=== PATIENT | male | born 1975 | race Caucasian/White ===

== ENCOUNTER 2017-12-10 19:43 | Emergency (ER) | payer BC, SELFPAY ==
[2017-12-10 20:13] VITALS: BP 123/81; PULSE 88; RESP 20; TEMP 36.9; O2SAT 98; BMI 26.5
[2017-12-10 20:27] LABS: UTC Influenza A Antigen Negative (Negative); UTC Influenza B Antigen Negative (Negative)
--- NOTE | 2017-12-10 20:45 | HMH.EDUTC ---
[facility] [place] Impression: Viral upper respiratory illness GERD (gastroesophageal reflux disease) Qualifiers: Esophagitis presence: without esophagitis Qualified Code(s): K21.9 - Gastro-esophageal reflux disease without esophagitis Disposition: Home, Self-Care Condition on Discharge: Good Instructions: Gastroesophageal Reflux Disease (Alternative Therapy), DI for Gastroesophageal Reflux Disease (GERD), DI for Viral Upper Respiratory Infection -- Adult, GERD Diet Additional Instructions: Follow up with family doctor as advised in [facility] If you began to run fever may want to get retested for flu Do not lay down for 30 minutes after eating Avoid spicy or greasy food Return if needed If you began to have trouble breathing or worsening of symptoms go straight to ER Referrals: Jessie Ferrell PA [Primary Care Provider] - Forms: Work/School Release Time of Disposition: 20:57 Medical Decision Making - Medical Records Medical records reviewed: Yes: I reviewed the patient's medical records. Vital Signs: 12/10/17 20:13 Temperature 98.5 F Temperature Source Temporal Artery Scan Pulse Rate [Right] 88 Respiratory Rate 20 Blood Pressure [Right Arm] 123/81 Blood Pressure Mean [Right Arm] 95 Blood Pressure Source [Right Arm] Automatic Cuff Blood Pressure Position [Right Arm] Sitting 02 Sat by Pulse Oximetry 98 Oxygen Delivery Method Room Air - Lab Data Lab Results 12/10/17 20:16: Influenza Type A Ag Negative, Influenza Type B Ag Negative Orders (Tests/Meds): ED MEDICATIONS Discontinued Medications Generic Name Dose Route Start Last Admin Trade Name Freq PRN Reason Stop Dose Admin Belladonna Alkaloids 60 ml 12/10/17 20:53 12/10/17 21:06 Gi Cocktail 60ml Udc PO 12/10/17 20:54 60 ml ONCE ONE Administration - Wilfred Inquiry Pt receiving controlled substance: No Wilfred was queried for this patient: No - Reevaluation(s) Time: 21:11 (Pateint state that medication helped with GERD symptoms and he feels much better) [facility] [place] - General Stated complaint: Stomache pain, throat, FREEMAN Mode of Arrival: Ambulatory Source of Information: Patient Limitations: No Limitations Description of Symptoms (Recalled from Triage Doc. by RN): HEADACHE, NAUSEA TODAY HEENT Symptoms (Recalled from RN notes): No Resp Symptoms (Recalled from RN notes): No Skin Symptoms (Recalled from RN notes): No MS Symptoms (Recalled from RN notes): No Functional Status (Recalled from RN notes): N - History of Present Illness Provider Complaint: Patient state that he has a history of GERD state that he had an eppisode earlier of a flare up and having the burning feeling in his throat from where he belched up stomach acid States that he is also worried that he may have the flu State that his son had it last week and now he is not feeling well and having body aches wants to get tested to see if he has it - Related Data Home Medications Medication Instructions Recorded Confirmed omeprazole 40 mg capsule,delayed 40 mg PO QDAY 12/08/17 release Allergies Allergy/AdvReac Type Severity Reaction Status Date / Time Iodinated Contrast Media - Allergy Intermediate Verified 12/08/17 16:26 Oral and - Worker's Comp Is this a Worker's Comp case?: No [facility] History I have reviewed the patient's past medical history: Yes Medical History: Reports:: Anxiety, Gastroesophageal Reflux Disease(GERD) Other Medical History: Reports: Other Other Surgeries: Yes: Appendectomy, Other Amputation: No Fractures: No - *Social History Smoking Status: Current every day smoker Tobacco Type: cigarettes Alcohol Intake: never Alcohol Intake Frequency:: holidays/special occasions only Substance Use Type: denies use Occupational Status: employed - Psychiatric History Expresses thoughts of harming self/others: None Suicide Plan Description: No Plan Pschychiatric History:: Reports:: Anxiety *Family Hx:: Heart
--- NOTE | 2017-12-10 20:52 | ED_ITS ---
[facility] [place]ression: Viral upper respiratory illness GERD (gastroesophageal reflux disease) Qualifiers: Esophagitis presence: without esophagitis Qualified Code(s): K21.9 - Gastro- esophageal reflux disease without esophagitis Disposition: Home, Self-Care Condition on Discharge: Good Instructions: Gastroesophageal Reflux Disease (Alternative Therapy), DI for Gastroesophageal Reflux Disease (GERD), DI for Viral Upper Respiratory Infection -- Adult, GERD Diet Additional Instructions: Follow up with family doctor as advised in [facility] If you began to run fever may want to get retested for flu Do not lay down for 30 minutes after eating Avoid spicy or greasy food Return if needed If you began to have trouble breathing or worsening of symptoms go straight to ER Referrals: Jessie Ferrell PA [Primary Care Provider] - Forms: Work/School Release Time of Disposition: 20:57 Medical Decision Making - Medical Records Medical records reviewed: Yes: I reviewed the patient's medical records. Vital Signs: 12/10/17 20:13 Temperature 98.5 F Temperature Source Temporal Artery Scan Pulse Rate [Right] 88 Respiratory Rate 20 Blood Pressure [Right Arm] 123/81 Blood Pressure Mean [Right Arm] 95 Blood Pressure Source [Right Arm] Automatic Cuff Blood Pressure Position [Right Arm] Sitting 02 Sat by Pulse Oximetry 98 Oxygen Delivery Method Room Air - Lab Data Lab Results 12/10/17 20:16: Influenza Type A Ag Negative, Influenza Type B Ag Negative Orders (Tests/Meds): ED MEDICATIONS Discontinued Medications Generic Name Dose Route Start Last Admin Trade Name Freq PRN Reason Stop Dose Admin Belladonna Alkaloids 60 ml 12/10/17 20:53 12/10/17 21:06 Gi Cocktail 60ml Udc PO 12/10/17 20:54 60 ml ONCE ONE Administration - Wilfred Inquiry Pt receiving controlled substance: No Wilfred was queried for this patient: No - Reevaluation(s) Time: 21:11 (Pateint state that medication helped with GERD symptoms and he feels much better) [facility] [place] Stated complaint: Stomache pain, throat, FREEMAN Mode of Arrival: Ambulatory Source of Information: Patient Limitations: No Limitations Description of Symptoms (Recalled from Triage Doc. by RN): HEADACHE, NAUSEA TODAY HEENT Symptoms (Recalled from RN notes): No Resp Symptoms (Recalled from RN notes): No Skin Symptoms (Recalled from RN notes): No MS Symptoms (Recalled from RN notes): No Functional Status (Recalled from RN notes): N - History of Present Illness Provider Complaint: Patient state that he has a history of GERD state that he had an eppisode earlier of a flare up and having the burning feeling in his throat from where he belched up stomach acid States that he is also worried that he may have the flu State that his son had it last week and now he is not feeling well and having body aches wants to get tested to see if he has it - Related Data Home Medications Medication Instructions Recorded Confirmed omeprazole 40 mg capsule,delayed 40 mg PO QDAY 12/08/17 release Allergies Allergy/AdvReac Type Severity Reaction Status Date / Time Iodinated Contrast Media - Allergy Intermediate Verified 12/08/17 16:26 Oral and - Worker's Comp Is this a Worke
== END 2017-12-10 21:18 | disposition home or self-care (01) ==
PROVIDERS: Emergency Provider Nurse Practitioner; Family Provider Physician Assistant; PCP Physician Assistant
DX: J06.9 Acute upper respiratory infection, unspecified (principal); K21.9 Gastro-esophageal reflux disease without esophagitis; F41.9 Anxiety disorder, unspecified; F17.210 Nicotine dependence, cigarettes, uncomplicated
CPT/HCPCS: 87804; 99201

== ENCOUNTER → 2018-03-24 16:28 | Outpatient (CLI) | payer BC, SELFPAY ==
[2018-03-24 16:42] LABS: Basophils # 0.1 K/mm3 (0-0.2); Basophils % 0.8 % (0.1-2.0); Eosinophils # 0.3 K/mm3 (0.0-0.4); Eosinophils % 5.9 % (0.1-12.0); Hemoglobin 15.1 g/dL (14.1-18.0); Lymphocytes # 1.7 K/mm3 (0.7-4.5); Mean Corpuscular Hemoglobin 29.6 pg (27.0-31.2); Mean Corpuscular Volume 84.5 fl (80-94); Mean Platelet Volume 7.4 fl (7.4-10.4); Monocytes # 0.5 K/mm3 (0.1-1.0); Monocytes % 7.8 % (1.7-9.3); Neutrophils # 3.2 K/mm3 (1.8-7.8); Neutrophils % 55.5 % (37.0-80.0); Platelet Count 197 K/mm3 (142-424); Red Blood Count 5.09 M/mm3 (4.60-6.20); Red Cell Distribution Width 12.7 % (11.5-17.5); White Blood Count 5.8 K/mm3 (4.8-10.8)
== END ==
PROVIDERS: Visit Provider Nurse Practitioner
DX: R16.1 Splenomegaly, not elsewhere classified (principal)
CPT/HCPCS: 36415; 85025

== ENCOUNTER → 2018-04-27 12:09 | Outpatient (CLI) | payer BC, SELFPAY ==
--- NOTE | 2018-04-27 12:11 | XR_ITS ---
XR shoulder RT min 2V HISTORY: ITS.REASON: Right shoulder pain ORDERING PHYSICIAN: DEBI Muhammad PATIENT AGE: 42 years Comparison: None FINDINGS: No fracture or dislocation. No lytic or blastic change. There is normal mineralization. The joint spaces are well-preserved. No significant degenerative/arthritic changes. No erosive changes evident. IMPRESSION: Negative, no acute finding
== END ==
PROVIDERS: PCP Physician Assistant; Visit Provider Physician Assistant
DX: M25.511 Pain in right shoulder (principal)
CPT/HCPCS: 73030

== ENCOUNTER → 2018-05-01 10:30 | Outpatient (CLI) | payer BC, SELFPAY ==
[2018-05-01 13:32] LABS: Basophils % 0.5 % (0.1-2.0); Eosinophils % 0.5 % (0.1-12.0); Hematocrit 49.6 % (42.0-52.0); Hemoglobin 16.4 g/dL (14.1-18.0); Lymphocytes # 1.3 K/mm3 (0.7-4.5); Lymphocytes % 17.2 K/mm3 (10-50); Mean Corpuscular HGB Conc 33.2 g/dL (31.8-35.4); Mean Corpuscular Hemoglobin 28.5 pg (27.0-31.2); Mean Corpuscular Volume 85.8 fl (80-94); Mean Platelet Volume 7.8 fl (7.4-10.4); Monocytes # 0.6 K/mm3 (0.1-1.0); Monocytes % 7.3 % (1.7-9.3); Neutrophils # 5.7 K/mm3 (1.8-7.8); Neutrophils % 74.4 % (37.0-80.0); Platelet Count 259 K/mm3 (142-424); Red Blood Count 5.78 M/mm3 (4.60-6.20); Red Cell Distribution Width 12.3 % (11.5-17.5); White Blood Count 7.7 K/mm3 (4.8-10.8)
[2018-05-01 13:50] LABS: Amphetamine/Metha Screen,Urine Negative ng/mL (<1000); Barbiturates Screen,Urine Negative ng/mL (<200); Benzodiazepines Screen,Urine Positive ng/mL (200); Cannabinoid Screen,Urine Negative ng/mL (<50); Cocaine Screen,Urine Negative ng/g (<300); Methadone Screen,Urine Negative ng/mL (<300); Opiate Screen,Urine Negative ng/mL (<300); Phencyclidine Screen,Urine Negative ng/mL (<25)
[2018-05-01 14:15] LABS: Alanine Aminotransferase 19 U/L (12-78); Albumin Level 4.3 gm/dL (3.4-5.0); Albumin/Globulin Ratio 1.3 (1.1-1.8); Alkaline Phosphatase 67 U/L (46-116); Anion Gap 11.9 mEq/L (5-15); Aspartate Amino Transferase 15 U/L (15-37); Bilirubin,Total 1.1 mg/dL (0.2-1.0); Blood Urea Nitrogen 16 mg/dL (7-18); Calcium 8.8 mg/dL (8.5-10.1); Carbon Dioxide 29 mmol/L (21.0-32.0); Chloride 102 mmol/L (98-107); Chol/HDL Ratio 3.3 (1-3.5); Cholesterol 193 mg/dL (140-200); Creatinine,Serum 0.98 mg/dL (0.70-1.30); Estimated Glomerular Filt Rate 84 ml/min (>60); GFR (African American) 102 ML/MIN (>60); Globulin 3.2 gm/dl (1.3-3.2); Glucose 99 mg/dL (74-106); HDL Cholesterol 59 mg/dL (27-67); LDL Cholesterol 111 mg/dL (0-130); Potassium 3.9 mmoL/L (3.5-5.1); Sodium 139 mmol/L (136-145); T4 (Thyroxine) 7.7 ug/dl (4.7-13.3); Total Protein,Serum 7.5 gm/dL (6.4-8.2); Triglycerides 116 mg/dL (30-200); VLDL Cholesterol 23 mg/dL (0-40)
== END ==
PROVIDERS: Visit Provider Nurse Practitioner Family
DX: F41.9 Anxiety disorder, unspecified (principal); R53.83 Other fatigue; Z79.899 Other long term (current) drug therapy
CPT/HCPCS: 80053; 80061; 80305; 84436; 84443; 85025

== ENCOUNTER → 2018-06-18 14:16 | Outpatient (CLI) | payer BC, SELFPAY ==
[2018-06-18 18:39] LABS: Alanine Aminotransferase 19 U/L (12-78); Albumin Level 4.1 gm/dL (3.4-5.0); Albumin/Globulin Ratio 1.3 (1.1-1.8); Alkaline Phosphatase 68 U/L (46-116); Anion Gap 12.9 mEq/L (5-15); Aspartate Amino Transferase 14 U/L (15-37); Bilirubin,Total 0.8 mg/dL (0.2-1.0); Blood Urea Nitrogen 14 mg/dL (7-18); Calcium 8.9 mg/dL (8.5-10.1); Carbon Dioxide 30 mmol/L (21.0-32.0); Chloride 104 mmol/L (98-107); Creatinine,Serum 1.02 mg/dL (0.70-1.30); Estimated Glomerular Filt Rate 80 ml/min (>60); GFR (African American) 97 ML/MIN (>60); Globulin 3.1 gm/dl (1.3-3.2); Glucose 110 mg/dL (74-106); Potassium 3.9 mmoL/L (3.5-5.1); Sodium 143 mmol/L (136-145); Total Protein,Serum 7.2 gm/dL (6.4-8.2)
== END ==
PROVIDERS: Visit Provider Nurse Practitioner Family
DX: F10.10 Alcohol abuse, uncomplicated (principal)
CPT/HCPCS: 80053

== ENCOUNTER → 2018-09-28 20:24 | Outpatient (CLI) | payer BC, SELFPAY ==
[2018-09-28 20:57] LABS: Basophils % 0.7 % (0.1-2.0); Eosinophils # 0.1 K/mm3 (0.0-0.4); Eosinophils % 2.2 % (0.1-12.0); Hematocrit 47.4 % (42.0-52.0); Hemoglobin 15.7 g/dL (14.1-18.0); Lymphocytes # 1.5 K/mm3 (0.7-4.5); Lymphocytes % 27.4 % (10-50); Mean Corpuscular HGB Conc 33.1 g/dL (31.8-35.4); Mean Corpuscular Hemoglobin 28.3 pg (27.0-31.2); Mean Corpuscular Volume 85.5 fl (80-94); Mean Platelet Volume 8.1 fl (7.4-10.4); Monocytes # 0.5 K/mm3 (0.1-1.0); Monocytes % 8.7 % (1.7-9.3); Neutrophils # 3.3 K/mm3 (1.8-7.8); Neutrophils % 61.1 % (37.0-80.0); Platelet Count 256 K/mm3 (142-424); Red Blood Count 5.54 M/mm3 (4.60-6.20); Red Cell Distribution Width 12.8 % (11.5-17.5); White Blood Count 5.3 K/mm3 (4.8-10.8)
[2018-09-28 21:03] LABS: Alanine Aminotransferase 16 U/L (12-78); Albumin Level 4.3 gm/dL (3.4-5.0); Albumin/Globulin Ratio 1.3 (1.1-1.8); Alkaline Phosphatase 65 U/L (46-116); Anion Gap 11.4 mEq/L (5-15); Aspartate Amino Transferase 18 U/L (15-37); Bilirubin,Total 0.9 mg/dL (0.2-1.0); Blood Urea Nitrogen 13 mg/dL (7-18); Calcium 9.3 mg/dL (8.5-10.1); Carbon Dioxide 32 mmol/L (21.0-32.0); Chloride 104 mmol/L (98-107); Chol/HDL Ratio 3.4 (1-3.5); Cholesterol 165 mg/dL (140-200); Creatinine,Serum 1.03 mg/dL (0.70-1.30); Estimated Glomerular Filt Rate 79 ml/min (>60); GFR (African American) 96 ML/MIN (>60); Globulin 3.3 gm/dl (1.3-3.2); Glucose 73 mg/dL (74-106); HDL Cholesterol 49 mg/dL (27-67); LDL Cholesterol 98 mg/dL (0-130); Potassium 4.4 mmoL/L (3.5-5.1); Sodium 143 mmol/L (136-145); T4 (Thyroxine) 8.5 ug/dl (4.7-13.3); Thyroid Stimulating Hormone 0.34 uIU/ml (0.358-3.740); Total Protein,Serum 7.6 gm/dL (6.4-8.2); Triglycerides 91 mg/dL (30-200); VLDL Cholesterol 18 mg/dL (0-40)
[2018-09-30 08:44] LABS: Vitamin D 25 Hydroxy 27.6 ng/mL (30.0-100.0)
[2018-09-30 11:10] LABS: PSA, Free 0.25 ng/mL; Prostate Specific Ag 0.9 ng/mL (0.0-4.0)
[2018-09-30 20:27] LABS: Peripheral Smear Review Scanned Result
== END ==
PROVIDERS: Visit Provider Physician Assistant
DX: R16.1 Splenomegaly, not elsewhere classified (principal); R10.12 Left upper quadrant pain; R53.83 Other fatigue; R06.00 Dyspnea, unspecified
CPT/HCPCS: 80053; 80061; 82652; 84153; 84154; 84436; 84443; 85025

== ENCOUNTER → 2018-10-09 14:14 | Outpatient (CLI) | payer BC, SELFPAY ==
--- NOTE | 2018-10-09 14:30 | CT_ITS ---
CT abdomen pelvis wo con CLINICAL INDICATION: Follow-up splenomegaly ITS.REASON: splenomegaly ORDERING PHYSICIAN: DEBI Muhammad PATIENT AGE: 43 years COMPARISON: 02/25/2017 TECHNIQUE: Axial images obtained with sagittal and coronal reformats. All CT scans at the facility use one or more dose reduction, viz: automated exposure control, ma/kV adjustment per patient size (including targeted exams where dose is matched to indication, i.e. head), or iterative reconstruction technique. PROCEDURE: Oral Contrast: None IV Contrast: None . FINDINGS: No acute finding in the lung bases. There is splenomegaly at 15 cm similar to the previous exam. The liver, gallbladder, pancreas, adrenal glands, and kidneys have an unremarkable unenhanced appearance. Prior appendectomy. No intestinal obstruction or free air. No evidence of diverticulitis. No pelvic mass or abnormal fluid collection or focal inflammatory change. No acute bony anomalies. IMPRESSION: No change mild splenomegaly. No acute finding
== END ==
PROVIDERS: PCP Physician Assistant; Visit Provider Physician Assistant
DX: R16.1 Splenomegaly, not elsewhere classified (principal)
CPT/HCPCS: 74176

== ENCOUNTER → 2018-10-29 15:25 | Outpatient (CLI) | payer BC, SELFPAY ==
[2018-10-29 16:13] LABS: Basophils # 0.1 K/mm3 (0-0.2); Basophils % 0.8 % (0.1-2.0); Eosinophils # 0.2 K/mm3 (0.0-0.4); Eosinophils % 3.3 % (0.1-12.0); Hematocrit 43.6 % (42.0-52.0); Hemoglobin 14.7 g/dL (14.1-18.0); Lymphocytes # 1.5 K/mm3 (0.7-4.5); Lymphocytes % 27.2 % (10-50); Mean Corpuscular HGB Conc 33.7 g/dL (31.8-35.4); Mean Corpuscular Hemoglobin 28.8 pg (27.0-31.2); Mean Corpuscular Volume 85.5 fl (80-94); Mean Platelet Volume 7.3 fl (7.4-10.4); Monocytes # 0.4 K/mm3 (0.1-1.0); Monocytes % 7.7 % (1.7-9.3); Neutrophils # 3.5 K/mm3 (1.8-7.8); Platelet Count 218 K/mm3 (142-424); Red Cell Distribution Width 12.9 % (11.5-17.5); White Blood Count 5.7 K/mm3 (4.8-10.8)
[2018-10-31 15:27] LABS: Peripheral Smear Review Scanned Result
== END ==
PROVIDERS: Visit Provider Internal Medicine Medical Oncology
DX: R16.1 Splenomegaly, not elsewhere classified (principal)
CPT/HCPCS: 36415; 85025

== ENCOUNTER → 2018-12-03 08:54 | Outpatient (CLI) | payer BC, SELFPAY ==
--- NOTE | 2018-12-03 08:55 | US_ITS ---
US gallbladder HISTORY: Pain, nausea, indigestion ITS.REASON: abd pain ORDERING PHYSICIAN: Ashok Adrian PATIENT AGE: 43 years Comparison: None FINDINGS: PANCREAS: Unremarkable. No obvious mass or abnormal fluid collection. No ductal dilatation LIVER: No focal liver lesions demonstrated. Homogeneous echogenicity. No intrahepatic biliary ductal dilatation evident RIGHT KIDNEY: Unremarkable. Normal size and echogenicity. No hydronephrosis GALLBLADDER: No gallstones, gallbladder wall thickening, pericholecystic fluid, or biliary dilatation. Trace amount sludge noted gallbladder IMPRESSION: Trace amount sludge in the gallbladder otherwise negative gallbladder/right upper quadrant ultrasound
== END ==
LOC: RAD 08:54
PROVIDERS: PCP Physician Assistant; Visit Provider Nurse Practitioner Family
DX: R10.9 Unspecified abdominal pain (principal)
CPT/HCPCS: 76705

== ENCOUNTER → 2019-01-05 10:12 | Outpatient (CLI) | payer BC, SELFPAY ==
--- NOTE | 2019-01-05 10:17 | NM_ITS ---
NM hepatobiliary w pharm HISTORY: Right upper quadrant pain ITS.REASON: RUQ pain, gallbladder sludge ORDERING PHYSICIAN: Ashok Adrian PATIENT AGE: 43 years COMPARISON: None DOSE: 7.59 NCI TC Choletec 1.6 MCG CCk inj into RT ant FINDINGS: Homogeneous activity is present within the hepatic parenchyma. Activity is present in the gallbladder by 15 minutes. Activity is present in the small bowel by 10 minutes. The gallbladder ejection fraction is calculated to be 99 % The patient reported mild pain during CCK infusion. IMPRESSION: Unremarkable hepatobiliary scan and gallbladder ejection fraction. No evidence of common or cystic duct obstruction with normal gallbladder ejection fraction
--- NOTE | 2019-01-05 11:20 | HMH.ITSHM ---
Current Home Medications as stated by this patient Juan Burnett or medicare sales representative. []OMEPRAZOLE BUSPIRONE
== END ==
PROVIDERS: PCP Physician Assistant; Visit Provider Nurse Practitioner Family
DX: R10.11 Right upper quadrant pain (principal)
CPT/HCPCS: 78227; A9537; J2805

== ENCOUNTER → 2019-04-08 13:27 | Outpatient (CLI) | payer BC, SELFPAY ==
--- NOTE | 2019-04-08 13:28 | CT_ITS ---
CT chest wo con HISTORY: Shortness of air, mid chest pain, abnormal chest x-ray ITS.REASON: Dyspnea, weight loss, abnl CXR ORDERING PHYSICIAN: DEBI Cardoza PATIENT AGE: 43 years COMPARISON: 01/23/2016 Technique: Axial images obtained. Sagittal, and coronal reformatted images are also generated and reviewed. All CT scans at the facility use one or more dose reduction, viz: automated exposure control, ma/kV adjustment per patient size (including targeted exams where dose is matched to indication, i.e. head), or iterative reconstruction technique. FINDINGS: No mediastinal or hilar mass or adenopathy. No coronary artery calcifications. Normal heart size. Calcified granuloma is present in the right upper lobe laterally. No lobar consolidation or collapse. No suspicious pulmonary nodules. No infiltrates or effusions. No central obstructing lesions. There are few calcified small nodes within the mediastinum. Upper abdominal images are unremarkable. No acute bony anomalies. IMPRESSION: No acute finding. No significant change. Old granulomatous disease
== END ==
LOC: RAD 13:27
PROVIDERS: PCP Physician Assistant; Visit Provider Physician Assistant
DX: R06.00 Dyspnea, unspecified (principal); R63.4 Abnormal weight loss; R93.89 Abnormal findings on diagnostic imaging of other specified body structures; Z87.891 Personal history of nicotine dependence
CPT/HCPCS: 71250; 94060; 94640

== ENCOUNTER → 2019-11-12 10:19 | Outpatient (CLI) | payer BC, SELFPAY ==
[2019-11-12 11:51] LABS: D-Dimer < 100 ng/mL (0-400)
[2019-11-12 12:46] LABS: Free T4 (Free Thyroxine) 1.11 ng/dl (0.76-1.46); Thyroid Stimulating Hormone 0.36 uIU/ml (0.358-3.740)
== END ==
PROVIDERS: Visit Provider Internal Medicine Cardiovascular Disease
DX: R06.02 Shortness of breath (principal); Z00.00 Encounter for general adult medical examination without abnormal findings
CPT/HCPCS: 36415; 83880; 84439; 84443; 85378

== ENCOUNTER → 2019-11-18 17:31 | Outpatient (CLI) | payer BC, SELFPAY ==
[2019-11-18 19:18] LABS: Free T4 (Free Thyroxine) 1.16 ng/dl (0.76-1.46); Thyroid Stimulating Hormone 0.47 uIU/ml (0.358-3.740)
[2019-11-21 17:58] LABS: Thyroid Peroxidase Antibodies 6 IU/mL (0-34); Triiodothyronine (T3) Free 3.7 pg/mL (2.0-4.4)
[2019-11-22 07:08] LABS: Thyroid Stimulating Immunoglob <0.10 IU/L (0.00-0.55)
== END ==
PROVIDERS: Visit Provider Physician Assistant
DX: R00.0 Tachycardia, unspecified (principal)
CPT/HCPCS: 84439; 84443; 84445; 84481; 86376

== ENCOUNTER 2020-03-04 20:09 | Emergency (ER) | payer BC, SELFPAY ==
[2020-03-04 20:19] VITALS: BP 120/102; PULSE 100; RESP 16; TEMP 36.7; O2SAT 99; BMI 22.9
[2020-03-04 20:34] VITALS: BP 120/102; PULSE 100; RESP 16; TEMP 36.7; O2SAT 99; BMI 22.8
--- NOTE | 2020-03-04 20:37 | HMH.EDUTC ---
[facility] [place]: Anxiety Disposition: Home, Self-Care Condition on Discharge: Good Instructions: DI for Anxiety -- Adult, Diazepam Additional Instructions: Follow up with your primary care provider to discuss your medications. Don't drive or operate heavy machinery after taking the diazepam (valium). GO TO THE ER FOR ANY WORSENING SYMPTOMS OR CONCERNS Prescriptions: diazePAM [Valium] 5 mg PO BIDP PRN #10 tab PRN Reason: Anxiety Prescription Printed Referrals: Jessie Ferrell PA [Primary Care Provider] - Time of Disposition: 21:08 Medical Decision Making - Medical Records Medical records reviewed: Yes: I reviewed the patient's medical records. - Wilfred Inquiry Pt receiving controlled substance: No Wilfred was queried for this patient: Yes Reference #:: [id number] Vital Signs: 03/04/20 20:19 03/04/20 20:34 03/04/20 20:50 Temperature 98.0 F 98.0 F Temperature Source Oral Oral Pulse Rate Pulse Rate [Left Brachial] 100 H 100 H Pulse Rate [Orthostatic Lying Right Brachial] 80 Pulse Rate [Orthostatic Sitting Right Brachial] 84 Pulse Rate [Orthostatic Standing Right Brachial] 103 H Respiratory Rate 16 16 Blood Pressure Blood Pressure [Left Arm] 120/102 H 120/102 H Blood Pressure [Orthostatic Lying Right Arm] 120/87 Blood Pressure [Orthostatic Sitting Right Arm] 130/91 H Blood Pressure [Orthostatic Standing Right Arm] 138/96 H Blood Pressure Mean [Left Arm] 108 108 Blood Pressure Source [Left Arm] Automatic Cuff Automatic Cuff Blood Pressure Position [Left Arm] Sitting Sitting 02 Sat by Pulse Oximetry 99 99 Oxygen Delivery Method Room Air Room Air 03/04/20 21:10 Temperature 98.0 F Temperature Source Pulse Rate 80 Pulse Rate [Left Brachial] Pulse Rate [Orthostatic Lying Right Brachial] Pulse Rate [Orthostatic Sitting Right Brachial] Pulse Rate [Orthostatic Standing Right Brachial] Respiratory Rate 16 Blood Pressure 130/91 H Blood Pressure [Left Arm] Blood Pressure [Orthostatic Lying Right Arm] Blood Pressure [Orthostatic Sitting Right Arm] Blood Pressure [Orthostatic Standing Right Arm] Blood Pressure Mean [Left Arm] Blood Pressure Source [Left Arm] Blood Pressure Position [Left Arm] 02 Sat by Pulse Oximetry Oxygen Delivery Method Orders (Tests/Meds): ORDERS Category Date Time Status 12-lead EKG Request [ECG Request by Dr/Nse] Stat Y 03/04/20 21:01 Stop Req [facility] [place] General Stated complaint: pressure in head ear pain dizzyness Time Seen by Provider: 03/04/20 20:37 Mode of Arrival: Ambulatory Limitations: No Limitations Description of Symptoms (Recalled from Triage Doc. by RN): Patient reports left sided ear pain x2 days with some associated dizziness. Patient also reports he has been belching alot lately and the medicine he normally takes for the acid reflux has not been working. - History of Present Illness Provider Complaint: He c/o worsening anxiety. He is being followed by his pcp for this. He started zoloft 3 days ago. He feels like his symptoms are getting worse. He denies any SI or HI. - Related Data Home Medications Medication Instructions Recorded Confirmed pantoprazole 40 mg tablet,delayed PO 11/18/19 02/24/20 release levalbuterol tartrate 45 2 puff INHALATION Q4-6H PRN 02/24/20 02/24/20 mcg/actuation aerosol inhaler montelukast 10 mg tablet 10 mg PO QHS 02/24/20 02/24/20 Previous Rx's Medication Instructions Recorded metoprolol succinate 25 mg 25 mg PO DAILY #30 tab 02/24/20 tablet,extended release 24 hr sertraline 100 mg tablet 100 mg PO DAILY #30 tab 02/24/20 diazePAM [Valium] 5 mg PO BIDP PRN #10 tab 03/04/20 Allergies Allergy/AdvReac Type Severity Reaction Status Date / Time fluticasone Allergy Severe Difficulty Verified 02/24/20 13:20 [From Advair Diskus] Swallowing salmeterol Allergy Severe Difficulty Verified 02/24/20 13:20 [From Advair Diskus] Fredrick
--- NOTE | 2020-03-04 20:48 | ECG_ITS ---
APPROVED REPORT Exam: Resting ECG HR:72 bpm ECG Measurements Heart Rate 72 AXES AZ 152 P 39 QRSd 80 QRS -3 QT 374 T 42 QTc 409 <Conclusion> Normal sinus rhythm Possible Left atrial enlargement Borderline ECG Electronically signed by : Aly Medina, 03/05/2020 17:01:46
[2020-03-04 20:50] VITALS: BP 120/87; BP 130/91; BP 138/96; PULSE 103; PULSE 80; PULSE 84
[2020-03-04 21:10] VITALS: BP 130/91; PULSE 80; RESP 16; TEMP 36.7; O2SAT 99
== END 2020-03-04 21:14 | disposition home or self-care (01) ==
PROVIDERS: Emergency Provider Nurse Practitioner Family; PCP Physician Assistant
DX: F41.9 Anxiety disorder, unspecified (principal); J45.909 Unspecified asthma, uncomplicated; K21.9 Gastro-esophageal reflux disease without esophagitis; Z79.899 Other long term (current) drug therapy
CPT/HCPCS: 93005; 99201

== ENCOUNTER 2020-03-23 15:56 | Emergency (ER) | payer BC, SELFPAY ==
[2020-03-23 16:17] VITALS: BP 123/88; PULSE 100; RESP 16; TEMP 36.9; O2SAT 100; BMI 24.0
--- NOTE | 2020-03-23 16:17 | HMH.EDUTC ---
[facility] [place] Impression: Otitis media Qualifiers: Otitis media type: suppurative Chronicity: acute Laterality: left Recurrence: non-recurrent Spontaneous tympanic membrane rupture: without spontaneous rupture Qualified Code(s): H66.002 - Acute suppurative otitis media without spontaneous rupture of ear drum, left ear Disposition: Home, Self-Care Condition on Discharge: Good Instructions: Middle Ear Infection Additional Instructions: Drink plenty of fluids. Take tylenol or ibuprofen for pain or fever. Take the medications as directed. Follow up with your regular doctor. GO TO THE ER FOR ANY WORSENING SYMPTOMS Prescriptions: Amoxicillin [Amoxicillin 500mg Tab] 500 mg PO TID 10 Days #30 tab Transmission Status: Received by [id number] predniSONE [Deltasone 10mg tablet] 10 mg PO BID 4 Days #8 tab Transmission Status: Received by [id number] Referrals: Jessie Ferrell PA [Primary Care Provider] - Time of Disposition: 16:30 Medical Decision Making - Medical Records Medical records reviewed: No: I reviewed the patient's medical records. - Wilfred Inquiry Pt receiving controlled substance: No Vital Signs: 03/23/20 16:17 03/23/20 16:54 Temperature 98.4 F 98.4 F Temperature Source Oral Oral Pulse Rate 100 H Pulse Rate [Right Radial] 100 H Respiratory Rate 16 16 Blood Pressure 123/88 Blood Pressure [Right Arm] 123/88 Blood Pressure Mean [Right Arm] 99 Blood Pressure Source [Right Arm] Automatic Cuff Blood Pressure Position [Right Arm] Sitting 02 Sat by Pulse Oximetry 100 Oxygen Delivery Method Room Air [facility] [place] - General Stated complaint: ears problems Time Seen by Provider: 03/23/20 16:17 - History of Present Illness Provider Complaint: He c/o left ear pressure and pain and dizziness at times. Bending over and standing back up makes the symptoms worse. - Related Data Home Medications Medication Instructions Recorded Confirmed pantoprazole 40 mg tablet,delayed PO 11/18/19 03/06/20 release levalbuterol tartrate 45 2 puff INHALATION Q4-6H PRN 02/24/20 03/06/20 mcg/actuation aerosol inhaler montelukast 10 mg tablet 10 mg PO QHS 02/24/20 03/06/20 buspirone 5 mg tablet 5 mg PO BID tab 03/06/20 03/06/20 Previous Rx's Medication Instructions Recorded metoprolol succinate 25 mg 25 mg PO DAILY #30 tab 02/24/20 tablet,extended release 24 hr sertraline 100 mg tablet 100 mg PO DAILY #30 tab 02/24/20 diazePAM [Valium] 5 mg PO BIDP PRN #10 tab 03/04/20 meclizine 25 mg tablet 25 mg PO TID PRN #30 tab 03/06/20 Amoxicillin [Amoxicillin 500mg Tab] 500 mg PO TID 10 Days #30 tab 03/23/20 predniSONE [Deltasone 10mg tablet] 10 mg PO BID 4 Days #8 tab 03/23/20 Allergies Allergy/AdvReac Type Severity Reaction Status Date / Time fluticasone Allergy Severe Difficulty Verified 03/06/20 13:47 [From Advair Diskus] Swallowing salmeterol Allergy Severe Difficulty Verified 03/06/20 13:47 [From Advair Diskus] Swallowing [facility] History - Hepatitis A Screen Attestation statement:: This patient has been screened for Hepatitis A risk factors. I have reviewed the patient's past medical history: Yes Medical History: Reports:: Anxiety, Asthma, Cancer, Gastroesophageal Reflux Disease(GERD) Denies:: Diabetes Mellitus Type 1, Diabetes Mellitus Type 2, MRSA Other Medical History: Reports: Other Comment: HYSTOPLASMOSIS Laterality Cases: Left: Arthroscopy Knee Other Surgeries: Yes: Appendectomy, Other Amputation: No Fractures: No Comment: KNEE SURGERY, HAND SURGERY X2 - Social History Smoking Status: Former smoker Tobacco Type: smokeless tobacco # Packs/Day (cigarettes): 0 Alcohol Intake: never Alcohol Intake Frequency:: a few times a week Substance Use Type: denies use Occupational Status: other Housing: house Household Members: spouse - Psychiatric History Pschychiatric History:: Reports:: Anxiety Family Hx:: Heart Attack, Hype
[2020-03-23 16:54] VITALS: BP 123/88; PULSE 100; RESP 16; TEMP 36.9; O2SAT 100
== END 2020-03-23 16:57 | disposition home or self-care (01) ==
PROVIDERS: Emergency Provider Nurse Practitioner Family; PCP Physician Assistant
DX: H66.002 Acute suppurative otitis media without spontaneous rupture of ear drum, left ear (principal); K21.9 Gastro-esophageal reflux disease without esophagitis; F41.9 Anxiety disorder, unspecified; Z87.891 Personal history of nicotine dependence; Z79.899 Other long term (current) drug therapy
CPT/HCPCS: 99201

== ENCOUNTER → 2020-05-17 13:26 | Outpatient (CLI) | payer BC, SELFPAY ==
[2020-05-17 15:05] LABS: Blood Urea Nitrogen 16 mg/dl (9-20); Estimated Glomerular Filt Rate 82 ml/min (>60); GFR (African American) 99 ML/MIN (>60)
== END ==
PROVIDERS: Visit Provider Internal Medicine
DX: Z01.818 Encounter for other preprocedural examination (principal)
CPT/HCPCS: 36415; 82565; 84520

== ENCOUNTER → 2020-05-18 08:17 | Outpatient (CLI) | payer BC, SELFPAY ==
--- NOTE | 2020-05-18 08:25 | CT_ITS ---
PROCEDURE: CT ABDOMEN PELVIS W CON CLINICAL INDICATION: L LOWER QUADRANT ABD PAIN Weight loss, enlarged spleen, abdominal pain COMPARISON: ABDPELWO CT abdomen pelvis wo con from 10/09/2018 TECHNIQUE: IV Contrast: 75ML OPTIRAY 350 Oral Contrast 450ml Redicat Axial images obtained with sagittal and coronal reformats. All CT scans at the facility use one or more dose reduction, viz: automated exposure control, ma/kV adjustment per patient size (including targeted exams where dose is matched to indication, i.e. head), or iterative reconstruction technique. FINDINGS: LOWER THORAX: No acute finding ABDOMEN & PELVIS: The liver, adrenal glands, pancreas, and kidneys have an unremarkable appearance. Unremarkable appearing gallbladder. The spleen is enlarged at 15 cm in maximum AP dimension. This is not significantly changed. No splenic masses are evident. No intestinal obstruction or free air. There has been a prior appendectomy. No pelvic mass or abnormal fluid collection. No evidence of diverticulitis. No acute bony anomaly IMPRESSION: Overall no change with no acute finding. Stable mild splenomegaly Dictated by: Vickey Mora MD 05/19/2020 12:29 Electronically signed by Vickey Mora MD in [place] 05/19/2020 12:29
--- NOTE | 2020-05-18 09:16 | HMH.ITSHM ---
Current Home Medications as stated by this patient Juan Burnett or self pay representative. []BUSPIRONE METOPROLOL OMEPRAZOLE ALLERGY MED
== END ==
LOC: RAD 08:17
PROVIDERS: PCP Physician Assistant; Visit Provider Internal Medicine
DX: R10.32 Left lower quadrant pain (principal)
CPT/HCPCS: 74177; Q9967

== ENCOUNTER 2020-08-01 12:31 | Emergency (ER) | payer BC, SELFPAY ==
[2020-08-01 12:39] VITALS: BP 127/89; PULSE 89; RESP 16; O2SAT 100; BMI 23.6
--- NOTE | 2020-08-01 12:45 | HMH.EDUTC ---
[facility] [place]ression: Otitis media Qualifiers: Otitis media type: unspecified Laterality: left Qualified Code(s): H66.92 - Otitis media, unspecified, left ear Disposition: Home, Self-Care Condition on Discharge: Good Instructions: Middle Ear Infections (Alternative Therapy), Middle Ear Infection, Amoxicillin Additional Instructions: Take medication as prescribed Over the counter Allergy medication may help with allergy symptoms Follow up with Family doctor if no improvement or any worsening of symptoms Return if needed Straight to ER if any life threatening symptoms Prescriptions: Amoxicillin [Amoxicillin 875MG Tab] 875 mg PO Q12H #20 tab Transmission Status: Pending to [id number] Referrals: Jessie Ferrell PA [Primary Care Provider] - As needed Time of Disposition: 12:52 Medical Decision Making - Wilfred Inquiry Pt receiving controlled substance: No Wilfred was queried for this patient: No Vital Signs: 08/01/20 12:39 Pulse Rate [Radial] 89 Respiratory Rate 16 Blood Pressure [Right Arm] 127/89 Blood Pressure Mean [Right Arm] 101 Blood Pressure Source [Right Arm] Automatic Cuff Blood Pressure Position [Right Arm] Sitting 02 Sat by Pulse Oximetry 100 Oxygen Delivery Method Room Air [facility] [place] - General Stated complaint: pain in left ear Time Seen by Provider: 08/01/20 12:45 Mode of Arrival: Ambulatory Source of Information: Patient Limitations: No Limitations Description of Symptoms (Recalled from Triage Doc. by RN): pain and pressure in left ear. HEENT Symptoms (Recalled from RN notes): Yes Resp Symptoms (Recalled from RN notes): No Skin Symptoms (Recalled from RN notes): No MS Symptoms (Recalled from RN notes): No Functional Status (Recalled from RN notes): wnl - History of Present Illness Provider Complaint: Patient states that he has been having pain and pressure in his left ear for several days that has continued to get worse States that he hasnt had a fever that he is aware of States that he use to have ear infections alot as a child States that pain is throbbing like pain and has continued to worsen - Related Data Home Medications Medication Instructions Recorded Confirmed levalbuterol tartrate 45 2 puff INHALATION Q4-6H PRN 02/24/20 07/24/20 mcg/actuation aerosol inhaler dupilumab 300 mg/2 mL subcutaneous 300 mg SQ Q2W 05/19/20 07/24/20 syringe omeprazole 40 mg capsule,delayed 40 mg PO cap 05/19/20 07/24/20 release Previous Rx's Medication Instructions Recorded metoprolol succinate 25 mg 25 mg PO DAILY #30 tab 02/24/20 tablet,extended release 24 hr levalbuterol HCl 0.63 mg/3 mL 0.63 mg INHALATION TID #90 ml 05/19/20 solution for nebulization diazepam 5 mg tablet 5 mg PO BIDP PRN #10 tab 06/23/20 venlafaxine 150 mg 150 mg PO DAILY #30 cap 07/24/20 capsule,extended release 24 hr Amoxicillin [Amoxicillin 875MG 875 mg PO Q12H #20 tab 08/01/20 Tab] Allergies Allergy/AdvReac Type Severity Reaction Status Date / Time fluticasone Allergy Severe Difficulty Verified 07/24/20 16:00 [From Advair Diskus] Swallowing salmeterol Allergy Severe Difficulty Verified 07/24/20 16:00 [From Advair Diskus] Swallowing - Worker's Comp Is this a Worker's Comp case?: No [facility] History - Hepatitis A Screen Drug use history?: No High risk sexual behaviors?: No History of sexually transmitted infection?: No Currently employed?: No Childcare worker?: No Do you have indoor plumbing?: Yes Do you have electricity?: Yes Attestation statement:: This patient has been screened for Hepatitis A risk factors. I have reviewed the patient's past medical history: Yes Medical History: Reports:: Anxiety, Asthma, Cancer, Gastroesophageal Reflux Disease(GERD) Denies:: Diabetes Mellitus Type 1, Diabetes Mellitus Type 2, MRSA Other Medical History: Reports: Other Comment: HYSTOPLASMOSIS--when he was 8 years old. -affected his lungs. -slight sca
[2020-08-01 13:01] VITALS: BP 127/89; PULSE 89; RESP 16; TEMP 36.7; O2SAT 100
== END 2020-08-01 13:02 | disposition home or self-care (01) ==
PROVIDERS: Emergency Provider Nurse Practitioner; PCP Physician Assistant
DX: H66.92 Otitis media, unspecified, left ear (principal); K21.9 Gastro-esophageal reflux disease without esophagitis; J45.909 Unspecified asthma, uncomplicated; F41.9 Anxiety disorder, unspecified; Z87.891 Personal history of nicotine dependence; Z79.899 Other long term (current) drug therapy
CPT/HCPCS: 99201

== ENCOUNTER 2020-09-10 19:42 | Emergency (ER) | payer BC, SELFPAY ==
[2020-09-10 19:57] VITALS: BP 135/96; PULSE 89; RESP 18; TEMP 36.9; O2SAT 100; BMI 23.6
--- NOTE | 2020-09-10 20:08 | HMH.EDUTC ---
[facility] [place]: Medication adverse effect Qualifiers: Encounter type: initial encounter Qualified Code(s): T50.905A - Adverse effect of unspecified drugs, medicaments and biological substances, initial encounter Disposition: Home, Self-Care Condition on Discharge: Good Instructions: Vortioxetine Additional Instructions: Hold Trintellix and follow up with Rachel Mann or with your Family Doctor tomorrow Return if needed Straight to ER if any life threatening symptoms Follow up with Family Doctor for further evaluation tomorrow Referrals: Jessie Ferrell PA [Primary Care Provider] - As needed Rachel Mann APRN [Nurse Practitioner] - As needed (Call tomorrow for appointment) Forms: Work/School Release Time of Disposition: 20:33 Medical Decision Making - Wilfred Inquiry Pt receiving controlled substance: No Wilfred was queried for this patient: No Vital Signs: 09/10/20 19:57 Temperature 98.4 F Temperature Source Oral Pulse Rate [Radial] 89 Respiratory Rate 18 Blood Pressure [Right Arm] 135/96 H Blood Pressure Mean [Right Arm] 109 Blood Pressure Source [Right Arm] Automatic Cuff Blood Pressure Position [Right Arm] Sitting 02 Sat by Pulse Oximetry 100 Oxygen Delivery Method Room Air Medical Decision Narrative: Spoke with Dr Arteaga about patient, informed him patient states that symptoms started in the last 3 days after recently starting new medication Trintellix and that symptoms have been off and on occurred again earlier today States that earlier he felt like his blood pressure was elevated, headache, nauseous and cold sweats, States that now headache is improved Informed him that he was recently started on Trintellix and felt like the medication was causing him to have these symptoms so he called pharmacy and they told him he may be having side effects, Dr Arteaga advised have him hold his Trintellix and follow up in the office in the morning with Jessie. Patient initially stated that Trintellix was prescribed by his PCP however after viewing medication list is was prescribed by Rachel Mann in behavioral health not PCP, patient made aware of who prescribed the medication and recommended follow up with both PCP and Rachel Mann. Patient agreed to hold medication and follow up tomorrow [facility] laughing and talking with staff and agreed to follow up tomorrow in the office for further evaluation and medication changes if needed with both his PCP and Rachel Mann [facility] UTC HPI - General Stated complaint: Blood pressure issues Time Seen by Provider: 09/10/20 20:09 Mode of Arrival: Ambulatory Source of Information: Patient Limitations: No Limitations Description of Symptoms (Recalled from Triage Doc. by RN): increased BP headache, dizziness, cold sweats,nausea since friday HEENT Symptoms (Recalled from RN notes): No Resp Symptoms (Recalled from RN notes): No Skin Symptoms (Recalled from RN notes): No MS Symptoms (Recalled from RN notes): Yes Functional Status (Recalled from RN notes): wnl - History of Present Illness Provider Complaint: Patient states that he is on blood pressure mediaction to help with his blood pressure and it has been good. states that he was recently started on Effexor and was having side effects so his Doctor changed his medication and put him on Trintellix and has been slowly raising his dose States that for the last three days he is not sure if it was anxiety causing his symptoms or if he was having side effects from the medication but has been having blood pressure issues, headache, cold sweats and feeling nauseous. States that earlier today his blood pressure felt like it was up and had a headache and felt nausous States that he called the pharmacist and they told him it could be a reaction to the medication and he may need to come in and get checked. States that he is feeling better now but came on in because he was working and was nervous it was goi
[2020-09-10 20:49] VITALS: BP 135/96; PULSE 89; RESP 18; TEMP 36.9; O2SAT 100
== END 2020-09-10 20:53 | disposition home or self-care (01) ==
PROVIDERS: Emergency Provider Nurse Practitioner; PCP Physician Assistant
DX: R00.0 Tachycardia, unspecified (principal); T43.215A Adverse effect of selective serotonin and norepinephrine reuptake inhibitors, initial encounter; R51.9 Headache, unspecified; F41.9 Anxiety disorder, unspecified; K21.9 Gastro-esophageal reflux disease without esophagitis
CPT/HCPCS: 99201

== ENCOUNTER 2020-10-10 09:54 | Emergency (ER) | payer BC, SELFPAY ==
[2020-10-10 10:05] VITALS: BP 116/89; PULSE 120; RESP 20; TEMP 37.4; O2SAT 99; BMI 23.6
--- NOTE | 2020-10-10 10:19 | HMH.EDUTC ---
[facility] [place] Clinical Impression: URI (upper respiratory infection) Qualifiers: URI type: unspecified URI Qualified Code(s): J06.9 - Acute upper respiratory infection, unspecified Disposition: Home, Self-Care Condition on Discharge: Good Instructions: Sore Throat, DI for Cough -- Adult, Preventing the Spread of Coronavirus Discharge Instructions Additional Instructions: *Monitor Temp, Over the counter Motrin or Tylenol as directed/as needed Tylenol every 4 hours and Motrin every 6 hours (as long as your family doctor has told you that you can take it) for fever or pain. and straight to ER if unable to lower temp less than 101.0 after medication given *Warm salt water gargles may help to soothe the throat *Throat Lozenges *Warm fluids like tea with honey may help to soothe the throat *Sleep elevated *Humidifier/Vaporizer *Flonase 2 sprays in each nostril daily but be aware that it may take 2-3 days before you notice improvement Follow up IMMEDIATELY for new or worsening symptoms or no Noticeable improvement over the next 48-72 hours. 911 for difficulty breathing or swallowing You was tested for today for COVID19 your test result should be back in the next 24-48 hours, you may call to the [facility] later today or tomorrow to see if your test results are back and the result [phone] [facility] hours are 9am-9pm You was given a handout with instructions for Self Quarantine and Self isolation for while you wait on test results and what to do if they are positive If you are positive the Health Dept will be contacting you also Referrals: Jessie Ferrell PA [Primary Care Provider] - As needed Forms: Work/School Release Time of Disposition: 10:29 Medical Decision Making - Wilfred Inquiry Pt receiving controlled substance: No Wilfred was queried for this patient: No Vital Signs: 10/10/20 10:05 Temperature 99.3 F Temperature Source Oral Pulse Rate [Left Brachial] 120 H Respiratory Rate 20 Blood Pressure [Left Arm] 116/89 Blood Pressure Mean [Left Arm] 98 Blood Pressure Source [Left Arm] Automatic Cuff Blood Pressure Position [Left Arm] Sitting 02 Sat by Pulse Oximetry 99 Oxygen Delivery Method Room Air - Lab Data Lab results reviewed: Yes: I reviewed the patient's lab results. [facility] [place] HPI - General Stated complaint: sore throat, headache, fever Time Seen by Provider: 10/10/20 10:19 Mode of Arrival: Ambulatory Source of Information: Patient Limitations: No Limitations Description of Symptoms (Recalled from Triage Doc. by RN): PATIENT C/O FEVER, SORE THROAT, BODY ACHES, AND CHILLS SINCE YESTERDAY HEENT Symptoms (Recalled from RN notes): Yes Resp Symptoms (Recalled from RN notes): No Skin Symptoms (Recalled from RN notes): No MS Symptoms (Recalled from RN notes): Yes Functional Status (Recalled from RN notes): WNL - History of Present Illness Provider Complaint: Patient state that he his daughter has been sick with similar symptoms last couple of days and she was tested yesterday for COVID State that yesterday evening he started feeling bad having sore throat low grade fever and body aches State that he was worried that he may have COVID and wanted to get tested - Related Data Home Medications Medication Instructions Recorded Confirmed levalbuterol tartrate 45 2 puff INHALATION Q4-6H PRN 02/24/20 07/24/20 mcg/actuation aerosol inhaler dupilumab 300 mg/2 mL subcutaneous 300 mg SQ Q2W 05/19/20 07/24/20 syringe omeprazole 40 mg capsule,delayed 40 mg PO cap 05/19/20 07/24/20 release Previous Rx's Medication Instructions Recorded metoprolol succinate 25 mg 25 mg PO DAILY #30 tab 02/24/20 tablet,extended release 24 hr levalbuterol HCl 0.63 mg/3 mL 0.63 mg INHALATION TID #90 ml 05/19/20 solution for nebulization Amoxicillin [Amoxicillin 875MG 875 mg PO Q12H #20 tab 08/01/20 Tab] diazepam 5 mg tablet 5 mg PO BIDP PRN #10 tab 08/28/20 venlafaxine 75 mg capsule,extended 75 mg PO DAILY #30 c
[2020-10-10 10:39] VITALS: BP 116/89; PULSE 120; RESP 20; TEMP 37.4; O2SAT 99
[2020-10-10 10:45] LABS: UTC Strep Screen (Rapid) Negative (Negative)
[2020-10-10 10:46] LABS: UTC Influenza A Antigen Negative (Negative)
[2020-10-10 10:48] LABS: UTC Influenza B Antigen Negative (Negative)
[2020-10-11 15:27] LABS: Covid-19 Nasal PCR Sendout Lex Positive
--- NOTE | 2020-10-11 15:40 | PC.NURSE ---
CALLED PT TO LET THEM KNOW THAT THEY HAD A POSITIVE COVID TEST
== END 2020-10-10 10:49 | disposition home or self-care (01) ==
PROVIDERS: Emergency Provider Nurse Practitioner; PCP Physician Assistant
DX: U07.1 COVID-19 (principal); K21.9 Gastro-esophageal reflux disease without esophagitis; F41.9 Anxiety disorder, unspecified; Z88.8 Allergy status to other drugs, medicaments and biological substances; Z87.891 Personal history of nicotine dependence
CPT/HCPCS: 87804; 87880; 99202; U0004

== ENCOUNTER 2020-12-28 16:02 | Emergency (ER) | payer BC, SELFPAY ==
[2020-12-28 16:09] VITALS: BP 124/100; PULSE 100; RESP 16; TEMP 36.8; O2SAT 98; BMI 24.3
--- NOTE | 2020-12-28 16:16 | HMH.EDUTC ---
[facility] [place]ression: BPPV (benign paroxysmal positional vertigo) Qualifiers: Laterality: bilateral Qualified Code(s): H81.13 - Benign paroxysmal vertigo, bilateral Serous otitis media Qualifiers: Chronicity: acute Laterality: bilateral Recurrence: non-recurrent Qualified Code(s): H65.03 - Acute serous otitis media, bilateral Disposition: Home, Self-Care Condition on Discharge: Good Instructions: Middle Ear Infection, Benign Paroxysmal Positional Vertigo Additional Instructions: Drink plenty of fluids. Take tylenol or ibuprofen for pain or fever. Take the medications as directed. Follow up with your regular doctor. GO TO THE ER FOR ANY WORSENING SYMPTOMS Prescriptions: predniSONE [Prednisone 20mg Tab] 20 mg PO BID 4 Days #8 tab Transmission Status: Received by [id number] Azithromycin [Z-Yang 250mg Tab*] 250 mg PO UD DOSE PK #6 tab Transmission Status: Received by [id number] Referrals: Jessie Ferrell PA [Primary Care Provider] - Forms: Work/School Release Time of Disposition: 16:28 Medical Decision Making - Medical Records Medical records reviewed: No: I reviewed the patient's medical records. - Wilfred Inquiry Pt receiving controlled substance: No Vital Signs: 12/28/20 16:09 12/28/20 16:32 Temperature 98.3 F 98.4 F Temperature Source Oral Oral Pulse Rate 98 H Pulse Rate [Right] 100 H Respiratory Rate 16 16 Blood Pressure 124/98 H Blood Pressure [Right Arm] 124/100 H Blood Pressure Mean [Right Arm] 108 Blood Pressure Source Automatic Cuff Blood Pressure Source [Right Arm] Automatic Cuff Blood Pressure Position Sitting Blood Pressure Position [Right Arm] Sitting 02 Sat by Pulse Oximetry 98 Oxygen Delivery Method Room Air Room Air [facility] [place] - General Stated complaint: FREEMAN,Light Headed Time Seen by Provider: 12/28/20 16:16 Mode of Arrival: Ambulatory Source of Information: Patient Limitations: No Limitations Description of Symptoms (Recalled from Triage Doc. by RN): headache started yesterday, head pressure and just not feeling well HEENT Symptoms (Recalled from RN notes): Yes (head pressure) Resp Symptoms (Recalled from RN notes): No Skin Symptoms (Recalled from RN notes): No MS Symptoms (Recalled from RN notes): No Functional Status (Recalled from RN notes): na - History of Present Illness Provider Complaint: He states that since yesterday he has had dizziness, sinus congestion, and ear pressure and pain. He denies any chest congestion or cough. He denies any fever/chills/body aches. - Related Data Home Medications Medication Instructions Recorded Confirmed omeprazole 40 mg capsule,delayed 40 mg PO cap 05/19/20 10/25/20 release Previous Rx's Medication Instructions Recorded metoprolol succinate 25 mg 25 mg PO DAILY #30 tab 02/24/20 tablet,extended release 24 hr azithromycin 250 mg tablet See Rx Instructions PO .COMPLEX #6 10/25/20 tab prednisone 20 mg tablet 20 mg PO BID #10 tab 10/25/20 diazepam 5 mg tablet 5 mg PO BIDP PRN #10 tab 11/07/20 venlafaxine 75 mg capsule,extended 75 mg PO DAILY #30 cap 11/07/20 release 24 hr Azithromycin [Z-Yang 250mg Tab*] 250 mg PO UD DOSE PK #6 tab 12/28/20 predniSONE [Prednisone 20mg 20 mg PO BID 4 Days #8 tab 12/28/20 Tab] Allergies Allergy/AdvReac Type Severity Reaction Status Date / Time fluticasone Allergy Severe Difficulty Verified 10/25/20 15:48 [From Advair Diskus] Swallowing salmeterol Allergy Severe Difficulty Verified 10/25/20 15:48 [From Advair Diskus] Swallowing - Worker's Comp Is this a Worker's Comp case?: No [facility] History - Hepatitis A Screen Drug use history?: No High risk sexual behaviors?: No History of sexually transmitted infection?: No Currently employed?: No Childcare worker?: No Do you have indoor plumbing?: Yes Do you have electricity?: Yes Attestation statement:: This patient has been screened for
[2020-12-28 16:32] VITALS: BP 124/98; PULSE 98; RESP 16; TEMP 36.9; O2SAT 98
== END 2020-12-28 16:33 | disposition home or self-care (01) ==
PROVIDERS: Emergency Provider Nurse Practitioner Family; PCP Physician Assistant
DX: H81.13 Benign paroxysmal vertigo, bilateral (principal); H65.03 Acute serous otitis media, bilateral; K21.9 Gastro-esophageal reflux disease without esophagitis; F41.9 Anxiety disorder, unspecified; Z79.899 Other long term (current) drug therapy
CPT/HCPCS: 99202; G0463

== ENCOUNTER 2021-01-15 14:05 | Emergency (ER) | payer BC, SELFPAY ==
--- NOTE | 2021-01-15 14:14 | HMH.EDUTC ---
[facility] [place] Clinical Impression: Sinusitis Qualifiers: Sinusitis location: unspecified location Chronicity: acute Recurrence: non-recurrent Qualified Code(s): J01.90 - Acute sinusitis, unspecified Otitis media Qualifiers: Otitis media type: suppurative Chronicity: acute Laterality: right Recurrence: non-recurrent Spontaneous tympanic membrane rupture: without spontaneous rupture Qualified Code(s): H66.001 - Acute suppurative otitis media without spontaneous rupture of ear drum, right ear Disposition: Home, Self-Care Condition on Discharge: Good Additional Instructions: Drink plenty of fluids. Take tylenol or ibuprofen for pain or fever. Take the medications as directed. Since you've not got better, please follow up with your regular doctor for a recheck. GO TO THE ER FOR ANY WORSENING SYMPTOMS Prescriptions: Doxycycline Hyclate [Doxycycline 100mg Capsule] 100 mg PO Q12 10 Days #20 cap Transmission Status: Received by [facility] predniSONE [Prednisone 20mg Tab] 20 mg PO BID 4 Days #8 tab Transmission Status: Received by [facility] Referrals: Jessie Ferrell PA [Primary Care Provider] - Time of Disposition: 14:50 Medical Decision Making - Medical Records Medical records reviewed: No: I reviewed the patient's medical records. - Wilfred Inquiry Pt receiving controlled substance: No Vital Signs: 01/15/21 14:20 01/15/21 14:53 Temperature 98.4 F 98 F Temperature Source Oral Pulse Rate 77 Pulse Rate [Right] 79 Respiratory Rate 16 16 Blood Pressure 120/85 Blood Pressure [Right Arm] 119/88 Blood Pressure Mean [Right Arm] 98 Blood Pressure Source [Right Arm] Automatic Cuff Blood Pressure Position [Right Arm] Sitting 02 Sat by Pulse Oximetry 100 Oxygen Delivery Method Room Air [facility] [place] HPI - General Stated complaint: headache, drainage Time Seen by Provider: 01/15/21 14:14 - History of Present Illness Provider Complaint: He states that she has had right sided sinus pressure and ear pain for the past 2 days. - Related Data Home Medications Medication Instructions Recorded Confirmed omeprazole 40 mg capsule,delayed 40 mg PO cap 05/19/20 10/25/20 release Previous Rx's Medication Instructions Recorded metoprolol succinate 25 mg 25 mg PO DAILY #30 tab 02/24/20 tablet,extended release 24 hr azithromycin 250 mg tablet See Rx Instructions PO .COMPLEX #6 10/25/20 tab prednisone 20 mg tablet 20 mg PO BID #10 tab 10/25/20 venlafaxine 75 mg capsule,extended 75 mg PO DAILY #30 cap 11/07/20 release 24 hr Azithromycin [Z-Yang 250mg Tab*] 250 mg PO UD DOSE PK #6 tab 12/28/20 predniSONE [Prednisone 20mg 20 mg PO BID 4 Days #8 tab 12/28/20 Tab] diazepam 5 mg tablet 5 mg PO BIDP PRN #10 tab 01/02/21 venlafaxine 150 mg 150 mg PO DAILY #30 cap 01/02/21 capsule,extended release 24 hr Doxycycline Hyclate [Doxycycline 100 mg PO Q12 10 Days #20 cap 01/15/21 100mg Capsule] predniSONE [Prednisone 20mg 20 mg PO BID 4 Days #8 tab 01/15/21 Tab] Allergies Allergy/AdvReac Type Severity Reaction Status Date / Time fluticasone Allergy Severe Difficulty Verified 01/15/21 14:19 [From Advair Diskus] Swallowing salmeterol Allergy Severe Difficulty Verified 01/15/21 14:19 [From Advair Diskus] Swallowing [facility] History - Hepatitis A Screen Attestation statement:: This patient has been screened for Hepatitis A risk factors. I have reviewed the patient's past medical history: Yes Medical History: Reports:: Anxiety, Asthma, Cancer, Gastroesophageal Reflux Disease(GERD) Denies:: Diabetes Mellitus Type 1, Diabetes Mellitus Type 2, MRSA Other Medical History: Reports: Other Comment: HYSTOPLASMOSIS--when he was 8 years old. -affected his lungs. -slight scarring from this Laterality Cases: Left: Arthroscopy Knee Other Surgeries: Yes: Appendectomy, Other Amputation: No Fractures: No Comment: KNEE SURGERY, H
[2021-01-15 14:20] VITALS: BP 119/88; PULSE 79; RESP 16; TEMP 36.9; O2SAT 100; BMI 23.6
[2021-01-15 14:53] VITALS: BP 120/85; PULSE 77; RESP 16; TEMP 36.6
== END 2021-01-15 14:54 | disposition home or self-care (01) ==
PROVIDERS: Emergency Provider Nurse Practitioner Family; PCP Physician Assistant
DX: J01.90 Acute sinusitis, unspecified (principal); H66.001 Acute suppurative otitis media without spontaneous rupture of ear drum, right ear; K21.9 Gastro-esophageal reflux disease without esophagitis; F41.9 Anxiety disorder, unspecified; Z87.891 Personal history of nicotine dependence; Z79.899 Other long term (current) drug therapy
CPT/HCPCS: 99202; G0463

== ENCOUNTER 2021-02-09 22:54 | Emergency (ER) | payer BC, SELFPAY ==
--- NOTE | 2021-02-09 22:48 | ECG_ITS ---
APPROVED REPORT Exam: Resting ECG HR:118 bpm ECG Measurements Heart Rate 118 AXES MT 160 P 37 QRSd 80 QRS -28 QT 298 T 60 QTc 417 Conclusion Sinus tachycardia Left atrial enlargement Left ventricular hypertrophy Abnormal ECG Electronically signed by : Felipe Lucas, 02/10/2021 07:35:29
[2021-02-09 22:55] VITALS: BP 137/104; PULSE 124; RESP 18; TEMP 36.9; O2SAT 98; BMI 24.3
--- NOTE | 2021-02-09 23:03 | XR_ITS ---
PROCEDURE: XR CHEST 2V CLINICAL HISTORY: sinus tach COMPARISON: CT CHESTWO CT chest wo con from 04/08/2019 CR XR CHEST 2V from 07/09/2019 CR XR CHEST 2V from 09/10/2019 CR XR CHEST 2V from 11/01/2019 FINDINGS: The cardiomediastinal silhouette and pulmonary vascularity are within normal limits. The lungs are clear without infiltrates, suspicious nodules, or pleural effusions. No acute bony abnormalities. IMPRESSION: No acute findings. Dictated by: Dr. Vincenzo Mcclellan MD 02/10/2021 09:30 Dr. Vincenzo Mcclellan MD in [place] 02/10/2021 09:30
[2021-02-09 23:11] LABS: Basophils # 0.1 K/mm3 (0-0.2); Basophils % 1.1 % (0.1-2.0); Eosinophils # 0.2 K/mm3 (0.0-0.4); Eosinophils % 2.2 % (0.1-12.0); Hematocrit 47.7 % (42.0-52.0); Hemoglobin 16.2 g/dL (14.1-18.0); Lymphocytes # 2.1 K/mm3 (0.7-4.5); Lymphocytes % 27.5 % (10-50); Mean Corpuscular Volume 85.3 fl (80-94); Mean Platelet Volume 7.6 fl (7.4-10.4); Monocytes # 0.6 K/mm3 (0.1-1.0); Monocytes % 7.2 % (1.7-9.3); Neutrophils # 4.8 K/mm3 (1.8-7.8); Neutrophils % 62.1 % (37.0-80.0); Platelet Count 268 K/mm3 (142-424); Red Blood Count 5.59 M/mm3 (4.60-6.20); Red Cell Distribution Width 13.1 % (11.5-17.5); White Blood Count 7.7 K/mm3 (4.8-10.8)
[2021-02-09 23:14] LABS: Chloride 104 mmol/L (98-107)
--- NOTE | 2021-02-09 23:14 | HMH.EDARPALP ---
ED Disposition Clinical Impression: Sinus tachycardia Disposition: Home, Self-Care Condition on Discharge: Good Instructions: DI for Tachycardia Additional Instructions: use meds as needed and call pcp for follow up Referrals: Jessie Ferrell PA [Primary Care Provider] - - Critical Care Critical Care Time: No Attestation: On , the high probability of a clinically significant, sudden or life threatening deterioration of the following system(s) required my full and direct attention, intervention and personal management. The time I documented below is in addition to time spent performing reported procedures but includes the following listed in this critical care notation. Medical Decision Making - Medical Records Medical records reviewed: Yes: I reviewed the patient's medical records. - Wilfred Inquiry Pt receiving controlled substance: No Vital Signs: 02/09/21 22:55 Temperature 98.4 F Temperature Source Oral Pulse Rate [Left Radial] 124 H Respiratory Rate 18 Blood Pressure [Right Arm] 137/104 H Blood Pressure Mean [Right Arm] 115 Blood Pressure Source [Right Arm] Automatic Cuff Blood Pressure Position [Right Arm] Supine 02 Sat by Pulse Oximetry 98 Oxygen Delivery Method Room Air - Lab Data Lab results reviewed: Yes: I reviewed the patient's lab results. Lab Results 02/09/21 23:00: WBC 7.7, RBC 5.59, Hgb 16.2, Hct 47.7, MCV 85.3, MCH 29.0, MCHC 34.0, RDW 13.1, Plt Count 268, MPV 7.6, Neut % (Auto) 62.1, Lymph % (Auto) 27.5, Benzie % (Auto) 7.2, Eos % (Auto) 2.2, Baso % (Auto) 1.1, Neut # (Auto) 4.8, Lymph # (Auto) 2.1, Benzie # (Auto) 0.6, Eos # (Auto) 0.2, Baso # (Auto) 0.1 02/09/21 23:00: Sodium 143, Potassium 3.6, Chloride 104, Carbon Dioxide 30, Anion Gap 12.6, BUN 21 H, Creatinine 1.00, Estimated Creat Clear 103, Estimated GFR 81, Est GFR ( Amer) 98, Glucose 102 H, Calcium 9.6, Troponin I < 0.01, TSH 0.75, Thyroxine (T4) 8.3 Result diagrams: 02/09/21 23:00 02/09/21 23:00 Orders (Tests/Meds): ED MEDICATIONS Generic Name Dose Route Start Last Admin Trade Name Freq PRN Reason Stop Dose Admin Sodium Chloride 1,000 mls @ 999 mls/hr 02/09/21 23:45 02/09/21 23:53 Sod Chlor 0.9% 1000ml Bag IV 02/10/21 00:45 999 mls/hr .Q1H1M UMA Administration Discontinued Medications Generic Name Dose Route Start Last Admin Trade Name Freq PRN Reason Stop Dose Admin Metoprolol Tartrate 2.5 mg 02/10/21 00:38 02/10/21 00:40 Metoprolol Tartrate 5mg/5ml Vial IV 02/10/21 00:39 2.5 mg ONCE ONE Administration ORDERS Category Date Time Status XR chest 2V Stat Exams 02/09/21 23:03 Taken Troponin I Q3H Lab 02/10/21 02:15 Ordered Troponin I Q3H Lab 02/10/21 05:15 Ordered - Radiology Data #1 Image(s): Chest Image Reviewed: Yes I reviewed the patient's radiology image Preliminary Findings: Normal/NAD - ECG Data Tracing #1 Arrhythmias present: sinus tach Ischemic changes: non-specific ST-T wave changes Medical Decision Narrative: doing better after dose of beta marlin and will d/c to call card and f/u with pcp Arrhythmia/Palpitations HPI - General Chief Complaint: Arrhythmia/Palpitations Stated Complaint: High heart rate Time Seen by Provider: 02/09/21 23:00 Mode of Arrival: Ambulatory Source of Information: Patient, Medical Record Limitations: No Limitations - History of Present Illness HPI narrative: hx of nonspecific tachycardia with acute episode susana ARROYO complaint: rapid heart beat Onset (ago): hour(s) Duration: constant Severity: moderate Context: occurred during rest Arrhythmia history: SVT Associated symptoms: denies other symptoms - Related Data Home Medications Medication Instructions Recorded Confirmed omeprazole 40 mg capsule,delayed 40 mg PO DAILY cap 05/19/20 02/10/21 release Metoprolol Succinate [Metoprolol 25 mg PO DAILY 02/10/21 02/10/21 Succinate 25mg Tablet*] Venlafaxine HCl [Effexor XR 150mg
[2021-02-09 23:15] LABS: Potassium 3.6 mmoL/L (3.5-5.1); Sodium 143 mmol/L (136-145)
[2021-02-09 23:18] LABS: Anion Gap 12.6 mEq/L (5-15); Blood Urea Nitrogen 21 mg/dl (9-20); Calcium 9.6 mg/dl (8.4-10.2); Carbon Dioxide 30 mmol/L (22.0-30.0); Creatinine Clearance Estimated 103 mL/min (50-200); Estimated Glomerular Filt Rate 81 ml/min (>60); GFR (African American) 98 ML/MIN (>60); Glucose 102 mg/dl (74-100)
[2021-02-09 23:30] VITALS: BP 132/98; PULSE 101; RESP 16; O2SAT 98
[2021-02-09 23:46] LABS: T4 (Thyroxine) 8.3 ug/dl (5.53-11.0)
[2021-02-10] VITALS: BP 130/97; PULSE 111; RESP 18; O2SAT 99
[2021-02-10] LABS: Thyroid Stimulating Hormone 0.75 uIU/mL (0.465-4.68)
[2021-02-10 00:03] LABS: Troponin I < 0.01 ng/ml (0.00-0.034)
[2021-02-10 00:30] VITALS: BP 137/91; PULSE 106; RESP 18; O2SAT 98
[2021-02-10 01:31] VITALS: BP 119/98; PULSE 98; RESP 18; TEMP 36.9; O2SAT 99
[2021-02-10 01:34] VITALS: BP 135/90; PULSE 93; RESP 16; O2SAT 98
== END 2021-02-10 01:33 | disposition home or self-care (01) ==
PROVIDERS: Emergency Provider Emergency Medicine; PCP Physician Assistant
DX: I47.1 Supraventricular tachycardia (principal); K21.9 Gastro-esophageal reflux disease without esophagitis; J45.909 Unspecified asthma, uncomplicated; Z86.16 Personal history of COVID-19; Z87.891 Personal history of nicotine dependence; Z79.899 Other long term (current) drug therapy
CPT/HCPCS: 71046; 80048; 84436; 84443; 84484; 85025; 93005; 96365; 96375; 99282

== ENCOUNTER → 2021-04-17 11:00 | Outpatient (CLI) | payer BC, SELFPAY | PROVIDERS: PCP Physician Assistant; Visit Provider Physician Assistant | DX: Z20.822 Contact with and (suspected) exposure to COVID-19 (principal) | CPT/HCPCS: U0003 ==

== ENCOUNTER 2021-05-28 14:14 | Emergency (ER) | payer BC, SELFPAY ==
[2021-05-28 14:15] VITALS: BP 144/93; PULSE 92; RESP 21; TEMP 36.8; O2SAT 100; BMI 26.9
--- NOTE | 2021-05-28 14:45 | HMH.EDUTC ---
[facility] Disposition Clinical Impression: Otitis media Qualifiers: Otitis media type: unspecified Laterality: left Qualified Code(s): H66.92 - Otitis media, unspecified, left ear Disposition: Home, Self-Care Condition on Discharge: Good Instructions: Middle Ear Infection, Cefdinir Additional Instructions: Continue to use nasal spray as prescribed Start antibiotics and take as directed Over the counter Allergy medication Follow up with your Family Doctor if no improvement or any worsening of symptoms Return if needed Straight to ER if any life threatening symptoms Prescriptions: Cefdinir [Omnicef 300mg Capsule] 300 mg PO BID #20 cap Transmission Status: Received by [id number] Referrals: Jessie Ferrell PA [Primary Care Provider] - As needed Time of Disposition: 14:54 Medical Decision Making - Wilfred Inquiry Pt receiving controlled substance: No Wilfred was queried for this patient: No Vital Signs: 05/28/21 14:15 05/28/21 15:00 Temperature 98.2 F 98.2 F Temperature Source Oral Pulse Rate 92 H Pulse Rate [Right Brachial] 92 H Respiratory Rate 21 21 Blood Pressure 144/93 H Blood Pressure [Right Arm] 144/93 H Blood Pressure Mean [Right Arm] 110 Blood Pressure Source [Right Arm] Automatic Cuff Blood Pressure Position [Right Arm] Sitting 02 Sat by Pulse Oximetry 100 Oxygen Delivery Method Room Air [facility] HPI - General Stated complaint: headache Time Seen by Provider: 05/28/21 14:45 Mode of Arrival: Ambulatory Source of Information: Patient Limitations: No Limitations Description of Symptoms (Recalled from Triage Doc. by RN): PATIENT C/O HEADACHE AND LIGHTHEADEDNESS SINCE FRIDAY HEENT Symptoms (Recalled from RN notes): Yes Resp Symptoms (Recalled from RN notes): No Skin Symptoms (Recalled from RN notes): No MS Symptoms (Recalled from RN notes): No Functional Status (Recalled from RN notes): WNL - History of Present Illness Provider Complaint: Patient states that he has been having a little headache on and off Pain and pressure in both ears, sinus congestion and feels like it is draining in the back of his throat and moving into his chest area States that when he moves quickly he feels a little off balance at times and feels pressure in his sinuses when he bends over State that it makes him feel light headed - Related Data Home Medications Medication Instructions Recorded Confirmed Pantoprazole Sodium [Protonix 40mg 40 mg PO BID 05/28/21 05/28/21 tablet] Previous Rx's Medication Instructions Recorded venlafaxine 150 mg 150 mg PO DAILY #90 cap 05/03/21 capsule,extended release 24 hr Cefdinir [Omnicef 300mg Capsule] 300 mg PO BID #20 cap 05/28/21 Allergies Allergy/AdvReac Type Severity Reaction Status Date / Time fluticasone Allergy Severe Difficulty Verified 05/09/21 13:40 [From Advair Diskus] Swallowing salmeterol Allergy Severe Difficulty Verified 05/09/21 13:40 [From Advair Diskus] Swallowing - Worker's Comp Is this a Worker's Comp case?: No [facility] History - Hepatitis A Screen Drug use history?: No High risk sexual behaviors?: No History of sexually transmitted infection?: No Currently employed?: No Childcare worker?: No Do you have indoor plumbing?: Yes Do you have electricity?: Yes Attestation statement:: This patient has been screened for Hepatitis A risk factors. 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 -slight scarring from this Laterality Cases: Left: Arthroscopy Knee Other Surgeries: Yes: Appendectomy, Other Amputation: No Fractures: No Comment: wrist- right x2. left knee - Social History Smoking Status: Never
[2021-05-28 15:00] VITALS: BP 144/93; PULSE 92; RESP 21; TEMP 36.8; O2SAT 100
== END 2021-05-28 15:04 | disposition home or self-care (01) ==
PROVIDERS: Emergency Provider Nurse Practitioner; PCP Physician Assistant
DX: H66.92 Otitis media, unspecified, left ear (principal); I10 Essential (primary) hypertension; K21.9 Gastro-esophageal reflux disease without esophagitis; F41.9 Anxiety disorder, unspecified; Z79.899 Other long term (current) drug therapy
CPT/HCPCS: 99202; G0463

== ENCOUNTER 2021-09-12 18:36 | Emergency (ER) | payer BC, SELFPAY ==
[2021-09-12 20:15] VITALS: BP 134/96; PULSE 98; RESP 20; TEMP 36.8; O2SAT 98; BMI 27.7
--- NOTE | 2021-09-12 20:44 | HMH.EDUTC ---
[facility] Disposition Clinical Impression: Encounter for laboratory testing for COVID-19 virus Fatigue Qualifiers: Fatigue type: unspecified Qualified Code(s): R53.83 - Other fatigue Disposition: Home, Self-Care Condition on Discharge: Good Instructions: DI for Fatigue, DI for COVID-19 (Suspected or Confirmed ), Preventing the Spread of Coronavirus Discharge Instructions Additional Instructions: *Monitor Temp, Over the counter Motrin or Tylenol as directed/as needed Tylenol every 4 hours and Motrin every 6 hours (as long as your family doctor has told you that you can take it) for fever or pain. and straight to ER if unable to lower temp less than 101.0 after medication given *Warm salt water gargles may help to soothe the throat *Throat Lozenges *Warm fluids like tea with honey may help to soothe the throat *Sleep elevated *Humidifier/Vaporizer Follow up IMMEDIATELY for new or worsening symptoms or no Noticeable improvement over the next 48-72 hours. 911 for difficulty breathing or swallowing You were tested for today for COVID19 your test result should be back in the next 24-48 hours, you can view your results on the [facility] [employer] portal you will be given hand out on how to log on if you have trouble you may call the [facility] You was given a handout with instructions for Self Quarantine and Self isolation for while you wait on test results and what to do if they are positive If you are positive the Health Dept will be contacting you also Make sure to take your Vitamins Vit. C Vit D and Zinc if you can take them Referrals: Jessie Ferrell PA [Primary Care Provider] - As needed Forms: Work/School Release Time of Disposition: 20:46 Medical Decision Making - Wilfred Inquiry Pt receiving controlled substance: No Wilfred was queried for this patient: No Vital Signs: 09/12/21 20:15 Temperature 98.3 F Temperature Source Oral Pulse Rate [Right Brachial] 98 H Respiratory Rate 20 Blood Pressure [Right Arm] 134/96 H Blood Pressure Mean [Right Arm] 108 Blood Pressure Source [Right Arm] Automatic Cuff Blood Pressure Position [Right Arm] Sitting 02 Sat by Pulse Oximetry 98 Oxygen Delivery Method Room Air Orders (Tests/Meds): ORDERS Category Date Time Status Covid-19 Nasal PCR ([facility]) Routine Lab 09/12/21 20:41 Ordered [facility] HPI - General Stated complaint: weak Time Seen by Provider: 09/12/21 20:44 Mode of Arrival: Ambulatory Source of Information: Patient Limitations: No Limitations Description of Symptoms (Recalled from Triage Doc. by RN): PATIENT C/O WEAKNESS/FEELING TIRED SINCE THIS MORNING HEENT Symptoms (Recalled from RN notes): No Resp Symptoms (Recalled from RN notes): No Skin Symptoms (Recalled from RN notes): No MS Symptoms (Recalled from RN notes): No Functional Status (Recalled from RN notes): WNL - History of Present Illness Provider Complaint: Patient states that he was fine when he laid down last night but then when he woke up he was feeling achy and tired States that he went into work and due to feeling tired and achy they made him come up and get tested for COVID states that he hasnt had any fever or anything but 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 - Related Data Previous Rx's Medication Instructions Recorded venlafaxine 150 mg 150 mg PO DAILY #90 cap 07/26/21 capsule,extended release 24 hr Allergies Allergy/AdvReac Type Severity Reaction Status Date / Time fluticasone Allergy Severe Difficulty Verified 07/26/21 12:59 [From Advair Diskus] Swallowing salmeterol Allergy Severe Difficulty Verified 07/26/21 12:59 [From Advair Diskus] Swallowing - Worker's Comp Is this a Worker's Comp case?: No [facility] History - Hepatitis A Screen Drug use history?: No High risk sexual behaviors?: No History of sexually transmitted infection?: No Currently employed?: No Childcare worker?: No Do you have indoor plumbing?: Yes Do you have electricity?: Ye
[2021-09-12 20:54] VITALS: BP 134/96; PULSE 98; RESP 20; TEMP 36.8; O2SAT 98
== END 2021-09-12 20:57 | disposition home or self-care (01) ==
PROVIDERS: Emergency Provider Nurse Practitioner; PCP Physician Assistant
DX: R53.83 Other fatigue (principal); Z20.822 Contact with and (suspected) exposure to COVID-19; K21.9 Gastro-esophageal reflux disease without esophagitis; I10 Essential (primary) hypertension; F41.9 Anxiety disorder, unspecified; Z79.899 Other long term (current) drug therapy
CPT/HCPCS: 99202; C9803; G0463; U0003; U0005

== ENCOUNTER 2021-11-17 13:24 | Emergency (ER) | payer BC, SELFPAY ==
[2021-11-17 15:30] VITALS: BP 135/106; PULSE 85; RESP 20; TEMP 37.1; O2SAT 100; BMI 27.5
--- NOTE | 2021-11-17 15:51 | HMH.EDUTC ---
[facility] [place] Clinical Impression: Viral upper respiratory illness Disposition: Home, Self-Care Condition on Discharge: Good Instructions: DI for Viral Upper Respiratory Infection -- Adult Additional Instructions: *Monitor Temp, Over the counter Motrin or Tylenol as directed/as needed Tylenol every 4 hours and Motrin every 6 hours (as long as your family doctor has told you that you can take it) for fever or pain. and straight to ER if unable to lower temp less than 101.0 after medication given *Warm salt water gargles may help to soothe the throat *Throat Lozenges *Warm fluids like tea with honey may help to soothe the throat *Sleep elevated *Humidifier/Vaporizer Follow up with Family Doctor if blood pressure continues to stay elevated Your throat swab was sent for culture. Those results are typically sent to your primary care. Be sure to follow up in 2-3 days with your family doctor/primary care physician if no improvement so they can review those result and treat if necessary. If you don?t have a primary care doctor, I recommend you get one but in the mean time, you will have to return to a walk in clinic Follow up IMMEDIATELY for new or worsening symptoms or no Noticeable improvement over the next 48-72 hours. 911 for difficulty breathing or swallowing You were tested for today for COVID19 your test result should be back in the next 24-48 hours, you may check your results on the [facility] My Health Portal if you have trouble logging on you may call You was given a handout with instructions for Self Quarantine and Self isolation for while you wait on test results and what to do if they are positive If you are positive the Health Dept will be contacting you also Make sure to take your Vitamins Vit. C Vit D and Zinc if you can take them Prescriptions: Benzonatate [Benzonatate 100mg cap] 100 mg PO Q8HP PRN #15 cap PRN Reason: Cough Transmission Status: Received by [id number] Referrals: Jessie Ferrell PA [Primary Care Provider] - As needed Forms: Work/School Release Time of Disposition: 15:56 Medical Decision Making - Wilfred Inquiry Pt receiving controlled substance: No Wilfred was queried for this patient: No Vital Signs: 11/17/21 15:30 Temperature 98.7 F Temperature Source Oral Pulse Rate [Right Brachial] 85 Respiratory Rate 20 Blood Pressure [Right Arm] 135/106 H Blood Pressure Mean [Right Arm] 115 Blood Pressure Source [Right Arm] Automatic Cuff Blood Pressure Position [Right Arm] Sitting 02 Sat by Pulse Oximetry 100 Oxygen Delivery Method Room Air - Lab Data Lab results reviewed: Yes: I reviewed the patient's lab results. Lab Results 11/17/21 15:38: Influenza Type A Ag Negative, Influenza Type B Ag Negative 11/17/21 15:38: Strep Scn Rapid Clinic Negative Orders (Tests/Meds): ORDERS Category Date Time Status Strep Screen Confirmation Stat Micro 11/17/21 15:38 Received [facility] [place] - General Stated complaint: sore throat,cough,runny nose,headache Time Seen by Provider: 11/17/21 15:51 Mode of Arrival: Ambulatory Source of Information: Patient Limitations: No Limitations Description of Symptoms (Recalled from Triage Doc. by RN): PATIENT C/O HEADACHE, SORE THROAT, DRAINAGE, COUGH, AND LEFT LUNG PAIN X 2 DAYS. RECENTLY EXPOSED TO COVID HEENT Symptoms (Recalled from RN notes): Yes Resp Symptoms (Recalled from RN notes): Yes Skin Symptoms (Recalled from RN notes): No MS Symptoms (Recalled from RN notes): No Functional Status (Recalled from RN notes): WNL - History of Present Illness Provider Complaint: Patient state that his daughter tested postive for COVID on Friday and he has been having sore throat, fever, body aches, chills, drainage and cough State that he feels like it is trying to move into his lungs States that today he was still feeling bad and came in to get tested for strep flu and COVID - Related Data Home Medications Medication Instructions Recorded
[2021-11-17 15:53] LABS: UTC Influenza A Antigen Negative (Negative); UTC Strep Screen (Rapid) Negative (Negative)
[2021-11-17 15:54] LABS: UTC Influenza B Antigen Negative (Negative)
[2021-11-17 16:02] VITALS: BP 138/99; PULSE 85; RESP 20; TEMP 37.1; O2SAT 100
== END 2021-11-17 16:09 | disposition home or self-care (01) ==
PROVIDERS: Emergency Provider Nurse Practitioner; PCP Physician Assistant
DX: J06.9 Acute upper respiratory infection, unspecified (principal); Z20.822 Contact with and (suspected) exposure to COVID-19; I10 Essential (primary) hypertension; K21.9 Gastro-esophageal reflux disease without esophagitis
CPT/HCPCS: 87804; 87880; 99203; C9803; G0463; U0003; U0005

== ENCOUNTER 2021-11-26 01:25 | Emergency (ER) | payer BC, SELFPAY ==
[2021-11-26 01:27] VITALS: BP 155/107; PULSE 102; RESP 18; TEMP 36.7; O2SAT 100; BMI 27.2
--- NOTE | 2021-11-26 01:50 | HMH.EDGENADL ---
ED Disposition Clinical Impression: Epistaxis Disposition: Home, Self-Care Condition on Discharge: Good Instructions: DI for Nosebleed Additional Instructions: Please return to the ED with any new or worsening symptoms. Apply vaseline to the nose to keep the tissue lubricated, can use nasal clamps for recurrance, followup with PCP Referrals: Jessie Ferrell PA [Primary Care Provider] - - Critical Care Critical Care Time: No Attestation: On , the high probability of a clinically significant, sudden or life threatening deterioration of the following system(s) required my full and direct attention, intervention and personal management. The time I documented below is in addition to time spent performing reported procedures but includes the following listed in this critical care notation. Medical Decision Making - Medical Records Medical records reviewed: Yes: I reviewed the patient's medical records. - Wilfred Inquiry Pt receiving controlled substance: No Vital Signs: 11/26/21 01:27 Temperature 98.0 F Temperature Source Oral Pulse Rate [Right Radial] 102 H Respiratory Rate 18 Blood Pressure [Right Arm] 155/107 H Blood Pressure Mean [Right Arm] 123 Blood Pressure Source [Right Arm] Automatic Cuff 02 Sat by Pulse Oximetry 100 Oxygen Delivery Method Room Air Orders (Tests/Meds): ED MEDICATIONS Discontinued Medications Generic Name Dose Route Start Last Admin Trade Name Freq PRN Reason Stop Dose Admin Oxymetazoline HCl 2 ml 11/26/21 01:42 11/26/21 01:50 Oxymetazoline Nasal Ragley 0.05% 15ml NS 11/26/21 01:43 2 sprays ONCE ONE Administration Medical Decision Narrative: Patient is a 46-year-old male presents ED today for evaluation of right-sided epistaxis. Patient is well-appearing on initial evaluation, seen shortly after arrival, had ice and a nasal clamp placed over the nose, on my inspection patient has a small area with a henatoma on the medial nasal septum on the right side, we have placed Afrin in the nose, and placed nasal clamps back over the nose to hold pressure. No laboratory or imaging work-up. Patient's bleeding has resolved after nasal pressure, given nasal precautions at home, instructed on how to do direct pressure, how to use Afrin, instructed to return to the ED with any new or worsening symptoms, patient is verbalized understanding with this plan. General Adult HPI - General Stated complaint: nose bleed Time Seen by Provider: 11/26/21 01:40 Mode of Arrival: Ambulatory Limitations: No Limitations Description of Symptoms (Recalled from ER Triage Doc. by RN): PT BEGAN HAVING A NOSE BLEED APPRX 0100. PT HAS BEEN HOLDING PRESSURE SINCE THAT TIME AND HAS CONTINUED TO BLEED. NASAL CLAMP PLACED AND ICE PLACED. PT REPORTS NKDA AND ONLY MEDS BEING EFFEXOR AND VIAGRA. PT DENIES USE OF ALL BLOOD THINNERS - History of Present Illness HPI narrative: Patient is a 46-year-old male with history of asthma and sinus tachycardia who presents to the ED today for further evaluation of a right-sided nosebleed. Patient states that his nose began to bleed this afternoon, states that he does not take any blood thinners, states that he held pressure on it for 45 minutes, states that it continued to bleed. Patient states he has not sustained any nasal trauma recently, but states that they have been using the heat in the house more than usual as it has been cold. - Related Data Home Medications Medication Instructions Recorded Confirmed fexofenadine 180 mg tablet 180 mg PO DAILY tab 10/23/21 10/23/21 sildenafil (pulm.hypertension) 20 20 mg PO DAILY tab 10/23/21 10/23/21 mg tablet Previous Rx's Medication Instructions Recorded diazepam 5 mg tablet 5 mg PO BID PRN #30 tab 10/23/21 venlafaxine 150 mg 150 mg PO DAILY #90 cap 10/23/21 capsule,extended release 24 hr Benzonatate [Benzonatate 100mg 100 mg PO Q8HP PRN #15 cap 11/17/21 cap] Allergies Aristides
[2021-11-26 02:27] VITALS: BP 132/84; PULSE 77; RESP 18; TEMP 36.6; O2SAT 97
== END 2021-11-26 02:29 | disposition home or self-care (01) ==
PROVIDERS: Emergency Provider Student in an Organized Health Care Education/Training Program; PCP Physician Assistant
DX: R04.0 Epistaxis (principal); J45.909 Unspecified asthma, uncomplicated; I10 Essential (primary) hypertension; K21.9 Gastro-esophageal reflux disease without esophagitis; F41.9 Anxiety disorder, unspecified
CPT/HCPCS: 99281

== ENCOUNTER → 2022-01-03 16:00 | Outpatient (CLI) | payer BC, SELFPAY | PROVIDERS: Visit Provider Physician Assistant | DX: U07.1 COVID-19 (principal); R52 Pain, unspecified | CPT/HCPCS: C9803; U0003; U0005 ==

== ENCOUNTER 2022-01-13 19:30 | Emergency (ER) | payer BC, SELFPAY ==
[2022-01-13 19:32] VITALS: BP 137/96; PULSE 90; RESP 18; TEMP 36.9; O2SAT 100; BMI 26.5
--- NOTE | 2022-01-13 19:35 | PC.NURSE ---
PT seen by Rona RN in triage room due to no room availability at this time, VSS 125/95, 100 HR, 100 O2 sat. Pt updated about wait for room.
--- NOTE | 2022-01-13 20:42 | XR_ITS ---
PROCEDURE INFORMATION: Exam: XR Chest Exam date and time: 01/13/2022 8:42 PM Age: 46 years old Clinical indication: Shortness of breath; Patient HX: Post covid; Additional info: SOA TECHNIQUE: Imaging protocol: XR of the chest. Views: 2 views. Total images: 2 COMPARISON: CR XR CHEST 2V 02/09/2021 11:19 PM FINDINGS: Lungs: Unremarkable. No consolidation. Benign pulmonary granuloma. Pleural spaces: Unremarkable. No pleural effusion. No pneumothorax. Heart/Mediastinum: Unremarkable. No cardiomegaly. Bones/joints: Unremarkable. IMPRESSION: No acute findings.
--- NOTE | 2022-01-13 20:43 | CT_ITS ---
PROCEDURE INFORMATION: Exam: CTA Chest With Contrast Exam date and time: 01/13/2022 8:43 PM Age: 46 years old Clinical indication: Shortness of breath; Patient HX: Post covid; Additional info: SOA TECHNIQUE: Imaging protocol: Computed tomographic angiography of the chest with contrast. 3D rendering (Not supervised by radiologist): MIP and/or 3D reconstructed images were created by the technologist. Total images: 297 Radiation optimization: All CT scans at this facility use at least one of these dose optimization techniques: automated exposure control; mA and/or kV adjustment per patient size (includes targeted exams where dose is matched to clinical indication); or iterative reconstruction. Contrast material: ISO 370; Contrast volume: 70 ml; Contrast route: INTRAVENOUS (IV); COMPARISON: CHESTWO CT chest wo con 04/08/2019 1:48 PM FINDINGS: Tubes, catheters and devices: Intravenous gas is likely related to peripheral IV catheter placement. Pulmonary arteries: Pulmonary artery evaluation is of excellent technical quality with no pulmonary artery embolism. Aorta: No thoracic aortic aneurysm, dissection or other acute thoracic aortic injury. Other arteries: An accessory left hepatic artery arises from the left gastric artery. Lungs: Benign granulomatous disease of the lung is noted. Mild bibasilar mosaic attenuation of the pulmonary parenchyma, suggesting mild small airway infectious/inflammatory process. Pleural spaces: Unremarkable. No pneumothorax. No pleural effusion. Heart: Unremarkable. No cardiomegaly. No pericardial effusion. Lymph nodes: Unremarkable. No enlarged lymph nodes. Diaphragm: There is nonspecific elevation of the right hemidiaphragm. Spleen: 16 cm splenic long axis indicates splenomegaly. Bones/joints: Unremarkable. No acute fracture. Soft tissues: Unremarkable. IMPRESSION: 1. No pulmonary artery embolism. 2. No thoracic aortic aneurysm, dissection or other acute thoracic aortic injury. 3. Mild bibasilar mosaic attenuation of the pulmonary parenchyma, suggesting mild small airway infectious/inflammatory process. No dominant consolidation. 4. Nonspecific splenomegaly.
--- NOTE | 2022-01-13 20:44 | ECG_ITS ---
APPROVED REPORT Exam: Resting ECG HR:74 bpm ECG Measurements Heart Rate 74 AXES NH 165 P 57 QRSd 92 QRS -12 QT 340 T 62 QTc 368 Conclusion SINUS RHYTHM POSSIBLE LEFT ATRIAL ENLARGEMENT [-0.1mV P-WAVE IN V1/V2] POSSIBLE RIGHT VENTRICULAR CONDUCTION DELAY [RSR (QR) IN V1/V2] BORDERLINE ECG UNCONFIRMED REPORT Electronically signed by : Felipe Lucas MD 01/14/2022 19:50:15
[2022-01-13 20:52] LABS: Basophils # 0.2 K/mm3 (0-0.2); Eosinophils # 0.1 K/mm3 (0.0-0.4); Eosinophils % 0.7 % (0.1-12.0); Hematocrit 46.4 % (42.0-52.0); Hemoglobin 15.4 g/dL (14.1-18.0); Lymphocytes # 1.5 K/mm3 (0.7-4.5); Lymphocytes % 9.8 % (10-50); Mean Corpuscular HGB Conc 33.1 g/dL (31.8-35.4); Mean Corpuscular Hemoglobin 29.1 pg (27.0-31.2); Mean Corpuscular Volume 87.8 fl (80-94); Mean Platelet Volume 7.9 fl (7.4-10.4); Monocytes # 1.2 K/mm3 (0.1-1.0); Monocytes % 7.6 % (1.7-9.3); Neutrophils # 12.7 K/mm3 (1.8-7.8); Platelet Count 280 K/mm3 (142-424); Red Blood Count 5.29 M/mm3 (4.60-6.20); Red Cell Distribution Width 13.5 % (11.5-17.5); White Blood Count 15.7 K/mm3 (4.8-10.8)
[2022-01-13 20:57] LABS: Alanine Aminotransferase 20 U/L (12-78); Albumin Level 3.9 g/dl (3.5-5.0); Albumin/Globulin Ratio 1.6 (1.1-1.8); Alkaline Phosphatase 58 U/L (38-126); Anion Gap 7.2 mEq/L (5-15); Aspartate Amino Transferase 25 U/L (17-59); Bilirubin,Total 1.2 mg/dl (0.2-1.3); Blood Urea Nitrogen 17 mg/dl (9-20); Calcium 8.3 mg/dl (8.4-10.2); Carbon Dioxide 33 mmol/L (22.0-30.0); Chloride 103 mmol/L (98-107); Creatinine Clearance Estimated 111 mL/min (50-200); Estimated Glomerular Filt Rate 81 ml/min (>60); GFR (African American) 98 ML/MIN (>60); Globulin 2.4 g/dL (1.3-3.2); Glucose 96 mg/dl (74-100); MANUAL DIFFERENTIAL MANUAL DIFFERENTIAL (MANUAL DIFF); Magnesium 1.9 mg/dl (1.6-2.3); Potassium 3.2 mmoL/L (3.5-5.1); Sodium 140 mmol/L (136-145); Total Protein,Serum 6.3 g/dl (6.3-8.2)
[2022-01-13 21:00] VITALS: BP 128/88; PULSE 78; O2SAT 99
[2022-01-13 21:02] LABS: C-Reactive Protein 0.7 mg/L (0-4)
[2022-01-13 21:10] LABS: Eosinophils % 2 % (0-3); Lymphocytes % 13 % (10-50); Monocytes % 2 % (2-9); Neutrophils % 77 % (42-76); Platelet Estimate Normal; RBC Morphology Normal; Total Cells Counted 100
[2022-01-13 21:14] LABS: Troponin I < 0.01 ng/ml (0.00-0.034)
[2022-01-13 21:30] VITALS: BP 119/85; PULSE 79; O2SAT 100
[2022-01-13 21:31] LABS: Erythrocyte Sedimentation Rate 6 mm/hr (0-15)
[2022-01-13 22:00] VITALS: BP 121/86; PULSE 79; O2SAT 98
--- NOTE | 2022-01-13 23:03 | HMH.EDCP ---
ED Disposition Clinical Impression: Vasovagal episode Chest pain Qualifiers: Chest pain type: precordial pain Qualified Code(s): R07.2 - Precordial pain Disposition: Home, Self-Care Condition on Discharge: Good Instructions: DI for Shortness of Breath Additional Instructions: fluids and call pcp for follow up Referrals: Jessie Ferrell PA [Primary Care Provider] - - Critical Care Critical Care Time: No Attestation: On 01/13/22, the high probability of a clinically significant, sudden or life threatening deterioration of the following system(s) required my full and direct attention, intervention and personal management. The time I documented below is in addition to time spent performing reported procedures but includes the following listed in this critical care notation. Medical Decision Making - Medical Records Medical records reviewed: Yes: I reviewed the patient's medical records. - Wilfred Inquiry Pt receiving controlled substance: No Vital Signs: 01/13/22 19:32 01/13/22 21:00 01/13/22 21:30 Temperature 98.5 F Temperature Source Oral Pulse Rate 78 79 Pulse Rate [Apical] 90 Respiratory Rate 18 Blood Pressure 128/88 119/85 Blood Pressure [Right Arm] 137/96 H Blood Pressure Mean 99 98 Blood Pressure Mean [Right Arm] 109 Blood Pressure Source [Right Arm] Automatic Cuff Blood Pressure Position [Right Arm] Sitting 02 Sat by Pulse Oximetry 100 99 100 Oxygen Delivery Method Room Air 01/13/22 22:00 Temperature Temperature Source Pulse Rate 79 Pulse Rate [Apical] Respiratory Rate Blood Pressure 121/86 Blood Pressure [Right Arm] Blood Pressure Mean 99 Blood Pressure Mean [Right Arm] Blood Pressure Source [Right Arm] Blood Pressure Position [Right Arm] 02 Sat by Pulse Oximetry 98 Oxygen Delivery Method - Lab Data Lab results reviewed: Yes: I reviewed the patient's lab results. Lab Results 01/13/22 20:15: WBC 15.7 H, RBC 5.29, Hgb 15.4, Hct 46.4, MCV 87.8, MCH 29.1, MCHC 33.1, RDW 13.5, Plt Count 280, MPV 7.9, Neut % (Auto) 81.0 H, Lymph % (Auto) 9.8 L, [place] % (Auto) 7.6, Eos % (Auto) 0.7, Baso % (Auto) 1.0, Neut # (Auto) 12.7 H, Lymph # (Auto) 1.5, [place] # (Auto) 1.2 H, Eos # (Auto) 0.1, Baso # (Auto) 0.2, Total Counted 100, Neutrophils % (Manual) 77 H, Band Neutrophils % 6.0, Lymphocytes % (Manual) 13, Monocytes % (Manual) 2, Eosinophils % (Manual) 2, Platelet Estimate Normal, RBC Morphology Normal, ESR 6 01/13/22 20:15: Sodium 140, Potassium 3.2 L, Chloride 103, Carbon Dioxide 33 H, Anion Gap 7.2, BUN 17, Creatinine 1.00, Estimated Creat Clear 111, Estimated GFR 81, Est GFR ( Amer) 98, Glucose 96, Calcium 8.3 L, Magnesium 1.9, Total Bilirubin 1.2, AST 25, ALT 20, Alkaline Phosphatase 58, Troponin I < 0.01, C-Reactive Protein 0.7, Total Protein 6.3, Albumin 3.9, Globulin 2.4, Albumin/Globulin Ratio 1.6, Procalcitonin 0.060 01/13/22 23:40: Troponin I < 0.01 Result diagrams: 01/13/22 20:15 01/13/22 20:15 Orders (Tests/Meds): ED MEDICATIONS Generic Name Dose Route Start Last Admin Trade Name Freq PRN Reason Stop Dose Admin Sodium Chloride 1,000 mls @ 999 mls/hr 01/13/22 20:45 01/13/22 20:47 Sod Chlor 0.9% 1000ml Bag IV 01/13/22 21:45 999 mls/hr .Q1H1M UMA Administration Sodium Chloride 1,000 mls @ 999 mls/hr 01/13/22 23:15 01/13/22 23:23 Sod Chlor 0.9% 1000ml Bag IV 01/14/22 00:15 999 mls/hr .Q1H1M UMA Administration Sodium Chloride 8 ml 01/14/22 00:51 Sodium Chloride 0.9% 10ml Vial IV 02/13/22 00:50 NEEDED PRN dilute pepcid Discontinued Medications Generic Name Dose Route Start Last Admin Trade Name Freq PRN Reason Stop Dose Admin Dexamethasone Sodium Phosphate 10 mg 01/13/22 20:44 01/13/22 20:48 Dexamethasone 4mg/Ml 5ml Mdv IV 01/13/22 20:45 10 mg ONCE ONE Administration Famotidine 20 mg 01/14/22 00:51 01/13/22 23:30 Famotidine 20mg/2ml Vial IV 01/14/22 00:52 20 mg ONCE O
[2022-01-14 00:24] LABS: Troponin I < 0.01 ng/ml (0.00-0.034)
[2022-01-14 01:00] VITALS: BP 120/74; PULSE 74; RESP 20; TEMP 36.9; O2SAT 98
== END 2022-01-14 01:14 | disposition home or self-care (01) ==
PROVIDERS: Emergency Provider Emergency Medicine; PCP Physician Assistant
DX: R07.2 Precordial pain (principal); R55 Syncope and collapse; R06.02 Shortness of breath; M25.511 Pain in right shoulder; M54.9 Dorsalgia, unspecified; R19.7 Diarrhea, unspecified; Z86.16 Personal history of COVID-19; I10 Essential (primary) hypertension; I49.9 Cardiac arrhythmia, unspecified; K21.9 Gastro-esophageal reflux disease without esophagitis; G47.00 Insomnia, unspecified; E55.9 Vitamin D deficiency, unspecified; J45.909 Unspecified asthma, uncomplicated; F10.20 Alcohol dependence, uncomplicated; F41.9 Anxiety disorder, unspecified; Z79.52 Long term (current) use of systemic steroids; Z79.899 Other long term (current) drug therapy; Z88.8 Allergy status to other drugs, medicaments and biological substances; Z85.9 Personal history of malignant neoplasm, unspecified; Z82.49 Family history of ischemic heart disease and other diseases of the circulatory system; Z81.8 Family history of other mental and behavioral disorders
CPT/HCPCS: 36415; 71046; 71275; 80053; 83735; 84145; 84484; 85007; 85025; 85651; 86140; 93005; 96361; 96365; 96366; 96375; 99285; J2405; Q9967

== ENCOUNTER → 2022-01-15 11:42 | Outpatient (CLI) | payer BC, SELFPAY ==
[2022-01-14 17:44] LABS: Basophils % 0.1 % (0.1-2.0); Eosinophils % 0.1 % (0.1-12.0); Hematocrit 43.3 % (42.0-52.0); Hemoglobin 14.3 g/dL (14.1-18.0); Lymphocytes # 0.7 K/mm3 (0.7-4.5); Lymphocytes % 5.2 % (10-50); Mean Corpuscular HGB Conc 32.9 g/dL (31.8-35.4); Mean Corpuscular Hemoglobin 29.1 pg (27.0-31.2); Mean Corpuscular Volume 88.4 fl (80-94); Mean Platelet Volume 8.5 fl (7.4-10.4); Monocytes # 0.7 K/mm3 (0.1-1.0); Monocytes % 5.4 % (1.7-9.3); Neutrophils # 11.8 K/mm3 (1.8-7.8); Neutrophils % 89.2 % (37.0-80.0); Platelet Count 285 K/mm3 (142-424); Red Cell Distribution Width 13.5 % (11.5-17.5); White Blood Count 13.2 K/mm3 (4.8-10.8)
[2022-01-14 17:45] LABS: MANUAL DIFFERENTIAL MANUAL DIFFERENTIAL (MANUAL DIFF)
[2022-01-14 18:29] LABS: Alanine Aminotransferase 15 U/L (12-78); Albumin Level 3.6 g/dl (3.5-5.0); Albumin/Globulin Ratio 1.6 (1.1-1.8); Alkaline Phosphatase 58 U/L (38-126); Anion Gap 8.9 mEq/L (5-15); Aspartate Amino Transferase 19 U/L (17-59); Bilirubin,Total 0.6 mg/dl (0.2-1.3); Blood Urea Nitrogen 12 mg/dl (9-20); Calcium 8.3 mg/dl (8.4-10.2); Carbon Dioxide 26 mmol/L (22.0-30.0); Chloride 106 mmol/L (98-107); Estimated Glomerular Filt Rate 122 ml/min (>60); GFR (African American) 148 ML/MIN (>60); Globulin 2.2 g/dL (1.3-3.2); Glucose 103 mg/dl (74-100); Potassium 3.9 mmoL/L (3.5-5.1); Sodium 137 mmol/L (136-145); Total Protein,Serum 5.8 g/dl (6.3-8.2)
[2022-01-14 19:16] LABS: Lymphocytes % 7 % (10-50); Monocytes % 4 % (2-9); Neutrophils % 89 % (42-76); Nucleated Red Blood Cells 1; Platelet Estimate Normal; Total Cells Counted 100
== END ==
LOC: LAB.DROPOF 11:43
PROVIDERS: Visit Provider Physician Assistant
DX: R42 Dizziness and giddiness (principal)
CPT/HCPCS: 80053; 85007; 85025

== ENCOUNTER 2022-03-21 18:14 | Emergency (ER) | payer BC, SELFPAY ==
--- NOTE | 2022-03-21 18:40 | XR_ITS ---
PROCEDURE INFORMATION: Exam: XR Soft Tissue Neck Exam date and time: 03/21/2022 6:56 PM Age: 46 years old Clinical indication: Dysphagia / difficulty swallowing; Additional info: Throat discomfort. Throat discomfort x 4 days PT stated feels like something is stuck on the left side next to apples apple TECHNIQUE: Imaging protocol: XR of the soft tissues of the neck. COMPARISON: CR XR CHEST 2V 01/13/2022 9:07 PM FINDINGS: Airway: Normal. No abnormal narrowing, as visualized. No definite radiopaque foreign body visualized in the airway. Soft tissues: Unremarkable. Normal epiglottis. No retropharyngeal swelling Bones/joints: No acute findings. No acute fracture or significant subluxation. Other findings: Lung apices are unremarkable, as visualized. IMPRESSION: No acute findings.
--- NOTE | 2022-03-21 18:41 | PC.NURSE ---
radiology notified of chest xray
[2022-03-21 18:42] VITALS: BP 145/113; PULSE 93; RESP 18; TEMP 36.7; O2SAT 98; BMI 27.2
--- NOTE | 2022-03-21 19:07 | HMH.EDUTC ---
[facility] [place] Disposition Clinical Impression: Sore throat Disposition: Home, Self-Care Condition on Discharge: Good Instructions: Sore Throat Additional Instructions: Tylenol or Motrin as needed for fever or pain Encourage fluids, water, Gatorade, Powerade, try cold fluids, popsicles, ice cream will make it feel better Follow-up the ER for new or worsening symptoms or no noticeable improvement over the next 24-48 hours. Follow-up with PCP in am at 11. Referrals: Jessie Ferrell PA [Primary Care Provider] - Time of Disposition: 19:56 Medical Decision Making - Wilfred Inquiry Pt receiving controlled substance: No Vital Signs: 03/21/22 18:42 Temperature 98.0 F Temperature Source Oral Pulse Rate [Radial] 93 H Respiratory Rate 18 Blood Pressure [Right Arm] 145/113 H Blood Pressure Mean [Right Arm] 123 02 Sat by Pulse Oximetry 98 - Lab Data Lab Results 03/21/22 19:26: Group A Strep Rapid Negative Orders (Tests/Meds): ORDERS Category Date Time Status Strep Screen Confirmation Stat Micro 03/21/22 19:26 Received [facility] [place] HPI - General Chief complaint: Urgent Treatment Center Stated complaint: sore throat Time Seen by Provider: 03/21/22 19:08 Mode of Arrival: Ambulatory Source of Information: Patient Limitations: No Limitations Description of Symptoms (Recalled from Triage Doc. by RN): pt states that he feels like something is stuck in his throat. he has been having issues since 03/18/22 HEENT Symptoms (Recalled from RN notes): Yes Resp Symptoms (Recalled from RN notes): No Skin Symptoms (Recalled from RN notes): No MS Symptoms (Recalled from RN notes): No Functional Status (Recalled from RN notes): wnl - History of Present Illness Provider Complaint: 46 yr old male presents for a feeling something is stuck in his throat. pt states its been going on for a week but this am when he took his meds it felt like it hit something that causes some discomfort. Pt states no drainage, or fever. pt states he is eating and drinking ok but can feel it hit something. - Related Data Home Medications Medication Instructions Recorded Confirmed fexofenadine 180 mg tablet 180 mg PO DAILY tab 10/23/21 01/14/22 sildenafil (pulm.hypertension) 20 20 mg PO DAILY tab 10/23/21 01/14/22 mg tablet pantoprazole 40 mg tablet,delayed 40 mg PO DAILY tab 01/03/22 01/14/22 release Previous Rx's Medication Instructions Recorded diazepam 5 mg tablet 5 mg PO BID PRN #30 tab 10/23/21 azithromycin 250 mg tablet See Rx Instructions PO .COMPLEX #6 01/14/22 tab venlafaxine 150 mg 150 mg PO DAILY #90 cap 02/27/22 capsule,extended release 24 hr Allergies Allergy/AdvReac Type Severity Reaction Status Date / Time fluticasone Allergy Severe Difficulty Verified 03/21/22 18:45 [From Advair Diskus] Swallowing salmeterol Allergy Severe Difficulty Verified 03/21/22 18:45 [From Advair Diskus] Swallowing - Worker's Comp Is this a Worker's Comp case?: No [facility] History - Hepatitis A Screen Attestation statement:: This patient has been screened for Hepatitis A risk factors. 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 -slight scarring from this Laterality Cases: Left: Arthroscopy Knee Other Surgeries: Yes: Appendectomy, Other Amputation: No Fractures: No Comment: wrist- right x2. left knee - Social History Smoking Status: Never smoker Tobacco Type: smokeless tobacco # Packs/Day (cigarettes): 0 Alcohol Intake: never Alcohol Intake Frequency:: a few times a week Substance Use Type: denies use Occupational Status: other Housing: house Household Members: spouse - Psychiatric History Pschychia
[2022-03-21 19:52] LABS: Strep Scrn Group A (Rapid) Negative (Negative)
[2022-03-21 20:00] VITALS: BP 145/113; PULSE 93; RESP 18; TEMP 36.7
== END 2022-03-21 20:05 | disposition home or self-care (01) ==
PROVIDERS: Emergency Provider Nurse Practitioner Family; PCP Physician Assistant
DX: J02.9 Acute pharyngitis, unspecified (principal); I10 Essential (primary) hypertension; I49.9 Cardiac arrhythmia, unspecified; K21.9 Gastro-esophageal reflux disease without esophagitis; J45.909 Unspecified asthma, uncomplicated; F41.9 Anxiety disorder, unspecified; Z79.51 Long term (current) use of inhaled steroids; Z79.899 Other long term (current) drug therapy; Z88.8 Allergy status to other drugs, medicaments and biological substances; Z85.9 Personal history of malignant neoplasm, unspecified; Z82.49 Family history of ischemic heart disease and other diseases of the circulatory system
CPT/HCPCS: 70360; 87430; 99213; G0463

== ENCOUNTER → 2022-03-22 12:50 | Outpatient (CLI) | payer BC, SELFPAY ==
--- NOTE | 2022-03-22 13:00 | CT_ITS ---
FINAL REPORT TECHNIQUE: Axial CT images were performed through the neck. Coronal and sagittal reformats were submitted. This study was performed with techniques to keep radiation doses as low as reasonably achievable (ALARA). Individualized dose reduction techniques using automated exposure control or adjustment of mA and/or kV according to the patient's size were employed. CLINICAL HISTORY: sensation of something stuck in throat on left side. x 1 week FINDINGS: There is no mass or adenopathy. The nasopharynx, hypopharynx and oropharynx are unremarkable. The thyroid gland is unremarkable. Limited images of the lung apices are unremarkable. IMPRESSION: No acute process. Reviewed, Interpreted and Dictated by Ty Gavin III, MD Transcribed by Zhang Gilliam Authenticated by Ty Gavin III, MD on 03/22/2022 01:35:49 PM [facility]
== END ==
LOC: RAD 12:51
PROVIDERS: PCP Physician Assistant; Visit Provider Nurse Practitioner Family
DX: R09.89 Other specified symptoms and signs involving the circulatory and respiratory systems (principal)
CPT/HCPCS: 70490

== ENCOUNTER 2022-03-29 17:18 | Emergency (ER) | payer BC, SELFPAY ==
--- NOTE | 2022-03-29 17:14 | ECG_ITS ---
APPROVED REPORT Exam: Resting ECG HR:98 bpm ECG Measurements Heart Rate 98 AXES NC 156 P 34 QRSd 82 QRS -17 QT 318 T 48 QTc 373 Conclusion SINUS RHYTHM WITH SINUS ARRHYTHMIA POSSIBLE LEFT ATRIAL ENLARGEMENT [-0.1mV P-WAVE IN V1/V2] BORDERLINE ECG UNCONFIRMED REPORT Electronically signed by : Felipe Lucas MD 03/30/2022 16:00:23
[2022-03-29 17:22] VITALS: BP 163/103; PULSE 101; RESP 16; TEMP 36.7; O2SAT 98; BMI 27.1
--- NOTE | 2022-03-29 17:24 | XR_ITS ---
PROCEDURE INFORMATION: Exam: XR Chest Exam date and time: 03/29/2022 5:38 PM Age: 46 years old Clinical indication: Chest wall pain; Additional info: Chest pain TECHNIQUE: Imaging protocol: XR of the chest. Views: 1 view. COMPARISON: CR XR CHEST 2V 01/13/2022 9:07 PM FINDINGS: Lungs: Unremarkable. No consolidation. Pleural spaces: Unremarkable. No pleural effusion. No pneumothorax. Heart/Mediastinum: Unremarkable. No cardiomegaly. Bones/joints: Unremarkable. IMPRESSION: No acute findings.
--- NOTE | 2022-03-29 17:36 | HMH.EDGENADL ---
ED Disposition Clinical Impression: Atypical chest pain, Elevated blood pressure reading Disposition: Home, Self-Care Condition on Discharge: Good Instructions: DI for Atypical Chest Pain Additional Instructions: Lisinopril as prescribed. Follow-up in Dr. Arteaga's office on Friday for recheck. Additional instructions for CHEST PAIN: Return immediately if worsening chest pain, vomiting, shortness of breath, fever, coughing of blood. Prescriptions: lisinopriL [Lisinopril] 10 mg PO DAILY #30 tab Transmission Status: Received by [id number] Referrals: Provider,Referral, [Referring] - - Critical Care Critical Care Time: No Attestation: On , the high probability of a clinically significant, sudden or life threatening deterioration of the following system(s) required my full and direct attention, intervention and personal management. The time I documented below is in addition to time spent performing reported procedures but includes the following listed in this critical care notation. Medical Decision Making - Wilfred Inquiry Pt receiving controlled substance: No Vital Signs: 03/29/22 17:22 Temperature 98.0 F Temperature Source Oral Pulse Rate [Right Radial] 101 H Respiratory Rate 16 Blood Pressure [Right Arm] 163/103 H Blood Pressure Mean [Right Arm] 123 Blood Pressure Source [Right Arm] Automatic Cuff Blood Pressure Position [Right Arm] Sitting 02 Sat by Pulse Oximetry 98 Oxygen Delivery Method Room Air - Lab Data Lab Results 03/29/22 17:33: WBC 7.7, RBC 5.37, Hgb 15.8, Hct 46.7, MCV 86.9, MCH 29.5, MCHC 34.0, RDW 13.5, Plt Count 265, MPV 8.0, Neut % (Auto) 68.1, Lymph % (Auto) 20.8, [place] % (Auto) 8.2, Eos % (Auto) 1.1, Baso % (Auto) 1.8, Neut # (Auto) 5.2, Lymph # (Auto) 1.6, [place] # (Auto) 0.6, Eos # (Auto) 0.1, Baso # (Auto) 0.1 03/29/22 17:33: Sodium 140, Potassium 3.6, Chloride 105, Carbon Dioxide 27, Anion Gap 11.6, BUN 9, Creatinine 1.10, Estimated Creat Clear 103, Estimated GFR 72, Est GFR ( Amer) 88, Glucose 109 H, Calcium 8.8, Troponin I < 0.01 Result diagrams: 03/29/22 17:33 03/29/22 17:33 Orders (Tests/Meds): ED MEDICATIONS Generic Name Dose Route Start Last Admin Trade Name Freq PRN Reason Stop Dose Admin Lisinopril 10 mg 03/30/22 20:00 Lisinopril 10mg Tablet PO 03/30/22 20:01 ONCE ONE Sodium Chloride 10 ml 03/29/22 17:24 Sodium Chloride 0.9% 10ml Flush Syringe IV 04/28/22 17:23 NEEDED PRN Maintain IV Site Discontinued Medications Generic Name Dose Route Start Last Admin Trade Name Freq PRN Reason Stop Dose Admin Aspirin 324 mg 03/29/22 17:24 03/29/22 17:35 Aspirin 81mg Chewable Tablet PO 03/29/22 17:25 324 mg ONCE ONE Administration ORDERS Category Date Time Status Troponin I Q3H Lab 03/29/22 20:30 Ordered Troponin I Q3H Lab 03/29/22 23:30 Ordered - Radiology Data #1 Image(s): Chest Image Reviewed: Yes I reviewed the patient's radiology image, Yes I have reviewed radiologist's interpretation Preliminary Findings: Normal/NAD PROCEDURE INFORMATION: Exam: XR Chest Exam date and time: 03/29/2022 5:38 PM Age: 46 years old Clinical indication: Chest wall pain; Additional info: Chest pain TECHNIQUE: Imaging protocol: XR of the chest. Views: 1 view. COMPARISON: CR XR CHEST 2V 01/13/2022 9:07 PM FINDINGS: Lungs: Unremarkable. No consolidation. Pleural spaces: Unremarkable. No pleural effusion. No pneumothorax. Heart/Mediastinum: Unremarkable. No cardiomegaly. Bones/joints: Unremarkable. IMPRESSION: No acute findings. - ECG Data Tracing #1 EKG interpreted by Jorge L Wheatley MD: Rhythm: sinus Rate: 98 [place]: normal Ectopy: none Conduction: normal ST Segment Changes: none T Wave Changes: none Q Waves: none No evidence of acute ischemia or injury Prior electrocardiagrams reviewed. No
--- NOTE | 2022-03-29 17:42 | PC.NURSE ---
report given to donellrn
[2022-03-29 17:47] LABS: Basophils # 0.1 K/mm3 (0-0.2); Basophils % 1.8 % (0.1-2.0); Eosinophils # 0.1 K/mm3 (0.0-0.4); Eosinophils % 1.1 % (0.1-12.0); Hematocrit 46.7 % (42.0-52.0); Hemoglobin 15.8 g/dL (14.1-18.0); Lymphocytes # 1.6 K/mm3 (0.7-4.5); Lymphocytes % 20.8 % (10-50); Mean Corpuscular Hemoglobin 29.5 pg (27.0-31.2); Mean Corpuscular Volume 86.9 fl (80-94); Monocytes # 0.6 K/mm3 (0.1-1.0); Monocytes % 8.2 % (1.7-9.3); Neutrophils # 5.2 K/mm3 (1.8-7.8); Neutrophils % 68.1 % (37.0-80.0); Platelet Count 265 K/mm3 (142-424); Red Blood Count 5.37 M/mm3 (4.60-6.20); Red Cell Distribution Width 13.5 % (11.5-17.5); White Blood Count 7.7 K/mm3 (4.8-10.8)
[2022-03-29 17:51] LABS: Chloride 105 mmol/L (98-107); Potassium 3.6 mmoL/L (3.5-5.1); Sodium 140 mmol/L (136-145)
[2022-03-29 17:54] LABS: Anion Gap 11.6 mEq/L (5-15); Blood Urea Nitrogen 9 mg/dl (9-20); Carbon Dioxide 27 mmol/L (22.0-30.0); Creatinine Clearance Estimated 103 mL/min (50-200); Estimated Glomerular Filt Rate 72 ml/min (>60); GFR (African American) 88 ML/MIN (>60)
[2022-03-29 17:55] LABS: Calcium 8.8 mg/dl (8.4-10.2); Glucose 109 mg/dl (74-100)
[2022-03-29 18:12] LABS: Troponin I < 0.01 ng/ml (0.00-0.034)
[2022-03-29 20:49] LABS: Troponin I < 0.01 ng/ml (0.00-0.034)
[2022-03-29 20:52] VITALS: BP 137/96; PULSE 70; RESP 16; TEMP 36.9; O2SAT 98
== END 2022-03-29 20:59 | disposition home or self-care (01) ==
PROVIDERS: Emergency Provider Emergency Medicine; PCP Physician Assistant
DX: R07.9 Chest pain, unspecified (principal); I10 Essential (primary) hypertension; R51.9 Headache, unspecified; K21.9 Gastro-esophageal reflux disease without esophagitis; Z79.899 Other long term (current) drug therapy
CPT/HCPCS: 71045; 80048; 84484; 85025; 93005; 99283

== ENCOUNTER 2022-04-01 18:03 | Emergency (ER) | payer BC, SELFPAY ==
[2022-04-01 18:04] VITALS: BP 111/75; PULSE 93; RESP 16; TEMP 36.6; O2SAT 98; BMI 27.1
--- NOTE | 2022-04-01 18:39 | ECG_ITS ---
APPROVED REPORT Exam: Resting ECG HR:83 bpm ECG Measurements Heart Rate 83 AXES VA 169 P 28 QRSd 97 QRS -20 QT 332 T 56 QTc 372 Conclusion SINUS RHYTHM WITH SINUS ARRHYTHMIA POSSIBLE LEFT ATRIAL ENLARGEMENT [-0.1mV P-WAVE IN V1/V2] INCOMPLETE RIGHT BUNDLE BRANCH BLOCK [90+ ms QRS DURATION, TERMINAL R IN V1/V2, 40+ ms S IN I/aVL/V4/V5/V6] POSSIBLE LEFT VENTRICULAR HYPERTROPHY [VOLTAGE CRITERIA PLUS LAE OR QRS WIDENING] ABNORMAL ECG UNCONFIRMED REPORT Electronically signed by : Felipe Lucas MD 04/02/2022 21:22:13
--- NOTE | 2022-04-01 18:48 | XR_ITS ---
PROCEDURE INFORMATION: Exam: XR Chest Exam date and time: 04/01/2022 6:51 PM Age: 46 years old Clinical indication: Other: Chest discomfort/irregular heartbeat. Patient HX: Irregular heart beat per patient. TECHNIQUE: Imaging protocol: XR of the chest. Views: 2 views. COMPARISON: CR XR CHEST PORTABLE 03/29/2022 5:38 PM FINDINGS: Lungs: No acute pulmonary findings. Pulmonary vessels do not appear congested. No pulmonary consolidation. Lung volumes within normal limits. A likely tiny granuloma in the lateral upper right lung, projected over the posterolateral right 5th rib. Pleural spaces: Unremarkable. No significant pleural effusion. No pneumothorax. Heart/Mediastinum: The cardiac silhouette is normal. Bones/joints: Mild thoracolumbar scoliosis.There is no evidence of acute fracture. IMPRESSION: No acute findings.
[2022-04-01 19:00] LABS: Basophils # 0.1 K/mm3 (0-0.2); Basophils % 1.2 % (0.1-2.0); Eosinophils # 0.2 K/mm3 (0.0-0.4); Eosinophils % 2.6 % (0.1-12.0); Hematocrit 43.4 % (42.0-52.0); Hemoglobin 15.1 g/dL (14.1-18.0); Lymphocytes # 1.5 K/mm3 (0.7-4.5); Lymphocytes % 20.3 % (10-50); Mean Corpuscular HGB Conc 34.8 g/dL (31.8-35.4); Mean Corpuscular Hemoglobin 29.8 pg (27.0-31.2); Mean Corpuscular Volume 85.5 fl (80-94); Mean Platelet Volume 8.3 fl (7.4-10.4); Monocytes # 0.5 K/mm3 (0.1-1.0); Monocytes % 6.3 % (1.7-9.3); Neutrophils # 5.1 K/mm3 (1.8-7.8); Neutrophils % 69.6 % (37.0-80.0); Platelet Count 248 K/mm3 (142-424); Red Blood Count 5.07 M/mm3 (4.60-6.20); Red Cell Distribution Width 13.4 % (11.5-17.5); White Blood Count 7.4 K/mm3 (4.8-10.8)
[2022-04-01 19:30] LABS: Anion Gap 12.3 mEq/L (5-15); Blood Urea Nitrogen 13 mg/dl (9-20); Calcium 8.9 mg/dl (8.4-10.2); Carbon Dioxide 28 mmol/L (22.0-30.0); Chloride 102 mmol/L (98-107); Creatinine Clearance Estimated 126 mL/min (50-200); Estimated Glomerular Filt Rate 91 ml/min (>60); GFR (African American) 110 ML/MIN (>60); Glucose 125 mg/dl (74-100); Potassium 3.3 mmoL/L (3.5-5.1); Sodium 139 mmol/L (136-145)
[2022-04-01 19:53] LABS: Troponin I < 0.01 ng/ml (0.00-0.034)
--- NOTE | 2022-04-01 20:01 | HMH.EDGENADL ---
ED Disposition Clinical Impression: Pre-syncope Disposition: Home, Self-Care Condition on Discharge: Good Additional Instructions: Please return to the ED for any new or worsening symptoms, follow-up with your safekeeping clerk tomorrow morning as scheduled. Referrals: Provider,Referral, [Primary Care Provider] - - Critical Care Critical Care Time: No Attestation: On 04/01/22, the high probability of a clinically significant, sudden or life threatening deterioration of the following system(s) required my full and direct attention, intervention and personal management. The time I documented below is in addition to time spent performing reported procedures but includes the following listed in this critical care notation. Medical Decision Making - Medical Records Medical records reviewed: Yes: I reviewed the patient's medical records. - Wilfred Inquiry Pt receiving controlled substance: No Vital Signs: 04/01/22 18:04 Temperature 98 F Temperature Source Oral Pulse Rate [Radial] 93 H Respiratory Rate 16 Blood Pressure [Right Arm] 111/75 Blood Pressure Mean [Right Arm] 87 Blood Pressure Position [Right Arm] Sitting 02 Sat by Pulse Oximetry 98 Oxygen Delivery Method Room Air - Lab Data Lab Results 04/01/22 18:23: WBC 7.4, RBC 5.07, Hgb 15.1, Hct 43.4, MCV 85.5, MCH 29.8, MCHC 34.8, RDW 13.4, Plt Count 248, MPV 8.3, Neut % (Auto) 69.6, Lymph % (Auto) 20.3, [place] % (Auto) 6.3, Eos % (Auto) 2.6, Baso % (Auto) 1.2, Neut # (Auto) 5.1, Lymph # (Auto) 1.5, [place] # (Auto) 0.5, Eos # (Auto) 0.2, Baso # (Auto) 0.1 04/01/22 18:23: Sodium 139, Potassium 3.3 L, Chloride 102, Carbon Dioxide 28, Anion Gap 12.3, BUN 13, Creatinine 0.90, Estimated Creat Clear 126, Estimated GFR 91, Est GFR ( Amer) 110, Glucose 125 H, Calcium 8.9, Troponin I < 0.01 Result diagrams: 04/01/22 18:23 04/01/22 18:23 Orders (Tests/Meds): ORDERS Category Date Time Status Troponin I Q3H Lab 04/01/22 22:00 Ordered Troponin I Q3H Lab 04/02/22 01:00 Ordered Medical Decision Narrative: Patient is a 46-year-old male presents ED today for further evaluation of feelings of presyncope after taking new blood pressure medication today, patient is well-appearing on reevaluation no acute distress, vital signs not show any significant abnormalities, EKG obtained with evidence of incomplete bundle branch block, no evidence of heart block, patient has AN appointment with his safekeeping clerk tomorrow morning, presents the ED today for evaluation of emergent causes of him to feel presyncopal, plan to take CBC CMP chest x-ray troponin for further evaluation of this, he is not having chest pain currently, if first troponin is within normal limits do not need to obtain a second. Chest x-ray with no evidence of focal consolidation pneumonia or pneumothorax, first troponin undetectable, patient given extensive return precautions and education regarding his symptoms, will hold on his blood pressure medication until seeing his safekeeping clerk tomorrow. Patient otherwise given return precautions return to ED with any new or worsening symptoms and has verbalized understanding with this plan. General Adult HPI - General Chief complaint: Weakness Stated complaint: arrythmia Time Seen by Provider: 04/01/22 18:03 Mode of Arrival: Ambulatory Limitations: No Limitations Description of Symptoms (Recalled from ER Triage Doc. by RN): TO ED PER PVT CAR WITH C/O GENERALIZED WEAKNESS, DIZZINESS, SOB STARTING TODAY APPROX 2 HRS AFTER TAKING FIRST DOSE OF ISOSORBIDE 30MG. PT STATES D/MIL FROM [facility] YESTERDAY AFTER BEING ADMITTED FOR CHEST PAIN. PT STATES HE TOOK HIS B/P WITH EPISODE AND IT WAS 104/? AND MACHINE READ AN ARRYTHMIA CALLED HIS CLINICAL EDUCATION MANAGER AND TOLD TO COME TO ED FOR AN EKG - History of Present Illness HPI narrative: Patient is a 46-year-old male with a history of unspecified heart block, irregular heart rhythm, presents the ED today for further evaluat
[2022-04-01 20:06] VITALS: BP 119/73; PULSE 94; RESP 16; TEMP 36.6; O2SAT 98
== END 2022-04-01 20:09 | disposition home or self-care (01) ==
PROVIDERS: Emergency Provider Student in an Organized Health Care Education/Training Program
DX: R55 Syncope and collapse (principal); R53.83 Other fatigue; I10 Essential (primary) hypertension; F41.9 Anxiety disorder, unspecified; K21.9 Gastro-esophageal reflux disease without esophagitis; Z88.8 Allergy status to other drugs, medicaments and biological substances
CPT/HCPCS: 71046; 80048; 84484; 85025; 93005; 99283

== ENCOUNTER → 2022-04-19 13:56 | Outpatient (CLI) | payer BC, SELFPAY ==
--- NOTE | 2022-04-19 14:00 | CA_ITS ---
APPROVED REPORT EXAM: Comprehensive 2D, Doppler, and color-flow Echocardiogram Airport Manager: Eleonora Bennett RVT Ht: 5 ft 10 in Wt: 192lbs BSA: 2.05 BP: 122/86 mmHg Indications: HTN,SOA,CP 2D Dimensions LVOT 1.95 cm (M/F) 1.5-2.5 LA Volume 16.40 mL LA Volume Index 8.00 mL/m2 (M/F) 16-34 M-Mode Dimensions RVDd 2.43 cm (0.9-2.6) LA Diam 3.19 cm (1.9-4.0) LVDd 3.33 cm (3.5-5.7) Ao Diam 3.14 cm (2.0-3.7) LVDs 2.36 cm (3.5-5.7) IVSd 1.65 cm (0.6-1.1) PWd 1.50 cm (0.6-1.1) EF (Teich) 57.20% FS 29.10% EDV (Teich) 45.10 mL TAPSE 1.97 (<1.7) ESV (Teich) 19.30 mL LV Diastology E Decel Time 307.00 (160-240 msec) E/A Ratio 0.9 MED E' 4.70 (< 7 cm/sec) E'/MED E' Ratio 15.43 (>14) LAT E' 10.00 (<10 cm/sec) E/LAT E' Ratio 7.25 (>14) Aortic Valve AO Peak GR. 5.90 mmHg Mitral Valve MV E Max Hugo. 73.00 (40-130 cm/s) MV A Velocity 84.00 (40-130 cm/s) E/A Ratio 0.87 MV Decel. Time 307.00 (160-240 ms) MV PHT 90.00 ms Pulmonary Valve PV Peak Velocity 89.00 (50-150 cm/s) Left Ventricle Left atrium is mildly enlarged, left ventricle is normal size, mild concentric left ventricular hypertrophy, estimated ejection fraction 55% with no regional wall motion abnormality, grade 1 diastolic dysfunction seen with tissue Doppler evidence of raise left atrial pressure. Right Ventricle Right atrium and right ventricle are mildly enlarged with normal contractility. Aortic Valve Aortic valve is minimally thickened and fibrosed, there is no aortic stenosis or aortic insufficiency. Mitral Valve Mitral valve is grossly normal, there is trace mitral regurgitation. Tricuspid Valve Tricuspid valve is grossly normal, there is trace tricuspid regurgitation, tricuspid regurgitation jet velocity is inadequate for calculation of the right ventricular systolic pressure. Pulmonic Valve Pulmonic valve is poorly visualized. Great Vessels Aortic root is normal size. Inferior vena cava is mildly dilated with less than 50% inspiratory collapse. Pericardium No significant pericardial effusion noted. Conclusion 1. Mild biatrial lodgment, normal left ventricular size, mild concentric left ventricular hypertrophy, estimated ejection fraction 55% with no regional wall motion abnormality, grade 1 diastolic dysfunction seen with tissue Doppler evidence of raise left atrial pressure. 2. Mildly enlarged right ventricle with normal contractility. 3. Trace mitral and tricuspid regurgitation. 4. No significant pericardial effusion noted. 5. Inferior vena cava is mildly dilated with less than 50% inspiratory collapse. Electronically signed by : Grady Padilla MD 04/19/2022 14:39:53
== END ==
PROVIDERS: PCP Physician Assistant; Visit Provider Internal Medicine Interventional Cardiology
DX: R07.9 Chest pain, unspecified (principal)
CPT/HCPCS: 93306

== ENCOUNTER 2022-05-30 12:07 | Emergency (ER) | payer BC, SELFPAY ==
--- NOTE | 2022-05-30 12:34 | HMH.EDUTC ---
[facility] [place] Clinical Impression: Viral syndrome, Exposure to COVID-19 virus Disposition: Home, Self-Care Condition on Discharge: Good Instructions: Preventing the Spread of Coronavirus Discharge Instructions, DI for COVID-19 (Suspected or Confirmed ) Additional Instructions: Drink plenty of fluids. Take tylenol or ibuprofen for pain or fever. Take the medications as directed. Follow up with your regular doctor. GO TO THE ER FOR ANY WORSENING SYMPTOMS Quarantine until you know the results of your covid-19 test. Notify your school or workplace of your results and follow their instructions regarding return to work/school. Prescriptions: Ondansetron [Zofran 4mg ODT] 4 mg PO Q8HP PRN #12 tab PRN Reason: Nausea Transmission Status: Pending to [id number] Referrals: Jessie Ferrell PA [Primary Care Provider] - Time of Disposition: 12:53 Medical Decision Making - Medical Records Medical records reviewed: No: I reviewed the patient's medical records. - Wilfred Inquiry Pt receiving controlled substance: No Vital Signs: 05/30/22 12:38 Temperature 98.3 F Temperature Source Oral Pulse Rate [Radial] 104 H Respiratory Rate 18 Blood Pressure [Right Arm] 142/103 H Blood Pressure Mean [Right Arm] 116 02 Sat by Pulse Oximetry 98 Orders (Tests/Meds): ORDERS Category Date Time Status Covid-19 Nasal PCR ([facility]) Routine Lab 05/30/22 12:29 Received [facility] [place] - General Stated complaint: Headache; sore throat Time Seen by Provider: 05/30/22 12:34 - History of Present Illness Provider Complaint: He states that since yesterday he has had body aches and a headache. He needs a covid-19 test for his work. He denies any chest congestion and shortness of breath. - Related Data Home Medications Medication Instructions Recorded Confirmed fexofenadine 180 mg tablet 180 mg PO DAILY tab 10/23/21 04/11/22 sildenafil (pulm.hypertension) 20 20 mg PO DAILY tab 10/23/21 04/11/22 mg tablet lisinopril 5 mg tablet 5 mg PO DAILY 04/11/22 04/11/22 Previous Rx's Medication Instructions Recorded diazepam 5 mg tablet 5 mg PO BID PRN #30 tab 10/23/21 venlafaxine 150 mg 150 mg PO DAILY #90 cap 02/27/22 capsule,extended release 24 hr cetirizine 10 mg capsule 10 mg PO DAILY PRN #90 cap 03/27/22 famotidine 20 mg tablet 20 mg PO BID #90 tab 03/27/22 fluticasone propionate 50 1 spray NS DAILY #16 g 03/27/22 mcg/actuation nasal spray,suspension pantoprazole 40 mg tablet,delayed 40 mg PO BID #60 tab 04/15/22 release Ondansetron [Zofran 4mg ODT] 4 mg PO Q8HP PRN #12 tab 05/30/22 Allergies Allergy/AdvReac Type Severity Reaction Status Date / Time fluticasone Allergy Severe Difficulty Verified 04/11/22 14:56 [From Advair Diskus] Swallowing salmeterol Allergy Severe Difficulty Verified 04/11/22 14:56 [From Advair Diskus] Swallowing [facility] History - Hepatitis A Screen Attestation statement:: This patient has been screened for Hepatitis A risk factors. 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 -slight scarring from this Laterality Cases: Left: Arthroscopy Knee Other Surgeries: Yes: Appendectomy, Other Amputation: No Fractures: No Comment: wrist- right x2. left knee - Social History Smoking Status: Never smoker Tobacco Type: smokeless tobacco # Packs/Day (cigarettes): 0 Alcohol Intake: current Alcohol Intake Frequency:: a few times a week Substance Use Type: denies use Occupational Status: other Housing: house Household Members: spouse - Psychiatric History Pschychiatric History:: Reports:: Anxiety Family Hx:: Heart Attack, Coronary Arter
[2022-05-30 12:38] VITALS: BP 142/103; PULSE 104; RESP 18; TEMP 36.8; O2SAT 98; BMI 27.2
[2022-05-30 12:45] LABS: UTC Strep Screen (Rapid) Negative (Negative)
[2022-05-30 13:03] VITALS: BP 142/103; PULSE 104; RESP 20; TEMP 36.8; O2SAT 98
== END 2022-05-30 13:08 | disposition home or self-care (01) ==
PROVIDERS: Emergency Provider Nurse Practitioner Family; PCP Physician Assistant
DX: R51.9 Headache, unspecified (principal); J02.9 Acute pharyngitis, unspecified; M79.10 Myalgia, unspecified site
CPT/HCPCS: 87880; 99212; C9803; G0463; U0003; U0005

== ENCOUNTER 2022-08-07 10:55 | Emergency (ER) | payer BC, SELFPAY ==
[2022-08-07 11:50] VITALS: BP 125/89; PULSE 120; RESP 18; TEMP 37.1; O2SAT 98; BMI 27.2
[2022-08-07 11:56] LABS: UTC Strep Screen (Rapid) Positive (Negative)
--- NOTE | 2022-08-07 12:15 | EXP.UTC ---
Discharge Plan Disposition Patient Disposition: Home, Self-Care Condition: Good Prescriptions Prescriptions: New amoxicillin [amoxicillin] 875 mg tablet 875 mg PO Q12H Qty: 20 0RF methylprednisolone 4 mg Tablets,Dose Pack 4 mg PO DIRECTED Qty: 21 0RF No Action fexofenadine 180 mg tablet 180 mg PO DAILY diazepam [Valium] 5 mg tablet 5 mg PO BID PRN (Reason: panic attack(s)) Qty: 30 0RF venlafaxine 150 mg capsule,extended release 24hr 150 mg PO DAILY Qty: 90 1RF lisinopril 5 mg tablet 5 mg PO DAILY famotidine [Pepcid] 20 mg tablet 20 mg PO BID Qty: 90 3RF All Day Allergy (cetirizine) 10 mg capsule 10 mg PO DAILY PRN (Reason: allergy symptoms) Qty: 90 0RF fluticasone propionate [Flonase Allergy Relief] 50 mcg/actuation spray,suspension 1 spray NS DAILY Qty: 16 2RF Rx Instructions: administer into each nostril sildenafil 100 mg tablet 100 mg PO DAILY PRN (Reason: sexual activity) Qty: 30 0RF Rx Instructions: administer 30 minutes to 4 hours before activity pantoprazole 40 mg tablet,delayed release (DR/EC) 40 mg PO BID Qty: 60 0RF ondansetron 4 MG tablet,disintegrating 4 mg PO Q8HP PRN (Reason: Nausea) Qty: 12 0RF Referrals Follow up/Referrals: Jessie Ferrell PA [Primary Care Provider] - See instructions Activity Restrictions/Add. Instructions Additional Instructions/Restrictions: Drink plenty of fluids. Take tylenol or ibuprofen for pain or fever. Take the medications as directed. Follow up with your regular doctor. GO TO THE ER FOR ANY WORSENING SYMPTOMS Throw your tooth brush away and get a new one. Clinical Impressions Clinical Impression: Strep throat Instructions Patient Instructions: Strep Throat, DI for Strep Throat Discharge ED Provider: Aguilar Prieto [facility] General Stated complaint: sore throat, lung congestion Mode of Arrival: Ambulatory Source of Information: Patient Limitations: No Limitations Time Seen by Provider: 08/07/22 12:15 Description of Symptoms (Recalled from Triage Doc. by RN): Pt c/o sore and scratchy throat, burning in chest, sinus drainage and left ear pain since yesterday HEENT Symptoms (Recalled from RN notes): Yes (sore throat, drainage, left ear pain) Resp Symptoms (Recalled from RN notes): No Skin Symptoms (Recalled from RN notes): No MS Symptoms (Recalled from RN notes): No Functional Status (Recalled from RN notes): n/a History of Present Illness Provider Complaint: He c/o sore throat for the past 2 days. Related Data Home Medications Medication Instructions Recorded Confirmed fexofenadine 180 mg tablet 180 mg PO DAILY 10/23/21 04/11/22 lisinopril 5 mg tablet 5 mg PO DAILY 04/11/22 04/11/22 Previous Rx's Medication Instructions Recorded diazepam 5 mg tablet (Valium) 5 mg PO BID PRN panic attack(s) 10/23/21 #30 tabs venlafaxine 150 mg 150 mg PO DAILY Anxiety #90 caps 02/27/22 capsule,extended release 24 hr cetirizine 10 mg capsule (All Day 10 mg PO DAILY PRN allergy 03/27/22 Allergy (cetirizine)) symptoms #90 caps famotidine 20 mg tablet (Pepcid) 20 mg PO BID #90 tabs 03/27/22 fluticasone propionate 50 1 spray intranasal DAILY #16 grams 03/27/22 mcg/actuation nasal spray,suspension (Flonase Allergy Relief) ondansetron 4 mg disintegrating 4 mg PO Q8HP PRN Nausea #12 tabs 05/30/22 tablet sildenafil 100 mg tablet 100 mg PO DAILY PRN sexual 06/14/22 activity #30 tabs pantoprazole 40 mg tablet,delayed 40 mg PO BID #60 tabs 06/28/22 release amoxicillin 875 mg tablet 875 mg PO Q12H #20 tabs 08/07/22 methylprednisolone 4 mg tablets in 4 mg PO DIRECTED #21 tabs 08/07/22 a dose pack Allergies Allergy/AdvReac Type Severity Reaction Status Date / Time fluticasone Allergy Severe Difficulty Verified 04/11/22 14:56 [From Advair Diskus] Swallowing salmeterol Allergy Severe Difficulty Verified 04/11/22 14:56 [From Advair Diskus] Swal
[2022-08-07 12:34] VITALS: BP 125/89; PULSE 120; RESP 18; TEMP 37.1; O2SAT 98
== END 2022-08-07 12:35 | disposition home or self-care (01) ==
PROVIDERS: Emergency Provider Nurse Practitioner Family; PCP Physician Assistant
DX: J02.0 Streptococcal pharyngitis (principal)
CPT/HCPCS: 87880; 99212; G0463

== ENCOUNTER 2022-09-13 11:52 | Emergency (ER) | payer BC, SELFPAY ==
--- NOTE | 2022-09-13 12:09 | EXP.UTC ---
Discharge Plan Disposition Patient Disposition: Home, Self-Care Condition: Good Prescriptions Prescriptions: No Action fexofenadine 180 mg tablet 180 mg PO DAILY diazepam [Valium] 5 mg tablet 5 mg PO BID PRN (Reason: panic attack(s)) Qty: 30 0RF lisinopril 5 mg tablet 5 mg PO DAILY venlafaxine 150 mg capsule,extended release 24hr 150 mg PO DAILY Qty: 90 1RF famotidine [Pepcid] 20 mg tablet 20 mg PO BID Qty: 90 3RF All Day Allergy (cetirizine) 10 mg capsule 10 mg PO DAILY PRN (Reason: allergy symptoms) Qty: 90 0RF fluticasone propionate [Flonase Allergy Relief] 50 mcg/actuation spray,suspension 1 spray NS DAILY Qty: 16 2RF Rx Instructions: administer into each nostril sildenafil 100 mg tablet 100 mg PO DAILY PRN (Reason: sexual activity) Qty: 30 0RF Rx Instructions: administer 30 minutes to 4 hours before activity pantoprazole 40 mg tablet,delayed release (DR/EC) 40 mg PO BID Qty: 60 0RF ondansetron 4 MG tablet,disintegrating 4 mg PO Q8HP PRN (Reason: Nausea) Qty: 12 0RF Referrals Follow up/Referrals: Jessie Ferrell PA [Primary Care Provider] - See instructions Clinical Impressions Clinical Impression: URI (upper respiratory infection) Discharge ED Provider: Jessie Ferrell [facility] [place] H[place] General Stated complaint: Congestion, cough Time Seen by Provider: 09/13/22 12:09 History of Present Illness Provider Complaint: Headache, cough, congestion X 2 days. History of asthma. Throat is burning. No fever. Onset (ago): day(s) (2) Location: chest Treatments prior to arrival: none Related Data Home Medications Medication Instructions Recorded Confirmed fexofenadine 180 mg tablet 180 mg PO DAILY 10/23/21 08/28/22 lisinopril 5 mg tablet 5 mg PO DAILY 04/11/22 08/28/22 Previous Rx's Medication Instructions Recorded diazepam 5 mg tablet (Valium) 5 mg PO BID PRN panic attack(s) 10/23/21 #30 tabs cetirizine 10 mg capsule (All Day 10 mg PO DAILY PRN allergy 03/27/22 Allergy (cetirizine)) symptoms #90 caps famotidine 20 mg tablet (Pepcid) 20 mg PO BID #90 tabs 03/27/22 fluticasone propionate 50 1 spray intranasal DAILY #16 grams 03/27/22 mcg/actuation nasal spray,suspension (Flonase Allergy Relief) ondansetron 4 mg disintegrating 4 mg PO Q8HP PRN Nausea #12 tabs 05/30/22 tablet sildenafil 100 mg tablet 100 mg PO DAILY PRN sexual 06/14/22 activity #30 tabs venlafaxine 150 mg 150 mg PO DAILY Anxiety #90 caps 08/28/22 capsule,extended release 24 hr pantoprazole 40 mg tablet,delayed 40 mg PO BID #60 tabs 09/04/22 release Allergies Allergy/AdvReac Type Severity Reaction Status Date / Time fluticasone Allergy Severe Difficulty Verified 09/13/22 12:13 [From Advair Diskus] Swallowing salmeterol Allergy Severe Difficulty Verified 09/13/22 12:13 [From Advair Diskus] Swallowing PFSH PFSH Medical History (Updated 09/13/22 @ 12:25 by DEBI Cardoza) Alcoholism Anxiety Generalized anxiety disorder Insomnia Right shoulder pain Vitamin D deficiency Social History Smoking Status: Never smoker second hand exposure: No alcohol intake: current substance use type: denies use current occupational status: other Travel in the last 8 weeks: None household members: spouse housing: house number of children: 2 ROS Obtained: Yes All systems reviewed & no additional complaints except as documented Constitutional Constitutional: Denies fever(s) ENT Ears, Nose, Mouth, and Throat: Reports sore throat Respiratory Respiratory: Reports chest congestion and Reports cough Physical Exam General General appearance: alert and in no apparent distress Head Head exam: atraumatic, normocephalic and normal inspection Eye Eye exam: Present normal appearance, PERRL and EOMI ENT ENT exam: Present normal exam, normal oropharynx, mucous membrane
[2022-09-13 12:10] VITALS: BP 133/87; PULSE 106; RESP 18; TEMP 37.1; O2SAT 99; BMI 29.7
[2022-09-13 12:31] VITALS: BP 133/87; PULSE 106; RESP 18; TEMP 37.1
[2022-09-13 16:06] LABS: UTC Strep Screen (Rapid) Negative (Negative)
== END 2022-09-13 12:31 | disposition home or self-care (01) ==
PROVIDERS: Emergency Provider Physician Assistant; PCP Physician Assistant
DX: J06.9 Acute upper respiratory infection, unspecified (principal); J45.909 Unspecified asthma, uncomplicated
CPT/HCPCS: 87880; 96372; 99212; G0463; J0696; J1040

== ENCOUNTER → 2022-09-25 05:34 | Outpatient (CLI) | payer BC, SELFPAY ==
[2022-09-25 17:56] LABS: Basophils # 0.1 K/mm3 (0-0.2); Eosinophils # 0.3 K/mm3 (0.0-0.4); Eosinophils % 4.2 % (0.1-12.0); Hematocrit 46.6 % (42.0-52.0); Hemoglobin 15.4 g/dL (14.1-18.0); Lymphocytes # 1.5 K/mm3 (0.7-4.5); Lymphocytes % 22.8 % (10-50); Mean Corpuscular Hemoglobin 29.4 pg (27.0-31.2); Mean Platelet Volume 8.5 fl (7.4-10.4); Monocytes # 0.4 K/mm3 (0.1-1.0); Monocytes % 5.9 % (1.7-9.3); Neutrophils # 4.5 K/mm3 (1.8-7.8); Neutrophils % 66.1 % (37.0-80.0); Platelet Count 275 K/mm3 (142-424); Red Blood Count 5.23 M/mm3 (4.60-6.20); Red Cell Distribution Width 13.9 % (11.5-17.5); White Blood Count 6.7 K/mm3 (4.8-10.8)
[2022-09-25 19:49] LABS: Alanine Aminotransferase 14 U/L (12-78); Albumin/Globulin Ratio 2.1 (1.1-1.8); Alkaline Phosphatase 78 U/L (38-126); Anion Gap 18.6 mEq/L (5-15); Aspartate Amino Transferase 27 U/L (17-59); Bilirubin,Total 0.6 mg/dl (0.2-1.3); Blood Urea Nitrogen 19 mg/dl (9-20); Calcium 9.9 mg/dl (8.4-10.2); Carbon Dioxide 28 mmol/L (22.0-30.0); Chloride 99 mmol/L (98-107); Estimated Glomerular Filt Rate 80 ml/min (>60); GFR (African American) 97 ML/MIN (>60); Globulin 2.4 g/dL (1.3-3.2); Glucose 87 mg/dl (74-100); Potassium 4.6 mmoL/L (3.5-5.1); Sodium 141 mmol/L (136-145); Total Protein,Serum 7.4 g/dl (6.3-8.2)
[2022-09-25 20:03] LABS: 25-OH Vitamin D, Total 42.1 ng/mL (30-100)
[2022-09-25 20:19] LABS: Prostate Specific Ag Screen 0.9 ng/ml (0.0-4.0); Thyroid Stimulating Hormone 0.41 uIU/mL (0.465-4.68)
== END ==
PROVIDERS: PCP Physician Assistant; Visit Provider Physician Assistant
DX: R00.2 Palpitations (principal); T67.5XXA Heat exhaustion, unspecified, initial encounter
CPT/HCPCS: 80053; 82306; 84443; 85025; G0103

== ENCOUNTER → 2022-10-10 08:51 | Outpatient (CLI) | payer BC, SELFPAY ==
[2022-10-10 11:06] LABS: Thyroid Stimulating Hormone 0.56 uIU/mL (0.465-4.68)
== END ==
PROVIDERS: PCP Physician Assistant; Visit Provider Physician Assistant
DX: R79.89 Other specified abnormal findings of blood chemistry (principal)
CPT/HCPCS: 36415; 84443

== ENCOUNTER 2022-10-11 17:51 | Emergency (ER) | payer BC, SELFPAY ==
--- NOTE | 2022-10-11 18:38 | EXP.UTC ---
Discharge Plan Disposition Patient Disposition: Home, Self-Care Condition: Good Prescriptions Prescriptions: New azithromycin [Zithromax] 250 mg tablet 250 mg PO UD DOSE PK Qty: 6 0RF Rx Instructions: Take two (2) tablets today, then one (1) tablet days #2 thru #5 benzonatate [benzonatate] 100 mg capsule 100 mg PO TIDP PRN (Reason: Cough) Qty: 30 0RF methylprednisolone 4 mg Tablets,Dose Pack 4 mg PO DIRECTED Qty: 21 0RF oseltamivir [Tamiflu] 75 mg capsule 75 mg PO BID Qty: 10 0RF No Action lisinopril 5 mg tablet 5 mg PO DAILY venlafaxine 150 mg capsule,extended release 24hr 150 mg PO DAILY Qty: 90 1RF All Day Allergy (cetirizine) 10 mg capsule 10 mg PO DAILY PRN (Reason: allergy symptoms) Qty: 90 0RF fluticasone propionate [Flonase Allergy Relief] 50 mcg/actuation spray,suspension 1 spray NS DAILY Qty: 16 2RF Rx Instructions: administer into each nostril sildenafil 100 mg tablet 100 mg PO DAILY PRN (Reason: sexual activity) Qty: 30 0RF Rx Instructions: administer 30 minutes to 4 hours before activity pantoprazole 40 mg tablet,delayed release (DR/EC) 40 mg PO BID Qty: 60 0RF Referrals Follow up/Referrals: Jessie Ferrell PA [Primary Care Provider] - See instructions Activity Restrictions/Add. Instructions Additional Instructions/Restrictions: Drink plenty of fluids. Take tylenol or ibuprofen for pain or fever. Take the medications as directed. Follow up with your regular doctor. GO TO THE ER FOR ANY WORSENING SYMPTOMS Clinical Impressions Clinical Impression: Viral syndrome, Bronchitis Stand Alone Forms Stand Alone Forms: Work/School Release Instructions Patient Instructions: DI for Influenza -- Adult Discharge ED Provider: Aguilar Prieto [facility] [place] General Stated complaint: congestion, SOB Time Seen by Provider: 10/11/22 19:33 History of Present Illness Provider Complaint: He states that he has had a fever, chills, body ache and chest congestion since this morning. Related Data Home Medications Medication Instructions Recorded Confirmed lisinopril 5 mg tablet 5 mg PO DAILY 04/11/22 09/25/22 Previous Rx's Medication Instructions Recorded cetirizine 10 mg capsule (All Day 10 mg PO DAILY PRN allergy 03/27/22 Allergy (cetirizine)) symptoms #90 caps fluticasone propionate 50 1 spray intranasal DAILY #16 grams 03/27/22 mcg/actuation nasal spray,suspension (Flonase Allergy Relief) sildenafil 100 mg tablet 100 mg PO DAILY PRN sexual 06/14/22 activity #30 tabs venlafaxine 150 mg 150 mg PO DAILY Anxiety #90 caps 08/28/22 capsule,extended release 24 hr pantoprazole 40 mg tablet,delayed 40 mg PO BID #60 tabs 09/04/22 release azithromycin 250 mg tablet 250 mg PO UD DOSE PK #6 tabs 10/11/22 (Zithromax) benzonatate 100 mg capsule 100 mg PO TIDP PRN Cough #30 caps 10/11/22 methylprednisolone 4 mg tablets in 4 mg PO DIRECTED #21 tabs 10/11/22 a dose pack oseltamivir 75 mg capsule (Tamiflu) 75 mg PO BID #10 caps 10/11/22 Allergies Allergy/AdvReac Type Severity Reaction Status Date / Time fluticasone Allergy Severe Difficulty Verified 10/11/22 19:37 [From Advair Diskus] Swallowing salmeterol Allergy Severe Difficulty Verified 10/11/22 19:37 [From Advair Diskus] Swallowing PFSH PFSH Disclaimer: The information contained in this section may have been updated after the patient was seen, as this information can be updated by other users. Medical History Alcoholism Anxiety Generalized anxiety disorder Insomnia Right shoulder pain Vitamin D deficiency Social History Smoking Status: Never smoker second hand exposure: No alcohol intake: current substance use type: denies use current occupational status: other Travel in the last 8 weeks: None household me
[2022-10-11 19:35] VITALS: BP 116/82; PULSE 79; RESP 15; TEMP 37.1; O2SAT 100; BMI 26.5
[2022-10-11 20:11] VITALS: BP 116/82; PULSE 79; RESP 15; TEMP 37.1
[2022-10-11 20:34] LABS: Adenovirus,PCR Not Detected (NotDetected); Bordetella Pertussis Not Detected (NotDetected); Chlamydophila Pneumoniae, PCR Not Detected (NotDetected); Coronavirus 19, PCR Not Detected (NotDetected); Coronavirus 229E Not Detected (NotDetected); Coronavirus NL63 Not Detected (NotDetected); Coronavirus OC43 Not Detected (NotDetected); Coronovirus HKU1,PCR Not Detected (NotDetected); Human Metapneumovirus Not Detected (NotDetected); Influenza A, PCR Not Detected (NotDetected); Influenza AH1, 2009 Not Detected (NotDetected); Influenza AH1, PCR Not Detected (NotDetected); Influenza AH3,PCR Not Detected (NotDetected); Influenza B, PCR Not Detected (NotDetected); Mycoplasma Pneumoniae, PCR Not Detected (NotDetected); Parainfluenza 1, PCR Not Detected (NotDetected); Parainfluenza 2, PCR Not Detected (NotDetected); Parainfluenza 3, PCR Not Detected (NotDetected); Parainfluenza 4, PCR Not Detected (NotDetected); Respiratory Syncytial Virus Not Detected (NotDetected); Rhinovirus/Enterovirus Not Detected (NotDetected)
== END 2022-10-11 20:15 | disposition home or self-care (01) ==
PROVIDERS: Emergency Provider Nurse Practitioner Family; PCP Physician Assistant
DX: J40 Bronchitis, not specified as acute or chronic (principal); J32.9 Chronic sinusitis, unspecified
CPT/HCPCS: 87581; 87632; 87798; 99212; C9803; G0463; U0003; U0005

== ENCOUNTER → 2022-11-28 14:41 | Outpatient (CLI) | payer BC, SELFPAY ==
[2022-11-28 15:05] LABS: Basophils # 0.1 K/mm3 (0-0.2); Basophils % 0.9 % (0.1-2.0); Eosinophils # 0.4 K/mm3 (0.0-0.4); Eosinophils % 7.2 % (0.1-12.0); Hematocrit 43.7 % (42.0-52.0); Hemoglobin 14.9 g/dL (14.1-18.0); Lymphocytes # 1.4 K/mm3 (0.7-4.5); Lymphocytes % 23.8 % (10-50); Mean Corpuscular HGB Conc 34.1 g/dL (31.8-35.4); Mean Corpuscular Hemoglobin 29.9 pg (27.0-31.2); Mean Corpuscular Volume 87.7 fl (80-94); Mean Platelet Volume 7.8 fl (7.4-10.4); Monocytes # 0.5 K/mm3 (0.1-1.0); Monocytes % 7.5 % (1.7-9.3); Neutrophils # 3.6 K/mm3 (1.8-7.8); Neutrophils % 60.6 % (37.0-80.0); Platelet Count 243 K/mm3 (142-424); Red Blood Count 4.98 M/mm3 (4.60-6.20); Red Cell Distribution Width 12.9 % (11.5-17.5)
[2022-11-28 15:46] LABS: Erythrocyte Sedimentation Rate 9 mm/hr (0-15)
[2022-11-28 15:50] LABS: C-Reactive Protein 1.1 mg/L (0-4)
== END ==
LOC: LAB.DROPOF 16:01
PROVIDERS: PCP Nurse Practitioner Family; Visit Provider Nurse Practitioner Family
DX: B02.23 Postherpetic polyneuropathy (principal); B02.9 Zoster without complications
CPT/HCPCS: 85025; 85651; 86140

== ENCOUNTER → 2022-12-05 13:30 | Outpatient (CLI) | payer BC, SELFPAY ==
--- NOTE | 2022-12-05 13:30 | CT_ITS ---
FINAL REPORT TECHNIQUE: Multiple axial CT sections were performed from the foramen magnum to the vertex. Coronal reformatted images were also obtained. Precontrast and postcontrast injection images were obtained. This study was performed with technique to keep radiation doses as low as reasonably achievable, (ALARA). Individualized dose reduction techniques using automated exposure control or adjustment of mA and/or kV according to the patient size were employed. CLINICAL HISTORY: frequent headaches FINDINGS: The ventricles are normal in size. There is no evidence of hemorrhage. No masses are identified. No extra-axial fluid collection is seen. The sinuses are normal. No osseous abnormality is seen on the bone window images. Postcontrast images demonstrate no abnormal enhancement. IMPRESSION: Unremarkable CT of the head with and without contrast. Reviewed, Interpreted and Dictated by Denis Butler MD Transcribed by Nenita Hidalgo Authenticated and [facility]
== END ==
LOC: RAD 13:30
PROVIDERS: PCP Nurse Practitioner Family; Visit Provider Nurse Practitioner Family
DX: R51.9 Headache, unspecified (principal)
CPT/HCPCS: 70470; Q9967

== ENCOUNTER 2023-03-01 18:10 | Emergency (ER) | payer BC, SELFPAY ==
--- NOTE | 2023-03-01 18:27 | EXP.UTC ---
Discharge Plan Disposition Patient Disposition: Home, Self-Care Condition: Good Prescriptions Prescriptions: New triamcinolone acetonide 0.1 % cream 1 applic topical BID PRN (Reason: itching) Qty: 30 0RF methylprednisolone 4 mg Tablets,Dose Pack 4 mg PO DIRECTED Qty: 21 0RF No Action venlafaxine 150 mg capsule,extended release 24hr 150 mg PO DAILY Qty: 90 1RF sildenafil 100 mg tablet See Rx Instructions .ROUTE .COMPLEX Qty: 30 0RF Dose Instruction: TAKE 1 TABLET BY MOUTH ONCE DAILY NEEDED FOR SEXUAL ACTIVITY; ADMINISTER 30 MINUTES TO 4 HOURS BEFORE ACTIVITY Rx Instructions: TAKE 1 TABLET BY MOUTH ONCE DAILY NEEDED FOR SEXUAL ACTIVITY; ADMINISTER 30 MINUTES TO 4 HOURS BEFORE ACTIVITY pantoprazole 40 mg tablet,delayed release (DR/EC) 40 mg PO BID Referrals Follow up/Referrals: Jessie Ferrell PA [Primary Care Provider] - See instructions Activity Restrictions/Add. Instructions Additional Instructions/Restrictions: Try to identify and avoid contact with the offending substance. Don't start the oral steroids until tomorrow. Don't put the topical steroids (triamcinolone) on your face or your groin. Follow up with your regular doctor. GO TO THE ER FOR ANY WORSENING SYMPTOMS OR CONCERNS Clinical Impressions Clinical Impression: Contact dermatitis Instructions Patient Instructions: Contact Dermatitis, DI for Contact Dermatitis Discharge ED Provider: Aguilar Prieto [facility] HPI General Stated complaint: rash Time Seen by Provider: 03/01/23 18:27 History of Present Illness Provider Complaint: He states that since yesterday he has had generalized itching. He has a rash on his bilateral forearms, chest and back. Related Data Home Medications Medication Instructions Recorded Confirmed pantoprazole 40 mg tablet,delayed 40 mg PO BID gerd 03/01/23 03/01/23 release Previous Rx's Medication Instructions Recorded venlafaxine 150 mg 150 mg PO DAILY Anxiety #90 caps 08/28/22 capsule,extended release 24 hr sildenafil 100 mg tablet See Rx Instructions .Route 01/31/23 .COMPLEX #30 tabs methylprednisolone 4 mg tablets in 4 mg PO DIRECTED #21 tabs 03/01/23 a dose pack triamcinolone acetonide 0.1 % 1 applic topical BID PRN itching 03/01/23 topical cream #30 grams Allergies Allergy/AdvReac Type Severity Reaction Status Date / Time fluticasone Allergy Severe Difficulty Verified 03/01/23 18:42 [From Advair Diskus] Swallowing salmeterol Allergy Severe Difficulty Verified 03/01/23 18:42 [From Advair Diskus] Swallowing leather Allergy Severe Redness of Uncoded 02/19/23 10:21 Skin PFSH PFS Disclaimer: The information contained in this section may have been updated after the patient was seen, as this information can be updated by other users. Medical History Acute herpes zoster neuropathy Alcoholism Anxiety BPPV (benign paroxysmal positional vertigo) Bronchitis Bronchitis Elevated blood pressure reading Encounter for laboratory testing for COVID-19 virus Epistaxis Exposure to COVID-19 virus Fatigue Generalized anxiety disorder Headache Headache Heat exhaustion Herpes zoster Insomnia Medication adverse effect Otitis media Pharyngitis Pre-syncope Right shoulder pain Serous otitis media Sinus tachycardia Sinusitis Sore throat Strep throat URI (upper respiratory infection) Vasovagal episode Viral syndrome Viral syndrome Viral upper respiratory illness Vitamin D deficiency Social History Smoking Status: Former smoker years smoked: 16 how long ago did patient quit smokin second hand exposure: No alcohol intake: current substance use type: denies use current occupational status: employed and other Travel in the last 8 weeks: None household members: spouse housing: house number of c
[2023-03-01 18:30] VITALS: BP 134/98; PULSE 93; RESP 20; TEMP 36.7; O2SAT 99; BMI 26.2
[2023-03-01 19:26] VITALS: BP 134/98; PULSE 93; RESP 20; TEMP 36.7; O2SAT 99
== END 2023-03-01 19:26 | disposition home or self-care (01) ==
PROVIDERS: Emergency Provider Nurse Practitioner Family; PCP Physician Assistant
DX: L25.9 Unspecified contact dermatitis, unspecified cause (principal); Z87.891 Personal history of nicotine dependence
CPT/HCPCS: 96372; 99212; 99214; G0463

== ENCOUNTER 2023-03-05 21:41 | Emergency (ER) | payer BC, SELFPAY ==
[2023-03-05 21:42] VITALS: BP 119/82; PULSE 82; RESP 18; TEMP 36.6; O2SAT 98; BMI 27.3
--- NOTE | 2023-03-05 23:02 | HMH.EDWNDL ---
Discharge Plan Disposition Patient Disposition: Home, Self-Care Chief Complaint: Wound/Laceration Prescriptions Prescriptions: No Action venlafaxine 150 mg capsule,extended release 24hr 150 mg PO DAILY Qty: 90 1RF sildenafil 100 mg tablet See Rx Instructions .ROUTE .COMPLEX Qty: 30 0RF Dose Instruction: TAKE 1 TABLET BY MOUTH ONCE DAILY NEEDED FOR SEXUAL ACTIVITY; ADMINISTER 30 MINUTES TO 4 HOURS BEFORE ACTIVITY Rx Instructions: TAKE 1 TABLET BY MOUTH ONCE DAILY NEEDED FOR SEXUAL ACTIVITY; ADMINISTER 30 MINUTES TO 4 HOURS BEFORE ACTIVITY pantoprazole 40 mg tablet,delayed release (DR/EC) 40 mg PO BID triamcinolone acetonide 0.1 % cream 1 applic topical BID PRN (Reason: itching) Qty: 30 0RF methylprednisolone 4 mg Tablets,Dose Pack 4 mg PO DIRECTED Qty: 21 0RF Referrals Follow up/Referrals: Jessie Ferrell PA [Primary Care Provider] - See instructions Clinical Impressions Clinical Impression: Laceration Instructions Patient Instructions: DI for Laceration Repair Discharge ED Provider: Jenni (ED)Naldo Wound/Laceration HPI General Chief Complaint: Wound/Laceration Stated Complaint: SO 03/05@2100 lAC TO l HAND Time Seen by Provider: 03/05/23 23:03 Mode of Arrival: Ambulatory Source of Information: Patient, Spouse and Medical Record Limitations: No Limitations Description of Symptoms (Recalled from ER Triage Doc. by RN): 47 M presents from home after slicing his left index finger while doing dishes. Bleeding controlled on arrival History of Present Illness HPI narrative: lac to distal lt index finger Onset (ago): hour(s) Extremity Location: Left: hand Place: home Patient tetanus UTD: Yes Context: accidental Associated symptoms: none Related Data Home Medications Medication Instructions Recorded Confirmed pantoprazole 40 mg tablet,delayed 40 mg PO BID gerd 03/01/23 03/01/23 release Previous Rx's Medication Instructions Recorded venlafaxine 150 mg 150 mg PO DAILY Anxiety #90 caps 08/28/22 capsule,extended release 24 hr sildenafil 100 mg tablet See Rx Instructions .Route 01/31/23 .COMPLEX #30 tabs methylprednisolone 4 mg tablets in 4 mg PO DIRECTED #21 tabs 03/01/23 a dose pack triamcinolone acetonide 0.1 % 1 applic topical BID PRN itching 03/01/23 topical cream #30 grams Allergies Allergy/AdvReac Type Severity Reaction Status Date / Time fluticasone Allergy Severe Difficulty Verified 03/01/23 18:42 [From Advair Diskus] Swallowing salmeterol Allergy Severe Difficulty Verified 03/01/23 18:42 [From Advair Diskus] Swallowing leather Allergy Severe Redness of Uncoded 02/19/23 10:21 Skin PFSH PFS Disclaimer: The information contained in this section may have been updated after the patient was seen, as this information can be updated by other users. Medical History Acute herpes zoster neuropathy Alcoholism Anxiety BPPV (benign paroxysmal positional vertigo) Bronchitis Bronchitis Elevated blood pressure reading Encounter for laboratory testing for COVID-19 virus Epistaxis Exposure to COVID-19 virus Fatigue Generalized anxiety disorder Headache Headache Heat exhaustion Herpes zoster Insomnia Medication adverse effect Otitis media Pharyngitis Pre-syncope Right shoulder pain Serous otitis media Sinus tachycardia Sinusitis Sore throat Strep throat URI (upper respiratory infection) Vasovagal episode Viral syndrome Viral syndrome Viral upper respiratory illness Vitamin D deficiency Social History Smoking Status: Former smoker years smoked: 16 how long ago did patient quit smokin second hand exposure: No alcohol intake: current substance use type: denies use current occupational status: employed and other Travel in the last 8 weeks: None household members: spouse joshua
[2023-03-05 23:12] VITALS: BP 120/80; PULSE 80; RESP 18; TEMP 36.6; O2SAT 99
== END 2023-03-05 23:21 | disposition home or self-care (01) ==
PROVIDERS: Emergency Provider Emergency Medicine; PCP Physician Assistant
DX: S61.211A Laceration without foreign body of left index finger without damage to nail, initial encounter (principal); Z87.891 Personal history of nicotine dependence; W26.8XXA Contact with other sharp object(s), not elsewhere classified, initial encounter
CPT/HCPCS: 12041; 64450; 99283

== ENCOUNTER 2023-04-08 15:25 | Outpatient (CLI) | payer BC, SELFPAY ==
[2023-04-08 15:40] VITALS: BP 132/81; PULSE 81; RESP 18; TEMP 37.7; O2SAT 100
[2023-04-08 16:23] VITALS: BP 116/82; PULSE 108; RESP 18; O2SAT 100
== END 2023-04-08 16:23 | disposition home or self-care (01) ==
LOC: INF 15:25
PROVIDERS: PCP Emergency Medicine; Visit Provider Emergency Medicine
DX: L03.113 Cellulitis of right upper limb (principal); W55.01XA Bitten by cat, initial encounter
CPT/HCPCS: 90714; 96365; 96372

== ENCOUNTER → 2023-04-23 23:31 | Outpatient (CLI) | payer BC, SELFPAY ==
[2023-04-23 17:54] LABS: Basophils % 0.6 % (0.1-2.0); Eosinophils # 0.1 K/mm3 (0.0-0.4); Eosinophils % 3.5 % (0.1-12.0); Hematocrit 48.9 % (42.0-52.0); Hemoglobin 15.8 g/dL (14.1-18.0); Lymphocytes # 1.1 K/mm3 (0.7-4.5); Mean Corpuscular HGB Conc 32.3 g/dL (31.8-35.4); Mean Corpuscular Hemoglobin 28.9 pg (27.0-31.2); Mean Corpuscular Volume 89.5 fl (80-94); Mean Platelet Volume 8.2 fl (7.4-10.4); Monocytes # 0.3 K/mm3 (0.1-1.0); Monocytes % 7.8 % (1.7-9.3); Neutrophils # 2.5 K/mm3 (1.8-7.8); Neutrophils % 62.2 % (37.0-80.0); Platelet Count 235 K/mm3 (142-424); Red Blood Count 5.46 M/mm3 (4.60-6.20); Red Cell Distribution Width 13.1 % (11.5-17.5)
[2023-04-23 17:56] LABS: Alanine Aminotransferase 18 U/L (12-78); Albumin Level 4.5 g/dl (3.5-5.0); Albumin/Globulin Ratio 1.7 (1.1-1.8); Alkaline Phosphatase 61 U/L (38-126); Anion Gap 15.7 mEq/L (5-15); Aspartate Amino Transferase 33 U/L (17-59); Bilirubin,Indirect 0.7 mg/dL (0.0-0.9); Bilirubin,Total 0.7 mg/dl (0.2-1.3); Bilirubin,Unconjugated 0.8 mg/dL (0.0-1.1); Blood Urea Nitrogen 17 mg/dl (9-20); Calcium 8.9 mg/dl (8.4-10.2); Carbon Dioxide 28 mmol/L (22.0-30.0); Chloride 101 mmol/L (98-107); Cholesterol 213 mg/dl (140-200); Estimated Glomerular Filt Rate 91 ml/min (>60); GFR (African American) 110 ML/MIN (>60); Globulin 2.6 g/dL (1.3-3.2); Glucose 100 mg/dl (74-100); HDL Cholesterol 71 mg/dl (40-60); Potassium 4.7 mmoL/L (3.5-5.1); Sodium 140 mmol/L (136-145); Total Protein,Serum 7.1 g/dl (6.3-8.2); Triglycerides 50 mg/dl (30-150); VLDL Cholesterol 10 mg/dL (0-40)
[2023-04-23 18:13] LABS: 25-OH Vitamin D, Total 35.6 ng/mL (30-100)
[2023-04-29 10:35] LABS: Testosterone, Total, LC/MS 362 ng/dL (.)
== END ==
PROVIDERS: PCP Nurse Practitioner Family; Visit Provider Nurse Practitioner Family
DX: R00.2 Palpitations (principal); Z13.220 Encounter for screening for lipoid disorders; Z13.29 Encounter for screening for other suspected endocrine disorder; F10.11 Alcohol abuse, in remission; E50.9 Vitamin A deficiency, unspecified
CPT/HCPCS: 80053; 80061; 80076; 82306; 84403; 84439; 84443; 85025

== ENCOUNTER → 2023-05-30 11:03 | Outpatient (CLI) | payer BC, SELFPAY ==
[2023-05-30 12:05] LABS: Free Thyroxine Index 2.3 ug/dL (5.93-13.13); T4 (Thyroxine) 6.4 ug/dl (5.53-11.0); Triiodothryronine (T3) Uptake 36 % (23.5-40.5)
[2023-05-30 12:18] LABS: Thyroid Stimulating Hormone 0.27 uIU/mL (0.465-4.68)
== END ==
PROVIDERS: PCP Nurse Practitioner Family; Visit Provider Nurse Practitioner Family
DX: Z79.899 Other long term (current) drug therapy (principal)
CPT/HCPCS: 36415; 84436; 84443; 84479

== ENCOUNTER → 2023-06-16 13:45 | Outpatient (CLI) | payer BC, SELFPAY ==
--- NOTE | 2023-06-16 13:45 | US_ITS ---
FINAL REPORT TECHNIQUE: Limited sonographic images of the thyroid were obtained. CLINICAL HISTORY: Thyroid Nodule FINDINGS: The right lobe of the thyroid measures 4.7 x 1.0 x 1.9 cm. There is a 6 x 4 x 4 mm solid hypoechoic nodule consistent with TI-RADS category 4. The left lobe of the thyroid measures 5.1 x 1.3 x 1.7 cm. The isthmus measures 0.30 cm. IMPRESSION: Right thyroid lobe nodule. No follow-up is required. Reviewed, Interpreted and Dictated by Ty Gavin III, MD Transcribed by Nenita Hidalgo Authenticated and [facility]
== END ==
LOC: RAD 13:45
PROVIDERS: PCP Nurse Practitioner Family; Visit Provider Nurse Practitioner Family
DX: E04.1 Nontoxic single thyroid nodule (principal); R53.83 Other fatigue
CPT/HCPCS: 76536

== ENCOUNTER 2023-12-30 11:29 | Emergency (ER) | payer BC, SELFPAY ==
[2023-12-30 12:05] VITALS: BP 136/88; PULSE 102; RESP 18; TEMP 37.5; O2SAT 100; BMI 25.8
--- NOTE | 2023-12-30 12:18 | ED_ITS ---
Discharge Plan Disposition Patient Disposition: Home, Self-Care Condition: Good Prescriptions Prescriptions: New azithromycin [Zithromax] 250 mg tablet 250 mg PO UD DOSE PK Qty: 6 0RF Rx Instructions: Take two (2) tablets today, then one (1) tablet days #2 thru #5 benzonatate [benzonatate] 100 mg capsule 100 mg PO TIDP PRN (Reason: Cough) Qty: 30 0RF methylprednisolone 4 mg Tablets,Dose Pack 4 mg PO DIRECTED 6 Days Qty: 21 0RF Rx Instructions: Take 1 pack as directed for 6 days oseltamivir [Tamiflu] 75 mg capsule 75 mg PO BID Qty: 10 0RF No Action venlafaxine 150 mg capsule,extended release 24hr 150 mg PO DAILY Qty: 90 1RF diazepam [Valium] 5 mg tablet 5 mg PO BID PRN (Reason: anxiety) Qty: 14 0RF omeprazole 20 mg capsule,delayed release(DR/EC) 40 mg PO DAILY Qty: 120 2RF sildenafil 100 mg tablet See Rx Instructions .ROUTE .COMPLEX Qty: 30 3RF Dose Instruction: TAKE 1 TABLET BY MOUTH ONCE DAILY NEEDED FOR SEXUAL ACTIVITY; ADMINISTER 30 MINUTES TO 4 HOURS BEFORE ACTIVITY Rx Instructions: TAKE 1 TABLET BY MOUTH ONCE DAILY NEEDED FOR SEXUAL ACTIVITY; ADMINISTER 30 MINUTES TO 4 HOURS BEFORE ACTIVITY famotidine 20 mg tablet 40 mg PO HS Qty: 60 4RF pantoprazole 40 mg tablet,delayed release (DR/EC) 40 mg PO BID Qty: 180 3RF Hold Instructions: Home Medication placed on hold at Doctor's office lisinopril 5 mg tablet 5 mg PO DAILY Qty: 90 0RF Referrals Follow up/Referrals: Jessie Ferrell PA [Primary Care Provider] - See instructions Activity Restrictions/Add. Instructions Additional Instructions/Restrictions: Drink plenty of fluids. Take tylenol or ibuprofen for pain or fever. Take the medications as directed. Follow up with your regular doctor. GO TO THE ER FOR ANY WORSENING SYMPTOMS Clinical Impressions Clinical Impression: Sinusitis, Influenza A Stand Alone Forms Stand Alone Forms: Work/School Release Instructions Patient Instructions: DI for Sinusitis, DI for Viral Syndrome Discharge ED Provider: Aguilar Prieto [facility] General Stated complaint: congestion, sore throat Time Seen by Provider: 12/30/23 12:18 History of Present Illness Provider Complaint: He states that since yesterday he has had body aches, chills, malaise, sinus congestion, and fever. Related Data Previous Rx's Medication Instructions Recorded sildenafil 100 mg tablet See Rx Instructions .Route 03/20/23 .COMPLEX #30 tabs omeprazole 20 mg capsule,delayed 40 mg PO DAILY GERD #120 caps 06/18/23 release famotidine 20 mg tablet 40 mg PO HS GERD #60 tabs 06/23/23 diazepam 5 mg tablet (Valium) 5 mg PO BID PRN anxiety #14 tabs 09/24/23 venlafaxine 150 mg 150 mg PO DAILY Anxiety #90 caps 09/24/23 capsule,extended release 24 hr pantoprazole 40 mg tablet,delayed 40 mg PO BID gerd #180 tabs 11/07/23 release lisinopril 5 mg tablet 5 mg PO DAILY #90 tabs 12/22/23 azithromycin 250 mg tablet 250 mg PO UD DOSE PK #6 tabs 12/30/23 (Zithromax) benzonatate 100 mg capsule 100 mg PO TIDP PRN Cough #30 caps 12/30/23 methylprednisolone 4 mg tablets in 4 mg PO DIRECTED 6 days #21 tabs 12/30/23 a dose pack oseltamivir 75 mg capsule (Tamiflu) 75 mg PO BID #10 caps 12/30/23 Allergies Allergy/AdvReac Type Severity Reaction Status Date / Time fluticasone Allergy Severe Difficulty Verified 12/30/23 12:41 [From Advair Diskus] Swallowing salmeterol Allergy Severe Difficulty Verified 12/30/23 12:41 [From Advair Diskus] Swallowing leather Allergy Severe Redness of Uncoded 06/18/23 09:41 Skin PFSH [facility] Disclaimer: The information contained in this section may have been updated after the patient was seen, as this information can be updated by other users. Medical History Acute herpes zoster neuropathy Alcoholism Anxiety BPPV (benign paroxysmal positional vertigo) Bronchitis Bronchitis Elevated blood pressure reading Encounter for laboratory testing for COVID-19 virus Epistaxis Exposure to COVID-19 virus Fatigue Generalized anxiety disorder Headache Headache Heat exhaustion Herpes zoster Insomnia Medication adverse effect Otitis media Pharyngitis Pre-syncope Right shoulder pain Serous otitis media Sinus tachycardia Sinusitis Sore throat Strep throat URI (upper respiratory infection) Vasovagal episode Viral syndrome Viral syndrome Viral upper respiratory illness Vitamin D deficiency Social History Smoking Status: Former smoker tobacco type: smokeless tobacco years smoked: 16 how long ago did patient quit smokin second hand exposure: No alcohol intake: current substance use type: denies use current occupational status: employed and other Travel in the last 8 weeks: None household members: spouse housing: house number of children: 2 ROS Obtained: Yes All systems reviewed & no additional complaints except as documented Constitutional Constitutional: Reports chills and Reports fever(s) Eyes Eyes: Denies eye discharge ENT Ears, Nose, Mouth, and Throat: Reports as per HPI Cardiovascular Cardiovascular: Denies chest pain Respiratory Respiratory: Denies chest congestion and Reports cough Gastrointestinal Gastrointestingal: Reports nausea; Denies abdominal pain, constipation, cramping, diarrhea or vomiting Musculoskeletal Musculoskeletal: Denies arthralgias Integumentary/Breasts Skin/Breast: Denies rash Neurologic Neurologic: Denies paresthesias Physical Exam General General appearance: alert and in no apparent distress Eye Eye exam: Present normal appearance, PERRL and EOMI ENT ENT exam: Present mucous membranes moist and normal external ear exam Expanded ENT Exam External ear exam: Present normal external inspection TM/Canal exam: Bilateral TM: erythema and bulging Nose exam: Absent sinus tenderness Nasal speculum exam: Bilateral: normal Mouth exam: Present normal external inspection; Absent drooling Teeth exam: Present normal inspection Throat exam: Present tonsillar erythema and tonsillomegaly Neck Neck exam: Present normal inspection, full ROM and trachea midline; Absent tenderness, lymphadenopathy or thyromegaly Chest Chest inspection: Present normal inspection and symmetric chest wall rise; Absent tenderness or rash Respiratory Respiratory exam: Present normal lung sounds bilaterally; Absent respiratory distress, wheezes, stridor or accessory muscle use Cardiovascular Cardiovascular exam: Present regular rate, normal rhythm and normal heart sounds Abdominal Exam Abdominal exam: Present soft; Absent distention, tenderness, guarding, rebound or rigidity Extremities Exam Extremities exam: Present normal inspection, full ROM and normal capillary refill; Absent tenderness or calf tenderness Back Exam Back exam: Present normal inspection and full ROM; Absent tenderness Neurological Exam Neurological exam: Present alert and oriented X3 Psychiatric Psychiatric exam: Present normal affect and normal mood Skin Skin exam: Present warm, dry, intact and normal color Lymphatic Lymphatic Findings: no adenopathy Medical Decision Making Medical Records Medical records reviewed: No I reviewed the patient's medical records. Wilfred Inquiry Pt receiving controlled substance: No Lab Data Lab results reviewed: Yes I reviewed the patient's lab results.
[2023-12-30 12:48] LABS: Coronavirus 19, PCR Not Detected (NotDetected); Influenza B, PCR Not Detected (NotDetected)
[2023-12-30 12:49] LABS: UTC Strep Screen (Rapid) Negative (Negative)
[2023-12-30 12:50] VITALS: BP 136/88; PULSE 102; RESP 18; TEMP 37.5; O2SAT 100
[2023-12-30 13:14] LABS: Influenza A, PCR Detected (NotDetected)
== END 2023-12-30 12:50 | disposition home or self-care (01) ==
PROVIDERS: Emergency Provider Nurse Practitioner Family; PCP Physician Assistant
DX: J10.1 Influenza due to other identified influenza virus with other respiratory manifestations (principal); J01.90 Acute sinusitis, unspecified; R50.9 Fever, unspecified; R05.9 Cough, unspecified; R09.81 Nasal congestion
CPT/HCPCS: 87636; 87880; 99212; 99214; G0463

== ENCOUNTER 2023-12-31 18:26 | Emergency (ER) | payer BC, SELFPAY ==
[2023-12-31 18:27] VITALS: BP 122/98; PULSE 106; RESP 18; TEMP 37.4; O2SAT 18; BMI 25.8
--- NOTE | 2023-12-31 18:46 | ED_ITS ---
I was consulted by the LINK and we discussed the complexity of the problems being addressed. I approved the treatment and management plan for this patient's care in the emergency department, thus performing a substantive portion of the medical decision making. Olga Chaparro MD Discharge Plan Disposition Patient Disposition: Home, Self-Care Condition: Good Prescriptions Prescriptions: No Action venlafaxine 150 mg capsule,extended release 24hr 150 mg PO DAILY Qty: 90 1RF diazepam [Valium] 5 mg tablet 5 mg PO BID PRN (Reason: anxiety) Qty: 14 0RF omeprazole 20 mg capsule,delayed release(DR/EC) 40 mg PO DAILY Qty: 120 2RF sildenafil 100 mg tablet See Rx Instructions .ROUTE .COMPLEX Qty: 30 3RF Dose Instruction: TAKE 1 TABLET BY MOUTH ONCE DAILY NEEDED FOR SEXUAL ACTIVITY; ADMINISTER 30 MINUTES TO 4 HOURS BEFORE ACTIVITY Rx Instructions: TAKE 1 TABLET BY MOUTH ONCE DAILY NEEDED FOR SEXUAL ACTIVITY; ADMINISTER 30 MINUTES TO 4 HOURS BEFORE ACTIVITY famotidine 20 mg tablet 40 mg PO HS Qty: 60 4RF pantoprazole 40 mg tablet,delayed release (DR/EC) 40 mg PO BID Qty: 180 3RF Hold Instructions: Home Medication placed on hold at Doctor's office lisinopril 5 mg tablet 5 mg PO DAILY Qty: 90 0RF azithromycin [Zithromax] 250 mg tablet 250 mg PO UD DOSE PK Qty: 6 0RF Rx Instructions: Take two (2) tablets today, then one (1) tablet days #2 thru #5 benzonatate [benzonatate] 100 mg capsule 100 mg PO TIDP PRN (Reason: Cough) Qty: 30 0RF methylprednisolone 4 mg Tablets,Dose Pack 4 mg PO DIRECTED 6 Days Qty: 21 0RF Rx Instructions: Take 1 pack as directed for 6 days oseltamivir [Tamiflu] 75 mg capsule 75 mg PO BID Qty: 10 0RF Referrals Follow up/Referrals: Jessie Ferrell PA [Primary Care Provider] - See instructions Activity Restrictions/Add. Instructions Additional Instructions/Restrictions: Please alternate 1000 mg of Tylenol 600 mg Motrin every 4 hours. Continue other medications as already prescribed. Follow-up with PCP as needed. Clinical Impressions Clinical Impression: Influenza A Discharge ED Provider: Olga Toscano General Adult HPI General Chief complaint: Fever Stated complaint: Flu A+ fever Time Seen by Provider: 12/31/23 18:45 Mode of Arrival: Ambulatory Source of Information: Patient Limitations: No Limitations Description of Symptoms (Recalled from ER Triage Doc. by RN): Patient reports he tested positive for flu yesterday started taking tamiflu this morning. Has not been feeling good today states his fever won't break with tylenol and he has ringing in his ears and all over body aches. History of Present Illness HPI narrative: Patient was diagnosed with flu a yesterday. He was prescribed Tamiflu a dancer Mundo and a steroid Dosepak. Patient reports that he feels no better with consti tutional symptoms including body aches fever chills headache. Related Data Previous Rx's Medication Instructions Recorded sildenafil 100 mg tablet See Rx Instructions .Route 03/20/23 .COMPLEX #30 tabs omeprazole 20 mg capsule,delayed 40 mg PO DAILY GERD #120 caps 06/18/23 release famotidine 20 mg tablet 40 mg PO HS GERD #60 tabs 06/23/23 diazepam 5 mg tablet (Valium) 5 mg PO BID PRN anxiety #14 tabs 09/24/23 venlafaxine 150 mg 150 mg PO DAILY Anxiety #90 caps 09/24/23 capsule,extended release 24 hr pantoprazole 40 mg tablet,delayed 40 mg PO BID gerd #180 tabs 11/07/23 release lisinopril 5 mg tablet 5 mg PO DAILY #90 tabs 12/22/23 azithromycin 250 mg tablet 250 mg PO UD DOSE PK #6 tabs 12/30/23 (Zithromax) benzonatate 100 mg capsule 100 mg PO TIDP PRN Cough #30 caps 12/30/23 methylprednisolone 4 mg tablets in 4 mg PO DIRECTED 6 days #21 tabs 12/30/23 a dose pack oseltamivir 75 mg capsule (Tamiflu) 75 mg PO BID #10 caps 12/30/23 Allergies Allergy/AdvReac Type Severity Reaction Status Date / Time fluticasone Allergy Severe Difficulty Verified 12/30/23 12:41 [From Advair Diskus] Swallowing salmeterol Allergy Severe Difficulty Verified 12/30/23 12:41 [From Advair Diskus] Swallowing leather Allergy Severe Redness of Uncoded 06/18/23 09:41 Skin PFSH [facility] Disclaimer: The information contained in this section may have been updated after the patient was seen, as this information can be updated by other users. Medical History Acute herpes zoster neuropathy Alcoholism Anxiety BPPV (benign paroxysmal positional vertigo) Bronchitis Bronchitis Elevated blood pressure reading Encounter for laboratory testing for COVID-19 virus Epistaxis Exposure to COVID-19 virus Fatigue Generalized anxiety disorder Headache Headache Heat exhaustion Herpes zoster Insomnia Medication adverse effect Otitis media Pharyngitis Pre-syncope Right shoulder pain Serous otitis media Sinus tachycardia Sinusitis Sore throat Strep throat URI (upper respiratory infection) Vasovagal episode Viral syndrome Viral syndrome Viral upper respiratory illness Vitamin D deficiency Social History Smoking Status: Never smoker years smoked: 16 how long ago did patient quit smokin second hand exposure: No alcohol intake: current substance use type: denies use current occupational status: employed and other Travel in the last 8 weeks: None household members: spouse housing: house number of children: 2 ROS Obtained: Yes Systems reviewed as appropriate & no additional complaints except as documented Physical Exam General General appearance: alert and in no apparent distress Head Head exam: atraumatic and normal inspection Eye Eye exam: Present normal appearance, PERRL and EOMI ENT ENT exam: Present normal exam, normal oropharynx and mucous membranes moist Neck Neck exam: Present normal inspection and full ROM; Absent lymphadenopathy Chest Chest inspection: Present normal inspection and symmetric chest wall rise Respiratory Respiratory exam: Present normal lung sounds bilaterally; Absent accessory muscle use Cardiovascular Cardiovascular exam: Present regular rate, normal rhythm, normal heart sounds, +S1 and +S2 Abdominal Exam Abdominal exam: Present soft; Absent tenderness Extremities Exam Extremities exam: Present normal inspection and full ROM Neurological Exam Neurological exam: Present alert and oriented X3 Psychiatric Psychiatric exam: Present normal affect and normal mood Skin Skin exam: Present warm, dry and normal color Medical Decision Making Medical Records Medical records reviewed: Yes I reviewed the patient's medical records. Wilfred Inquiry Pt receiving controlled substance: No Vital Signs: 12/31/23 18:27 12/31/23 18:45 12/31/23 20:49 Temperature 99.3 F 98.8 F Temperature Source Oral Oral Oral Pulse Rate 80 Pulse Rate [Left] 106 H Respiratory Rate 18 18 Blood Pressure 109/71 L Blood Pressure [Right Arm] 122/98 H Blood Pressure Mean [Right Arm] 106 Blood Pressure Source Automatic Cuff Blood Pressure Source [Right Arm] Automatic Cuff Blood Pressure Position Supine 02 Sat by Pulse Oximetry 18 L Oxygen Delivery Method Room Air Room Air Lab Data Lab results reviewed: Yes I reviewed the patient's lab results. Lab Results 12/31/23 18:03: WBC 7.1, RBC 4.80, Hgb 15.4, Hct 43.0, MCV 89.6, MCH 32.1 H, MCHC 35.8 H, RDW 13.0, Plt Count 181, MPV 7.7, Neut % (Auto) 74.6, Lymph % (Auto) 13.6, [place] % (Auto) 11.1 H, Eos % (Auto) 0.4, Baso % (Auto) 0.3, Neut # (Auto) 5.3, Lymph # (Auto) 1.0, [place] # (Auto) 0.8, Eos # (Auto) 0.0, Baso # (Auto) 0.0, Sodium 136, Potassium 3.9, Chloride 103, Carbon Dioxide 29, Anion Gap 7.9, BUN 12, Creatinine 1.10, Estimated Creat Clear 96, Estimated GFR 72, Est GFR ( Amer) 87, Glucose 115 H, Calcium 9.2, Total Bilirubin 0.7, AST 30, ALT 19, Alkaline Phosphatase 58, Total Protein 7.2, Albumin 4.3, Globulin 2.9, Albumin/Globulin Ratio 1.5 12/31/23 18:03 12/31/23 18:03 Orders (Tests/Meds): ED MEDICATIONS Discontinued Medications Generic Name Dose Route Start Last Admin Trade Name Freq PRN Reason Stop Dose Admin Acetaminophen 1,000 mg 12/31/23 18:46 12/31/23 19:35 Acetaminophen 1,000mg/100ml Vial IV 12/31/23 18:47 1,000 mg ONCE ONE Administration Lactated Ringer's 1,000 mls @ 999 mls/hr 12/31/23 19:02 12/31/23 19:35 Lactated Ringer's 1000 Ml Bag IV 12/31/23 20:02 999 mls/hr .Q1H1M ONE Administration Ketorolac Tromethamine 15 mg 12/31/23 18:46 12/31/23 19:35 Ketorolac 30mg/Ml Vial IV 12/31/23 18:47 15 mg ONCE ONE Administration ORDERS Category Date Time Status Chest XR -- portable [XR chest portable] Stat Exams 12/31/23 18:46 Completed CBC w/Auto Diff [Complete Blood Count Auto Diff] Stat Lab 12/31/23 18:03 Completed CMP [Comprehensive Metabolic Panel] Stat Lab 12/31/23 18:03 Completed Medical Decision Narrative: In summary patient is a 48-year-old male who presents to the emergency [facility] initially with a chief complaint of influenza and symptoms. Patient states he is taking all the medications prescribed him but he has not taken any antipyretics except for 500 mg of Tylenol early this morning. He denies any other constitutional symptoms including chest pain shortness of breath hemoptysis hematochezia melena nausea vomit diarrhea. Patient has been hemodynamically stable upon arrival, febrile. Physical exam shows that his lungs are clear to auscultation bilaterally normal pulses peripherally he is awake alert and oriented his vital signs are stable heart rate is normal with no extra heart sounds. Differential diagnosis includes influenza a versus secondarily infection. Initial workup will be conducted with hematologic labs plain film chest x-ray. Initial interventions include Tylenol and Toradol IV fluids. Initial workup reviewed by me shows that his hematologic labs are nonactionable and his plain film chest x-ray informally interpreted by me shows no acute processes. Upon repeat evaluation ports improvement in his constitutional symptoms after administration of a liter of fluid and antipyretics. Given this patient is appropriate for discharge home with instruction to continue his current medication regimen with the addition of alternating Tylenol and Motrin every 4 hours. Critical Care Critical Care Time Critical Care Time: No
--- NOTE | 2023-12-31 18:46 | XR_ITS ---
PROCEDURE INFORMATION: Exam: XR Chest Exam date and time: 12/31/2023 7:20 PM Age: 48 years old Clinical indication: Fever; Additional info: Flu+ fever TECHNIQUE: Imaging protocol: Radiologic exam of the chest. Views: 1 view. COMPARISON: CR XR CHEST 2V 01/04/2022 18:51 FINDINGS: Lungs: Unremarkable. No consolidation. Pleural spaces: Unremarkable. No pleural effusion. No pneumothorax. Heart/Mediastinum: Unremarkable. No cardiomegaly. Bones/joints: Unremarkable. IMPRESSION: No acute findings.
[2023-12-31 19:20] LABS: Chloride 103 mmol/L (98-107); Potassium 3.9 mmoL/L (3.5-5.1); Sodium 136 mmol/L (136-145)
[2023-12-31 19:23] LABS: Alanine Aminotransferase 19 U/L (12-78); Albumin Level 4.3 g/dl (3.5-5.0); Albumin/Globulin Ratio 1.5 (1.1-1.8); Alkaline Phosphatase 58 U/L (38-126); Anion Gap 7.9 mEq/L (5-15); Aspartate Amino Transferase 30 U/L (17-59); Bilirubin,Total 0.7 mg/dl (0.2-1.3); Blood Urea Nitrogen 12 mg/dl (9-20); Calcium 9.2 mg/dl (8.4-10.2); Carbon Dioxide 29 mmol/L (22.0-30.0); Creatinine Clearance Estimated 96 mL/min (50-200); Estimated Glomerular Filt Rate 72 ml/min (>60); GFR (African American) 87 ML/MIN (>60); Globulin 2.9 g/dL (1.3-3.2); Glucose 115 mg/dl (74-100); Total Protein,Serum 7.2 g/dl (6.3-8.2)
[2023-12-31 19:24] LABS: Basophils % 0.3 % (0.1-2.0); Eosinophils % 0.4 % (0.1-12.0); Hemoglobin 15.4 g/dL (14.1-18.0); Lymphocytes % 13.6 % (10-50); Mean Corpuscular HGB Conc 35.8 g/dL (31.8-35.4); Mean Corpuscular Hemoglobin 32.1 pg (27.0-31.2); Mean Corpuscular Volume 89.6 fl (80-94); Mean Platelet Volume 7.7 fl (7.4-10.4); Monocytes # 0.8 K/mm3 (0.1-1.0); Monocytes % 11.1 % (1.7-9.3); Neutrophils # 5.3 K/mm3 (1.8-7.8); Neutrophils % 74.6 % (37.0-80.0); Platelet Count 181 K/mm3 (142-424); White Blood Count 7.1 K/mm3 (4.8-10.8)
[2023-12-31] MEDS: LACTATED RINGERS 1000ML 1,000 ML 999 ML IV (19:35)
[2023-12-31] MEDS: ACETAMINOPHEN 1,000MG/100ML VIAL 1000 MG IV (19:35)
[2023-12-31] MEDS: KETOROLAC 30MG/ML VIAL 15 MG IV (19:35)
[2023-12-31 20:49] VITALS: BP 109/71; PULSE 80; RESP 18; TEMP 37.1; O2SAT 97
== END 2023-12-31 20:54 | disposition home or self-care (01) ==
PROVIDERS: Physician Assistant; Emergency Provider Emergency Medicine; PCP Physician Assistant
DX: J10.89 Influenza due to other identified influenza virus with other manifestations (principal); R51.9 Headache, unspecified; R50.9 Fever, unspecified
CPT/HCPCS: 71045; 80053; 85025; 96361; 96374; 96375; 99284; J0131

== ENCOUNTER 2024-03-15 18:08 | Emergency (ER) | payer BC, SELFPAY ==
[2024-03-15 18:30] VITALS: BP 142/99; PULSE 105; RESP 20; TEMP 36.9; O2SAT 99; BMI 27.1
--- NOTE | 2024-03-15 18:51 | ED_ITS ---
Discharge Plan Disposition Patient Disposition: Home, Self-Care Condition: Good Prescriptions Prescriptions: New azithromycin [Zithromax Z-Yang] 250 mg tablet See Rx Instructions .ROUTE .COMPLEX 5 Days Qty: 6 0RF Rx Instructions: For 250 mg dose pack: take 500 mg today (day 1), then 250 mg for 4 days (days 2-5) methylprednisolone [Medrol (Yang)] 4 mg tablets,dose pack See Rx Instructions .Route .COMPLEX 6 Days Qty: 21 0RF Rx Instructions: taper pack; No Action venlafaxine 150 mg capsule,extended release 24hr 150 mg PO DAILY Patient Comments: TAKE 1 CAPSULE BY MOUTH ONCE DAILY FOR ANXIETY sildenafil 100 mg tablet 100 mg PO DAILY Patient Comments: TAKE 1 TABLET BY MOUTH ONCE DAILY NEEDED FOR SEXUAL ACTIVITIES ADMINISTER 30 MIN TO 4 HOURS BEFORE ACTIVITY lisinopril 5 mg tablet 5 mg PO DAILY Patient Comments: TAKE 1 TABLET BY MOUTH ONCE DAILY fluticasone propionate 50 mcg/actuation spray,suspension 2 spray INTRANASAL DAILY Patient Comments: USE 1 SPRAY(S) IN EACH NOSTRIL ONCE DAILY Referrals Follow up/Referrals: Jessie Ferrell PA [Primary Care Provider] - See instructions Activity Restrictions/Add. Instructions Additional Instructions/Restrictions: *Monitor Temp, Over the counter Motrin or Tylenol as directed/as needed Tylenol every 4 hours and Motrin every 6 hours (as long as your family doctor has told you that you can take it) for fever or pain. and straight to ER if unable to lower temp less than 101.0 after medication given *Warm salt water gargles may help to soothe the throat *Throat Lozenges? *Warm fluids like tea with honey may help to soothe the throat? *Sleep elevated *Humidifier/Vaporizer *If you did not take Penicillin shot or was unable to, start taking antibiotic immediately and make sure that you take it for the FULL length of time although you should start to feel better in 24-48 hours *change toothbrush and toothpaste 24-48 hours after starting to take antibiotics so you do not reinfect yourself Monitor Temp. Tylenol and/or Ibuprofen as needed. ER if fever is no less than 101 despite alternating Tylenol and Ibuprofen * Encourage fluids, water, Gatorade, powerade, pedialyte if infant/toddler/or child *Cold fluids, popsicles and ice cream may feel good on his throat Follow up IMMEDIATELY for new or worsening symptoms or no Noticeable improvement over the next 48-72 hours. 911 for difficulty breathing or swallowing Clinical Impressions Clinical Impression: Strep throat Instructions Patient Instructions: Strep Throat, DI for Strep Throat [place]charge ED Provider: [place] [facility] [place] General Stated complaint: sore throat, jessica FREEMAN Mode of Arrival: Ambulatory Source of Information: Patient Limitations: No Limitations Time Seen by Provider: 03/15/24 18:51 Description of Symptoms (Recalled from Triage Doc. by RN): PATIENT C/O SORE THROAT, CONGESTION, AND HEADACHE X 2 DAYS HEENT Symptoms (Recalled from RN notes): Yes Resp Symptoms (Recalled from RN notes): No Skin Symptoms (Recalled from RN notes): No MS Symptoms (Recalled from RN notes): No Functional Status (Recalled from RN notes): WNL History of Present Illness Provider Complaint: Patient states that for the last couple of days he has been having sore throat and headache and today his throat was hurting worse so this evening he came in to get checked Related Data Home Medications Medication Instructions Recorded Confirmed fluticasone propionate 50 2 spray intranasal DAILY 03/15/24 03/15/24 mcg/actuation nasal spray,suspension lisinopril 5 mg tablet 5 mg PO DAILY 03/15/24 03/15/24 sildenafil 100 mg tablet 100 mg PO DAILY 03/15/24 03/15/24 venlafaxine 150 mg 150 mg PO DAILY 03/15/24 03/15/24 capsule,extended release 24 hr Previous Rx's Medication Instructions Recorded azithromycin 250 mg tablet See Rx Instructions PO .COMPLEX 5 03/15/24 (Zithromax Z-Yang) days #6 tabs methylprednisolone 4 mg tablets in See Rx Instructions .Route 03/15/24 a dose pack (Medrol (Yang)) .COMPLEX 6 days #21 tabs Allergies Allergy/AdvReac Type Severity Reaction Status Date / Time fluticasone Allergy Severe Difficulty Verified 02/11/24 11:19 [From Advair Diskus] Swallowing salmeterol Allergy Severe Difficulty Verified 02/11/24 11:19 [From Advair Diskus] Swallowing leather Allergy Severe Redness of Uncoded 02/11/24 11:19 Skin Worker's Comp Is this a Worker's Comp case?: No [facility] Disclaimer: The information contained in this section may have been updated after the pa perla was seen, as this information can be updated by other users. Medical History Acute herpes zoster neuropathy Alcoholism Anxiety BPPV (benign paroxysmal positional vertigo) Bronchitis Bronchitis Elevated blood pressure reading Encounter for laboratory testing for COVID-19 virus Epistaxis Exposure to COVID-19 virus Fatigue Generalized anxiety disorder Headache Headache Heat exhaustion Herpes zoster Insomnia Medication adverse effect Otitis media Pharyngitis Pre-syncope Right shoulder pain Serous otitis media Sinus tachycardia Sinusitis Sore throat Strep throat URI (upper respiratory infection) Vasovagal episode Viral syndrome Viral syndrome Viral upper respiratory illness Vitamin D deficiency Social History Smoking Status: Never smoker years smoked: 16 how long ago did patient quit smokin second hand exposure: No alcohol intake: current alcohol intake frequency: a few times a week substance use type: denies use current occupational status: employed and other Travel in the last 8 weeks: None household members: spouse housing: house number of children: 2 ROS Obtained: Yes All systems reviewed & no additional complaints except as documented and Yes Systems reviewed as appropriate & no additional complaints except as documented Constitutional Constitutional: Reports system reviewed and no additional complaints, except as documented, Reports as per HPI and Reports headache(s) ENT Ears, Nose, Mouth, and Throat: Reports system reviewed and no additional complaints, except as documented, Reports as per HPI, Reports headache(s) and Reports sore throat Cardiovascular Cardiovascular: Reports system reviewed and no additional complaints, except as documented and Reports as per HPI Respiratory Respiratory: Reports system reviewed and no additional complaints, except as documented and Reports as per HPI Gastrointestinal Gastrointestingal: Reports system reviewed and no additional complaints, except as documented and as per HPI Neurologic Neurologic: Reports headache(s) Physical Exam General General appearance: alert and in no apparent distress ENT ENT exam: Present mucous membranes moist Expanded ENT Exam Throat exam: Present tonsillar erythema Respiratory Respiratory exam: Present normal lung sounds bilaterally; Absent respiratory distress or wheezes Cardiovascular Cardiovascular exam: Present regular rate, normal rhythm and normal heart sounds Neurological Exam Neurological exam: Present alert, oriented X3 and normal gait Medical Decision Making [facility] Inquiry Pt receiving controlled substance: No Wilfred was queried for this patient: No Vital Signs: 03/15/24 18:30 Temperature 98.4 F Temperature Source Oral Pulse Rate [Left Brachial] 105 H Respiratory Rate 20 Blood Pressure [Left Arm] 142/99 H Blood Pressure Mean [Left Arm] 113 Blood Pressure Source [Left Arm] Automatic Cuff Blood Pressure Position [Left Arm] Sitting 02 Sat by Pulse Oximetry 99 Oxygen Delivery Method Room Air Lab Data Lab results reviewed: Yes I reviewed the patient's lab results. Medical Decision Narrative: Patient states he has taken oral steriod in the past without complicaitons or reactions
[2024-03-15] MEDS: PENICILLIN G BENZATHINE 1,200,000 UNITS/2ML SYRINGE 1200000 UNIT IM (18:54)
[2024-03-15 18:57] VITALS: BP 142/99; PULSE 105; RESP 20; TEMP 36.9; O2SAT 99
== END 2024-03-15 19:11 | disposition home or self-care (01) ==
PROVIDERS: Emergency Provider Nurse Practitioner; PCP Physician Assistant
DX: J02.0 Streptococcal pharyngitis (principal); R07.0 Pain in throat; R51.9 Headache, unspecified
CPT/HCPCS: 96372; 99212; 99214; G0463; J0561

== ENCOUNTER 2024-03-17 14:27 | Emergency (ER) | payer BC, SELFPAY ==
[2024-03-17 14:45] VITALS: BP 140/99; PULSE 94; RESP 18; TEMP 36.9; O2SAT 98; BMI 27.2
--- NOTE | 2024-03-17 14:57 | XR_ITS ---
FINAL REPORT CLINICAL HISTORY: COUGH; started productive, now states dry cough since Friday COMPARISON: 04/01/2022 FINDINGS: Two views of the chest were obtained. The heart size and pulmonary vascularity are within normal limits. The mediastinum is normal. No acute pulmonary abnormality is identified. There is no pneumothorax. The bony thorax is intact. IMPRESSION: No active cardiopulmonary disease. Reviewed, Interpreted and Dictated by Ty Gavin III, MD Transcribed by Nenita Hidalgo Authenticated and [facility]
[2024-03-17 15:01] LABS: UTC Strep Screen (Rapid) Negative (Negative)
--- NOTE | 2024-03-17 15:11 | ED_ITS ---
Discharge Plan Disposition Patient Disposition: Home, Self-Care Condition: Good Prescriptions Prescriptions: No Action venlafaxine 150 mg capsule,extended release 24hr 150 mg PO DAILY Patient Comments: TAKE 1 CAPSULE BY MOUTH ONCE DAILY FOR ANXIETY sildenafil 100 mg tablet 100 mg PO DAILY Patient Comments: TAKE 1 TABLET BY MOUTH ONCE DAILY NEEDED FOR SEXUAL ACTIVITIES ADMINISTER 30 MIN TO 4 HOURS BEFORE ACTIVITY lisinopril 5 mg tablet 5 mg PO DAILY Patient Comments: TAKE 1 TABLET BY MOUTH ONCE DAILY fluticasone propionate 50 mcg/actuation spray,suspension 2 spray INTRANASAL DAILY Patient Comments: USE 1 SPRAY(S) IN EACH NOSTRIL ONCE DAILY azithromycin [Zithromax Z-Yang] 250 mg tablet See Rx Instructions .ROUTE .COMPLEX 5 Days Qty: 6 0RF Rx Instructions: For 250 mg dose pack: take 500 mg today (day 1), then 250 mg for 4 days (days 2-5) methylprednisolone [Medrol (Yang)] 4 mg tablets,dose pack See Rx Instructions .Route .COMPLEX 6 Days Qty: 21 0RF Rx Instructions: taper pack; Referrals Follow up/Referrals: Jessie Ferrell PA [Primary Care Provider] - See instructions Activity Restrictions/Add. Instructions Additional Instructions/Restrictions: * Continue antibiotic today. Be sure to complete entire prescription even if feeling better * Monitor temp. Tylenol every 4 hours as needed and / or ibuprofen every 6 hours as needed ( As long as your primary care physician has told you that it ok to take both. For fever/aches/pains ER if no less than 101 despite Tylenol or Motrin * Humidifier/vaporizer or hot steamy shower * Mucinex during the day for your cough and cough suppressant only at night. Be sure to drink lots of water. *Tessalon Perles will not cause drowsiness but use at bedtime to help stop cough so that you may get some rest. *Continue steriods as prescribed. Helps with inflammation therefore, cough and wheezing. Follow directions on the package. Reviewed side effects. Patient reports taking them before. Follow up IMMEDIATELY for new or worsening of symptoms OR no noticeable improvement over the next 48-72 hours. 911 immediately for any life threatening symptoms such as chest pain or difficulty breathing Clinical Impressions Clinical Impression: Bronchitis Stand Alone Forms Stand Alone Forms: Work/School Release Instructions Patient Instructions: DI for Fever (Symptom) -- Adult, Cough Discharge ED Provider: Ruby Tsai [facility] [place] General Stated complaint: chest congestion, fever, cough Mode of Arrival: Ambulatory Source of Information: Patient Limitations: No Limitations Time Seen by Provider: 03/17/24 15:12 Description of Symptoms (Recalled from Triage Doc. by RN): PATIENT C/O NON- PRODUCTIVE COUGH, HEADACHE, FEVER, AND LUNGS BURNING THAT STARTED YESTERDAY WITH A FEVER. PATIENT TREATED FOR STREP ON FRIDAY HEENT Symptoms (Recalled from RN notes): Yes Resp Symptoms (Recalled from RN notes): Yes Skin Symptoms (Recalled from RN notes): No MS Symptoms (Recalled from RN notes): No Functional Status (Recalled from RN notes): WNL History of Present Illness Provider Complaint: Patient states that he was dx with strep throat on Friday a nd was treated States that he took a PCN injection and given zpack States that his throat is feeling much better and no longer hurting but yesterday evening he started with fever, body aches, burning in his chest with coughing States he has an event this weekend and worried he may have something that he may pass around so he came in to get checked Related Data Home Medications Medication Instructions Recorded Confirmed fluticasone propionate 50 2 spray intranasal DAILY 03/15/24 03/15/24 mcg/actuation nasal spray,suspension lisinopril 5 mg tablet 5 mg PO DAILY 03/15/24 03/15/24 sildenafil 100 mg tablet 100 mg PO DAILY 03/15/24 03/15/24 venlafaxine 150 mg 150 mg PO DAILY 03/15/24 03/15/24 capsule,extended release 24 hr Previous Rx's Medication Instructions Recorded azithromycin 250 mg tablet See Rx Instructions PO .COMPLEX 5 03/15/24 (Zithromax Z-Yang) days #6 tabs methylprednisolone 4 mg tablets in See Rx Instructions .Route 03/15/24 a dose pack (Medrol (Yang)) .COMPLEX 6 days #21 tabs Allergies Allergy/AdvReac Type Severity Reaction Status Date / Time fluticasone Allergy Severe Difficulty Verified 02/11/24 11:19 [From Advair Diskus] Swallowing salmeterol Allergy Severe Difficulty Verified 02/11/24 11:19 [From Advair Diskus] Swallowing leather Allergy Severe Redness of Uncoded 02/11/24 11:19 Skin Worker's Comp Is this a Worker's Comp case?: No [facility] Disclaimer: The information contained in this section may have been updated after the patient was seen, as this information can be updated by other users. Medical History Acute herpes zoster neuropathy Alcoholism Anxiety BPPV (benign paroxysmal positional vertigo) Bronchitis Bronchitis Elevated blood pressure reading Encounter for laboratory testing for COVID-19 virus Epistaxis Exposure to COVID-19 virus Fatigue Generalized anxiety disorder Headache Headache Heat exhaustion Herpes zoster Insomnia Medication adverse effect Otitis media Pharyngitis Pre-syncope Right shoulder pain Serous otitis media Sinus tachycardia Sinusitis Sore throat Strep throat URI (upper respiratory infection) Vasovagal episode Viral syndrome Viral syndrome Viral upper respiratory illness Vitamin D deficiency Social History Smoking Status: Never smoker years smoked: 16 how long ago did patient quit smokin second hand exposure: No alcohol intake: current alcohol intake frequency: a few times a week substance use type: denies use current occupational status: employed and other Travel in the last 8 weeks: None household members: spouse housing: house number of children: 2 ROS Obtained: Yes All systems reviewed & no additional complaints except as documented and Yes Systems reviewed as appropriate & no additional complaints except as documented Constitutional Constitutional: Reports system reviewed and no additional complaints, except as documented, Reports as per HPI, Reports fever(s) and Reports headache(s) ENT Ears, Nose, Mouth, and Throat: Reports system reviewed and no additional complaints, except as documented, Reports as per HPI and Reports headache(s) Cardiovascular Cardiovascular: Reports system reviewed and no additional complaints, except as documented and Reports as per HPI Respiratory Respiratory: Reports system reviewed and no additional complaints, except as documented, Reports as per HPI, Denies shortness of breath, Reports chest congestion, Reports cough and Reports pain with cough (burning in chest with cough) Gastrointestinal Gastrointestingal: Reports system reviewed and no additional complaints, except as documented and as per HPI Neurologic Neurologic: Reports headache(s) Physical Exam General General appearance: alert and in no apparent distress ENT ENT exam: Present mucous membranes moist Expanded ENT Exam Nose exam: Absent sinus tenderness Throat exam: Present normal inspection Respiratory Respiratory exam: Present normal lung sounds bilaterally; Absent respiratory distress or wheezes Cardiovascular Cardiovascular exam: Present regular rate, normal rhythm and normal heart sounds Neurological Exam Neurological exam: Present alert, oriented X3 and normal gait Medical Decision Making Wilfred Inquiry Pt receiving controlled substance: No Wilfred was queried for this patient: No Vital Signs: 03/17/24 14:45 Temperature 98.4 F Temperature Source Oral Pulse Rate [Left Brachial] 94 H Respiratory Rate 18 Blood Pressure [Left Arm] 140/99 H Blood Pressure Mean [Left Arm] 112 Blood Pressure Source [Left Arm] Automatic Cuff Blood Pressure Position [Left Arm] Sitting 02 Sat by Pulse Oximetry 98 Oxygen Delivery Method Room Air Lab Data Lab results reviewed: Yes I reviewed the patient's lab results. Lab Results 03/17/24 14:57: Strep Scn Rapid Clinic Negative Orders (Tests/Meds): ORDERS Category Date Time Status Chest XR 2 view (NOT portable) [XR chest 2V] Stat Exams 03/17/24 14:57 Ordered Full Resp Panel w/COVID ([facility]) Routine Lab 03/17/24 15:06 Ordered Strep Screen Confirmation Stat Micro 03/17/24 14:57 Received Radiology Data #1: Image(s): Chest Image Reviewed: Yes I have reviewed radiologist's interpretation No active cardiopulmonary disease
[2024-03-17 15:33] VITALS: BP 140/99; PULSE 94; RESP 18; TEMP 36.9; O2SAT 98
[2024-03-17 15:44] LABS: Adenovirus,PCR Not Detected (NotDetected); Bordetella Pertussis Not Detected (NotDetected); Chlamydophila Pneumoniae, PCR Not Detected (NotDetected); Coronavirus 19, PCR Not Detected (NotDetected); Coronavirus 229E Not Detected (NotDetected); Coronavirus NL63 Not Detected (NotDetected); Coronavirus OC43 Not Detected (NotDetected); Coronovirus HKU1,PCR Not Detected (NotDetected); Human Metapneumovirus Not Detected (NotDetected); Influenza A, PCR Not Detected (NotDetected); Influenza AH1, 2009 Not Detected (NotDetected); Influenza AH1, PCR Not Detected (NotDetected); Influenza AH3,PCR Not Detected (NotDetected); Influenza B, PCR Not Detected (NotDetected); Mycoplasma Pneumoniae, PCR Not Detected (NotDetected); Parainfluenza 1, PCR Not Detected (NotDetected); Parainfluenza 2, PCR Not Detected (NotDetected); Parainfluenza 3, PCR Not Detected (NotDetected); Parainfluenza 4, PCR Not Detected (NotDetected); Respiratory Syncytial Virus Not Detected (NotDetected); Rhinovirus/Enterovirus Not Detected (NotDetected)
== END 2024-03-17 16:21 | disposition home or self-care (01) ==
PROVIDERS: Emergency Provider Nurse Practitioner; PCP Physician Assistant
DX: R07.1 Chest pain on breathing (principal); R50.9 Fever, unspecified; R05.9 Cough, unspecified; J20.9 Acute bronchitis, unspecified
CPT/HCPCS: 71046; 87581; 87632; 87635; 87798; 87880; 99212; 99213; G0463

== ENCOUNTER 2024-06-04 09:15 | Outpatient (CLI) | payer BC, SELFPAY ==
[2024-06-04 17:51] LABS: Alanine Aminotransferase 19 U/L (12-78); Albumin Level 4.6 g/dl (3.5-5.0); Albumin/Globulin Ratio 1.7 (1.1-1.8); Alkaline Phosphatase 60 U/L (38-126); Anion Gap 17.3 mEq/L (5-15); Aspartate Amino Transferase 34 U/L (17-59); Bilirubin,Total 0.8 mg/dl (0.2-1.3); Blood Urea Nitrogen 24 mg/dl (9-20); Calcium 9.5 mg/dl (8.4-10.2); Carbon Dioxide 22 mmol/L (22.0-30.0); Chloride 106 mmol/L (98-107); Chol/HDL Ratio 3.7 (1-3.5); Cholesterol 218 mg/dl (140-200); Estimated Glomerular Filt Rate 80 ml/min (>60); GFR (African American) 97 ML/MIN (>60); Globulin 2.7 g/dL (1.3-3.2); Glucose 85 mg/dl (74-100); HDL Cholesterol 59 mg/dl (40-60); Potassium 4.3 mmoL/L (3.5-5.1); Sodium 141 mmol/L (136-145); Total Protein,Serum 7.3 g/dl (6.3-8.2); Triglycerides 112 mg/dl (30-150); VLDL Cholesterol 22 mg/dL (0-40)
[2024-06-04 17:57] LABS: Basophils # 0.1 K/mm3 (0-0.2); Basophils % 0.9 % (0.1-2.0); Eosinophils # 0.2 K/mm3 (0.0-0.4); Eosinophils % 2.7 % (0.1-12.0); Hematocrit 39.6 % (42.0-52.0); Hemoglobin 15.5 g/dL (14.1-18.0); Lymphocytes # 1.4 K/mm3 (0.7-4.5); Lymphocytes % 25.6 % (10-50); Mean Corpuscular HGB Conc 39.3 g/dL (31.8-35.4); Mean Corpuscular Hemoglobin 36.3 pg (27.0-31.2); Mean Corpuscular Volume 92.5 fl (80-94); Mean Platelet Volume 8.9 fl (7.4-10.4); Monocytes # 0.4 K/mm3 (0.1-1.0); Neutrophils # 3.3 K/mm3 (1.8-7.8); Neutrophils % 62.8 % (37.0-80.0); Platelet Count 291 K/mm3 (142-424); Red Blood Count 4.28 M/mm3 (4.60-6.20); Red Cell Distribution Width 13.5 % (11.5-17.5); White Blood Count 5.3 K/mm3 (4.8-10.8)
[2024-06-04 18:05] LABS: Direct LDL Cholesterol 109.96 mg/dL (100-129)
[2024-06-04 18:07] LABS: 25-OH Vitamin D, Total 54.7 ng/mL (30-100)
[2024-06-04 18:24] LABS: Thyroid Stimulating Hormone 0.34 uIU/mL (0.465-4.68)
[2024-06-06 08:08] LABS: Testosterone,Total 213 ng/dL (264-916)
== END 2024-06-04 23:59 | disposition home or self-care (01) ==
LOC: LAB.DROPOF 06-08 09:15
PROVIDERS: PCP Physician Assistant; Visit Provider Physician Assistant
DX: N52.9 Male erectile dysfunction, unspecified (principal); E55.9 Vitamin D deficiency, unspecified; I10 Essential (primary) hypertension
CPT/HCPCS: 80050; 80053; 80061; 82306; 84403; 84443; 85025

== ENCOUNTER 2024-06-11 16:25 | Outpatient (CLI) | payer BC, SELFPAY ==
[2024-06-11 17:19] LABS: Thyroid Stimulating Hormone 0.43 uIU/mL (0.465-4.68)
[2024-06-13 11:09] LABS: Testosterone,Total 227 ng/dL (264-916)
== END 2024-06-11 23:59 | disposition home or self-care (01) ==
LOC: LAB.DROPOF 16:25
PROVIDERS: PCP Physician Assistant; Visit Provider Physician Assistant
DX: R79.89 Other specified abnormal findings of blood chemistry (principal); N52.9 Male erectile dysfunction, unspecified
CPT/HCPCS: 84403; 84443

== ENCOUNTER 2024-06-21 09:23 | Outpatient (CLI) | payer BC, SELFPAY ==
[2024-06-21 09:43] LABS: Basophils % 0.7 % (0.1-2.0); Eosinophils # 0.2 K/mm3 (0.0-0.4); Eosinophils % 3.5 % (0.1-12.0); Hematocrit 46.8 % (42.0-52.0); Lymphocytes % 22.1 % (10-50); Mean Corpuscular Volume 93.8 fl (80-94); Mean Platelet Volume 7.8 fl (7.4-10.4); Monocytes # 0.4 K/mm3 (0.1-1.0); Monocytes % 8.5 % (1.7-9.3); Neutrophils # 3.1 K/mm3 (1.8-7.8); Neutrophils % 65.1 % (37.0-80.0); Platelet Count 232 K/mm3 (142-424); Red Cell Distribution Width 13.5 % (11.5-17.5); White Blood Count 4.7 K/mm3 (4.8-10.8)
[2024-06-21 10:42] LABS: Thyroid Stimulating Hormone 0.72 uIU/mL (0.465-4.68)
[2024-06-22 08:30] LABS: Estradiol 13.3 pg/mL (7.6-42.6); FSH 3.6 mIU/mL (1.5-12.4); LH 4.5 mIU/mL (1.7-8.6); Prolactin 7.6 ng/mL (3.9-22.7); Prostate Specific Ag 1.6 ng/mL (0.0-4.0); Sex Hormone Binding Globulin 37.2 nmol/L (16.5-55.9); Testosterone,Total 322 ng/dL (264-916)
[2024-07-02 09:35] LABS: Dihydrotestosterone DHT 37
== END 2024-06-21 23:59 | disposition home or self-care (01) ==
LOC: LAB 09:24
PROVIDERS: PCP Physician Assistant; Visit Provider Urology
DX: N40.0 Benign prostatic hyperplasia without lower urinary tract symptoms (principal); E29.1 Testicular hypofunction; N52.9 Male erectile dysfunction, unspecified
CPT/HCPCS: 36415; 82626; 82670; 83001; 83002; 84146; 84153; 84154; 84270; 84403; 84443; 85025

== ENCOUNTER 2024-08-23 08:48 | Emergency (ER) | payer OTHER, SELFPAY ==
[2024-08-23 09:00] VITALS: BP 123/75; PULSE 116; RESP 20; TEMP 37.4; O2SAT 99; BMI 25.8
[2024-08-23 09:16] LABS: UTC Strep Screen (Rapid) Negative (Negative)
--- NOTE | 2024-08-23 09:18 | EXP.UTC ---
Discharge Plan Disposition Patient Disposition: Home, Self-Care Condition: Good Prescriptions Prescriptions: New methylprednisolone 4 mg Tablets,Dose Pack 4 mg PO DIRECTED 6 Days Qty: 21 0RF Rx Instructions: Take 1 pack as directed for 6 days ondansetron 4 mg Tablet,Disintegrating 4 mg PO Q8H PRN (Reason: Nausea) Qty: 12 0RF cefdinir 300 mg capsule 300 mg PO BID Qty: 20 0RF No Action venlafaxine 150 mg capsule,extended release 24hr 150 mg PO DAILY Qty: 90 1RF pantoprazole 40 mg tablet,delayed release (DR/EC) 40 mg PO DAILY Patient Comments: TAKE 1 TABLET BY MOUTH TWICE DAILY FOR GERD lisinopril 10 mg tablet 10 mg PO DAILY Qty: 30 2RF tadalafil [Cialis] 20 mg tablet 20 mg PO DAILY 30 Days Qty: 10 0RF Rx Instructions: administer approximately 60 min before sexual activity; do not use more than 1 dose per 24hrs tadalafil [Cialis] 5 mg tablet 5 mg PO DAILY Qty: 30 2RF Referrals Follow up/Referrals: Jessie Ferrell PA [Primary Care Provider] - See instructions Activity Restrictions/Add. Instructions Additional Instructions/Restrictions: Drink plenty of fluids. Take tylenol or ibuprofen for pain or fever. Take the medications as directed. Follow up with your regular doctor. GO TO THE ER FOR ANY WORSENING SYMPTOMS Don't start the oral steroids (medrol dose pack) until tomorrow since you had the shot here Clinical Impressions Clinical Impression: Pharyngitis, Acute viral syndrome Stand Alone Forms Stand Alone Forms: Work/School Release Instructions Patient Instructions: Sore Throat, DI for Pharyngitis/Tonsillopharyngitis -- Adult, DI for Viral Syndrome, Dexamethasone Injection Print Language Print Language: Tajik Discharge ED Provider: Aguilar Prieto [facility] General Stated complaint: sore throat, fever, body aches Mode of Arrival: Ambulatory Source of Information: Patient Limitations: No Limitations Time Seen by Provider: 08/23/24 09:18 Description of Symptoms (Recalled from Triage Doc. by RN): PATIENT C/O FEVER, BODY ACHES, SORE THROAT AND HEADACHE THAT STARTED THIS MORNING HEENT Symptoms (Recalled from RN notes): Yes Resp Symptoms (Recalled from RN notes): No Skin Symptoms (Recalled from RN notes): No MS Symptoms (Recalled from RN notes): No Functional Status (Recalled from RN notes): WNL Related Data Home Medications ?Medication ?Instructions ?Recorded ?Confirmed pantoprazole 40 mg tablet,delayed 40 mg PO DAILY 05/20/24 08/23/24 release Previous Rx's ?Medication ?Instructions ?Recorded venlafaxine 150 mg 150 mg PO DAILY #90 caps 03/24/24 capsule,extended release 24 hr lisinopril 10 mg tablet 10 mg PO DAILY #30 tabs 05/20/24 tadalafil 20 mg tablet (Cialis) 20 mg PO DAILY 30 days #10 tabs 06/28/24 tadalafil 5 mg tablet (Cialis) 5 mg PO DAILY #30 tabs 06/28/24 cefdinir 300 mg capsule 300 mg PO BID #20 caps 08/23/24 methylprednisolone 4 mg tablets in 4 mg PO DIRECTED 6 days #21 tabs 08/23/24 a dose pack ondansetron 4 mg disintegrating 4 mg PO Q8H PRN Nausea #12 tabs 08/23/24 tablet Allergies Allergy/AdvReac Type Severity Reaction Status Date / Time fluticasone Allergy Severe Difficulty Verified 06/28/24 10:45 [From Advair Diskus] Swallowing salmeterol Allergy Severe Difficulty Verified 06/28/24 10:45 [From Advair Diskus] Swallowing leather Allergy Severe Redness of Uncoded 06/28/24 10:45 Skin beta blockers AdvReac Intermediate Uncoded 06/28/24 10:45 Worker's Comp Is this a Worker's Comp case?: No [facility] Disclaimer: The information contained in this section may have been updated after the patient was seen, as this information can be updated by other users. Medical History Headache Herpes zoster Acute herpes zoster neuropathy Bronchitis Viral syndrome Generalized anxiety disorder Strep throat Exposure to COVID-19 virus Viral syndrome Pre-syncope Elevated blood pressure reading Sore throat Vasovagal episode Epistaxis Encounter for laboratory testing for COVID-19 virus Fatigue Sinus tachycardia Sinusitis Serous otitis media BPPV (benign paroxysmal positional vertigo) Medication adverse effect Otitis media Bronchitis Pharyngitis Heat exhaustion URI (upper respiratory infection) Vitamin D deficiency Headache Insomnia Alcoholism Anxiety Right shoulder pain Viral upper respiratory illness Social History Smoking Status: Never smoker years smoked: 16 how long ago did patient quit smokin second hand exposure: No alcohol intake: current alcohol intake frequency: a few times a week substance use type: denies use current occupational status: employed and other Travel in the last 8 weeks: None household members: spouse housing: house number of children: 2 ROS Obtained: Yes All systems reviewed & no additional complaints except as documented Constitutional Constitutional: Reports chills and Reports fever(s) Eyes Eyes: Denies eye discharge ENT Ears, Nose, Mouth, and Throat: Reports as per HPI Cardiovascular Cardiovascular: Denies chest pain Respiratory Respiratory: Denies chest congestion and Reports cough Gastrointestinal Gastrointestingal: Reports nausea; Denies abdominal pain, constipation, cramping, diarrhea or vomiting Musculoskeletal Musculoskeletal: Denies arthralgias Integumentary/Breasts Skin/Breast: Denies rash Neurologic Neurologic: Denies paresthesias Physical Exam General General appearance: alert and in no apparent distress Eye Eye exam: Present normal appearance, PERRL and EOMI ENT ENT exam: Present mucous membranes moist and normal external ear exam Expanded ENT Exam External ear exam: Present normal external inspection TM/Canal exam: Bilateral TM: erythema and bulging Nose exam: Absent sinus tenderness Nasal speculum exam: Bilateral: normal Mouth exam: Present normal external inspection; Absent drooling Teeth exam: Present normal inspection Throat exam: Present tonsillar erythema and tonsillomegaly Neck Neck exam: Present normal inspection, full ROM and trachea midline; Absent tenderness, lymphadenopathy or thyromegaly Chest Chest inspection: Present normal inspection and symmetric chest wall rise; Absent tenderness or rash Respiratory Respiratory exam: Present normal lung sounds bilaterally; Absent respiratory distress, wheezes, stridor or accessory muscle use Cardiovascular Cardiovascular exam: Present regular rate, normal rhythm and normal heart sounds Abdominal Exam Abdominal exam: Present soft; Absent distention, tenderness, guarding, rebound or rigidity Extremities Exam Extremities exam: Present normal inspection, full ROM and normal capillary refill; Absent tenderness or calf tenderness Back Exam Back exam: Present normal inspection and full ROM; Absent tenderness Neurological Exam Neurological exam: Present alert and oriented X3 Psychiatric Psychiatric exam: Present normal affect and normal mood Skin Skin exam: Present warm, dry, intact and normal color Lymphatic Lymphatic Findings: no adenopathy Medical Decision Making Medical Records Medical records reviewed: No I reviewed the patient's medical records. Screening: Per USPSTF and CDC recommendations, given the prevalence of disease in our region, it is our hospital?s policy to screen for HIV and viral Hepatitis for all patients aged 18 and over and those with ongoing risk factors. Wilfred Inquiry Pt receiving controlled substance: No Vital Signs: 08/23/24 09:00 Temperature 99.4 F Temperature Source Oral Pulse Rate [Left Brachial] 116 H Respiratory Rate 20 Blood Pressure [Left Arm] 123/75 Blood Pressure Mean [Left Arm] 91 Blood Pressure Source [Left Arm] Automatic Cuff Blood Pressure Position [Left Arm] Sitting 02 Sat by Pulse Oximetry 99 Oxygen Delivery Method Room Air Lab Data Lab results reviewed: Yes I reviewed the patient's lab results. Lab Results 08/23/24 09:08: Strep Scn Rapid Clinic Negative Orders (Tests/Meds): ORDERS Category Date Time Status Strep Screen Confirmation Stat Micro 08/23/24 09:08 Received
[2024-08-23] MEDS: DEXAMETHASONE 4MG/ML 1ML VIAL 8 MG IM (09:47)
[2024-08-23 09:48] VITALS: BP 123/75; PULSE 116; RESP 20; TEMP 37.4; O2SAT 99
[2024-08-23 10:25] LABS: Coronavirus 19, PCR Not Detected (NotDetected); Influenza A, PCR Not Detected (NotDetected); Influenza B, PCR Not Detected (NotDetected)
== END 2024-08-23 10:00 | disposition home or self-care (01) ==
PROVIDERS: Emergency Provider Nurse Practitioner Family; PCP Physician Assistant
DX: B34.9 Viral infection, unspecified (principal); J02.9 Acute pharyngitis, unspecified; R50.9 Fever, unspecified; M79.10 Myalgia, unspecified site; R51.9 Headache, unspecified
CPT/HCPCS: 87636; 87880; 96372; 99212; G0381; J1100

== ENCOUNTER 2024-12-14 11:25 | Emergency (ER) | payer OTHER, SELFPAY ==
[2024-12-14 13:23] VITALS: BP 134/91; PULSE 85; RESP 18; TEMP 36.6; O2SAT 100; BMI 26.5
--- NOTE | 2024-12-14 13:33 | EXP.UTC ---
Discharge Plan Disposition Patient Disposition: Home, Self-Care Condition: Good Prescriptions Prescriptions: New triamcinolone acetonide 0.1 % cream 1 applic topical BID PRN (Reason: itching) Qty: 30 0RF methylprednisolone 4 mg Tablets,Dose Pack 4 mg PO DIRECTED 6 Days Qty: 21 0RF Rx Instructions: Take 1 pack as directed for 6 days No Action tadalafil [Cialis] 5 mg tablet 5 mg PO DAILY Qty: 30 2RF tadalafil [Cialis] 20 mg tablet 20 mg PO DAILY 30 Days Qty: 10 0RF Rx Instructions: administer approximately 60 min before sexual activity; do not use more than 1 dose per 24hrs testosterone cypionate [Depo-Testosterone] 200 mg/mL oil 200 mg SQ WEEKLY 30 Days Qty: 10 0RF Rx Instructions: O.35 ML EVERY friday SQ PER INSTRUCTIONS. lisinopril 10 mg tablet See Rx Instructions .ROUTE .COMPLEX Qty: 90 2RF Dose Instruction: Take 1 tablet by mouth once daily Rx Instructions: Take 1 tablet by mouth once daily venlafaxine 150 mg capsule,extended release 24hr 150 mg PO DAILY Qty: 90 1RF pantoprazole 40 mg tablet,delayed release (DR/EC) 40 mg PO BID Qty: 180 2RF Referrals Follow up/Referrals: Ashok Adrian APRN [Primary Care Provider] - See instructions Activity Restrictions/Add. Instructions Additional Instructions/Restrictions: Try to identify and avoid contact with the offending substance (poison leif). Don't start the oral steroids until tomorrow. Don't put the topical steroids (triamcinolone) on your face or your groin. Follow up with your regular doctor. GO TO THE ER FOR ANY WORSENING SYMPTOMS OR CONCERNS Clinical Impressions Clinical Impression: Contact dermatitis, Dermatitis of eyelid Instructions Patient Instructions: Contact Dermatitis, DI for Contact Dermatitis, Triamcinolone Topical, Dexamethasone Injection Print Language Print Language: Kyrgyz Discharge ED Provider: Aguilar Prieto [facility] General Stated complaint: rash on eye and hand Mode of Arrival: Ambulatory Source of Information: Patient Time Seen by Provider: 12/14/24 13:33 Description of Symptoms (Recalled from Triage Doc. by RN): RASH ON HANDS, EYE X 1 WEEK HEENT Symptoms (Recalled from RN notes): No Resp Symptoms (Recalled from RN notes): No Skin Symptoms (Recalled from RN notes): Yes MS Symptoms (Recalled from RN notes): No Functional Status (Recalled from RN notes): WNL Related Data Previous Rx's ?Medication ?Instructions ?Recorded lisinopril 10 mg tablet See Rx Instructions .Route 10/26/24 .COMPLEX #90 tabs tadalafil 20 mg tablet (Cialis) 20 mg PO DAILY 30 days #10 tabs 11/01/24 tadalafil 5 mg tablet (Cialis) 5 mg PO DAILY #30 tabs 11/01/24 venlafaxine 150 mg 150 mg PO DAILY #90 caps 11/01/24 capsule,extended release 24 hr testosterone cypionate 200 mg/mL 200 mg SQ WEEKLY 30 days #10 mL 11/02/24 intramuscular oil (Depo-Testosterone) methylprednisolone 4 mg tablets in 4 mg PO DIRECTED 6 days #21 tabs 12/14/24 a dose pack triamcinolone acetonide 0.1 % 1 applic topical BID PRN itching 12/14/24 topical cream #30 grams pantoprazole 40 mg tablet,delayed 40 mg PO BID #180 tabs 12/15/24 release Allergies Allergy/AdvReac Type Severity Reaction Status Date / Time fluticasone (From Advair Allergy Severe Difficulty Verified 11/01/24 08:47 Diskus) Swallowing salmeterol (From Advair Allergy Severe Difficulty Verified 11/01/24 08:47 Diskus) Swallowing leather Allergy Severe Redness of Uncoded 11/01/24 08:47 Skin beta blockers AdvReac Intermediate Uncoded 11/01/24 08:47 Worker's Comp Is this a Worker's Comp case?: No [facility] Disclaimer: The information contained in this section may have been updated after the patient was seen, as this information can be updated by other users. Medical History Pharyngitis Acute viral syndrome Headache Herpes zoster Acute herpes zoster neuropathy Bronchitis Viral syndrome Generalized anxiety disorder Strep throat Exposure to COVID-19 virus Viral syndrome Pre-syncope Elevated blood pressure reading Sore throat Vasovagal episode Epistaxis Encounter for laboratory testing for COVID-19 virus Fatigue Sinus tachycardia Sinusitis Serous otitis media BPPV (benign paroxysmal positional vertigo) Medication adverse effect Otitis media Bronchitis Pharyngitis Heat exhaustion URI (upper respiratory infection) Vitamin D deficiency Headache Insomnia Alcoholism Anxiety Right shoulder pain Viral upper respiratory illness Social History Smoking Status: Never smoker years smoked: 16 how long ago did patient quit smokin second hand exposure: No alcohol intake: current alcohol intake frequency: a few times a week substance use type: denies use current occupational status: employed and other Travel in the last 8 weeks: None household members: spouse housing: house number of children: 2 Have you lived/traveled outside US in past 30 days?: No Contact w/someone who lives/traveled outside US past 30 days?: No Exposure to someone with infectious disease in past 14 days?: No Do you have a fever (greater than 100.4 F or 38 C)?: No Have you tested positive for COVID-19: No Exposed to someone with COVID-19 in past 14 days?: No Do you have a sore throat?: No Do you have a cough?: No Do you have any weakness?: No Do you have any diarrhea?: No Are you experiencing any unusual bleeding?: No Do you have any muscle aches/pain?: No Do you have any abdominal pain?: No Are you experiencing loss of taste or smell?: No ROS Obtained: Yes All systems reviewed & no additional complaints except as documented Constitutional Constitutional: Denies chills and Denies fever(s) Eyes Eyes: Denies eye discharge ENT Ears, Nose, Mouth, and Throat: Denies dizziness, Denies otalgia and Denies sore throat Cardiovascular Cardiovascular: Denies chest pain Respiratory Respiratory: Denies shortness of breath, Denies chest congestion, Denies cough, Denies stridor and Denies wheezing Gastrointestinal Gastrointestingal: Denies nausea or vomiting Musculoskeletal Musculoskeletal: Reports system reviewed and no additional complaints, except as documented and Denies arthralgias Integumentary/Breasts Skin/Breast: Reports as per HPI and Reports rash Neurologic Neurologic: Denies dizziness and Denies paresthesias Allergic/Immunologic Allergic/Immunologic: Denies wheezing Physical Exam General General appearance: alert and in no apparent distress Head Head exam: atraumatic, normocephalic and normal inspection Eye Eye exam: Present normal appearance, PERRL and EOMI ENT ENT exam: Present normal exam, normal oropharynx, mucous membranes moist, TM's normal bilaterally and normal external ear exam Neck Neck exam: Present normal inspection, full ROM and trachea midline; Absent meningismus or lymphadenopathy Chest Chest inspection: Present normal inspection and symmetric chest wall rise; Absent tenderness Respiratory Respiratory exam: Present normal lung sounds bilaterally; Absent respiratory distress Cardiovascular Cardiovascular exam: Present regular rate and normal rhythm; Absent JVD Abdominal Exam Abdominal exam: Present soft and normal bowel sounds; Absent distention, tenderness or guarding Extremities Exam Extremities exam: Present normal inspection, full ROM and normal capillary refill; Absent calf tenderness Back Exam Back exam: Present normal inspection; Absent tenderness Neurological Exam Neurological exam: Present alert and oriented X3 Psychiatric Psychiatric exam: Present normal affect and normal mood Skin Skin exam: Present rash Lymphatic Lymphatic Findings: no adenopathy Medical Decision Making Medical Records Medical records reviewed: No I reviewed the patient's medical records. Screening: Per USPSTF and CDC recommendations, given the prevalence of disease in our region, it is our hospital?s policy to screen for HIV and viral Hepatitis for all patients aged 18 and over and those with ongoing risk factors. Wilfred Inquiry Pt receiving controlled substance: No Vital Signs: 12/14/24 13:23 Temperature 97.9 F Temperature Source Oral Pulse Rate [Left Radial] 85 Respiratory Rate 18 Blood Pressure [Left Arm] 134/91 H Blood Pressure Mean [Left Arm] 105 02 Sat by Pulse Oximetry 100
[2024-12-14] MEDS: DEXAMETHASONE 4MG/ML 1ML VIAL 10 MG IM (13:45)
[2024-12-14 13:57] VITALS: BP 134/91; PULSE 85; RESP 18; TEMP 36.6
== END 2024-12-14 14:02 | disposition home or self-care (01) ==
PROVIDERS: Emergency Provider Nurse Practitioner Family; PCP Nurse Practitioner Family
DX: H01.9 Unspecified inflammation of eyelid (principal); L25.9 Unspecified contact dermatitis, unspecified cause
CPT/HCPCS: 99213; G0381; J1100

== ENCOUNTER 2025-01-29 12:30 | Outpatient (CLI) | payer OTHER, SELFPAY ==
[2025-01-31 13:32] LABS: Testosterone,Total 574 ng/dL (264-916)
== END 2025-01-29 23:59 | disposition home or self-care (01) ==
LOC: LAB 12:33
PROVIDERS: PCP Nurse Practitioner Family; Visit Provider Urology
DX: E29.1 Testicular hypofunction (principal)
CPT/HCPCS: 36415; 84403

== ENCOUNTER 2025-04-25 08:38 | Outpatient (CLI) | payer OTHER, SELFPAY ==
--- OUTSIDE RECORDS SUMMARY | 2025-04-25 08:44 | XMS_ITS | Encounter Summary ---
Author Organization [employer] Address [address] [place] [address] Care Team Providers Care File Clerk Data Entry Name Role Phone Unavailable Primary Care Provider Unavailabl e Encounter Details Date Type Department Care Team (Late st Contact Info) Description 11/16/2019 Transcribed Document [facility] Family Medicine [address] [place] [address] ProviderSimran MD [address] [place] [address] Social History Tobacco Use Types Packs/Day Years Used Date Smoking Tobacco: Never Assessed Sex and Gender Information Value Date Recorded Sex Assigned at Not on file Legal Sex Male 3:07 PM CDT Gender Identity Not on file Sexual Orientation Not on file documented as of this encounter Miscellaneous Notes * [employer] Conversion Note - Historical ProviderMD - 11/16/2019 11:36 AM FOOD PROCESSING PLANT MANAGER [place] Suicide Severity Rating Scale (C-SSRS) Entered On: 11/16/2019 18:23 EST Performed On: 11/16/2019 18:22 EST by BARBARA SAENZ RN [place] Suicide Severity Rating Scale (C-SSRS) CSSRS Past Month Wish to be : No CSSRS Past Month Suicidal Thoughts : No CSSRS Lifetime Suicide Behavior : No Suicide Severity Rating Score : 0 Suicide Severity Rating : No Additional Care Required at this time BARBARA SAENZ RN - 11/16/2019 18:22 EST Electronically signed by Alma Delia Ventura Conversion Retail Marketing Executive [employer]ner at 02/26/2023 9:08 AM CDT documented in this encounter Plan of Treatment Not on file documented as of this encounter Visit Diagnoses Not on filedocumented in this encounter
--- OUTSIDE RECORDS SUMMARY | 2025-04-25 08:44 | XMS_ITS | Encounter Summary ---
Author Organization [employer] Address [address] [place] [address] Care Team Providers Care Family Helper Name Role Phone Unavailable Primary Care Provider Unavailabl e Encounter Details Date Type Department Care Team (Late st Contact Info) Description 11/17/2019 Transcribed Document [facility] [address] [place] [address] Holli Davenport MD [address] [place] [address] Social History Tobacco Use Types Packs/Day Years Used Date Smoking Tobacco: Never Assessed Sex and Gender Information Value Date Recorded Sex Assigned at Not on file Legal Sex Male 3:07 PM CDT Gender Identity Not on file Sexual Orientation Not on file documented as of this encounter Miscellaneous Notes * Cerner Conversion Note - Holli Davenport MD - 11/17/2019 12:43 PM EST DATE OF SERVICE: 11/17/2019 PROCEDURE: Lexiscan nuclear stress test. PROCEDURE IN DETAIL: The patient is a 44-year-old male, admitted for observation with chest pain. At resting, he had a heart rate of 84 beats per minute. Resting EKG, sinus bradycardia. Resting blood pressure 130/80 mmHg. At rest, the patient received 11 mCi IV injection of Myoview, and then 40 minutes later, the rest images were done. Then, the patient received 0.4 mg IV injection of Lexiscan over 10 seconds, and 20 seconds, later was followed by 32.3 mCi IV injection of Myoview and then in 40 minutes, stress test and gated images were done with the polar [employer]. After the Lexiscan injection, the patient was monitored up to 6 minutes. His resting heart rate was 84 beats per minute, tyrell to a maximum heart rate of 127 beats per minute, and that represents appropriate response of the heart rate to Lexiscan injection. He has a resting blood pressure of 130/88 mmHg, went down to 113/88 mmHg. During the monitoring period, the patient did not have any shortness of breath, had mild chest discomfort. There was no ST or T wave changes suggestive of ischemia. There was no arrhythmia. At the end of the monitoring period, his hemodynamics returned back to normal. The test was completed and the finding showed that the quality of the study was good. There was mild attenuation artifact over the inferior wall, likely diaphragmatic. LV cavity during stress was normal. TID was 1.09. Right ventricle was also normal. No lung activity seen. SPECT images showed that there is homogeneous tracer distribution throughout the myocardium. No fixed or reversible defects seen. No ischemia demonstrated. Summed difference score was 3. Gated SPECT images showed normal wall thickening and motion throughout the myocardium with a calculated ejection fraction of 63%, which is normal. CONCLUSION: Normal Lexiscan nuclear stress test. No Lexiscan-induced ischemia demonstrated. Normal ejection fraction. /[id number] MD MICHEL James/CHRISTOPHER / MICHEL / MODL /[id number] documented in this encounter Plan of Treatment Not on file documented as of this encounter Visit Diagnoses Not on filedocumented in this encounter
--- OUTSIDE RECORDS SUMMARY | 2025-04-25 08:44 | XMS_ITS | Encounter Summary ---
Author Organization [employer] Address [address] [place] [address] Care Team Providers Care Optical Instrument Assembler Name Role Phone Unavailable Primary Care Provider Unavailabl e Encounter Details Date Type Department Care Team (Late st Contact Info) Description 11/17/2019 Transcribed Document [facility] [place] [address] [place] [address] ProviderSimran MD [address] [place] [address] Social History Tobacco Use Types Packs/Day Years Used Date Smoking Tobacco: Never Assessed Sex and Gender Information Value Date Recorded Sex Assigned at Not on file Legal Sex Male 3:07 PM CDT Gender Identity Not on file Sexual Orientation Not on file documented as of this encounter Miscellaneous Notes * Cerner Conversion Note - Historical ProviderMD - 11/17/2019 11:20 AM GYM INSTRUCTOR [employer] Authorization Entered On: 11/17/2019 11:21 EST Performed On: 11/17/2019 11:20 EST by DESTINY KOLB RN-Utilization Review Primary Insurance Authorization Authorization and Policy Numbers : Insurance 1 Health Plan: [email or web address] Policy Number: [id number] Authorization Number: Insurance Primary Name : [email or web address] Policy Number: [id number] Authorized Service Begin Date-Primary : 11/16/2019 EST Historical Authorization Comments-Primary : No Authorization Comments Found DESTINY KOLB RN-Utilization Review - 11/17/2019 11:20 EST Electronically signed by Alma Delia Ventura Conversion Human Resources Operations Coordinator [employer]ner at 02/26/2023 8:58 AM CDT documented in this encounter Plan of Treatment Not on file documented as of this encounter Visit Diagnoses Not on filedocumented in this encounter
--- OUTSIDE RECORDS SUMMARY | 2025-04-25 08:44 | XMS_ITS | Encounter Summary ---
Author Organization [employer] [facility] [employer] Address [address] [place] [address] Care Team Providers Care Screen Printing Press Operator Name Role Phone Unavailable Primary Care Provider Unavailabl e Encounter Details Date Type Department Care Team (Late st Contact Info) Description 11/17/2019 Transcribed Document [facility] [place] [address] [place] [address] ProviderSimran MD [address] [place] [address] Social History Tobacco Use Types Packs/Day Years Used Date Smoking Tobacco: Never Assessed Sex and Gender Information Value Date Recorded Sex Assigned at Not on file Legal Sex Male 3:07 PM CDT Gender Identity Not on file Sexual Orientation Not on file documented as of this encounter Miscellaneous Notes * Cerner Conversion Note - Historical ProviderMD - 11/17/2019 4:26 PM CLIENT LEADER [facility] [address] [place] [address] Visit Date/Time: 11/17/2019 16:26:50 JUAN RIVERO The above patient was seen in the hospital today and needs to be excused from work/school until The patient was admitted to the hospital 11/16/2019 to 11/17/2019 Return to Work/School Date: 11/18/2019 Electronically signed by [facility] Conversion Staff Mechanical Engineer Cerner at 02/26/2023 9:01 AM CDT documented in this encounter Plan of Treatment Not on file documented as of this encounter Visit Diagnoses Not on filedocumented in this encounter
--- OUTSIDE RECORDS SUMMARY | 2025-04-25 08:44 | XMS_ITS | Encounter Summary ---
Author Organization [employer] Address [address] [place] [address] Care Team Providers Care Glass Robot Operator Name Role Phone Unavailable Primary Care Provider Unavailabl e Encounter Details Date Type Department Care Team (Late st Contact Info) Description 11/17/2019 Transcribed Document [facility] [place] [address] [place] [address] ProviderSimran MD [address] [place] [address] Social History Tobacco Use Types Packs/Day Years Used Date Smoking Tobacco: Never Assessed Sex and Gender Information Value Date Recorded Sex Assigned at Not on file Legal Sex Male 3:07 PM CDT Gender Identity Not on file Sexual Orientation Not on file documented as of this encounter Miscellaneous Notes * Cerner Conversion Note - Historical ProviderMD - 11/17/2019 11:22 AM LEARNING ENGINEER Spiritual Care Short Form Entered On: 11/17/2019 11:44 EST Performed On: 11/17/2019 11:22 EST by DAVID OJEDA General Information, Spiritual Care Spiritual Care Referred by : Premium Cancellation Clerk initiated Reason for Visit : Initial Ministry Provided to : Patient, Family/Significant other Intervention/Comment/Summary Points : Initial Spiritual Care visit by volunteer, Darrin Garcia. DAVID OJEDA - 11/17/2019 11:44 EST Electronically signed by Alma Delia Ventura Conversion Physician Chief Of Pathology Cerner at 02/26/2023 9:10 AM CDT documented in this encounter Plan of Treatment Not on file documented as of this encounter Visit Diagnoses Not on filedocumented in this encounter
--- OUTSIDE RECORDS SUMMARY | 2025-04-25 08:44 | XMS_ITS | Encounter Summary ---
Author Organization [employer] Address [address] [place] [address] Care Team Providers Care Nutrition Associate Name Role Phone Unavailable Primary Care Provider Unavailabl e Encounter Details Date Type Department Care Team (Late st Contact Info) Description 11/16/2019 Transcribed Document [facility] [place] [address] [place] [address] ProviderSimran MD [address] [id number] Social History Tobacco Use Types Packs/Day Years Used Date Smoking Tobacco: Never Assessed Sex and Gender Information Value Date Recorded Sex Assigned at Not on file Legal Sex Male 3:07 PM CDT Gender Identity Not on file Sexual Orientation Not on file documented as of this encounter Miscellaneous Notes * Cerner Conversion Note - Simran ProviderMD - 11/16/2019 11:36 AM DRIER TRANSFER CAR OPERATOR ED Assessment Entered On: 11/16/2019 18:23 EST Performed On: 11/16/2019 18:22 EST by BARBARA SAENZ BI SOLUTIONS ARCHITECT General-Functional Assess Communication Barrier : None Primary Language : Upper Sorbian Any Spiritual/Cultural Needs or Requests : No Currently in Unsafe Situation : No BARBARA SAENZ RN - 11/16/2019 18:22 EST Social Habits Smoking Status : Former smoker, quit more than 30 days ago Smokeless Tobacco Status : Never Desires Tobacco Cessation Calc : 0 BARBARA SAENZ RN - 11/16/2019 18:22 EST Social History (As Of: 11/16/2019 18:23:31 EST) Tobacco: Comments: 11/16/2019 13:43 - ROEL THOMAS PA-C: Recently quit smoking. (Last Updated: 11/16/2019 13:43:01 EST by ROEL THOMAS PA-C) Home/Environment: Living situation: Home/Independent. (Last Updated: 11/16/2019 13:41:54 EST by ROEL THOMAS PA-C) Cardiovascular ASMT, ED Cardiovascular Assessment WDL : WDL with exceptions Cardiovascular Symptoms : Dizziness at rest, Dizziness with activity, Dyspnea with activity, Palpitations with activity Heart Rhythm : Regular Chest Pain : Yes BARBARA SAENZ RN - 11/16/2019 18:22 EST Respiratory Respiratory Assessment WDL : JODY Cough : None Respiratory Pattern Description : Regular BARBARA SAENZ RN - 11/16/2019 18:22 EST Neurologic ASMT, ED Neurologic Assessment WDL : WDL BARBARA SAENZ RN - 11/16/2019 18:22 EST Electronically signed by Audrey [facility] Conversion Cad Technician Cerner at 02/26/2023 8:55 AM CDT documented in this encounter Plan of Treatment Not on file documented as of this encounter Visit Diagnoses Not on filedocumented in this encounter
--- OUTSIDE RECORDS SUMMARY | 2025-04-25 08:44 | XMS_ITS | Encounter Summary ---
Author Organization [employer] Address [address] [place] [address] Care Team Providers Care Assembly Machine Tool Setter Name Role Phone Unavailable Primary Care Provider Unavailabl e Encounter Details Date Type Department Care Team (Late st Contact Info) Description 11/16/2019 Transcribed Document [facility] [place] [facility] [place] [address] ProviderSimran MD [address] [id number] Social History Tobacco Use Types Packs/Day Years Used Date Smoking Tobacco: Never Assessed Sex and Gender Information Value Date Recorded Sex Assigned at Not on file Legal Sex Male 3:07 PM CDT Gender Identity Not on file Sexual Orientation Not on file documented as of this encounter Miscellaneous Notes * Cerner Conversion Note - Simran ProviderMD - 11/16/2019 11:36 AM ANTISQUEAK FILLER ED Triage Entered On: 11/16/2019 11:48 EST Performed On: 11/16/2019 11:37 EST by Sofia Hernandez RN ED Triage Across the Room Chief Complaint : pt c/o dizziness and MSCP with exertion starting on the . pt states he seen Dr. Bowman and had portable monitor placed. pt scheduled for echo and stress test but states hes unable to wait. Triage Date/Time : 11/16/2019 11:46 EST Sofia Hernandez RN - 11/16/2019 11:46 EST DCP GENERIC CODE Tracking Acuity : 2 - Emergent Tracking Group : [facility] ED Sofia Hernandez RN - 11/16/2019 11:46 EST Mode of Arrival : Ambulatory Transported to ED by : Private vehicle To Room Via : Wheelchair Accompanied By : Spouse Height & Weight : Document ED Allergies : Document ED Reason for Visit : Document Sofia Hernandez RN - 11/16/2019 11:46 EST Infectious Disease History Infectious Disease History : Chicken pox/Shingles Fever/Chills Last 48 Hours : No Travel To Regions with Travel Advisories : No Travel Outside [place] Within Last 30 Days : No Contact With Traveler to Advisory Region : No Tuberculosis Symptoms : None Sofia Hernandez RN - 11/16/2019 11:46 EST Allergy (As Of: 11/16/2019 11:48:44 EST) Allergies (Active) Advair Diskus Estimated Onset Date: Unspecified ; Created By: Sofia Hernandez RN; Reaction Status: Active ; Category: Drug ; Substance: Advair Diskus ; Type: Allergy ; Updated By: Sofia Hernandez RN; Reviewed Date: 11/16/2019 11:46 EST Diagnosis Control ED (As Of: 11/16/2019 11:48:44 EST) Diagnoses(Active) Chest pain Date: 11/16/2019 ; Diagnosis Type: Reason For Visit ; Confirmation: Complaint of ; Clinical Dx: Chest pain ; Classification: Medical ; Clinical Service: Emergency medicine ; Code: PNED ; Probability: 0 ; Diagnosis Code: [id number] Dizziness Date: 11/16/2019 ; Diagnosis Type: Reason For Visit ; Confirmation: Complaint of ; Clinical Dx: Dizziness ; Classification: Medical ; Clinical Service: Emergency medicine ; Code: PNED ; Probability: 0 ; Diagnosis Code: [id number] ED Height and Weight Height Source : Stated Height Entry Format : [place] Height, Feet : 5 ft(Converted to: 152 cm, 60 Inch) Height, Inches : 10 Inch(Converted to: 0 ft 10 Inch, 25.40 cm) Clinical Height : 177.8 cm Weight Source, ED : Critical estimated dosing weight Weight Entry Format : [place] Weight, Pounds : 170 lb Clinical Dosing Weight : 77.27 kg Body Surface Area (BSA) : 1.95 m2 Body Mass Index : 24.4 kg/m2 (HI) [place] Body Weight (IBW) : 72.02 kg Sofia Hernandez RN - 11/16/2019 11:46 EST documented in this encounter Plan of Treatment Not on file documented as of this encounter Visit Diagnoses Not on filedocumented in this encounter
--- OUTSIDE RECORDS SUMMARY | 2025-04-25 08:44 | XMS_ITS | Clinical Summary ---
Author Organization Healthcare Address [address] [id number] Care Team Providers Care Mental Health Case Manager Name Role Phone Jessie Ferrell Primary Care Provider [phone] Social History Tobacco Use Types Packs/Day Years Used Date Smoking Tobacco: Never Assessed Sex and Gender Information Value Date Recorded Sex Assigned at Not on file Legal Sex Male 7:31 PM EDT Gender Identity Not on file Sexual Orientation Not on file Last Filed Vital Signs Vital Sign Reading Time Taken Comments Blood Pressure - - Pulse - - Temperature - - Respiratory Rate - - Oxygen Saturation - - Inhaled Oxygen Concentration - - Weight 84.8 kg (186 lb 15.9 oz) 02/26/2016 2:31 PM EDT Height 177.8 cm (5' 10 ) 02/26/2016 2:31 PM EDT Body Mass Index 26.83 02/26/2016 2:31 PM EDT Plan of Treatment Not on file Care Teams Mental Health Case Manager Relationship Specialty Start Date End Date Jessie Ferrell PA [address] [place] [address] PCP - General 03/23/21
--- OUTSIDE RECORDS SUMMARY | 2025-04-25 08:44 | XMS_ITS | Encounter Summary ---
Author Organization [employer] Address [address] [place] [address] Care Team Providers Care Cement Kiln Operator Name Role Phone Unavailable Primary Care Provider Unavailabl e Encounter Details Date Type Department Care Team (Late st Contact Info) Description 11/17/2019 Transcribed Document [facility] [address] [place] [address] Nette Nayak MD [address] [place] [address] Social History Tobacco Use Types Packs/Day Years Used Date Smoking Tobacco: Never Assessed Sex and Gender Information Value Date Recorded Sex Assigned at Not on file Legal Sex Male 3:07 PM CDT Gender Identity Not on file Sexual Orientation Not on file documented as of this encounter Miscellaneous Notes * Cerner Conversion Note - Nette Nayak MD - 11/17/2019 12:21 PM EST Patient: JUAN BURNETT Age: 44 years Sex: Male : 1975 Associated Diagnoses: None Author: NETTE NAYAK MD Date of admission 11/16/2019 Date of discharge 11/17/2019 Primary discharge diagnosis 1. Atypical chest pain 2. GERD 3. Smoker 4. Anxiety Consultation geology associate Procedures Lexiscan stress test Echocardiogram Disposition Home Activity As tolerated Diet Regular diet Follow-up Follow-up with primary care physician in 1-2 week Discharge medications aspirin 81 mg oral tablet, chewable 81 mg = 1 Tab, Oral, Daily Brief hospital stay This is a 44 years old healthy white male patient with no significant past medical history presented to the emergency department with chest pain, patient stated that chest pain comes and goes, does not related with exercise, patient had EGD recently and was normal EGD, patient presented with chest pain yesterday to the emergency department, initial troponin and EKG was normal, patient was admitted to rule out ACS, subsequent troponin levels were within normal limits, recommendation for Lexiscan stress test, stress test came negative for any acute ischemic changes, aspirin 81 mg by mouth daily was recommended, patient cleared by cardiology to be discharged and follow-up as an outpatient as needed, patient will follow-up with his primary care physician in 1 week, patient was hemodynamically stable at time of discharge. Physical exam Alert and oriented Chest clear to auscultation Abdomen soft nontender Vitals Signs (last 24 hrs) Last Charted Minimum Maximum Temp 97.8 (NOV 17 05:49) 97.8 (NOV 17 05:49) 98.2 (NOV 16 14:00) Mon HR 73 (NOV 17 02:33) 68 (NOV 16 14:57) 88 (NOV 16 16:00) Resp Rate 18 (NOV 17 05:49) 14 (NOV 16 17:00) H 25 (NOV 16 14:57) SBP 103 (NOV 17 05:49) 103 (NOV 17 05:49) 124 (NOV 16 18:00) DBP 77 (NOV 17 05:49) 71 (NOV 17 02:33) 90 (NOV 16 15:27) MAP 87 (NOV 17 05:49) 82 (NOV 17 02:33) 101 (NOV 16 14:00) SpO2 97 (NOV 17 02:33) 97 (NOV 16 14:57) 99 (NOV 16 14:00) NOV 17 06:39 138 107 14 / 94 4.1 31 1.00 \ NOV 17 06:39 \ 14.5 / 4.5 189 / 42.3 \ Primary Care Provider DELONTE MAURO Time spent 35 minutes documented in this encounter Plan of Treatment Not on file documented as of this encounter Visit Diagnoses Not on filedocumented in this encounter
--- OUTSIDE RECORDS SUMMARY | 2025-04-25 08:44 | XMS_ITS | Encounter Summary ---
Author Organization [employer] Address [address] [place] [address] Care Team Providers Care Spinning Mule Operator Name Role Phone Unavailable Primary Care Provider Unavailabl e Encounter Details Date Type Department Care Team (Late st Contact Info) Description 11/17/2019 Transcribed Document [facility] [place] Family Medicine [address] [place] [address] ProviderSimran MD [address] [place] [address] Social History Tobacco Use Types Packs/Day Years Used Date Smoking Tobacco: Never Assessed Sex and Gender Information Value Date Recorded Sex Assigned at Not on file Legal Sex Male 3:07 PM CDT Gender Identity Not on file Sexual Orientation Not on file documented as of this encounter Miscellaneous Notes * Cerner Conversion Note - Historical ProviderMD - 11/17/2019 10:02 AM GLASS CARRIER Stroke/Warfarin Instructions Entered On: 11/17/2019 10:02 EST Performed On: 11/17/2019 10:02 EST by Navdi Henriquez, Nurse RN Stroke/Warfarin Instructions Stroke/TIA Discharge Ins : N/A Warfarin Discharge Ins : N/A Navid Henriquez, Nurse RN - 11/17/2019 10:02 EST Electronically signed by Audrey [facility] Conversion Solderer Furnace Cerner at 02/26/2023 8:56 AM CDT documented in this encounter Plan of Treatment Not on file documented as of this encounter Visit Diagnoses Not on filedocumented in this encounter
--- OUTSIDE RECORDS SUMMARY | 2025-04-25 08:44 | XMS_ITS | Encounter Summary ---
Author Organization [employer] Address [address] [place] [address] Care Team Providers Care Wedding Day Coordinator Name Role Phone Unavailable Primary Care Provider Unavailabl e Encounter Details Date Type Department Care Team (Late st Contact Info) Description 11/17/2019 Transcribed Document [facility] [place] [address] [place] [address] ProviderSimran MD [address] [place] [address] Social History Tobacco Use Types Packs/Day Years Used Date Smoking Tobacco: Never Assessed Sex and Gender Information Value Date Recorded Sex Assigned at Not on file Legal Sex Male 3:07 PM CDT Gender Identity Not on file Sexual Orientation Not on file documented as of this encounter Miscellaneous Notes * Cerner Conversion Note - Historical ProviderMD - 11/17/2019 4:52 PM HAZARDOUS MATERIAL SPECIALIST Nursing Discharge Summary Entered On: 11/17/2019 16:54 EST Performed On: 11/17/2019 16:52 EST by WENDY CAMERON RN Discharge Documentation Discharge Date/Time : 11/17/2019 16:45 EST Patient Disposition, General : Discharge Discharge To : Home with ambulatory/outpatient follow-up Mode Of Departure, General Discharge : Wheelchair Accompanied By, Discharge : Spouse IV Discontinued : Yes Personal Belongings With Patient : Yes Discharge Instructions Reviewed With, Opportunity For Questions Given : Patient, Spouse Teaching Method : Explanation, Printed materials Teaching Evaluation : Verbalizes understanding WENDY CAMERON RN - 11/17/2019 16:52 EST documented in this encounter Plan of Treatment Not on file documented as of this encounter Visit Diagnoses Not on filedocumented in this encounter
--- OUTSIDE RECORDS SUMMARY | 2025-04-25 08:44 | XMS_ITS | Encounter Summary ---
Author Organization [employer] Address [address] [place] [address] Care Team Providers Care Clinical Microbiologist Name Role Phone Unavailable Primary Care Provider Unavailabl e Encounter Details Date Type Department Care Team (Late st Contact Info) Description 11/17/2019 Transcribed Document [facility] [place] [address] [place] [address] ProviderSimran MD [address] [place] [address] Social History Tobacco Use Types Packs/Day Years Used Date Smoking Tobacco: Never Assessed Sex and Gender Information Value Date Recorded Sex Assigned at Not on file Legal Sex Male 3:07 PM CDT Gender Identity Not on file Sexual Orientation Not on file documented as of this encounter Miscellaneous Notes * Cerner Conversion Note - Historical ProviderMD - 11/17/2019 1:09 PM RIVET CATCHER UM Authorization Entered On: 11/17/2019 13:09 EST Performed On: 11/17/2019 13:09 EST by DESTINY KOLB RN-Utilization Review Primary Insurance Authorization Authorization and Policy Numbers : Insurance 1 Health Plan: [facility] Policy Number: [id number] Authorization Number: Insurance Primary Name : [facility] Policy Number: [id number] Authorized Service Begin Date-Primary : 11/16/2019 EST Historical Authorization Comments-Primary : No Authorization Comments Found DESTINY KOLB RN-Utilization Review - 11/17/2019 13:09 EST documented in this encounter Plan of Treatment Not on file documented as of this encounter Visit Diagnoses Not on filedocumented in this encounter
--- OUTSIDE RECORDS SUMMARY | 2025-04-25 08:44 | XMS_ITS | Clinical Summary ---
Author Organization [facility] Address [address] [place] [address] Phone Care Team Providers Care Handkerchief Cutter Name Role Phone Unavailable Primary Care Provider Unavailabl e Allergies Active Allergy Reactions Criticality Noted Date Comments Fluticasone Propion-Salmeterol Other (See Comments),Cough 03/31/2022 Made me feel hoarse, inflamed my throat, I needed steroids to relieve it. Medications pantoprazole (PROTONIX) 40 mg Oral Tablet, Delayed Release (E.C.) Take 40 mg by mouth daily. Active venlafaxine (EFFEXOR-XR) 150 mg Oral Capsule, Sust. Release 24 hr Take 150 mg by mouth daily. Active sildenafiL, pulm.hypertensi on, (REVATIO) 20 mg Oral Tablet sildenafil (pulmonary hypertension) 20 mg tablet 1-3 tablets 30 mins before intercourse prn Active diazePAM (VALIUM) 5 mg Oral Tablet Take by mouth as needed for Anxiety. Active Levalbuterol Tartrate (XOPENEX) 45 mcg/actuation Inhl HFA Aerosol Inhaler Inhale 1 Puff into the lungs every 6 hours. 15 g 11 2 Active lisinopriL (PRINIVIL;ZESTR IL) 5 mg Oral Tablet Take 1 tablet by mouth once daily 30 Tablet 3 Active Active Problems Problem Noted Date Diagnosed Date Light headed 04/01/2022 Exertional chest pain 03/30/2022 Sinus tachycardia 03/06/2021 Chronic obstructive pulmonary disease Former smoker Surgical History Surgery Date Site/Laterality Comments APPENDECTOMY VASECTOMY Medical History Medical History Date Comments Chronic obstructive pulmonary disease (HCC) Former smoker Sinus tachycardia 03/06/2021 Social History Tobacco Use Types Packs/Day Years Used Date Smoking Tobacco: Former Cigarettes Smokeless Tobacco: Current Snuff Tobacco Cessation:Ready to Q uit: No; Counseling Given: No Sex and Gender Information Value Date Recorded Sex Assigned at Not on file Legal Sex Male 10:19 AM EDT Gender Identity Not on file Sexual Orientation Not on file Obstetrics History Last Filed Vital Signs Vital Sign Reading Time Taken Comments Blood Pressure 146/86 08/01/2022 9:41 AM EDT Pulse 86 08/01/2022 9:41 AM EDT Temperature 36.5 C (97.7 F) 03/31/2022 7:46 AM EDT Respiratory Rate 16 03/31/2022 7:46 AM EDT Oxygen Saturation 99% 08/01/2022 9:41 AM EDT ra @ rest Inhaled Oxygen Concentration - - Weight 85.7 kg (189 lb) 08/01/2022 9:41 AM EDT Height 177.8 cm (5' 10 ) 08/01/2022 9:41 AM EDT Body Mass Index 27.12 08/01/2022 9:41 AM EDT Plan of Treatment Health Maintenance Due Date Last Done Comments Annual Wellness Exam 1979 Hepatitis B Vaccine (1 of 3 - 19+ 3-dose series) 1995 Pneumococcal Vaccine 0-49 (1 of 2 - PCV) 1995 DTaP/TDaP/Td (1 - Tdap) 01/12/1997 01/11/1997 Cologuard 2021 Colon Cancer Screening 2021 Colonoscopy 2021 FIT 2021 Sigmoidoscopy 2021 Virtual Colonography 2021 COVID-19 Vaccine (1 - 2023-2 5 season) 2024 Influenza Vaccine (Season Ended) 2025 Meningococcal B Vaccine Aged Out No l onger eligible based on patient's age to complete this topic Insurance [employer] PPO JESSICA PPO Advance Directives For more information, please contact: [phone] * Full Code (Latest Code Status on File) Date Activated Date Inactivated Comments 03/30/2022 4:01 PM 03/31/2022 5:23 PM
--- OUTSIDE RECORDS SUMMARY | 2025-04-25 08:44 | XMS_ITS | Encounter Summary ---
Author Organization [employer] Address [address] [place] [address] Care Team Providers Care It Compliance Manager Name Role Phone Unavailable Primary Care Provider Unavailabl e Encounter Details Date Type Department Care Team (Late st Contact Info) Description 11/17/2019 Transcribed Document [facility] [address] [place] [address] Holli Lopez MD [address] [place] [address] Social History Tobacco Use Types Packs/Day Years Used Date Smoking Tobacco: Never Assessed Sex and Gender Information Value Date Recorded Sex Assigned at Not on file Legal Sex Male 3:07 PM CDT Gender Identity Not on file Sexual Orientation Not on file documented as of this encounter Miscellaneous Notes * Cerner Conversion Note - Holli Lopez MD - 11/17/2019 8:39 AM EST Patient: JUAN BURNETT Age: 44 years Sex: Male : 1975 Associated Diagnoses: None Author: HOLLI LOPEZ MD-CAR Subjective NAD Patient seen and examined at the bedside. In the stress lab. No events overnight. Health Status Allergies: Allergic Reactions (Selected) Severity Not Documented Advair Diskus- No reactions were documented. Current medications: (Selected) Inpatient Medications Ordered Lovenox: 40 mg, SubCutaneous, [id number] Nitrostat: 0.4 mg, SubLINgual, Q5Min, PRN: Chest Pain Normal Saline Flush: 10 mL, IntraVENous, Q12H Normal Saline Flush: 10 mL, IntraVENous, Q12H, PRN: IV Use Sodium Chloride 0.9% intravenous solution 1,000 mL: 20 mL/Hr, IntraVENous aspirin: 81 mg, Oral, Daily Problem list: All Problems COPD - Chronic obstructive pulmonary disease / SNOMED CT [id number] / Confirmed, Active Problems (1) COPD - Chronic obstructive pulmonary disease Objective Intake and Output 24 hour intake, 24 hour output VS/Measurements Vitals Signs (last 24 hrs) Last Charted [...] (NOV 16 14:57) 99 (NOV 16 14:00) General: [Alert and oriented, well nourished, no acute distress]. Neurologic: [Awake, alert, and oriented X3, CN II-XII intact]. Eye: [PERRL, EOMI, normal conjuctiva]. HENT: [Normocephalic, clear tympanic membranes, normal hearing, moist oral mucosa, no scleral icterus, no sinus tenderness]. Neck: [Supple, non-tender, no carotid bruits, no JVD, no lymphadenopathy]. Lungs: [Clear to auscultation and percussion, non-labored respiration]. Heart: [Normal rate, regular rhythm, no murmur, gallop or edema]. Abdomen: [Soft, non-tender, non-distended, normal bowel sounds, no masses]. Musculoskeletal: [Normal range of motion and strength, no tenderness or swelling]. Skin: [Skin is warm, dry and pink, no rashes or lesions]. Psychiatric: [Cooperative, appropriate mood and affect]. Results Review Telemetry Admission Weight Todays Weight NOV 17 06:39 138 107 14 / 94 4.1 31 1.00 \ NOV 17 06:39 \ 14.5 / 4.5 189 / 42.3 \ [id number] -- 11/16/2019 15:02 CR Chest 2 Vws (11/16/2019 12:16) Result: PA AND LATERAL CHEST INDICATION: Vertigo, chest pain.COMPARISON:None.FINDINGS: PA and lateral views of the chest were obtained. The cardiacand mediastinal silhouettes are within normal limits. The lungs areclear. There is no pneumothorax or pleural effusion. No acute osseousabnormality is identified.IMPRESSION: No radiographic evidence of acute cardiac or pulmonarydisease. CTA Chest PE Protocol (11/16/2019 16:12) Result: PE PROTOCOL CHEST CTHISTORY: Shortness of breath.TECHNIQUE: The patient was injected with IV contrast. Axial images wereobtained through the chest in a PE protocol. 3D MIP images wereobtained. FINDINGS: There is no axillary adenopathy. There is no hilar ormediastinal adenopathy. The heart size is normal. There is nopericardial or pleural effusion. No filling defects are identified tosuggest PE. There is no aortic dissection. Limited images of the upperabdomen demonstrate splenomegaly with the spleen measuring 15 cm but areotherwise unremarkable. No suspicious infiltrate or nodule isidentified. There are scattered calcified granulomas.IMPRESSION: No evidence of PE or dissection. Mild splenomegaly.Images reviewed, interpreted, and dictated by Dr. Prisca Dewey.Transcribed by Darrin Burnham PA-C.I have personally viewed, interpreted and dictated the examination. Ihave read and agree with the above final transcribed report. Impression and Plan IMPRESSION: Atypical chest pain Troponin negative x1 Palpitations Has 30 [address] monitor in place since 11/11/2018 COPD Ongoing tobacco abuse Anxiety PLAN; 11/17/2019 For Lexiscan nuclear stress test today and 2-D echo. 11/16/2019 Second set of troponin. Keep the patient on observation. If troponin remains negative will do Lexiscan nuclear stress test in a.m. 2-D echo. documented in this encounter Plan of Treatment Not on file documented as of this encounter Visit Diagnoses Not on filedocumented in this encounter
--- OUTSIDE RECORDS SUMMARY | 2025-04-25 08:44 | XMS_ITS | Encounter Summary ---
Author Organization [employer] Address [address] [place] [address] Care Team Providers Care Senior Application Programmer Name Role Phone Unavailable Primary Care Provider Unavailabl e Encounter Details Date Type Department Care Team (Late st Contact Info) Description 11/16/2019 Transcribed Document [facility] [place] [facility] [place] [address] ProviderSimran MD [address] [place] [address] Social History Tobacco Use Types Packs/Day Years Used Date Smoking Tobacco: Never Assessed Sex and Gender Information Value Date Recorded Sex Assigned at Not on file Legal Sex Male 3:07 PM CDT Gender Identity Not on file Sexual Orientation Not on file documented as of this encounter Miscellaneous Notes * Cerner Conversion Note - Simran ProviderMD - 11/16/2019 1:43 PM BUSINESS SYSTEMS ANALYST Patient: JUAN BURNETT Age: 44 years Sex: Male : 1975 Associated Diagnoses: Chest pain; Palpitations Author: ROEL THOMAS PA-C Basic Information Time seen: Date & time 11/16/2019 13:37:00. History source: Patient. Arrival mode: Private vehicle. History limitation: None. Additional information: Chief Complaint from Nursing Triage Note : Chief Complaint 11/16/2019 11:37 EST Chief Complaint pt c/o dizziness and MSCP with exertion starting on the . pt states he seen Dr. Bowman and had portable monitor placed. pt scheduled for echo and stress test but states hes unable to wait. . History of Present Illness The patient presents with chest pain. The onset was 8 weeks ago and with exertion. The course/duration of symptoms is worsening. Location: generalized. Radiating pain: none. The character of symptoms is tightness. The degree at onset was minimal. The degree at maximum was minimal. The degree at present is minimal. The exacerbating factor is exertion. The relieving factor is none. Risk factors consist of family history of coronary artery disease. Prior episodes:. Therapy today None. Associated symptoms: shortness of breath, nausea, palpitations, Reports he saw Dr. Bowman last week and suppose to have echo/stress tomorrow. He reports he feels much worse today., denies vomiting, denies diaphoresis and denies anxiety. Review of Systems Constitutional symptoms: Fatigue. Skin symptoms: Negative except as documented in HPI. Eye symptoms: Negative except as documented in HPI. ENMT symptoms: Negative except as documented in HPI. Respiratory symptoms: Shortness of breath. Cardiovascular symptoms: Chest pain, palpitations. Gastrointestinal symptoms: Negative except as documented in HPI. Genitourinary symptoms: Negative except as documented in HPI. Musculoskeletal symptoms: Negative except as documented in HPI. Neurologic symptoms: Negative except as documented in HPI. Psychiatric symptoms: Anxiety. Endocrine symptoms: Negative except as documented in HPI. Hematologic/Lymphatic symptoms: Negative except as documented in HPI. Allergy/immunologic symptoms: Negative except as documented in HPI. Additional review of systems information: All other systems reviewed and otherwise negative. Health Status Allergies: Allergic Reactions (Selected) Severity Not Documented Advair Diskus- No reactions were documented.. Past Medical/ Family/ Social History Medical history Reviewed as documented in chart. Surgical history: No active procedure history items have been selected or recorded.. Family history: No family history items have been selected or recorded.. Social history: Social & Psychosocial Habits Home/Environment 11/16/2019 Living situation: Home/Independent Tobacco Comment: Recently quit smoking. - 11/16/2019 13:43 - ROEL THOMAS PA-C . Problem list: No qualifying data available . Physical Examination Vital Signs Measurements 11/16/2019 11:37 EST Height Source Stated Height Entry Format [place] Height/Length, SRI LANKAN (ft) 5 ft Height/Length SRI LANKAN 10 Inch CLINICALHEIGHT 177.8 cm [place] Body Weight 72.02 kg Weight Source, ED Critical estimated dosing weight Weight Entry Format [place] Weight Spanish lb 170 lb CLINICALWEIGHT 77.27 kg Body Surface Area (BSA) 1.95 m2 Body Mass Index 24.4 kg/m2 HI . General: Alert, no acute distress. Skin: Warm, dry, pink. Head: Normocephalic. Neck: Supple. Eye: Normal conjunctiva. Ears, nose, mouth and throat: Oral mucosa moist. Cardiovascular: Regular rate and rhythm, No murmur, Normal peripheral perfusion. Respiratory: Lungs are clear to auscultation, respirations are non-labored, breath sounds are equal. Chest wall: No tenderness, No deformity. Back: Nontender. Musculoskeletal: Normal ROM. Gastrointestinal: Soft, Nontender, Non distended. Neurological: Alert and oriented to person, place, time, and situation, normal motor observed, normal speech observed, normal coordination observed. Psychiatric: Cooperative, appropriate mood & affect, normal judgment. Medical Decision Making Differential Diagnosis: Anxiety, pulmonary embolism, atypical chest pain. Documents reviewed: Emergency department nurses' notes. Orders Include Previous Orders (Selected) Inpatient Orders Ordered Cardiac Monitoring: ED Adult Fall Risk Assessment: ED C-SSRS: ED Clinical Reconciliation: ED radio communication coordinator: EKG: EKG: Pulse Oximetry Continuous Monitoring: Saline Lock Insert: Ordered (Dispatched) Troponin I Ultra: Ordered (Exam Ordered) CTA Chest PE Protocol: Completed .Automated Differential: BMP Basic Metabolic Panel: CBC w/ Auto Diff: CR Chest 2 Vws: D Dimer Quantitative: ED Adult Triage: EKG: Extra Blue Tube: Normal Saline Bolus: 500 mL, 500 mL/Hr, IV Piggyback, 1-Time Troponin I Ultra: aspirin: 324 mg, Chew, 1-Time Future (On Hold) EC Echo Complete: . Electrocardiogram: Time 11/16/2019 11:40:00, rate 82, normal sinus rhythm, No ST changes, no ectopy, normal KS & QRS intervals, EP Interp. court recording monitor: Normal sinus rhythm. Results review: All Results 11/16/2019 14:57 EST Systolic Blood Pressure 118 mmHg 11/16/2019 13:53 EST D Dimer Quant See Comment mg/L FEU 11/16/2019 11:50 EST Sodium Level 138 mmol/L Potassium Level 3.8 mmol/L Chloride Level 105 mmol/L Carbon Dioxide Level 27 mmol/L Anion Gap 10 Glucose Level 98 mg/dL Blood Urea Nitrogen 11 mg/dL Creatinine Level 1.10 mg/dL eGFR >60 mL/min/1.73m2 eGFR NonAfrican >60 mL/min/1.73m2 Bun/Creatinine 10.0 Calcium Level 9.1 mg/dL Troponin I Ultra <0.015 ng/mL WBC 4.8 K/uL RBC 5.26 Million/uL Hgb 15.4 g/dL Hct 45.3 % MCV 86.1 fL MCH 29.3 pg MCHC 34.0 Gram/dL Platelet Count 217 K/uL MPV 9.9 fL RDW 11.9 % Neut % 69.4 % Neut # 3.34 K/uL Lymph % 20.1 % Lymph # 0.97 x10(3)/uL LOW [place] % 8.5 % [place] # 0.41 K/uL Eos % 1.0 % Eos # 0.05 x10(3)/uL Baso % 0.8 % Baso # 0.04 x10(3)/uL Slide Review No IG# 0.01 x10(3)/uL IG% 0.20 % . Radiology results: Radiology Results (Last 48 hours) [id number] -- 11/16/2019 11:36 CR Chest 2 Vws (11/16/2019 12:16) Result: PA AND LATERAL CHEST INDICATION: Vertigo, chest pain.COMPARISON:None.FINDINGS: PA and lateral views of the chest were obtained. The cardiacand mediastinal silhouettes are within normal limits. The lungs areclear. There is no pneumothorax or pleural effusion. No acute osseousabnormality is identified.IMPRESSION: No radiographic evidence of acute cardiac or pulmonarydisease. . Impression and Plan Diagnosis Chest pain - Admitting, Emergency medicine, Medical Palpitations - Admitting, Emergency medicine, Medical Calls-Consults - 11/16/2019 14:45:00 , Dr. Davenport with [facility], recommends Admit for observation to hospitalist., CTA chest pending and 2nd troponin pending. Cardiology and Dr. Betancourt aware.. Plan Condition: Stable. Orders: Launch Orders Admit/Transfer/Discharge: Place in Observation (Order): Start: 11/16/2019 15:02 EST, Observation Reason: chest pain, palpitations, soa, Unit type: Med-Surg with telemetry, Admitting: MC BETANCOURT MD. Notes: I certify that the MLP/CLINICAL PRACTICE CONSULTANT performed the services as delegated. . Electronically signed by [facility] Conversion C Architect Cerner at 02/26/2023 9:01 AM CDT documented in this encounter Plan of Treatment Not on file documented as of this encounter Visit Diagnoses Not on filedocumented in this encounter
--- OUTSIDE RECORDS SUMMARY | 2025-04-25 08:44 | XMS_ITS | Encounter Summary ---
Author Organization [employer] Address [address] [place] [address] Care Team Providers Care Tone Cabinet Assembler Name Role Phone Unavailable Primary Care Provider Unavailabl e Encounter Details Date Type Department Care Team (Late st Contact Info) Description 11/16/2019 Transcribed Document [facility] [address] [place] [address] Holli Lopez MD [address] [place] [address] Social History Tobacco Use Types Packs/Day Years Used Date Smoking Tobacco: Never Assessed Sex and Gender Information Value Date Recorded Sex Assigned at Not on file Legal Sex Male 3:07 PM CDT Gender Identity Not on file Sexual Orientation Not on file documented as of this encounter Miscellaneous Notes * Cerner Conversion Note - Holli Lopez MD - 11/16/2019 3:06 PM EST Patient: JUAN BURNETT Age: 44 years Sex: Male : 1975 Associated Diagnoses: None Author: HOLLI LOPEZ MD-[facility] Basic Information Wound Care Nurse: Gracie (New patient on 11/11/2019) Chief Complaint Chest pain History of Present Illness 44 year old male with history of COPD with tobacco abuse and anxiety has been having persistent intermittent chest pains with palpitations, shortness of breath and fatigue since . He has been woken up at night with racing heart. At times he feels like he is going to pass out because his HR gets so fast. He reports he is unable to walk very far due to dyspnea. He was seen by Dr. Bowman on 11/11/2019 and had a 30 day event monitor placed and he is scheduled for outpatient GXT and ECHO tomorrow. However, he presents to the ER with complaints of worsening symptoms. non exertional chest pain. no orthopnea, PND, or leg swelling. has palpitations, and dizziness, no falling down or passing out. no bleeding. was scheduled for stress and echo and has an event monitor on. His troponin is negative. Review of Systems Constitutional: Fever, Chills. Eye: Negative except as documented in history of present illness. Ear/Nose/Mouth/Throat: Negative except as documented in history of present illness. Respiratory: Negative except as documented in history of present illness. Cardiovascular: Negative except as documented in history of present illness. Gastrointestinal: Negative except as documented in history of present illness. Genitourinary: Negative except as documented in history of present illness. Hematology/Lymphatics: Negative except as documented in history of present illness. Endocrine: Negative except as documented in history of present illness. Immunologic: Negative except as documented in history of present illness. Musculoskeletal: Negative except as documented in history of present illness. Integumentary: Negative except as documented in history of present illness. Neurologic: Negative except as documented in history of present illness. Psychiatric: Negative except as documented in history of present illness. Health Status Allergies (1) Active Reaction Advair Diskus None Documented No qualifying data available Current medications: No qualifying data available Problem list: No qualifying data available Histories No education data available. Social & Psychosocial Habits Home/Environment 11/16/2019 Living situation: Home/Independent Tobacco Comment: Recently quit smoking. - 11/16/2019 13:43 - ROEL THOMAS PA-C Past Medical History: Active COPD - Chronic obstructive pulmonary disease ([id number]) Family History: Hypertension Father CHF - Congestive heart failure Father Procedure history: APPENDECTOMY (03645). Knee surgery. Vasectomy. Physical Examination VS/Measurements No qualifying data available Sinus rhythm on the telemetry. Heart rate 86 bpm. Afebrile. Respiratory rate 16. General: [Alert and oriented, well nourished, no [...] lesions]. Psychiatric: [Cooperative, appropriate mood and affect]. Review / Management NOV 16 11:50 138 105 11 / 98 3.8 27 1.10 \ NOV 16 11:50 \ 15.4 / 4.8 217 / 45.3 \ Radiology Results (Last 48 hours) [id number] -- 11/16/2019 11:36 CR Chest 2 Vws (11/16/2019 12:16) Result: PA AND LATERAL CHEST INDICATION: Vertigo, chest pain.COMPARISON:None.FINDINGS: PA and lateral views of the chest were obtained. The cardiacand mediastinal silhouettes are within normal limits. The lungs areclear. There is no pneumothorax or pleural effusion. No acute osseousabnormality is identified.IMPRESSION: No radiographic evidence of acute cardiac or pulmonarydisease. Results review: Labs (Last four charted values) WBC 4.8 (NOV 16) HB 15.4 (NOV 16) HCT 45.3 (NOV 16) Plt 217 (NOV 16) Na 138 (NOV 16) K 3.8 (NOV 16) Cl 105 (NOV 16) CO2 27 (NOV 16) BUN 11 (NOV 16) Cr 1.10 (NOV 16) Glu R 98 (NOV 16) Ca 9.1 (NOV 16) Troponin <0.015 (NOV 16) . Impression and Plan IMPRESSION: Atypical chest pain Troponin negative x1 Palpitations Has [address] in place since 11/11/2018 COPD Ongoing tobacco abuse Anxiety PLAN; Second set of troponin. Keep the patient on observation. If troponin remains negative will do Lexiscan nuclear stress test in a.m. 2-D echo. documented in this encounter Plan of Treatment Not on file documented as of this encounter Visit Diagnoses Not on filedocumented in this encounter
--- OUTSIDE RECORDS SUMMARY | 2025-04-25 08:44 | XMS_ITS | Encounter Summary ---
Author Organization [employer] Address [address] [place] [address] Care Team Providers Care Piece Goods Clerk Name Role Phone Unavailable Primary Care Provider Unavailabl e Encounter Details Date Type Department Care Team (Late st Contact Info) Description 11/17/2019 Transcribed Document [facility] [place] Medicine [address] [place] [address] ProviderSimran MD [address] [place] [address] Social History Tobacco Use Types Packs/Day Years Used Date Smoking Tobacco: Never Assessed Sex and Gender Information Value Date Recorded Sex Assigned at Not on file Legal Sex Male 3:07 PM CDT Gender Identity Not on file Sexual Orientation Not on file documented as of this encounter Miscellaneous Notes * [employer]ner Conversion Note - Simran ProviderMD - 11/17/2019 10:10 AM CLOTH TESTER QUALITY Initial Discharge Planning Entered On: 11/17/2019 10:12 EST Performed On: 11/17/2019 10:10 EST by JEWEL BULLOCK Manager-Care Management Initial Assessment I Previously Documented Living Environment : No qualifying data available. Living Situation : Home Patient Lives With : Spouse Is the Patient a Caregiver at Home? : No Emergency Contact #1 : Cinthia ford Emergency Contact #1 Emergency Contact #1 Relationship : spouse Enter Doctors Name : Jessie Ferrell Does Patient have PCP Listed? : Yes JEWEL BULLOCK Manager-Care Management - 11/17/2019 10:10 EST Initial Assessment II Sensory and Motor Deficits : None Current Home Treatments and Equipment : None JEWEL BULLOCK Manager-Care Management - 11/17/2019 10:10 EST Discharge Needs I Anticipated Discharge Date : 11/19/2019 EST Anticipated Discharge To, CM : Home independently Current Home Treatment/Equipment : Current Home Treatment/Equipment No qualifying data available. Post Acute/Home Treatments : None Documentation Status Complete : Yes JEWEL BULLOCK Collections Assistant-Care Management - 11/17/2019 10:10 EST Discharge Needs II Professional Skilled Services : Professional Skilled Services No qualifying data available. Needs Assistance with Transportation : No JEWEL BULLOCK Manager-Care Management - 11/17/2019 10:10 EST Narrative Note Narrative Note : pts at bedside. pt is down for a stress test. Family report that eveything has been good so far. pt does have a cariologist. Dr. Bowman. pt continues to work, his denies any DC needs, they are able to afford meds etc. Provided support to family. Low risk for readmission. IN OBS status, so far. Trops are neg. rj JEWEL BULLOCK Manager-Care Management - 11/17/2019 10:10 EST documented in this encounter Plan of Treatment Not on file documented as of this encounter Visit Diagnoses Not on filedocumented in this encounter
--- OUTSIDE RECORDS SUMMARY | 2025-04-25 08:44 | XMS_ITS | Encounter Summary ---
Author Organization [employer] [facility] Address [address] [place] [id number] Care Team Providers Care Delinquency Prevention Officer Name Role Phone Unavailable Primary Care Provider Unavailabl e Encounter Details Date Type Department Care Team (Late st Contact Info) Description 11/17/2019 Transcribed Document [facility] [place] [address] [place] [address] ProviderSimran MD [address] [place] [address] Social History Tobacco Use Types Packs/Day Years Used Date Smoking Tobacco: Never Assessed Sex and Gender Information Value Date Recorded Sex Assigned at Not on file Legal Sex Male 3:07 PM CDT Gender Identity Not on file Sexual Orientation Not on file documented as of this encounter Miscellaneous Notes * Cerner Conversion Note - Simran Joseph MD - 11/17/2019 4:18 PM SALES DEPARTMENT CLERK [facility] [place] [address] JUAN RIVERO :1975 Visit Time:11/16/2019 Your Visit Summary Your Care Team Admitting Physician - MC BAUER MD PHY, UNKNOWN MELANI LEMONS MD-EMR Attending Physician - MC BAUER MD WAGNER, PHILLIP L, MD-EMR Primary Care Physician - [place], UNKNOWN Referring Physician - MELANI LEMONS MD-EMR Your Diagnosis Atypical chest pain Chest pain Chest pain, Chest pain, unspecified, Chest pain, unspecified Dizziness Palpitations Discharge Vitals Temperature 37 ??C Heart Rate (Monitored) 69 Respiratory Rate 16 Blood Pressure 116/84 What to do next Follow-Up Appointments Follow Up with ZIA JOHNSON MD-CAR When 12/17/2019 08:30 AM EST Where: [address] [facility] [address] [place] [address]- Follow Up with Follow up with specialty services When 11/23/2019 02:00 PM EST Comments [facility] Rm [address] [facility] Where: [address] [place] [phone] Follow Up with Patient Resource Center When Within As needed Comments Patient states Jessie Ferrell is their Primary Care Provider. Please contact the Patient Resource Center at if you need assistance scheduling a Specialist or Primary Care Provider in the future. Follow Up with UNKNOWN PHY When Within 2 to 3 days Medications What How Much When Instructions Next Dose aspirin (aspirin 81 mg oral tablet, chewable) 1 Tablet(s) Oral Every Day busPIRone (busPIRone 5 mg oral tablet) 1 Tablet(s) Oral Two Times A Day clonazePAM (KlonoPIN 0.5 mg oral tablet) 1 Tablet(s) Oral Every Day as needed for Anxiety pantoprazole (Protonix 40 mg oral delayed release tablet) 1 Tablet(s) Oral Two Times A Day Take your medications faithfully. Do NOT skip medication. Do NOT stop taking medications without the direction of a physician. Carry a list of your medications with you at all times, and take this medication list with you to your first follow up visit. Report any side effects. Avoid herbal remedies unless discussed with your physician. As part of your treatment plan, your physician may have prescribed a limited course of a controlled substance. This medication may be given to help people with moderate or severe pain or for other medical conditions, but there are risks involved with treatment. Common side effects may include nausea, constipation, drowsiness, sweating, itching, dry mouth, and rash. More serious side effects may include cognitive and motor impairment, like problems with thinking, concentrating, alertness, and movement (e.g. slowed reflexes), and driving and operating heavy machinery can be dangerous. It is important for you to talk to your physician if you have these side effects or questions. These controlled substances can produce physical dependence and be habit-forming if taken for an extended period of time, which means that the body has gotten used to them and may experience withdrawal symptoms if they are abruptly stopped. Withdrawal symptoms can include runny nose, sweating, goose bumps, diarrhea, abdominal cramping, rapid heartbeat, difficulty sleeping, and nervousness. Please dispose of unused and medications per your retail pharmacy guidance. Allergies Advair Diskus Immunizations This Visit No Immunizations Found Education Materials Nonspecific Chest Pain Chest pain can be caused by many different conditions. There is a chance that your pain could be related to something serious, such as a heart attack or a blood clot in your lungs. Chest pain can also be caused by conditions that are not life-threatening. If you have chest pain, it is very important to follow up with your doctor. Follow these instructions at home: Medicines ??? If you were prescribed an antibiotic medicine, take it as told by your doctor. Do not stop taking the antibiotic even if you start to feel better. ??? Take nqoa-[id number] and prescription medicines only as told by your doctor. Lifestyle ??? Do not use any products that contain nicotine or tobacco, such as cigarettes and e-cigarettes. If you need help quitting, ask your doctor. ??? Do not drink alcohol. ??? Make lifestyle changes as told by your doctor. These may include: ? Getting regular exercise. Ask your doctor for some activities that are safe for you. ? Eating a heart-healthy diet. A diet specialist (dietitian) can help you to learn healthy eating options. ? Staying at a healthy weight. ? Managing diabetes, if needed. ? Lowering your stress, as with deep breathing or spending time in nature. General instructions ??? Avoid any activities that make you feel chest pain. ??? If your chest pain is because of heartburn: ? Raise (elevate) the head of your bed about 6 inches (15 cm). You can do this by putting blocks under the bed legs at the head of the bed. ? Do not sleep with extra pillows under your head. That does not help heartburn. ??? Keep all follow-up visits as told by your doctor. This is important. This includes any further testing if your chest pain does not go away. Contact a doctor if: ??? Your chest pain does not go away. ??? You have a rash with blisters on your chest. ??? You have a fever. ??? You have chills. Get help right away if: ??? Your chest pain is worse. ??? You have a cough that gets worse, or you cough up blood. ??? You have very bad (severe) pain in your belly (abdomen). ??? You are very weak. ??? You pass out (faint). ??? You have either of these for no clear reason: ? Sudden chest discomfort. ? Sudden discomfort in your arms, back, neck, or jaw. ??? You have shortness of breath at any time. ??? You suddenly start to sweat, or your skin gets clammy. ??? You feel sick to your stomach (nauseous). ??? You throw up (vomit). ??? You suddenly feel light-headed or dizzy. ??? Your heart starts to beat fast, or it feels like it is skipping beats. These symptoms may be an emergency. Do not wait to see if the symptoms will go away. Get medical help right away. Call your local emergency services (911 in the [place] Do not drive yourself to the hospital. This information is not intended to replace advice given to you by your health care provider. Make sure you discuss any questions you have with your health care provider. Document Released: 04/14/2009 Document Revised: 07/21/2017 Document Reviewed: 07/21/2017 [employer] Interactive Patient Education ?? 2019 [employer] Palpitations A palpitation is the feeling that your heart: ??? Has an uneven (irregular) heartbeat. ??? Is beating faster than normal. ??? Is fluttering. ??? Is skipping a beat. This is usually not a serious problem. In some cases, you may need more medical tests. Follow these instructions at home: ??? Avoid: ? Caffeine in coffee, tea, soft drinks, diet pills, and energy drinks. ? Chocolate. ? Alcohol. ??? Do not use any tobacco products. These include cigarettes, chewing tobacco, and e-cigarettes. If you need help quitting, ask your doctor. ??? Try to reduce your stress. These things may help: ? Yoga. ? Meditation. ? Physical activity. Swimming, jogging, and walking are good choices. ? A method that helps you use your mind to control things in your body, like heartbeats (biofeedback). ??? Get plenty of rest and sleep. ??? Take tgky-qzt-hehpyzu and prescription medicines only as told by your doctor. ??? Keep all follow-up visits as told by your doctor. This is important. Contact a doctor if: ??? Your heartbeat is still fast or uneven after 24 hours. ??? Your palpitations occur more often. Get help right away if: ??? You have chest pain. ??? You feel short of breath. ??? You have a very bad headache. ??? You feel dizzy. ??? You pass out (faint). This information is not intended to replace advice given to you by your health care provider. Make sure you discuss any questions you have with your health care provider. Document Released: 08/05/2009 Document Revised: 04/03/2017 Document Reviewed: 07/11/2016 [employer] Interactive Patient Education ?? 2019 [employer]. Emergency Awareness and Preventative Care STROKE is an EMERGENCY Every Minute Counts Act FAST and Check for these signs: FACE Does the face look uneven? ARM Does one arm drift down? SPEECH Does their speech sound strange? TIME Call at any sign of stroke Stroke Risk Factors Atrial Fibrillation (irregular heartbeat) Diabetes Family history of stroke Heart Disease Heavy alcohol use High Blood Pressure High Cholesterol Physical inactivity and obesity Smoking Cigarette Smoking The facts are clear, cigarette smoking will shorten your life. Smoking can cause many illnesses along the way. As a healthcare provider, we recommend that you stop smoking. Assistance with quitting is available by contacting 1-217-CGRI-NOW. This is a free resource providing counseling, support, and referral. Or you may contact your personal physician. National Suicide Prevention Lifeline: The National Suicide Prevention Lifeline is a national network of local crisis centers that provides free and confidential emotional support to people in suicidal crisis or emotional distress 24 hours a day, 7 days a week. Don't Wait! Stop a Heart Attack Before it Starts What is a heart attack? A heart attack is damage or to a part of the heart from severely decreased or lack of blood flow to the heart. Over time, arteries can become narrow from the buildup of fat and cholesterol, which is called plaque. The plaque can rupture causing a blood clot to form. When the blood clot forms, the artery can become severely narrowed or completely blocked, causing a heart attack. Heart attack is the leading cause of in the [place]. 85% of muscle damage occurs within the first 2 hours. Delay in the recognition of heart attack symptoms increases the chances of . Know the early symptoms of a heart attack: Nausea Feeling of fullness in chest Jaw Pain Pain that travels down one or both arms Fatigue/being tired Anxiety Back Pain Chest pressure, squeezing, or discomfort Shortness of breath Sweating, or a cold sweat Feeling of impending doom There are unusual signs of a heart attack, too! Women, the elderly, and diabetics may present with atypical symptoms: Fainting/dizziness Weakness Confusion Risk Factors for a Heart Attack Some heart disease risk factors, such as age and family history, cannot be changed. Others, like smoking and lack of exercise, can be changed. Smoking High Cholesterol High Blood Pressure Family History Obesity Age Gender (Males are at higher risk) Lack of Exercise Diabetes Diet Stress Excessive Alcohol Intake If you or someone you know is experiencing the signs and symptoms of a heart attack, DON???T DELAY. Call immediately and seek help. If someone collapses, perform CPR! Do not attempt to drive if you are having symptoms of heart attack. Hands-Only CPR Why Hands-Only CPR? Hands-Only CPR has been shown to be as effective as conventional CPR for cardiac arrests that occur outside of a hospital. Survival depends on immediately receiving CPR from someone nearby. How do you perform Hands-Only CPR? There are two easy steps: Call if you see a teen or adult collapse Push hard and fast in the center of the chest at a beat of 100 beats per minute. Save a life! 4 WAYS TO GET AHEAD OF SEPSIS SEPSIS is a MEDICAL EMERGENCY. Time matters! Infections put you and your family at risk for a life-threatening condition called sepsis. Sepsis is the body's extreme response to an infection. It is life-threatening, and without timely treatment, sepsis can rapidly lead to tissue damage, organ failure, and . Sepsis happens when an infection you already have-in your skin, lungs, urinary tract or somewhere else-triggers a chain reaction throughout your body. 1 PREVENT INFECTIONS Take good care of chronic conditions. Talk to your doctor about getting the recommended vaccines. 2 PRACTICE GOOD HYGIENE Wash your hands frequently. Keep cuts or open sores clean and covered until they are healed. 3 KNOW THE SYMPTOMS Confusion or disorientation Shortness of breath High heart rate Fever, shivering, or feeling very cold Extreme pain or discomfort Clammy or sweaty skin 4 ACT FAST Get medical care IMMEDIATELY if you suspect sepsis or if you have an infection that is not getting better or is getting worse. To learn more about sepsis and how to prevent infections, visit www.cdc.gov/sepsis. Test Results Laboratory or Other Results This Visit (last charted value for your 11/16/2019 visit) Hematology 11/17/2019 6:39 AM WBC: 4.5 K/uL -- Normal range between ( 3.6 and 9.5 ) RBC: 4.90 Million/uL -- Normal range between ( 4.20 and 5.70 ) Hct: 42.3 % -- Normal range between ( 40.1 and 51.0 ) Hgb: 14.5 g/dL -- Normal range between ( 13.5 and 17.3 ) Platelet Count: 189 K/uL -- Normal range between ( 163 and 369 ) MCH: 29.6 pg -- Normal range between ( 25.6 and 32.2 ) MCHC: 34.3 Gram/dL -- Normal range between ( 32.2 and 36.5 ) MCV: 86.3 fL -- Normal range between ( 79.0 and 94.8 ) Slide Review: No Eos %: 3.6 % -- Normal range between ( 0.0 and 7.0 ) [place] #: 0.49 K/uL -- Normal range between ( 0.16 and 1.00 ) Eos #: 0.16 x10(3)/uL -- Normal range between ( 0.00 and 0.80 ) [place] %: 11.0 % -- Normal range between ( 3.0 and 9.0 ) Baso %: 0.9 % -- Normal range between ( 0.0 and 1.5 ) Baso #: 0.04 x10(3)/uL -- Normal range between ( 0.00 and 0.20 ) RDW: 11.9 % -- Normal range between ( 11.7 and 14.9 ) Neut %: 54.3 % -- Normal range between ( 34.0 and 71.0 ) Neut #: 2.42 K/uL -- Normal range between ( 1.56 and 6.13 ) Lymph %: 29.8 % -- Normal range between ( 19.3 and 53.1 ) Lymph #: 1.33 x10(3)/uL -- Normal range between ( 1.00 and 3.90 ) MPV: 9.8 fL -- Normal range between ( 9.4 and 12.4 ) IG#: 0.02 x10(3)/uL -- Normal range between ( 0.00 and 0.05 ) IG%: 0.40 % -- Normal range between ( 0.00 and 0.60 ) General Chemistry 11/17/2019 6:39 AM Creatinine Level: 1.00 mg/dL -- Normal range between ( 0.70 and 1.30 ) Sodium Level: 138 mmol/L -- Normal range between ( 136 and 146 ) Potassium Level: 4.1 mmol/L -- Normal range between ( 3.5 and 5.1 ) Chloride Level: 107 mmol/L -- Normal range between ( 102 and 112 ) Carbon Dioxide Level: 31 mmol/L -- Normal range between ( 21 and 32 ) Anion Gap: 4 -- Normal range between ( 9 and 20 ) Bun/Creatinine: 14.0 -- Normal range between ( 8.0 and 20.0 ) Calcium Level: 8.6 mg/dL -- Normal range between ( 8.4 and 10.1 ) eGFR : >60 mL/min/1.73m2 eGFR NonAfrican: >60 mL/min/1.73m2 Glucose Level: 94 mg/dL -- Normal range between ( 74 and 106 ) Blood Urea Nitrogen: 14 mg/dL -- Normal range between ( 7 and 22 ) Cardiac Specific Markers 11/16/2019 9:33 PM Troponin I Ultra: <0.015 ng/mL -- Normal range between ( 0.015 and 0.045 ) Coagulation 11/16/2019 5:46 PM INR: 1.0 -- Normal range between ( 0.9 and 1.1 ) PT: 10.7 Second(s) -- Normal range between ( 9.6 and 12.0 ) 11/16/2019 1:53 PM D Dimer Quant: See Comment mg/L FEU -- Normal range between ( 0.00 and 0.58 ) Lipid Studies 11/16/2019 5:46 PM Cholesterol Tot: 138 mg/dL -- Normal range between ( 0 and 199 ) Cholesterol HDL: 44.0 mg/dL Cholesterol LDL Calculation: 79.4 mg/dL -- Normal range between ( 0.0 and 99.0 ) Cholesterol VLDL Calculation: 14.6 mg/dL -- Normal range between ( 5.0 and 40.0 ) Cholesterol/HDL Ratio: 3.1 -- Normal range between ( 0.0 and 3.2 ) Triglyceride: 73 mg/dL -- Normal range between ( 0 and 249 ) LDL/HDL Ratio: 1.8 -- Normal range between ( 0.0 and 3.6 ) Endocrinology 11/17/2019 6:39 AM TSH: 0.505 mcInt Units/mL -- Normal range between ( 0.358 and 3.740 ) Computed Tomography 11/16/2019 4:12 PM CTA Chest PE Protocol: CTA Chest PE Protocol Diagnostic Radiology 11/16/2019 12:16 PM CR Chest 2 Vws: CR Chest 2 Vws Patient Name:JUAN RIVERO I have received and understand this information and was given the opportunity to ask questions. Patient/Consulting Application Engineer Name: Patient/Consulting Application Engineer Signature: Relationship to Patient: Clinician/Hospital Consulting Application Engineer Signature: Date: documented in this encounter Plan of Treatment Not on file documented as of this encounter Visit Diagnoses Not on filedocumented in this encounter
--- OUTSIDE RECORDS SUMMARY | 2025-04-25 08:44 | XMS_ITS | Data Portability ---
Author Organization [facility]HA[facility] - RODY Vargas PARLIN CLOSED Address [address] [place] [address] Care Team Providers Care Production Consultant Name Role Phone DAGMAR KEARNS Primary Care Provider Assessment No assessment recorded. Plan of Treatment Reminders Order Date Submit Date Provider Last Modified By Organization Details Last Modified Time Details Appointments None recorded. Lab urinalysis panel, auto [address] [facility], [address], [place], [address], 17:38:01 testosteron e, free + total, serum 2020 021 [facility], [address] [place] [address], [place], [address], 20:15:23 PSA, serum or plasma [address] [facility], [address], [address], [place], [address], 22:37:39 urinalysis, dipstick, auto [address] [facility], [address], [address], [place], [address], 9 18:00:56 urinalysis, dipstick, auto 2018 019 [email or web address] Count Includes [facility], [address], [place], [address], 9 13:40:56 Referral None recorded. Procedures None recorded. Surgeries None recorded. Imaging US, scrotum 2018 019 SANGEETHA [facility], [address] [facility], [place], [address], 9 15:14:50 electrocard iogram 2016 017 [email or web address] 1 [facility], [address], [place], [address], 7 08:30:16 Medication Orders Levaquin 500 mg tablet 2018 019 [email or web address] [facility], [address], [address], 1 15:48:24 nabumetone 500 mg tablet 2018 019 [email or web address] [facility], [address], [address], 1 15:48:57 doxycycline monohydrate 100 mg capsule 2018 019 [email or web address] 5 [facility], [address] [place] [address], [address], 9 16:01:16 nabumetone 500 mg tablet 2018 019 [email or web address] [facility], [address] [place] [address], [address], 1 15:48:57 Patient TargetsNo targets recorded. Patient Instructions Encounter Date Encounter Id Patient Instructions Last Modified By Organization Details Last Modified Time 11/18/2018 [id number] healthy together [email or web address] Not availabl e 11/18/2018 13:40:56 epididymitis and orchitis: care instructions [email or web address] Not available 11/18/2018 13:40:56 08/25/2019 [id number] spermatocele: care instructions [email or web address] Not available 08/26/2019 21:35:02 Reason for Referral None Reported. Results Created Date Observation Date Name Description Value Unit Range Abnormal Flag Note LastModifiedBy Organization Detail LastModifiedTime 05/02/20 21 05/02/2021 urina lysis panel , auto Unknown Analyte Clean Catch Not Available [facility] [address], [place], [address], 05/02/2021 15:49:58 05/02/20 21 05/02/2021 urina lysis panel , auto Unknown Analyte Yellow Not Available [facility] [address], [place], [address], 05/02/2021 15:49:58 05/02/20 21 05/02/2021 urina lysis panel , auto Unknown Analyte Clear Not Available [facility] [address], [place], [address], 05/02/2021 15:49:58 05/02/20 21 05/02/2021 urina lysis panel , auto Unknown Analyte 1.020 Not Available [facility] [address], [address], 05/02/2021 15:49:58 05/02/2005/02/2021 urina lysis panel , auto Unknown Analyte 1.003- 1.035 Not Available [facility] [address], [place], [address], 05/02/2021 15:49:58 05/02/20 21 05/02/2021 urina lysis panel , auto Unknown Analyte 5.0 Not Available [facility] [address], [place], [address], 05/02/2021 15:49:58 05/02/20 21 05/02/2021 urina lysis panel , auto Unknown Analyte 5.0-8. 0 Not Available [facility] [address], [place], [address], 05/02/2021 15:49:58 05/02/20 21 05/02/2021 urina lysis panel , auto Unknown Analyte Negati ve Not Available [facility] [address], [place], [address], 05/02/2021 15:49:58 05/02/20 21 05/02/2021 urina lysis panel , auto Unknown Analyte Negati ve Not Available [facility] [address], [place], [address], 05/02/2021 15:49:58 05/02/20 21 05/02/2021 urina lysis panel , auto Unknown Analyte Negati ve Not Available [facility] [address] [place] [address] [address], [place], [address], 05/02/2021 15:49:58 05/02/20 21 05/02/2021 urina lysis panel , auto Unknown Analyte Negati ve Not Available [facility] [address], [place], [address], 05/02/2021 15:49:58 05/02/20 21 05/02/2021 urina lysis panel , auto Unknown Analyte Negati ve Not Available [facility] [address], [place], [address], 05/02/2021 15:49:58 05/02/20 21 05/02/2021 urina lysis panel , auto Unknown Analyte Negati ve Not Available [facility] [address], [place], [address], 05/02/2021 15:49:58 05/02/20 21 05/02/2021 urina lysis panel , auto Unknown Analyte 50 mg/dl Not Available [facility] [address], [place], [address], 05/02/2021 15:49:58 05/02/20 21 05/02/2021 urina lysis panel , auto Unknown Analyte Normal Not Available [facility] [address], [place], [address], 05/02/2021 15:49:58 05/02/20 21 05/02/2021 urina lysis panel , auto Unknown Analyte Negati ve Not Available [facility] [address], [place], [address], 05/02/2021 15:49:58 05/02/20 21 05/02/2021 urina lysis panel , auto Unknown Analyte Negati ve Not Available [facility] [address], [place], [address], 05/02/2021 15:49:58 05/02/20 21 05/02/2021 urina lysis panel , auto Unknown Analyte Normal Not Available [facility] [address], [place], [address], 05/02/2021 15:49:58 05/02/20 21 05/02/2021 urina lysis panel , auto Unknown Analyte Normal 1 mg/dl Not Available [facility] [address], [place], [address], 05/02/2021 15:49:58 05/02/20 21 05/02/2021 urina lysis panel , auto Unknown Analyte Negati ve Not Available [facility] [address], [place], [address], 05/02/2021 15:49:58 05/02/20 21 05/02/2021 urina lysis panel , auto Unknown Analyte Negati ve Not Available [facility] [address], [place], [address], 05/02/2021 15:49:58 05/02/20 21 05/02/2021 urina lysis panel , auto Unknown Analyte Negati ve Not Available [facility] [address], [place], [address], 05/02/2021 15:49:58 05/02/20 21 05/02/2021 urina lysis panel , auto Unknown Analyte Negati ve Not Available [facility] [address], [place], [address], 05/02/2021 15:49:58 08/11/2008/11/2019 urina lysis , dipst ick, auto Unknown Analyte Yellow Not Available [facility] [address], [place], [address], 08/11/2019 16:02:55 08/11/2008/11/2019 urina lysis , dipst ick, auto Unknown Analyte Clear Not Available [facility] [address] [facility] [address], [place], [address], 08/11/2019 16:02:55 08/11/2008/11/2019 urina lysis , dipst ick, auto Unknown Analyte 1.015 Not Available [facility] [address] [place] [address] [address], [place], [address], 08/11/2019 16:02:55 08/11/2008/11/2019 urina lysis , dipst ick, auto Unknown Analyte 1.003 - 1.035 Not Available [facility] [address] [place] [address] [address], [place], [address], 08/11/2019 16:02:55 08/11/2008/11/2019 urina lysis , dipst ick, auto Unknown Analyte 7.0 Not Available [facility] [address] [place] [address] [address], [place], [address], 08/11/2019 16:02:55 08/11/2008/11/2019 urina lysis , dipst ick, auto Unknown Analyte 5.0 - 8.0 Not Available [facility] [address] [place] [address] [address], [place], [address], 08/11/2019 16:02:55 08/11/20 19 08/11/2019 urina lysis , dipst ick, auto Unknown Analyte Negati ve Not Available [facility] [address], [place], [address], 08/11/2019 16:02:55 08/11/2008/11/2019 urina lysis , dipst ick, auto Unknown Analyte Negati ve Not Available [facility] [address], [place], [address], 08/11/2019 16:02:55 08/11/2008/11/2019 urina lysis , dipst ick, auto Unknown Analyte Negati ve Not Available [facility] [address], [place], [address], 08/11/2019 16:02:55 08/11/2008/11/2019 urina lysis , dipst ick, auto Unknown Analyte Negati ve Not Available [facility] [address] [place] [address] [address], [place], [address], 08/11/2019 16:02:55 08/11/2008/11/2019 urina lysis , dipst ick, auto Unknown Analyte Negtiv e Not Available [facility] [address], [place], [address], 08/11/2019 16:02:55 08/11/2008/11/2019 urina lysis , dipst ick, auto Unknown Analyte Negati ve - Trace Not Available [facility] [address], [place], [address], 08/11/2019 16:02:55 08/11/2008/11/2019 urina lysis , dipst ick, auto Unknown Analyte Normal Not Available [facility] [address], [place], [address], 08/11/2019 16:02:55 08/11/2008/11/2019 urina lysis , dipst ick, auto Unknown Analyte Normal Not Available [facility] [address], [place], [address], 08/11/2019 16:02:55 08/11/2008/11/2019 urina lysis , dipst ick, auto Unknown Analyte Negati ve Not Available [facility] [address], [place], [address], 08/11/2019 16:02:55 08/11/2008/11/2019 urina lysis , dipst ick, auto Unknown Analyte Negati ve Not Available [facility] [address], [place], [address], 08/11/2019 16:02:55 08/11/2008/11/2019 urina lysis , dipst ick, auto Unknown Analyte Normal Not Available [facility] [address], [place], [address], 08/11/2019 16:02:55 08/11/2008/11/2019 urina lysis , dipst ick, auto Unknown Analyte Normal - 1mg/dl Not Available [facility] [address], [place], [address], 08/11/2019 16:02:55 08/11/2008/11/2019 urina lysis , dipst ick, auto Unknown Analyte Negati ve Not Available [facility] [address], [place], [address], 08/11/2019 16:02:55 08/11/2008/11/2019 urina lysis , dipst ick, auto Unknown Analyte Negati ve Not Available [facility] [address] [facility] [address], [place], [address], 08/11/2019 16:02:55 08/11/20 19 08/11/2019 urina lysis , dipst ick, auto Unknown Analyte Negati ve Not Available [facility] [address], [place], [address], 08/11/2019 16:02:55 08/11/2008/11/2019 urina lysis , dipst ick, auto Unknown Analyte Negati ve Not Available [facility] [address] [place] [address] [address], [place], [address], 08/11/2019 16:02:55 08/11/2008/11/2019 urina lysis , dipst ick, auto Unknown Analyte Clean Catch Not Available [facility] [address] [place] [address] [address], [place], [address], 08/11/2019 16:02:55 08/11/2008/11/2019 urina lysis , dipst ick, auto Unknown Analyte Automa vanesa Not Available [facility] [address], [place], [address], 08/11/2019 16:02:55 11/18/1911/18/2018 urina lysis , dipst ick, auto Unknown Analyte Yellow Not Available [facility] [address], [place], [address], 11/18/2018 13:03:09 11/18/1911/18/2018 urina lysis , dipst ick, auto Unknown Analyte Clear Not Available [facility] [address], [place], [address], 11/18/2018 13:03:09 11/18/19 19 11/18/2018 urina lysis , dipst ick, auto Unknown Analyte 1.020 Not Available [facility] [address], [place], [address], 11/18/2018 13:03:11/18/1911/18/2018 urina lysis , dipst ick, auto Unknown Analyte 1.003 - 1.035 Not Available [facility] [address], [place], [address], 11/18/2018 13:03:09 11/18/1911/18/2018 urina lysis , dipst ick, auto Unknown Analyte 8.0 Not Available [facility] [address], [place], [address], 11/18/2018 13:03:11/18/19 19 11/18/2018 urina lysis , dipst ick, auto Unknown Analyte 5.0 - 8.0 Not Available [facility] [address], [place], [address], 11/18/2018 13:03:11/18/19 19 11/18/2018 urina lysis , dipst ick, auto Unknown Analyte Negati ve Not Available [facility] [address], [place], [address], 11/18/2018 13:03:11/18/19 19 11/18/2018 urina lysis , dipst ick, auto Unknown Analyte Negati ve Not Available [facility] [address], [place], [address], 11/18/2018 13:03:11/18/19 19 11/18/2018 urina lysis , dipst ick, auto Unknown Analyte Negati ve Not Available [facility] [address], [place], [address], 11/18/2018 13:03:11/18/19 19 11/18/2018 urina lysis , dipst ick, auto Unknown Analyte Negati ve Not Available [facility] [address] [facility] [address], [place], [address], 11/18/2018 13:03:11/18/1911/18/2018 urina lysis , dipst ick, auto Unknown Analyte Negtiv e Not Available [facility] [address], [place], [address], 11/18/2018 13:03:09 11/18/19 19 11/18/2018 urina lysis , dipst ick, auto Unknown Analyte Negati ve - Trace Not Available [facility] [address], [place], [address], 11/18/2018 13:03:09 11/18/19 19 11/18/2018 urina lysis , dipst ick, auto Unknown Analyte Normal Not Available [facility] [address], [place], [address], 11/18/2018 13:03:09 11/18/19 19 11/18/2018 urina lysis , dipst ick, auto Unknown Analyte Normal Not Available [facility] [address], [place], [address], 11/18/2018 13:03:11/18/19 19 11/18/2018 urina lysis , dipst ick, auto Unknown Analyte Negati ve Not Available [facility] [address], [place], [address], 11/18/2018 13:03:09 11/18/19 19 11/18/2018 urina lysis , dipst ick, auto Unknown Analyte Negati ve Not Available [facility] [address], [place], [address], 11/18/2018 13:03:11/18/19 19 11/18/2018 urina lysis , dipst ick, auto Unknown Analyte Normal Not Available [facility] [address], [place], [address], 11/18/2018 13:03:09 11/18/19 19 11/18/2018 urina lysis , dipst ick, auto Unknown Analyte Normal - 1mg/dl Not Available [facility] [address], [place], [address], 11/18/2018 13:03:09 11/18/19 19 11/18/2018 urina lysis , dipst ick, auto Unknown Analyte Negati ve Not Available [facility] [address] [facility] [address], [place], [address], 11/18/2018 13:03:11/18/19 19 11/18/2018 urina lysis , dipst ick, auto Unknown Analyte Negati ve Not Available [facility] [address], [place], [address], 11/18/2018 13:03:11/18/19 19 11/18/2018 urina lysis , dipst ick, auto Unknown Analyte Negati ve Not Available [facility] [address], [place], [address], 11/18/2018 13:03:09 11/18/19 19 11/18/2018 urina lysis , dipst ick, auto Unknown Analyte Negati ve Not Available [facility] [address] [place] [address] [address], [place], [address], 11/18/2018 13:03:09 11/18/19 19 11/18/2018 urina lysis , dipst ick, auto Unknown Analyte Clean Catch Not Available [facility] [address], [place], [address], 11/18/2018 13:03:11/18/19 19 11/18/2018 urina lysis , dipst ick, auto Unknown Analyte Visual Not Available [facility] [place] [address], [place], [address], 11/18/2018 13:03:09 05/02/20 21 05/02/2021 TESTO STERO NE,TO ANTOINE/F REE testosterone , total 381 NG/dL 249-83 6 normal Refer ence range is for age 20-49 years . Not Available [facility] [address] [place], [address], 05/05/2021 12:31:09 05/02/20 21 05/05/2021 TESTO STERO NE,TO ANTOINE/F REE testosterone , free 57.8 pg/mL 46.0-2 24.0 normal This test was devel oped and its cristal tical perfo rmanc e george cteri stics have been deter mined by [facility]. It has not been clear ed or appro willy by the FDA. This assay has been valid ated pursu ant to the CLIA regul ation s and is used for clini faith purpo ses. TEST PERFO RMED AT: [facility] [address] [place] [address] Thu BELTRAN Not Available [facility] [address] [place] [address], [address], 05/05/2021 12:31:09 05/02/20 21 05/02/2021 PSA, serum or plasm a PSA 0.79 NG/mL 0.0 - 4.0 Not Available [facility] [address], [place], [address], 05/02/2021 16:57:26 09/19/20 17 09/19/2017 [email or web address] [email or web address] am No observ ation record ed. [email or web address] [facility] [address] [facility], [place], [address], 09/22/2017 08:16:59 09/22/20 17 event monit or No observ ation record ed. [email or web address] [facility] [address], [place], [address], 09/23/2017 08:06:34 10/14/20 17 10/10/2017 rhyth m strip , EKG* No observ ation record ed. BARCODE Not Available 2016 15:24:51 08/25/20 19 08/25/2019 US, scrot um [facility] [address] [facility] [place] [address] Patien t Name: JUAN OVALLESATT II Patiparminder t : 1974 Patiparminder t 4 Orderi ng Provid er: CHRISTELLE BERRY EXAM DATE: 2018 EXAM: US SCROTU M CLINIC AL INFORM ATION: Chroni c epidid ymitis . TECHNI QUE: Multip le webster scale and color Dopple r sonogr aphic images of the scrotu m were obtain ed. COMPAR MICHAEL: None. FINDIN GS: RIGHT SIDE: Testic ular measur ement = 4.1 x 2.9 x 2 cm. Normal in size, echoge nicity and echote xture and vascul arity. No mass is seen. There is a 1.4 cm diamet er cyst in the right epidid ymal head. No hydroc markus. LEFT SIDE: Testic ular measur ement = 4.2 x 2.7 x 2 cm. Normal in size, echoge nicity and echote xture and vascul arity. No mass is seen. There is a 1.2 cm diamet er cyst in the left epidid ymal head. No hydroc markus. IMPRES GEOVANNY: Bilate ral epidid ymal cysts. No other signif icant abnorm ality is seen. Interp reted By: Farshad Donovan MD Electr onical ly Signed By: Farshad Donovan MD on 2018 3:09 PM [email or web address] [facility] [facility] [address] [place], [address], 08/30/2019 07:28:36 Result Notes None recorded. Procedures Surgical History Date Name Laterality Status Provider Name and Address Organization Details Recorded Time 10/10/20 17 EKG completed KATERINA NINOALVIN FRANCIS, ORDER DISPATCHER [address] [place], [address], [facility] 10/10/2017 18:28:16 09/04/20 17 Echocardiogram completed LASHAWN JOEL MD [address] [place], [place], [address] [place] [address] 09/04/2017 12:52:56 09/04/20 17 VAS - Carotid Duplex completed ERVIN PATEL MD [address] [place], [place], [address] [place] [address] 09/04/2017 13:09:17 08/29/20 17 EKG completed KATERINA FRANCIS, ORDER DISPATCHER [address] [place], [place], [address] [place] [address] 08/29/2017 14:57:13 11/10/19 14 Appendectomy completed [facility] 08/29/2017 13:30:35 11/10/18 99 Removal of sperm duct(s) completed [facility] 08/29/2017 13:29:57 Knee arthroscopy/surger y completed [facility] 08/29/2017 13:30:50 Wrist arthroscopy/surger y [facility] 08/29/2017 13:31:04 Imaging Results None recorded. Procedure Notes None recorded. Medical Equipment None Reported. Allergies No known drug allergies Medications Name Sig Start Date Stop Date Status Note LastModified by Organization Details LastModified Time amoxicill in 500 mg capsule Daily 08/29 completed Duration : 10 days;Kishan quency: daily;Me dication Descript ion: amoxicil jasmin; Dosage:2 ; Route:or al; refills: 0; Quantity :30 capsule Not Available Not Available Not Available venlafaxi ne ER 150 mg capsule,e xtended release 24 hr Take 1 capsule every day by oral route. active Not Available Not Available No t Available Zantac 150 mg tablet Take 1 tablet twice a day by oral route. 08/11 completed Not Available Not Available Not Available doxycycli ne monohydra te 100 mg capsule Take 1 capsule twice a day by oral route. 08/11 completed Not Available Not Available Not Available Levaquin 500 mg tablet Take 1 tablet every 24 hours by oral route. 05/02 completed Not Available Not Available Not Available cefuroxim e axetil 500 mg tablet Take 1 tablet twice a day by oral route for 14 days. 05/02 completed Not Available Not Available Not Available nabumeton e 500 mg tablet Take 1 tablet twice a day by oral route for 14 days. 05/02 completed Not Available Not Available Not Available sildenafi l (pulmonar y hypertens ion) 20 mg tablet 1-3 tablets 30 mins before intercou rse prn 2021 active Not Available Not Available Not Avai lable mont[facility] 05/02 completed Not Available Not Available Not Available buspirone 05/02 completed Not Available Not Available Not Available pantopraz ole active Not Available Not Available Not Available metoprolo l succinate ER 25 mg capsule sprinkle, ext. release 24 hr Take 1 capsule every day by oral route. active Not Available Not Available No t Available omeprazol e 20 mg delayed release,d isintegra ting tablet Take by oral route. 08/11 completed Not Available Not Available Not Available Vitals Date Recorded Body height Body mass index (BMI) Body weight Heart rate Systolic blood pressure Diastolic blood pressure Provider Name and Address Organization Details Last Updated DateTime 9 177.8 cm 25.8 kg/m2 70621.6 3 g 74 /min 128 mm[Hg] 90 mm[Hg] Rosa Houserram [facility] 9 13:02:14 Date Recorded Body height Body mass index (BMI) Body weight Provider Name and Address Organization Details Last Updated DateTime 05/02/2021 177.8 cm 25.5 kg/m2 78676.44 g Denise Olamide [facility] 05/02/2021 15:48:06 Date Recorded Body height Body mass index (BMI) Body weight Heart rate Systolic blood pressure Diastolic blood pressure Provider Name and Address Organization Details Last Updated DateTime 9 177.8 cm 24.4 kg/m2 92821.7 g 76 /min 124 mm[Hg] 90 mm[Hg] Elzbieta Perez [facility] 9 16:01:09 Date Recorded Body height Body mass index (BMI) Body weight Provider Name and Address Organization Details Last Updated DateTime 08/25/2019 177.8 cm 25.5 kg/m2 01307.44 g Elzbieta [facility] 08/25/2019 16:23:57 Date Recorded Body height Body mass index (BMI) Body weight Heart rate Systolic blood pressure Diastolic blood pressure Provider Name and Address Organization Details Last Updated DateTime 7 177.8 cm 26.5 kg/m2 63049.5 9 g 84 /min 118 mm[Hg] 92 mm[Hg] Caitlyn Palacios [facility] 7 13:02:12 Social History Question Answer Notes LastModified by Prote[employer] Details LastModified Time Tobacco Smoking Status Former Smoker Caitlyn Palacios [facility] 10/10/2017 12:54:38 How Much Tobacco Do You Chew? 1/day Information not available 10/10/2017 When Did You Quit Smoking? 6-10yearssin celastcigare tte Information not available 10/10/2017 Live Alone Or With Others? With Others Information not available 10/10/2017 Marital Status Informatio n not available 10/10/2017 What Was The Date Of Your Most Recent Tobacco Screening? 11/18/2018 Information not available 12/28/2019 How Many Children Do You Have? 5 Information not available 10/10/2017 How Much Tobacco Do You Smoke? No 1 Can [email or web address] Information not available 08/11/2019 Has Tobacco Cessation Counseling Been Provided? Yes Information not available 10/10/2017 On What Date Was Tobacco Cessation Counseling Provided? 11/18/2018 Information not available 11/18/2018 How Many Years Have You Smoked Tobacco? 15 egarth Information not available 08/29/2017 Sex: Unknown Functional Status Question Answer Note LastModified by [employer] ion Details LastModified Time What is your level of alcohol consumption? Occasional Information not available 10/10/2017 Mental Status None recorded. Family History Relationship Description Onset Age of this Age Resolved Age Notes LastModified by Organization Details LastModified Time Unspecified Relation Heart disease egarth Not available 2016 13:26:42 Unspecified Relation Family history of malignant neoplasm egarth Not available 2016 13:26:50 Unspecified Relation Family history of stroke egarth Not available 2016 13:27:02 Unspecified Relation History of hypertension egarth Not available 13:28:00 Medical History Condition Response Anxiety Disorder Y Acid Reflux (GERD) Y Past Encounters Encounter ID Performer Location Encounter Start Date Encounter Closed Date Diagnosis/Indication Diagnosis SNOMED-CT Code Diagnosis ICD10 Code Diagnosis Note [id number] KATERINA FRANCIS APRN CARDIOLOG Y [address] [place] [address] 08/29/2017 12:55:45 09/01/2017 12:59:23 Palpitations 54905640 R00.2 Hx of Wenckebach . Will have him undergo 21 day event monitor for further evaluation of HR/rhythm. Will review results when available, further recommenda tions will be made at that time. He is in agreement with plan. Will see him back in 6 weeks for recheck. Advised to call sooner for questions or concerns. Will obtain old records from [facility] for review. Dizziness 160968260 R42 Echocardio gram and Carotid Artery Duplex for further evaluation . Will have him undergo bubble study, given his Hx of migraine FREEMAN to evaluate for PFO. He is in agreement with plan. Will review results when available, further recommenda tions will be made at that time. Will see him back in 6 weeks for further evaluation . Advised to call sooner with questions or concerns. Obesity 376408052 E66.9 BMI today 26.1; Weight loss recommende d to ultimately achieve BMI < 25. [id number] ERVIN PATEL MD [facility] [address] [place] [address] 09/01/2017 15:14:30 09/01/2017 16:15:25 Palpitations 71382622 R00.2 [id number] ERVIN PATEL MD [facility] [address] [address] 09/04/2017 10:17:47 09/04/2017 11:48:41 Dizziness 384505773 R42 [id number] LASHAWN JOEL MD [facility] [address] [address] 09/04/2017 10:19:04 09/04/2017 14:57:14 Dizziness 481084479 R42 [id number] KATERINA FRANCIS APRN CARDIOLOG Y [facility]AST [address] [facility] [address] [place] [address] 10/10/2017 12:44:40 10/13/2017 08:30:16 Palpitations 97187509 R00.2 Hx of Wenckebach . 21 day event monitor revealed NSR. palpitatio ns have improved. No further cardiac workup recommende d at this time. Advised that his 21 day event monitor could be repeated if his palpitatio ns worsened or he becomes concerned. He is in agreement. Dizziness 999236628 R42 Echocardio gram and carotid duplex were unremarkab le. Agitated saline injection was negative for intracardi ac shunting. He had recent cardiac cath which was negative for CAD. No further cardiac workup needed at this time. Fatigue 46594241 R53.83 Unknown etiology. Suggest autoimmune workup. [id number] MD VAN TH[facility]SON [facility] [address] [place] [address] 11/18/2018 11:46:46 11/18/2018 13:39:56 Epididymitis 13153438 N45.1 He'll follow-up in 3 weeks. If he is not markedly resolved we will arrange for scrotal ultrasound . 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 Plan as above. 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 Health Concerns Section Related Observation LastModified by Organization Detai ls LastModified Time None Recorded Concern Status LastModified by Organization Details LastModified Time None Recorded Advance Directives Directive None Recorded Payers Insurance Date Sequence Insurance Name Policy Number Policy Dupree Covered Member ID Dupree Member ID Guarantor Name 06/11/2021 1 [place] [id number] Juan Burnett [id number] Juan Kye Josefa Notes Date Note Type Note Provider Name and Address Organization Details Recorded Time 10/10/2017 text/html Mr. Burnett is a pleasant 42-year-old male here today for follow up of palpitations. 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 Was treated with BB in the past, but were discontinued secondary to bradycardia. He recently underwent LHC at [facility] for c/o CP, which revealed normal coronary arteries. He has Hx of severe migraines. Has been having problems with recurrence as of late. He has complaints of dizziness, lightheadedness, and exertional SOA. Has been feeling weak and tired. When he lies down at night, he feels his heart pounding up into his bilateral neck. Last office visit I ordered Carotid Duplex which revealed:Bilateral less than 50% stenosis of the internal carotid arteries. The vertebral arteries demonstrate antegrade flow. There is no evidence of subclavian steal.Echocardiogra m with bubble study revealed:Mild left ventricular hypertrophy otherwise Normal echocardiogram. Agitated saline study negative for intracardiac shunt. Event monitor revealed NSR. He returns today for follow up. Expresses feeling fatigued all of the time. 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 No etiology has been found for his symptoms. He denies chest pain, orthopnea, PND, syncope, and edema. He has palpitations at times. Occasional episodes of shortness of breath with exertion. He feels lightheaded when his blood pressure is high. He continues to chew tobacco. KATERINA MERCADO PENNY, ORDER DISPATCHER [address] [place], [address], [facility] 10/10/2017 18:28:36 11/18/2018 text/html Patient is here for initial visit last seen by me several years ago for consultation regarding vasectomy reversal. He did undergo reversal 10 years ago. Unfortunately this was not successful. At any rate recently has developed pain and swelling of the right scrotum. He's had no fever or chills. No evidence or recent known history of trauma. QUIANA BERRY MD [address] [place], [address], [facility] 11/20/2018 01:04:00 08/11/2019 text/html patient was last seen in November for symptoms of right epididymitis. He was placed on doxycycline and Relafen. That improved but did not completely resolve his symptoms. He is remaining with increased sensitivity which seems to fluctuate. Over the last week or so he said noticeable swelling on the right side with increased discomfort. He's had no fever or chills. He also has somewhat of a chronic discomfort or awareness of vibration sensation in the right scrotum. QUIANA BERRY MD [facility] [place], [address], [facility] 08/12/2019 22:39:21 08/25/2019 text/html patient is here for 2 week follow-up. He was last seen by me in November for symptoms of right epididymitis. He had a vasectomy and vasectomy reversal in 2007. In November treated for epididymitis and his symptoms improved but did not completely resolve. Over the last month he's had more noticeable discomfort on the right side with some slight swelling. 2 weeks ago I placed him on Levaquin and Relafen. He states that his symptoms really are about the same. They're not severe but certainly bothersome. I arranged for a scrotal ultrasound which was performed today. He has bilateral cysts in the epididymal head. On the right side it is 1.4 cm and on the left 1.2 cm. We discussed consideration of exploration and excision of these cysts. These may or may not be the source of his pain but palpably seem to reproduce his discomfort. We discussed possibility of persistent discomfort as well as recurrence of other epididymal cyst. He will consider surgical intervention. We will plan to observe unless he has episodes of epididymitis or he decides to proceed with surgery. MD Edy [place], [address], [facility] 08/26/2019 21:35:04 05/02/2021 text/html Patient was last seen by me in August 2019 and treated for epididymitis as well as diagnosis of right and left epididymal cyst. His previous vasectomy with vasectomy reversal. This was successful. He's had no major issues with that. He has however had issues with moderate erectile dysfunction. We discussed potential etiologies. MD [place], [address], [facility] 05/08/2021 22:38:10
--- OUTSIDE RECORDS SUMMARY | 2025-04-25 08:44 | XMS_ITS | Encounter Summary ---
Author Organization [employer] Address [address] [place] [address] Care Team Providers Care Fisher Quahog Name Role Phone Unavailable Primary Care Provider Unavailabl e Encounter Details Date Type Department Care Team (Late st Contact Info) Description 11/16/2019 Transcribed Document [facility] [address] [place] [address] ProviderSimran MD [address] [place] [address] Social History Tobacco Use Types Packs/Day Years Used Date Smoking Tobacco: Never Assessed Sex and Gender Information Value Date Recorded Sex Assigned at Not on file Legal Sex Male 3:07 PM CDT Gender Identity Not on file Sexual Orientation Not on file documented as of this encounter Miscellaneous Notes * Cerner Conversion Note - Simran Joseph MD - 11/16/2019 11:37 PM EXPORT TRAFFIC DEPARTMENT MANAGER Patient: JUAN BURNETT Age: 44 Years Sex: Male : 1975 Chief Complaint pt c/o dizziness and MSCP with exertion starting on the . pt states he seen Dr. Bowman and had portable monitor placed. pt scheduled for echo and stress test but states hes unable to wait. Primary Care Provider DELONTE MAURO History of Present Illness 44M presents with dyspnea, palpitation and chest tightness. He says that for the past 2 weeks he has had these symptoms. He says his chest tightness is not exertional, but he says that with minimal activity he becomes extremely fatigued, lightheaded and dyspneic. He has frequent episodes of chest tightness, but not necessarily related to exertion. He has seen Cardiology as an outpt and has been on an event monitor for several days. He is scheduled for a stress test and echo tomorrow as an outpatient. Last night he had significant worsening of his symptoms and he came here for more urgent evaluation. Currently he is anxious, but comfortable in bed. No chest avila or dyspnea. He feels slightly lihghtheaded right now. NO fever, LOC, weight loss or focal neurologic deficits. Review of Systems All other organ systems were reviewed. Pertinent positives and negatives as noted in HPI. Vital Signs T: 36.6 ??C TMIN: 36.6 ??C TMAX: 36.8 ??C HR: 76(Monitored) RR: 21 BP: 124/85 SpO2: 98% HT: 177.8 cm WT: 77.27 kg BMI: 24.4 Oxygen Settings (Last) Oxygen Therapy Mode: Room air (11/16/19 20:28:00) Physical Exam General: no acute distress Neurologic: Awake, alert, and oriented X3, Moves all extremities. Eye: Pupils reactive and equal bilaterally. OP clear. Neck: No carotid bruits, no JVD, no lymphadenopathy Lungs: Clear to auscultation bilaterally. No wheezes. Heart: Regular rate and rhythm. No murmurs. Abdomen: Soft, non-tender, non-distended, normal bowel sounds, no masses Extremities: No edema. Full range of motion where tested. Skin: No rashes or lesions Assessment/Plan 1. Exertional dyspnea, lighteadedness and occasional chest pain with palpitations - Currently stable vitals, normal EKG and normal troponin. -Rule out SC with serial cardiac enzymes - HR/BP control - daily aspirin - check lipid panel - Check TSH - Echo - Cardiology has evaluated and plans to schedule stress test tomorrow if enzymes stay normal. - Review event monitor results. Continue to monitor for arrhythmia. - Will complete cardiac workup as described. I do think stress and anxiety are significantly complicating his situation. We discussed this and he disagrees. He is on Zoloft and does not want to change. - Home when cleared by cardiology VTE Prophylaxis - Medical Enoxaparin 40 mg, SubCutaneous, Inj, Q88ELrm, Routine, Start 11/16/19 18:00:00 EST ([facility]) Problem List/Past Medical History Ongoing COPD - Chronic obstructive pulmonary disease Historical No qualifying data Procedure/Surgical History APPENDECTOMY, Knee surgery, Vasectomy. No qualifying data available Allergies Advair Diskus Social History Home/Environment Living situation: Home/Independent. Tobacco Stopped smoking 10 years ago. Drinks less than 5 beers per week. No drugs. Employed. Family History CHF - Congestive heart failure: Father. Hypertension: Father. CAD grandparents Lab Results Test Name Test Result Date/Time Sodium Level 138 mmol/L 11/16/2019 11:50 EST Potassium Level 3.8 mmol/L 11/16/2019 11:50 EST Chloride Level 105 mmol/L 11/16/2019 11:50 EST Carbon Dioxide Level 27 mmol/L 11/16/2019 11:50 EST Anion Gap 10 11/16/2019 11:50 EST Glucose Level 98 mg/dL 11/16/2019 11:50 EST Blood Urea Nitrogen 11 mg/dL 11/16/2019 11:50 EST Creatinine Level 1.10 mg/dL 11/16/2019 11:50 EST eGFR >60 mL/min/1.73m2 11/16/2019 11:50 EST eGFR NonAfrican >60 mL/min/1.73m2 11/16/2019 11:50 EST Bun/Creatinine 10.0 11/16/2019 11:50 EST Calcium Level 9.1 mg/dL 11/16/2019 11:50 EST Troponin I Ultra <0.015 ng/mL 11/16/2019 21:33 EST Troponin I Ultra <0.015 ng/mL 11/16/2019 17:46 EST Troponin I Ultra <0.015 ng/mL 11/16/2019 15:28 EST Troponin I Ultra <0.015 ng/mL 11/16/2019 11:50 EST WBC 4.8 K/uL 11/16/2019 11:50 EST RBC 5.26 Million/uL 11/16/2019 11:50 EST Hgb 15.4 g/dL 11/16/2019 11:50 EST Hct 45.3 % 11/16/2019 11:50 EST MCV 86.1 fL 11/16/2019 11:50 EST MCH 29.3 pg 11/16/2019 11:50 EST MCHC 34.0 Gram/dL 11/16/2019 11:50 EST Platelet Count 201 K/uL 11/16/2019 17:46 EST Platelet Count 217 K/uL 11/16/2019 11:50 EST MPV 9.9 fL 11/16/2019 11:50 EST RDW 11.9 % 11/16/2019 11:50 EST Neut % 69.4 % 11/16/2019 11:50 EST Neut # 3.34 K/uL 11/16/2019 11:50 EST Lymph % 20.1 % 11/16/2019 11:50 EST Lymph # 0.97 x10(3)/uL (Low) 11/16/2019 11:50 EST [place] % 8.5 % 11/16/2019 11:50 EST [place] # 0.41 K/uL 11/16/2019 11:50 EST Eos % 1.0 % 11/16/2019 11:50 EST Eos # 0.05 x10(3)/uL 11/16/2019 11:50 EST Baso % 0.8 % 11/16/2019 11:50 EST Baso # 0.04 x10(3)/uL 11/16/2019 11:50 EST Slide Review No 11/16/2019 11:50 EST IG# 0.01 x10(3)/uL 11/16/2019 11:50 EST IG% 0.20 % 11/16/2019 11:50 EST PT 10.7 Second(s) 11/16/2019 17:46 EST INR 1.0 11/16/2019 17:46 EST D Dimer Quant See Comment 11/16/2019 13:53 EST Cholesterol Tot 138 mg/dL 11/16/2019 17:46 EST Triglyceride 73 mg/dL 11/16/2019 17:46 EST Cholesterol HDL 44.0 mg/dL 11/16/2019 17:46 EST Cholesterol LDL Calculation 79.4 mg/dL 11/16/2019 17:46 EST Cholesterol/HDL Ratio 3.1 11/16/2019 17:46 EST LDL/HDL Ratio 1.8 11/16/2019 17:46 EST Cholesterol VLDL Calculation 14.6 mg/dL 11/16/2019 17:46 EST Additional Documentation Code Status Start: 11/16/19 17:27:00 EST, Full Code, Continuous Order Electronically signed by Audrey [facility] Conversion Circulation Assistant Cerner at 02/26/2023 8:56 AM CDT documented in this encounter Plan of Treatment Not on file documented as of this encounter Visit Diagnoses Not on filedocumented in this encounter
--- OUTSIDE RECORDS SUMMARY | 2025-04-25 08:44 | XMS_ITS | Referral Summary ---
Author Organization [employer] Address [address] [place] [address] Care Team Providers Care Boiler Erector Name Role Phone Unavailable Primary Care Provider Unavailabl e Social History Tobacco Use Types Packs/Day Years Used Date Smoking Tobacco: Never Assessed Sex and Gender Information Value Date Recorded Sex Assigned at Not on file Legal Sex Male 3:07 PM CDT Gender Identity Not on file Sexual Orientation Not on file Plan of Treatment Not on file
--- OUTSIDE RECORDS SUMMARY | 2025-04-25 08:44 | XMS_ITS | Clinical Summary ---
Author Organization [employer] Address [address] [place] [address] Care Team Providers Care Stock Feeder Name Role Phone Unavailable Primary Care Provider [...]
--- OUTSIDE RECORDS SUMMARY | 2025-04-25 08:44 | XMS_ITS | Encounter Summary ---
Author Organization [employer] Address [address] [place] [address] Care Team Providers Care Broke Worker Name Role Phone Unavailable Primary Care Provider Unavailabl e Encounter Details Date Type Department Care Team (Late st Contact Info) Description 11/16/2019 Transcribed Document [facility] [place] Medicine [address] [place] [address] ProviderSimran MD [address] [place] [address] Social History Tobacco Use Types Packs/Day Years Used Date Smoking Tobacco: Never Assessed Sex and Gender Information Value Date Recorded Sex Assigned at Not on file Legal Sex Male 3:07 PM CDT Gender Identity Not on file Sexual Orientation Not on file documented as of this encounter Miscellaneous Notes * Cerner Conversion Note - Historical ProviderMD - 11/16/2019 6:58 PM AFRICANA STUDIES PROFESSOR ED Discharge Entered On: 11/16/2019 18:59 EST Performed On: 11/16/2019 18:58 EST by CLARISSA CRANE RN Discharge Process Patient Disposition : Admit/Observe Personal Belongings With Patient : Yes Nursing Documentation Completed : Yes CLARISSA CRANE RN - 11/16/2019 18:58 EST Admission, ED Nurse Report Accepted By : Report called to [phone] Nurse Report Acceptance Time : 11/16/2019 18:59 EST `Nurse Report (Hand Off) : Called CLARISSA CRANE RN - 11/16/2019 18:58 EST documented in this encounter Plan of Treatment Not on file documented as of this encounter Visit Diagnoses Not on filedocumented in this encounter
--- OUTSIDE RECORDS SUMMARY | 2025-04-25 08:44 | XMS_ITS | Encounter Summary ---
Author Organization [employer] Address [address] [place] [id number] Care Team Providers Care Global Mobility Specialist Name Role Phone Unavailable Primary Care Provider Unavailabl e Encounter Details Date Type Department Care Team (Late st Contact Info) Description 11/17/2019 Transcribed Document [facility] [place] [address] [place] [address] ProviderSimran MD [address] [place] [address] Social History Tobacco Use Types Packs/Day Years Used Date Smoking Tobacco: Never Assessed Sex and Gender Information Value Date Recorded Sex Assigned at Not on file Legal Sex Male 3:07 PM CDT Gender Identity Not on file Sexual Orientation Not on file documented as of this encounter Miscellaneous Notes * Cerner Conversion Note - Historical ProviderMD - 11/17/2019 10:02 AM CUSTOMER CARE VOICE CONSULTANT Nursing Discharge Summary Entered On: 11/17/2019 10:02 EST Performed On: 11/17/2019 10:02 EST by Navid Henriquez Nurse dish person Documentation Discharge Date/Time : 11/17/2019 16:35 EST Mode Of Departure, General Discharge : Private vehicle Accompanied By, Discharge : Spouse Navid Henriquez, Nurse RN - 11/17/2019 16:30 EST Patient Disposition, General : Discharge Discharge To : Home with ambulatory/outpatient follow-up IV Discontinued : Yes Discharge Instructions Reviewed With, Opportunity For Questions Given : Patient Patient Education Completed : Yes Teaching Method : Explanation Teaching Evaluation : Verbalizes understanding Navid Henriquez, Nurse RN - 11/17/2019 10:02 EST documented in this encounter Plan of Treatment Not on file documented as of this encounter Visit Diagnoses Not on filedocumented in this encounter
--- OUTSIDE RECORDS SUMMARY | 2025-04-25 08:44 | XMS_ITS | Encounter Summary ---
Author Organization [employer] Address [address] [place] [address] Care Team Providers Care Qlikview Developer Name Role Phone Unavailable Primary Care Provider Unavailabl e Encounter Details Date Type Department Care Team (Late st Contact Info) Description 11/17/2019 Transcribed Document [facility] [place] Family Medicine [address] [place] [address] ProviderSimran MD [address] [place], [place] [id number] Social History Tobacco Use Types Packs/Day Years Used Date Smoking Tobacco: Never Assessed Sex and Gender Information Value Date Recorded Sex Assigned at Not on file Legal Sex Male 3:07 PM CDT Gender Identity Not on file Sexual Orientation Not on file documented as of this encounter Miscellaneous Notes * Cerner Conversion Note - Simran Joseph MD - 11/17/2019 10:00 AM PRISON GUARD Patient Education Materials Follows:Medicine Palpitations A palpitation is the feeling that [...] plenty of rest and sleep. ??? Take nvkm-cew-sjoilqe and prescription medicines only as told by [...] 08/05/2009 Document Revised: 04/03/2017 Document Reviewed: 07/11/2016 [employer] Interactive Patient Education ? 2019 [employer]. Gastroenterology Nonspecific Chest Pain Chest pain can be [...] you start to feel better. ??? Take aldh-dad-dwbszkb and prescription medicines only as told by [...] 04/14/2009 Document Revised: 07/21/2017 Document Reviewed: 07/21/2017 [employer] Interactive Patient Education ? 2019 [employer] documented in this encounter Plan of Treatment Not on file documented as of this encounter Visit Diagnoses Not on filedocumented in this encounter
[2025-04-25 10:13] LABS: Thyroid Stimulating Hormone 0.62 uIU/mL (0.465-4.68)
[2025-04-26 08:12] LABS: Testosterone,Total 681 ng/dL (264-916)
== END 2025-04-25 23:59 | disposition home or self-care (01) ==
PROVIDERS: PCP Nurse Practitioner Family; Visit Provider Urology
DX: N52.9 Male erectile dysfunction, unspecified (principal); E29.1 Testicular hypofunction; N40.0 Benign prostatic hyperplasia without lower urinary tract symptoms
CPT/HCPCS: 36415; 84270; 84403; 84443

== ENCOUNTER 2025-05-30 11:00 | Outpatient (CLI) | payer OTHER, SELFPAY ==
[2025-05-30 13:02] LABS: Microscopic, Urine URINE MICROSCOPIC (MICROSCOPIC)
[2025-05-30 13:30] LABS: Hematocrit 46.4 % (42.0-52.0); Hemoglobin 15.6 g/dL (14.1-18.0); Immature Granulocytes % 0.4 %; Mean Corpuscular HGB Conc 33.6 g/dL (31.8-35.4); Mean Corpuscular Hemoglobin 29.3 pg (27.0-31.2); Mean Corpuscular Volume 87.1 fl (80-94); Nucleated Red Blood Cells % 0 %; Platelet Count 208 K/mm3 (142-424); Red Blood Count 5.33 M/mm3 (4.60-6.20); Red Cell Distribution Width-SD 39.8 fL; White Blood Count 4.5 K/mm3 (4.8-10.8)
[2025-05-30 14:12] LABS: Free Thyroxine Index 2.0 ug/dL (5.93-13.13); T4 (Thyroxine) 5.7 ug/dl (5.53-11.0); Triiodothryronine (T3) Uptake 35 % (23.5-40.5)
[2025-05-30 14:26] LABS: Thyroid Stimulating Hormone 0.80 uIU/mL (0.465-4.68)
[2025-05-30 15:00] LABS: Folate 6.26 ng/mL
[2025-05-30 15:48] LABS: Hepatitis C Ab Qual. W/ RFX NEGATIVE (Negative)
[2025-05-30 16:44] LABS: Hemoglobin A1C 5.0 % (4.0-6.0)
[2025-05-30 17:01] LABS: 25-OH Vitamin D, Total 31.6 ng/mL (30-100)
[2025-05-30 18:18] LABS: Albumin Level 5.0 g/dl (3.5-5.0); Chloride 98 mmol/L (98-107); Potassium 4.0 mmoL/L (3.5-5.1); Sodium 136 mmol/L (136-145)
[2025-05-30 18:21] LABS: Alanine Aminotransferase 17 U/L (12-78); Albumin/Globulin Ratio 1.7 (1.1-1.8); Alkaline Phosphatase 66 U/L (38-126); Anion Gap 17.0 mEq/L (5-15); Aspartate Amino Transferase 32 U/L (17-59); Bilirubin,Total 1.0 mg/dl (0.2-1.3); Blood Urea Nitrogen 16 mg/dl (9-20); Carbon Dioxide 25 mmol/L (22.0-30.0); Cholesterol 259 mg/dl (140-200); Creatinine,Serum 0.90 mg/dl (0.66-1.25); Estimated Glomerular Filt Rate 90 ml/min (>60); GFR (African American) 109 ML/MIN (>60); Globulin 3.0 g/dL (1.3-3.2); Glucose 100 mg/dl (74-100); Iron 106 ug/dL (49-181); Phosphorous 2.4 mg/dl (2.5-4.5); Total Protein,Serum 8.0 g/dl (6.3-8.2); Triglycerides 173 mg/dl (30-150)
[2025-05-30 18:22] LABS: Calcium 9.7 mg/dl (8.4-10.2); HDL Cholesterol 58 mg/dl (40-60); Magnesium 1.9 mg/dl (1.6-2.3)
[2025-05-30 18:23] LABS: Bilirubin,Urine Negative (Negative); Color,Urine YELLOW (Yellow); Glucose,Urine (UA) Negative (Negative); Ketones,Urine Negative (Negative); Leukocyte Esterase,Urine Negative (Negative); PH,Urine 7.0 (5.0-8.5); Protein,Urine Negative (Negative); Specific Gravity, Urine 1.020 (1.005-1.030); Urobilinogen,Urine 0.2 EU/dl (0.2)
[2025-05-30 18:34] LABS: WBC,Urine 20-50 #/hpf (0-3)
[2025-05-30 18:35] LABS: Bacteria,Urine Trace /lpf
[2025-05-30 18:56] LABS: Ferritin 348 ng/ml (17.9-464)
[2025-05-30 18:59] LABS: Uric Acid 6.2 mg/dl (3.5-8.5)
[2025-05-30 19:09] LABS: C-Reactive Protein 3.0 mg/L (0-4)
[2025-05-30 19:49] LABS: Vitamin B12 205 pg/mL (239-931)
[2025-05-30 20:26] LABS: Total Iron Binding Capacity 342 ug/dL (261-462)
[2025-05-31 08:13] LABS: RA Latex Turbid. <10.0 IU/mL (<14.0)
--- OUTSIDE RECORDS SUMMARY | 2025-05-31 12:11 | XMS_ITS | Encounter Summary ---
Author Organization [employer] ([place], [place], [place], [place]) Address [address] [place] [address] Care Team Providers Care Stock Digger Name Role Phone Unavailable Primary Care Provider Unavailabl e Encounter Details Date Type Department Care Team (Late st Contact Info) Description 11/16/2019 Transcribed Document [facility] [place] Family Medicine [facility] [place] [address] ProviderSimran MD [address] [place] [id number] Social History Tobacco Use Types Packs/Day Years Used Date Smoking Tobacco: Never Assessed Sex and Gender Information Value Date Recorded Sex Assigned at Not on file Legal Sex Male 3:07 PM CDT Gender Identity Not on file Sexual Orientation Not on file documented as of this encounter Miscellaneous Notes * Cerner Conversion Note - Simran ProviderMD - 11/16/2019 11:36 AM GUNNER'S MATE M ED Assessment Entered On: 11/16/2019 18:23 EST Performed On: 11/16/2019 18:22 EST by BARBARA SAENZ RN ED General-Functional Assess Communication Barrier : None Primary Language : Urugu[place] Any Spiritual/Cultural Needs or Requests : No [...] 18:22 EST Respiratory Respiratory Assessment WDL : WDL Cough : None Respiratory Pattern Description : Regular BARBARA SAENZ RN - 11/16/2019 18:22 EST Neurologic ASMT, ED Neurologic Assessment WDL : WDL BARBARA SAENZ RN - 11/16/2019 18:22 EST documented in this encounter Plan of Treatment Not on file documented as of this encounter Visit Diagnoses Not on filedocumented in this encounter
--- OUTSIDE RECORDS SUMMARY | 2025-05-31 12:11 | XMS_ITS | Encounter Summary ---
Author Organization [employer] ([place], [place], [place], [place]) Address [address] [place] [address] Care Team Providers Care Teacher Aide Clerical Name Role Phone Unavailable Primary Care Provider Unavailabl e Encounter Details Date Type Department Care Team (Late st Contact Info) Description 11/17/2019 Transcribed Document [facility] Radiology [address] [place] [address] Nette Nayak MD [address] [place] [address] Social History Tobacco Use Types Packs/Day [...] 2. GERD 3. Smoker 4. Anxiety Consultation support associate Procedures Lexiscan stress test Echocardiogram Disposition [...]
--- OUTSIDE RECORDS SUMMARY | 2025-05-31 12:11 | XMS_ITS | Encounter Summary ---
Author Organization [employer] ([place], [place], [place], [place]) Address [address] [place] [address] Care Team Providers Care Budget Record Clerk Name Role Phone Unavailable Primary Care Provider Unavailabl e Encounter Details Date Type Department Care Team (Late st Contact Info) Description 11/16/2019 Transcribed Document [facility] [place] Family Medicine [address] [place] [address] ProviderSimran MD [address] [place] [address] Social History Tobacco Use Types Packs/Day Years Used Date Smoking Tobacco: Never Assessed Sex and Gender Information Value Date Recorded Sex Assigned at Not on file Legal Sex Male 3:07 PM CDT Gender Identity Not on file Sexual Orientation Not on file documented as of this encounter Miscellaneous Notes * Cerner Conversion Note - Historical ProviderMD - 11/16/2019 11:36 AM DRILL PRESS OPERATOR NUMERICAL CONTROL [place] Suicide Severity Rating Scale (C-SSRS) Entered On: 11/16/2019 18:23 EST Performed On: 11/16/2019 18:22 EST by BARBARA SAENZ RN [place] Suicide Severity Rating Scale (C-SSRS) CSSRS Past [...]
--- OUTSIDE RECORDS SUMMARY | 2025-05-31 12:11 | XMS_ITS | Clinical Summary ---
Author Organization [facility] Address [address] [id number] Care Team Providers Care Foundry Helper Name Role Phone Jessie Ferrell Primary Care Provider [phone] Social History Tobacco Use Types Packs/Day Years [...] of Treatment Not on file Care Teams Foundry Helper Relationship Specialty Start Date End Date Jessie Ferrell PA [address] [place] [address] PCP - General 03/23/21
--- OUTSIDE RECORDS SUMMARY | 2025-05-31 12:11 | XMS_ITS | Encounter Summary ---
Author Organization [employer] ([place], [place], [place], [place]) Address [address] [place] [address] Care Team Providers Care Coating Machine Operator Helper Name Role Phone Unavailable Primary Care Provider Unavailabl e Encounter Details Date Type Department Care Team (Late st Contact Info) Description 11/17/[address] [facility] [place] Family Medicine [address] [place] [address] ProviderSimran MD [address] [place] [address] Social History Tobacco Use Types Packs/Day Years Used Date Smoking Tobacco: Never Assessed Sex and Gender Information Value Date Recorded Sex Assigned at Not on file Legal Sex Male 3:07 PM CDT Gender Identity Not on file Sexual Orientation Not on file documented as of this encounter Miscellaneous Notes * Cerner Conversion Note - Historical ProviderMD - 11/17/2019 11:22 AM GROCERY BAGGER Spiritual Care Short Form Entered On: 11/17/2019 11:44 EST Performed On: 11/17/2019 11:22 EST by DAVID OJEDA General Information, Spiritual Care Spiritual Care Referred by : Cotton Stripper initiated Reason for Visit : Initial Ministry Provided to : Patient, Family/Significant other Intervention/Comment/Summary Points : Initial Spiritual Care visit by volunteer, Darrin Garcia. DAVID OJEDA - 11/17/2019 11:44 EST documented in this encounter Plan of Treatment Not on file documented as of this encounter Visit Diagnoses Not on filedocumented in this encounter
--- OUTSIDE RECORDS SUMMARY | 2025-05-31 12:11 | XMS_ITS | Encounter Summary ---
Author Organization [employer] ([place], [place], [place], [place]) Address [address] [place] [address] Care Team Providers Care Scientific Artist Name Role Phone Unavailable Primary Care Provider Unavailabl e Encounter Details Date Type Department Care Team (Late st Contact Info) Description 11/17/2019 Transcribed Document [facility] [place] [address] [place] [address] ProviderSimran MD [address] [id number] Social History Tobacco Use Types Packs/Day Years Used Date Smoking Tobacco: Never Assessed Sex and Gender Information Value Date Recorded Sex Assigned at Not on file Legal Sex Male 3:07 PM CDT Gender Identity Not on file Sexual Orientation Not on file documented as of this encounter Miscellaneous Notes * Cerner Conversion Note - Simran ProviderMD - 11/17/2019 10:00 AM WEB ASSISTANT Patient Education Materials Follows:Medicine Palpitations A palpitation [...] plenty of rest and sleep. ??? Take uhrl-aqe-ppmzkcj and prescription medicines only as told by [...] 08/05/2009 Document Revised: 04/03/2017 Document Reviewed: 07/11/2016 [employer] Interactive Patient Education ? 2019 [employer] Gastroenterology Nonspecific Chest Pain Chest pain can [...] you start to feel better. ??? Take nzel-nzw-zlppgku and prescription medicines only as told by [...] 04/14/2009 Document Revised: 07/21/2017 Document Reviewed: 07/21/2017 [employer] Interactive Patient Education ? 2019 [employer] documented in this encounter Plan of Treatment Not on file documented as of this encounter Visit Diagnoses Not on filedocumented in this encounter
--- OUTSIDE RECORDS SUMMARY | 2025-05-31 12:11 | XMS_ITS | Clinical Summary ---
Author Organization [employer] ([place], [place], [place], [place]) Address [address] [place] [address] Care Team Providers Care Embroidery Designer Name Role Phone Unavailable Primary Care Provider [...]
--- OUTSIDE RECORDS SUMMARY | 2025-05-31 12:11 | XMS_ITS | Data Portability ---
Author Organization [facility] RODY Nance CRANDALL CLOSED Address [address] [facility] [address] [place] [address] Care Team Providers Care Transitional Kindergarten Teacher Name Role Phone DAGMAR KEARNS Primary Care Provider [phone] Assessment No assessment recorded. Plan of Treatment Reminders Order Date Submit Date Provider Last Modified By Organization Details Last Modified Time Details Appointments None recorded. Lab urinalysis panel, auto [address] [facility], [address], [place], [address], 17:38:01 testosteron e, free + total, serum 2020 021 [facility], [address] [place] [address], [place], [address], 20:15:23 PSA, serum or plasma [address] [facility], [address], [address], [place], [address], 22:37:39 urinalysis, dipstick, auto [address] [facility], [address], [address], [place], [address], 9 18:00:56 urinalysis, dipstick, auto 2018 019 [facility], [address], [address], [place], [address], 9 13:40:56 Referral None recorded. Procedures None recorded. Surgeries None recorded. Imaging US, scrotum 2018 019 SANGEETHA [facility], [address] [facility], [place], [address], 9 15:14:50 electrocard iogram 2016 017 [email or web address] 1 [facility], [address], [place], [address], 7 08:30:16 Medication Orders Levaquin 500 mg tablet 2018 019 [email or web address] [facility], [address], [address], 1 15:48:24 nabumetone 500 mg tablet 2018 019 [email or web address] [facility], [address], [address], 1 15:48:57 doxycycline monohydrate 100 mg capsule 2018 019 [email or web address] 5 [facility], [address] [place] [address], [address], 9 16:01:16 nabumetone 500 mg tablet 2018 019 [email or web address] [facility], [address] [place] [address], [address], 1 15:48:57 Patient TargetsNo targets recorded. Patient Instructions Encounter Date Encounter Id Patient Instructions Last Modified By Organization Details Last Modified Time 11/18/2018 [id number] healthy together [email or web address] Not availabl e 11/18/2018 13:40:56 epididymitis and orchitis: care instructions Not available 11/18/2018 13:40:56 08/25/2019 [id number] spermatocele: care instructions [email or web address] Not available 08/26/2019 21:35:02 Reason for Referral None Reported. Results Created Date Observation Date Name Description Value Unit Range Abnormal Flag Note LastModifiedBy Organization Detail LastModifiedTime 05/02/20 21 05/02/2021 urina lysis panel , auto Unknown Analyte Clean Catch Not Available [facility] [address], [place], [address], 05/02/2021 15:49:58 05/02/20 21 05/02/2021 urina lysis panel , auto Unknown Analyte Yellow Not Available [facility] [place] [address], [place], [address], 05/02/2021 15:49:58 05/02/20 21 05/02/2021 urina lysis panel , auto Unknown Analyte Clear Not Available [facility] [place] [address], [place], [address], 05/02/2021 15:49:58 05/02/2005/02/2021 urina lysis panel , auto Unknown Analyte 1.020 Not Available [facility] [address], [address], 05/02/2021 15:49:58 05/02/2005/02/2021 urina lysis panel , auto Unknown Analyte 1.003- 1.035 Not Available [facility] [address], [place], [address], 05/02/2021 15:49:58 05/02/20 21 05/02/2021 urina lysis panel , auto Unknown Analyte 5.0 Not Available [facility] [address], [place], [address], 05/02/2021 15:49:58 05/02/20 21 05/02/2021 urina lysis panel , auto Unknown Analyte 5.0-8. 0 Not Available [facility] [address], [place], [address], 05/02/2021 15:49:58 05/02/20 21 05/02/2021 urina lysis panel , auto Unknown Analyte Negati ve Not Available [facility] [address], [place], [address], 05/02/2021 15:49:58 05/02/20 21 05/02/2021 urina lysis panel , auto Unknown Analyte Negati ve Not Available [facility] [address], [place], [address], 05/02/2021 15:49:58 05/02/20 21 05/02/2021 urina lysis panel , auto Unknown Analyte Negati ve Not Available [facility] [address], [place], [address], 05/02/2021 15:49:58 05/02/20 21 05/02/2021 urina lysis panel , auto Unknown Analyte Negati ve Not Available [facility] [address], [place], [address], 05/02/2021 15:49:58 05/02/20 21 05/02/2021 urina lysis panel , auto Unknown Analyte Negati ve Not Available [facility] [address], [place], [address], 05/02/2021 15:49:58 05/02/20 21 05/02/2021 urina lysis panel , auto Unknown Analyte Negati ve Not Available [facility] [address], [place], [address], 05/02/2021 15:49:58 05/02/20 21 05/02/2021 urina lysis panel , auto Unknown Analyte 50 mg/dl Not Available [facility] [address], [place], [address], 05/02/2021 15:49:58 05/02/20 21 05/02/2021 urina lysis panel , auto Unknown Analyte Normal Not Available [facility] [address], [place], [address], 05/02/2021 15:49:58 05/02/20 21 05/02/2021 urina lysis panel , auto Unknown Analyte Negati ve Not Available [facility] [address], [place], [address], 05/02/2021 15:49:58 05/02/20 21 05/02/2021 urina lysis panel , auto Unknown Analyte Negati ve Not Available [facility] [address], [place], [address], 05/02/2021 15:49:58 05/02/20 21 05/02/2021 urina lysis panel , auto Unknown Analyte Normal Not Available [facility] [address], [place], [address], 05/02/2021 15:49:58 05/02/20 21 05/02/2021 urina lysis panel , auto Unknown Analyte Normal 1 mg/dl Not Available [facility] [address], [place], [address], 05/02/2021 15:49:58 05/02/20 21 05/02/2021 urina lysis panel , auto Unknown Analyte Negati ve Not Available [facility] [place] [address], [place], [address], 05/02/2021 15:49:58 05/02/20 21 05/02/2021 urina lysis panel , auto Unknown Analyte Negati ve Not Available [facility] [address], [place], [address], 05/02/2021 15:49:58 05/02/20 21 05/02/2021 urina lysis panel , auto Unknown Analyte Negati ve Not Available [facility] [address], [place], [address], 05/02/2021 15:49:58 05/02/20 21 05/02/2021 urina lysis panel , auto Unknown Analyte Negati ve Not Available [facility] [address], [place], [address], 05/02/2021 15:49:58 08/11/2008/11/2019 urina lysis , dipst ick, auto Unknown Analyte Yellow Not Available [facility] [address], [place], [address], 08/11/2019 16:02:55 08/11/2008/11/2019 urina lysis , dipst ick, auto Unknown Analyte Clear Not Available [facility] [address], [place], [address], 08/11/2019 16:02:55 08/11/2008/11/2019 urina lysis , dipst ick, auto Unknown Analyte 1.015 Not Available [facility] [address], [place], [address], 08/11/2019 16:02:55 08/11/2008/11/2019 urina lysis , dipst ick, auto Unknown Analyte 1.003 - 1.035 Not Available [facility] [address] [place] [address] [address], [place], [address], 08/11/2019 16:02:55 08/11/2008/11/2019 urina lysis , dipst ick, auto Unknown Analyte 7.0 Not Available [facility] [address] [place] [address] [address], [place], [address], 08/11/2019 16:02:55 08/11/2008/11/2019 urina lysis , dipst ick, auto Unknown Analyte 5.0 - 8.0 Not Available [facility] [address] [place] [address] [address], [place], [address], 08/11/2019 16:02:55 08/11/2008/11/2019 urina lysis , dipst ick, auto Unknown Analyte Negati ve Not Available [facility] [address], [place], [address], 08/11/2019 16:02:55 08/11/2008/11/2019 urina lysis , dipst ick, auto Unknown Analyte Negati ve Not Available [facility] [address] [place] [address] [address], [place], [address], 08/11/2019 16:02:55 08/11/2008/11/2019 urina lysis , dipst ick, auto Unknown Analyte Negati ve Not Available [facility] [address] [place] [address] [address], [place], [address], 08/11/2019 16:02:55 08/11/2008/11/2019 urina lysis , dipst ick, auto Unknown Analyte Negati ve Not Available [facility] [address], [place], [address], 08/11/2019 16:02:55 08/11/2008/11/2019 urina lysis , dipst ick, auto Unknown Analyte Negtiv e Not Available [facility] [address], [place], [address], 08/11/2019 16:02:55 08/11/2008/11/2019 urina lysis , dipst ick, auto Unknown Analyte Negati ve - Trace Not Available [facility] [address], [place], [address], 08/11/2019 16:02:55 08/11/2008/11/2019 urina lysis , dipst ick, auto Unknown Analyte Normal Not Available [facility] [address], [place], [address], 08/11/2019 16:02:55 08/11/2008/11/2019 urina lysis , dipst ick, auto Unknown Analyte Normal Not Available [facility] [address], [place], [address], 08/11/2019 16:02:55 08/11/2008/11/2019 urina lysis , dipst ick, auto Unknown Analyte Negati ve Not Available [facility] [address], [place], [address], 08/11/2019 16:02:55 08/11/2008/11/2019 urina lysis , dipst ick, auto Unknown Analyte Negati ve Not Available [facility] [address], [place], [address], 08/11/2019 16:02:55 08/11/2008/11/2019 urina lysis , dipst ick, auto Unknown Analyte Normal Not Available [facility] [address], [place], [address], 08/11/2019 16:02:55 08/11/2008/11/2019 urina lysis , dipst ick, auto Unknown Analyte Normal - 1mg/dl Not Available [facility] [address], [place], [address], 08/11/2019 16:02:55 08/11/2008/11/2019 urina lysis , dipst ick, auto Unknown Analyte Negati ve Not Available [facility] [address], [place], [address], 08/11/2019 16:02:55 08/11/2008/11/2019 urina lysis , dipst ick, auto Unknown Analyte Negati ve Not Available [facility] [address], [place], [address], 08/11/2019 16:02:55 08/11/20 19 08/11/2019 urina lysis , dipst ick, auto Unknown Analyte Negati ve Not Available [facility] [address], [place], [address], 08/11/2019 16:02:55 08/11/2008/11/2019 urina lysis , dipst ick, auto Unknown Analyte Negati ve Not Available [facility] [address] [place] [address] [address], [place], [address], 08/11/2019 16:02:55 08/11/2008/11/2019 urina lysis , dipst ick, auto Unknown Analyte Clean Catch Not Available [facility] [address], [place], [address], 08/11/2019 16:02:55 08/11/2008/11/2019 urina lysis , dipst ick, auto Unknown Analyte Automa vanesa Not Available [facility] [address], [place], [address], 08/11/2019 16:02:55 11/18/1911/18/2018 urina lysis , dipst ick, auto Unknown Analyte Yellow Not Available [facility] [address] [facility] [address], [place], [address], 11/18/2018 13:03:09 11/18/1911/18/2018 urina lysis , dipst ick, auto Unknown Analyte Clear Not Available [facility] [address], [place], [address], 11/18/2018 13:03:09 11/18/19 19 11/18/2018 urina lysis , dipst ick, auto Unknown Analyte 1.020 Not Available [facility] [address], [place], [address], 11/18/2018 13:03:09 11/18/1911/18/2018 urina lysis , dipst ick, auto Unknown Analyte 1.003 - 1.035 Not Available [facility] [address] [place] [address] [address], [place], [address], 11/18/2018 13:03:09 11/18/1911/18/2018 urina lysis , dipst ick, auto Unknown Analyte 8.0 Not Available [facility] [address], [place], [address], 11/18/2018 13:03:09 11/18/19 19 11/18/2018 urina lysis , dipst ick, auto Unknown Analyte 5.0 - 8.0 Not Available [facility] [address], [place], [address], 11/18/2018 13:03:09 11/18/19 19 11/18/2018 urina lysis , dipst ick, auto Unknown Analyte Negati ve Not Available [facility] [address], [place], [address], 11/18/2018 13:03:09 11/18/19 19 11/18/2018 urina lysis , dipst ick, auto Unknown Analyte Negati ve Not Available [facility] [address], [place], [address], 11/18/2018 13:03:11/18/19 19 11/18/2018 urina lysis , dipst ick, auto Unknown Analyte Negati ve Not Available [facility] [address], [place], [address], 11/18/2018 13:03:09 11/18/19 19 11/18/2018 urina lysis , dipst ick, auto Unknown Analyte Negati ve Not Available [facility] [address], [place], [address], 11/18/2018 13:03:09 11/18/1911/18/2018 urina lysis , dipst ick, auto Unknown Analyte Negtiv e Not Available [facility] [address], [place], [address], 11/18/2018 13:03:09 11/18/19 19 11/18/2018 urina lysis , dipst ick, auto Unknown Analyte Negati ve - Trace Not Available [facility] [address], [place], [address], 11/18/2018 13:03:09 11/18/19 19 11/18/2018 urina lysis , dipst ick, auto Unknown Analyte Normal Not Available [facility] [address], [place], [address], 11/18/2018 13:03:09 11/18/19 19 11/18/2018 urina lysis , dipst ick, auto Unknown Analyte Normal Not Available [facility] [address], [place], [address], 11/18/2018 13:03:11/18/19 19 11/18/2018 urina lysis , dipst ick, auto Unknown Analyte Negati ve Not Available [facility] [address], [place], [address], 11/18/2018 13:03:09 11/18/19 19 11/18/2018 urina lysis , dipst ick, auto Unknown Analyte Negati ve Not Available [facility] [address], [place], [address], 11/18/2018 13:03:09 11/18/1911/18/2018 urina lysis , dipst ick, auto Unknown Analyte Normal Not Available [facility] [address], [place], [address], 11/18/2018 13:03:11/18/1911/18/2018 urina lysis , dipst ick, auto Unknown Analyte Normal - 1mg/dl Not Available [facility] [address], [place], [address], 11/18/2018 13:03:09 11/18/19 19 11/18/2018 urina lysis , dipst ick, auto Unknown Analyte Negati ve Not Available [facility] [address], [place], [address], 11/18/2018 13:03:11/18/1911/18/2018 urina lysis , dipst ick, auto Unknown Analyte Negati ve Not Available [facility] [address], [place], [address], 11/18/2018 13:03:11/18/19 19 11/18/2018 urina lysis , dipst ick, auto Unknown Analyte Negati ve Not Available [facility] [address] [place] [address] [address], [place], [address], 11/18/2018 13:03:09 11/18/1911/18/2018 urina lysis , dipst ick, auto Unknown Analyte Negati ve Not Available [facility] [address] [place] [address] [address], [place], [address], 11/18/2018 13:03:11/18/1911/18/2018 urina lysis , dipst ick, auto Unknown Analyte Clean Catch Not Available [facility] [address], [place], [address], 11/18/2018 13:03:09 11/18/19 19 11/18/2018 urina lysis , dipst ick, auto Unknown Analyte Visual Not Available [facility] [address], [place], [address], 11/18/2018 13:03:09 05/02/20 21 05/02/2021 TESTO STERO NE,TO ANTOINE/F REE testosterone , total 381 NG/dL 249-83 6 normal Refer ence range is for age 20-49 years . Not Available [facility] [address] [place], [address], 05/05/2021 12:31:09 05/02/20 21 05/05/2021 TESTO STERO [...] PERFO RMED AT: [facility] [address] [place] [address] Thu BELTRAN Not Available [facility] [address] [place] [address], [address], 05/05/2021 12:31:09 05/02/20 21 05/02/2021 PSA, serum or plasm a PSA 0.79 NG/mL 0.0 - 4.0 Not Available [facility] [address], [place], [address], 05/02/2021 16:57:26 09/19/20 17 09/19/2017 elect leonela jimenez am No observ ation record ed. [email or web address] [facility] [address] [place] [address] [facility], [place], [address], 09/22/2017 08:16:59 09/22/20 17 event monit or No observ ation record ed. [email or web address] [facility] [address], [place], [address], 09/23/2017 08:06:34 10/14/20 17 10/10/2017 rhyth m strip , EKG* No observ ation record ed. BARCODE Not Available 2016 15:24:51 08/25/20 19 08/25/2019 US, scrot um [facility] [address] [place] [address] Patien t Name: JUAN stock : 1974 [employer] stock 4 Orderi ng Provid er: CHRISTELLE BERRY [...] Farshad Donovan MD on 2018 3:09 PM [email or web address] [facility] [address] [place], [address], 08/30/2019 07:28:36 Result Notes None recorded. Procedures Surgical History Date Name Laterality Status Provider Name and Address Organization Details Recorded Time 10/10/20 17 EKG completed KATERINA JESS FRANCIS, TRAFFIC SUR[employer]Y TECHNICIAN [address] [place], [place], [address] [place] [address], [facility] 10/10/2017 18:28:16 09/04/20 17 Echocardiogram completed LASHAWN JOEL MD [address] [place], [place], [address] [place] [address] 09/04/2017 12:52:56 09/04/20 17 VAS - Carotid Duplex completed ERVIN PATEL MD [facility] [place], [place], [address] [place] [address] 09/04/2017 13:09:17 08/29/20 17 EKG completed KATERINA FRANCIS, TRAFFIC SURVEY TECHNICIAN [address] [place], [place], [address] [place] [address] 08/29/2017 14:57:13 11/10/19 14 Appendectomy completed [facility] 08/29/2017 13:30:35 11/10/18 99 Removal of sperm duct(s) completed [facility] 08/29/2017 13:29:57 Knee arthroscopy/surger y completed [facility] 08/29/2017 13:30:50 Wrist arthroscopy/surger y [facility] 08/29/2017 13:31:04 Imaging Results None recorded. [...] index (BMI) Body weight Heart rate Systolic And Diastolic Provider Name and Address Organization Details Last Updated DateTime 11/18/2018 177.8 cm 25.8 kg/m2 18745.63 g 74 /min 128/90 mm[Hg] Rosa Houserram [facility] 11/18/2018 13:02:14 Date Recorded Body height Body mass index (BMI) Body weight Provider Name and Address Organization Details Last Updated DateTime 05/02/2021 177.8 cm 25.5 kg/m2 62124.44 g Denise Olamide [facility] 05/02/2021 15:48:06 Date Recorded Body height Body mass index (BMI) Body weight Heart rate Systolic And Diastolic Provider Name and Address Organization Details Last Updated DateTime 08/11/2019 177.8 cm 24.4 kg/m2 32892.7 g 76 /min 124/90 mm[Hg] Elzbieta Perez [facility] 08/11/2019 16:01:09 Date Recorded Body height Body mass index (BMI) Body weight Provider Name and Address Organization Details Last Updated DateTime 08/25/2019 177.8 cm 25.5 kg/m2 19971.44 g [facility]/25/2019 16:23:57 Date Recorded Body height Body mass index (BMI) Body weight Heart rate Systolic And Diastolic Provider Name and Address Organization Details Last Updated DateTime 10/10/2017 177.8 cm 26.5 kg/m2 15751.59 g 84 /min 118/92 mm[Hg] Caitlyn Palacios [facility] 10/10/2017 13:02:12 Social History Question Answer Notes LastModified by Organizat ion Details LastModified Time Tobacco Smoking Status Former Smoker Caitlyn Palacios [facility] 10/10/2017 12:54:38 How Much Tobacco Do [...] Tobacco Do You Smoke? No 1 Can [email or web address] Information not available 08/11/2019 Has Tobacco Cessation Counseling Been Provided? Yes Information not available 10/10/2017 On What Date Was Tobacco Cessation Counseling Provided? 11/18/2018 Information not available 11/18/2018 How Many Years Have You Smoked Tobacco? 15 [email or web address] Information not available 08/29/2017 Sex: Unknown Functional Status Question Answer Note LastModified by Organizat ion Details LastModified Time What is your [...] SNOMED-CT Code Diagnosis ICD10 Code Diagnosis Note [id number] KATERINA FRANCIS APRN CARDIOLOG Y [place] [address] [place] [address] 08/29/2017 12:55:45 09/01/2017 12:59:23 Palpitations 81462170 R00.2 Hx of Wenckebach . Will have him undergo 21 day event monitor for further evaluation of HR/rhythm. Will review results when available, further recommenda tions will be made at that time. He is in agreement with plan. Will see him back in 6 weeks for recheck. Advised to call sooner for questions or concerns. Will obtain old records from [facility] for review. Dizziness 716023702 R42 Echocardio gram and Carotid Artery Duplex [...] call sooner with questions or concerns. Obesity 911189949 E66.9 BMI today 26.1; Weight loss recommende d to ultimately achieve BMI < 25. [id number] ERVIN PATEL MD HEART STATION [place] [address] [place] [address] 09/01/2017 15:14:30 09/01/2017 16:15:25 Palpitations 37287673 R00.2 [id number] ERVIN PATEL MD ECHO VASCULAR LAB [facility] [address] [place] [address] 09/04/2017 10:17:47 09/04/2017 11:48:41 Dizziness 175957343 R42 [id number] LASHAWN JOEL MD ECHO VASCULAR LAB [address] [place] [address] 09/04/2017 10:19:04 09/04/2017 14:57:14 Dizziness 268101466 R42 [id number] KATERINA NINOALVIN FRANCIS APRN CARDIOLOG Y [place] [address] [facility] [address] [place] [address] 10/10/2017 12:44:40 10/13/2017 08:30:16 Palpitations 57749459 R00.2 Hx of Wenckebach . 21 day event monitor revealed NSR. palpitatio ns have improved. No further cardiac workup recommende d at this time. Advised that his 21 day event monitor could be repeated if his palpitatio ns worsened or he becomes concerned. He is in agreement. Dizziness 600173125 R42 Echocardio gram and carotid duplex were unremarkab le. Agitated saline injection was negative for intracardi ac shunting. He had recent cardiac cath which was negative for CAD. No further cardiac workup needed at this time. Fatigue 91411742 R53.83 Unknown etiology. Suggest autoimmune workup. [id number] MD [facility]AN [facility] [address] [address] 11/18/2018 11:46:46 11/18/2018 13:39:56 Epididymitis 28997560 N45.1 He'll follow-up in 3 weeks. If he is not markedly resolved we will arrange for scrotal ultrasound . [id number] MD [facility] [address] [place] [address] 08/11/2019 14:51:16 08/11/2019 16:57:55 Chronic epididymitis 340994148 N45.1 we will treat him medically and arrange for a scrotal ultrasound follow-up 2 weeks [id number] MD [facility] [address] [place] [address] 08/25/2019 14:58:19 08/25/2019 17:00:24 Spermatocele 60341366 N43.40 . Plan as above. 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 Burnett is a pleasant 42-year-old male here today for follow up of palpitations. 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 Was treated with BB in the past, but were discontinued secondary to bradycardia. He recently underwent LHC at [facility] for c/o CP, which revealed normal coronary [...] is high. He continues to chew tobacco. KATERINASharon FRANCIS APRN [address] [place] [address], [address], [facility] 10/10/2017 18:28:36 11/18/2018 text/html Patient is here [...] known history of trauma. QUIANA BERRY MD [address] [place] [address], [phone], [facility] 11/20/2018 01:04:00 08/11/2019 text/html patient was last [...] in the right scrotum. QUIANA BERRY MD [address] [place] [address], [phone], [facility] 08/12/2019 22:39:21 08/25/2019 text/html patient is here [...] or he decides to proceed with surgery. QUIANA BERRY MD [facility] [place], [address], [facility] 08/26/2019 21:35:04 05/02/2021 text/html Patient was last seen by me in August 2019 and treated for epididymitis as well as diagnosis of right and left epididymal cyst. His previous vasectomy with vasectomy reversal. This was successful. He's had no major issues with that. He has however had issues with moderate erectile dysfunction. We discussed potential etiologies. MD Edy [place], [address], [facility] 05/08/2021 22:38:10
--- OUTSIDE RECORDS SUMMARY | 2025-05-31 12:11 | XMS_ITS | Encounter Summary ---
Author Organization [employer] ([place], [place], [place], [place]) Address [address] [place] [address] Care Team Providers Care Manganese Heater Name Role Phone Unavailable Primary Care Provider Unavailabl e Encounter Details Date Type Department Care Team (Late st Contact Info) Description 11/17/2019 Transcribed Document [facility] [place] [address] [place] [address] ProviderSimran MD [address] [place], [place] [address] Social History Tobacco Use Types Packs/Day Years Used Date Smoking Tobacco: Never Assessed Sex and Gender Information Value Date Recorded Sex Assigned at Not on file Legal Sex Male 3:07 PM CDT Gender Identity Not on file Sexual Orientation Not on file documented as of this encounter Miscellaneous Notes * [employer]ner Conversion Note - Historical ProviderMD - 11/17/2019 11:20 AM EXECUTIVE VICE PRESIDENT AND CHIEF FINANCIAL OFFICER UM Authorization Entered On: 11/17/2019 11:21 EST Performed On: 11/17/2019 11:20 EST by DESTINY KOLB RN-Utilization Review Primary Insurance Authorization Authorization and Policy Numbers : Insurance 1 Health Plan: [employer] Policy Number: [id number] Authorization Number: Insurance Primary Name : [employer] Policy Number: [id number] Authorized Service Begin Date-Primary : 11/16/2019 EST Historical Authorization Comments-Primary : No Authorization Comments Found DESTINY KOLB RN-Utilization Review - 11/17/2019 11:20 EST Electronically signed by Alma Delia Ventura Conversion Assistant Professor Of Education Cerner at 02/26/2023 8:58 AM CDT documented in this encounter Plan of Treatment Not on file documented as of this encounter Visit Diagnoses Not on filedocumented in this encounter
--- OUTSIDE RECORDS SUMMARY | 2025-05-31 12:11 | XMS_ITS | Encounter Summary ---
Author Organization [employer] ([place], [place], [place], [place]) Address [address] [place] [address] Care Team Providers Care Light Rail Operator Name Role Phone Unavailable Primary Care Provider Unavailabl e Encounter Details Date Type Department Care Team (Late st Contact Info) Description 11/16/2019 Transcribed Document [facility] [place] [facility] [place] [address] ProviderSimran MD [address], [place] [id number] Social History Tobacco Use Types Packs/Day Years Used Date Smoking Tobacco: Never Assessed Sex and Gender Information Value Date Recorded Sex Assigned at Not on file Legal Sex Male 3:07 PM CDT Gender Identity Not on file Sexual Orientation Not on file documented as of this encounter Miscellaneous Notes * Cerner Conversion Note - Historical ProviderMD - 11/16/2019 11:36 AM STAFFING ANALYST ED Triage Entered On: 11/16/2019 11:48 EST [...] : 2 - Emergent Tracking Group : [facility] ED Sofia Hernandez RN - 11/16/2019 [...] PNED ; Probability: 0 ; Diagnosis Code: [id number] Dizziness Date: 11/16/2019 ; Diagnosis Type: Reason For Visit ; Confirmation: Complaint of ; Clinical Dx: Dizziness ; Classification: Medical ; Clinical Service: Emergency medicine ; Code: PNED ; Probability: 0 ; Diagnosis Code: [id number] ED Height and Weight Height Source : Stated Height Entry Format : [place] Height, Feet : 5 ft(Converted to: 152 cm, 60 Inch) Height, Inches : 10 Inch(Converted to: 0 ft 10 Inch, 25.40 cm) Clinical Height : 177.8 cm Weight Source, ED : Critical estimated dosing weight Weight Entry Format : [place] Weight, Pounds : 170 lb Clinical Dosing Weight : 77.27 kg Body Surface Area (BSA) : 1.95 m2 Body Mass Index : 24.4 kg/m2 (HI) [place] Body Weight (IBW) : 72.02 kg Sofia Hernandez RN - 11/16/2019 11:46 EST Electronically signed by Audrey [facility] Conversion Machine Cloth Measurer Cerner at 02/26/2023 8:57 AM CDT documented in this encounter Plan of Treatment Not on file documented as of this encounter Visit Diagnoses Not on filedocumented in this encounter
--- OUTSIDE RECORDS SUMMARY | 2025-05-31 12:11 | XMS_ITS | Referral Summary ---
Author Organization [employer] ([place], [place], [place], [place]) Address [address] [place] [address] Care Team Providers Care Career Center Advisor Name Role Phone Unavailable Primary Care Provider [...]
--- OUTSIDE RECORDS SUMMARY | 2025-05-31 12:11 | XMS_ITS | Encounter Summary ---
Author Organization [facility] ([place], [place], [place], [place]) Address [address] [place] [address] Care Team Providers Care Railway Switch Operator Name Role Phone Unavailable Primary Care Provider Unavailabl e Encounter Details Date Type Department Care Team (Late st Contact Info) Description 11/17/2019 Transcribed Document [facility] [place] [facility] Medicine [facility] [place] [address] ProviderSimran MD [address] [place] [address] Social History Tobacco Use Types Packs/Day Years Used Date Smoking Tobacco: Never Assessed Sex and Gender Information Value Date Recorded Sex Assigned at Not on file Legal Sex Male 3:07 PM CDT Gender Identity Not on file Sexual Orientation Not on file documented as of this encounter Miscellaneous Notes * Cerner Conversion Note - Historical ProviderMD - 11/17/2019 4:26 PM DAIRY NUTRITIONIST [facility] [place] [address] Visit Date/Time: 11/17/2019 16:26:50 JUAN RIVERO The above patient was seen in the hospital today and needs to be excused from work/school until The patient was admitted to the hospital 11/16/2019 to 11/17/2019 Return to Work/School Date: 11/18/2019 Electronically signed by Audrey [facility] Conversion Retail Support Manager Carol at 02/26/2023 9:01 AM CDT documented in this encounter Plan of Treatment Not on file documented as of this encounter Visit Diagnoses Not on filedocumented in this encounter
--- OUTSIDE RECORDS SUMMARY | 2025-05-31 12:11 | XMS_ITS | Encounter Summary ---
Author Organization [employer] ([place], [place], [place], [place]) Address [address] [place] [address] Care Team Providers Care Fur Cutting Machine Operator Name Role Phone Unavailable Primary Care Provider Unavailabl e Encounter Details Date Type Department Care Team (Late st Contact Info) Description 11/17/2019 Transcribed Document [facility] Radiology [address] [place] [address] Holli Davenport MD [address] [place] [address] Social History Tobacco Use Types Packs/Day Years [...] gated images were done with the polar [employer]. After the Lexiscan injection, the patient was [...] No Lexiscan-induced ischemia demonstrated. Normal ejection fraction. /[id number] MD MICHEL James/HCRISTOPHER / MICHEL / MODL /[id number] documented in this encounter Plan of Treatment Not on file documented as of this encounter Visit Diagnoses Not on filedocumented in this encounter
--- OUTSIDE RECORDS SUMMARY | 2025-05-31 12:11 | XMS_ITS | Encounter Summary ---
Author Organization [employer] ([place], [place], [place], [place]) Address [address] [place] [address] Care Team Providers Care Legal Activity Adjudicator Name Role Phone Unavailable Primary Care Provider Unavailabl e Encounter Details Date Type Department Care Team (Late st Contact Info) Description 11/16/2019 Transcribed Document [facility] [place] [facility] [place] [address] ProviderSimran MD [address] [place] [address] Social History Tobacco Use Types Packs/Day Years Used Date Smoking Tobacco: Never Assessed Sex and Gender Information Value Date Recorded Sex Assigned at Not on file Legal Sex Male 3:07 PM CDT Gender Identity Not on file Sexual Orientation Not on file documented as of this encounter Miscellaneous Notes * Cerner Conversion Note - Historical ProviderMD - 11/16/2019 6:58 PM NEON SIGN WORKER ED Discharge Entered On: 11/16/2019 18:59 EST [...] CLARISSA CRANE RN - 11/16/2019 18:58 EST Electronically signed by Alma Delia Ventura Conversion Special Projects Coordinator Cerner at 02/26/2023 8:59 AM CDT documented in this encounter Plan of Treatment Not on file documented as of this encounter Visit Diagnoses Not on filedocumented in this encounter
--- OUTSIDE RECORDS SUMMARY | 2025-05-31 12:11 | XMS_ITS | Encounter Summary ---
Author Organization [employer] ([place], [place], [place], [place]) Address [address] [place] [address] Care Team Providers Care Senior Property Manager Name Role Phone Unavailable Primary Care Provider Unavailabl e Encounter Details Date Type Department Care Team (Late st Contact Info) Description 11/17/2019 Transcribed Document [facility] [place] [address] [place] [address] ProviderSimran MD [address] [place] [address] Social History Tobacco Use Types Packs/Day Years Used Date Smoking Tobacco: Never Assessed Sex and Gender Information Value Date Recorded Sex Assigned at Not on file Legal Sex Male 3:07 PM CDT Gender Identity Not on file Sexual Orientation Not on file documented as of this encounter Miscellaneous Notes * Cerner Conversion Note - Historical ProviderMD - 11/17/2019 10:02 AM FORM DRAFTER Stroke/Warfarin Instructions Entered On: 11/17/2019 10:02 EST Performed On: 11/17/2019 10:02 EST by Navid Henriquez, Nurse RN Stroke/Warfarin Instructions Stroke/TIA Discharge Ins : N/A Warfarin Discharge Ins : N/A Navid Henriquez, Nurse RN - 11/17/2019 10:02 EST documented in this encounter Plan of Treatment Not on file documented as of this encounter Visit Diagnoses Not on filedocumented in this encounter
--- OUTSIDE RECORDS SUMMARY | 2025-05-31 12:11 | XMS_ITS | Encounter Summary ---
Author Organization [employer] ([place], [place], [place], [place]) Address [address] [place] [address] Care Team Providers Care Licensed Nuclear Control Room Operator Name Role Phone Unavailable Primary Care Provider Unavailabl e Encounter Details Date Type Department Care Team (Late st Contact Info) Description 11/17/2019 Transcribed Document [facility] [place] [facility] [place] [address] ProviderSimran MD [address] [place] [address] Social History Tobacco Use Types Packs/Day Years Used Date Smoking Tobacco: Never Assessed Sex and Gender Information Value Date Recorded Sex Assigned at Not on file Legal Sex Male 3:07 PM CDT Gender Identity Not on file Sexual Orientation Not on file documented as of this encounter Miscellaneous Notes * Cerner Conversion Note - Simran ProviderMD - 11/17/2019 4:18 PM UTILITY TECH [facility] Corey NATHANAEL Webb [id number] JUAN BURNETT :1975 Visit Time:11/16/2019 Your Visit Summary Your [...] When 12/17/2019 08:30 AM EST Where: [address] [facility] [address] [place] [address]- Follow Up with Follow up with specialty services When 11/23/2019 02:00 PM EST Comments [facility] Rm 1 [facility] [place] Where: [address] [place] [phone] Follow Up with Patient Resource Center When [...] you start to feel better. ??? Take rneg-nmr-cxegpmi and prescription medicines only as told by [...] 04/14/2009 Document Revised: 07/21/2017 Document Reviewed: 07/21/2017 [employer] Interactive Patient Education ?? 2019 [employer] Palpitations A palpitation is the feeling [...] plenty of rest and sleep. ??? Take yhve-llh-agdwmex and prescription medicines only as told by [...] 08/05/2009 Document Revised: 04/03/2017 Document Reviewed: 07/11/2016 [employer] Interactive Patient Education ?? 2019 [employer]. Emergency Awareness and Preventative Care STROKE is [...] Assistance with quitting is available by contacting 4-085-FCLC-NOW. This is a free resource providing counseling, [...] range between ( 0.0 and 7.0 ) Borden #: 0.49 K/uL -- Normal range between ( 0.16 and 1.00 ) Eos #: 0.16 x10(3)/uL -- Normal range between ( 0.00 and 0.80 ) Borden %: 11.0 % -- Normal range between [...] Vws: CR Chest 2 Vws Patient Name:JUAN BURNETT I have received and understand this information and was given the opportunity to ask questions. Patient/Personal Computer Specialist Name: Patient/Personal Computer Specialist Signature: Relationship to Patient: Clinician/Hospital Personal Computer Specialist Signature: Date: documented in this encounter Plan of Treatment Not on file documented as of this encounter Visit Diagnoses Not on filedocumented in this encounter
--- OUTSIDE RECORDS SUMMARY | 2025-05-31 12:11 | XMS_ITS | Encounter Summary ---
Author Organization [employer] ([place], [place], [place], [place]) Address [address] [place] [address] Care Team Providers Care Deboning Team Leader Name Role Phone Unavailable Primary Care Provider Unavailabl e Encounter Details Date Type Department Care Team (Late st Contact Info) Description 11/17/[address] [facility] Radiology [address] [place] [address] Holli Lopez MD [address] [place] [address] Social History Tobacco Use Types Packs/Day Years [...] Inpatient Medications Ordered Lovenox: 40 mg, SubCutaneous, [id number] Nitrostat: 0.4 mg, SubLINgual, Q5Min, PRN: Chest Pain Normal Saline Flush: 10 mL, IntraVENous, Q12H Normal Saline Flush: 10 mL, IntraVENous, Q12H, PRN: IV Use Sodium Chloride 0.9% intravenous solution 1,000 mL: 20 mL/Hr, IntraVENous aspirin: 81 mg, Oral, Daily Problem list: All Problems COPD - Chronic obstructive pulmonary disease / SNOMED CT [id number] / Confirmed, Active Problems (1) COPD - [...] 14.5 / 4.5 189 / 42.3 \ [id number] -- 11/16/2019 15:02 CR Chest 2 Vws [...]
--- OUTSIDE RECORDS SUMMARY | 2025-05-31 12:11 | XMS_ITS | Encounter Summary ---
Author Organization [employer] ([place], [place], [place], [place]) Address [address] [place] [address] Care Team Providers Care Small Craft Operator Name Role Phone Unavailable Primary Care Provider Unavailabl e Encounter Details Date Type Department Care Team (Late st Contact Info) Description 11/17/2019 Transcribed Document [facility] [place] [address] [place] [address] ProviderSimran MD [address] [place] [address] Social History Tobacco Use Types Packs/Day Years Used Date Smoking Tobacco: Never Assessed Sex and Gender Information Value Date Recorded Sex Assigned at Not on file Legal Sex Male 3:07 PM CDT Gender Identity Not on file Sexual Orientation Not on file documented as of this encounter Miscellaneous Notes * Cerner Conversion Note - Historical ProviderMD - 11/17/2019 4:52 PM SALES MERCHANDISER Nursing Discharge Summary Entered On: 11/17/2019 16:54 [...] WENDY CAMERON RN - 11/17/2019 16:52 EST Electronically signed by Audrey [facility] Conversion Adobe Architect Cerner at 02/26/2023 9:00 AM CDT documented in this encounter Plan of Treatment Not on file documented as of this encounter Visit Diagnoses Not on filedocumented in this encounter
--- OUTSIDE RECORDS SUMMARY | 2025-05-31 12:11 | XMS_ITS | Encounter Summary ---
Author Organization [employer] ([place], [place], [place], [place]) Address [address] [place] [address] Care Team Providers Care Herbarium Worker Name Role Phone Unavailable Primary Care Provider Unavailabl e Encounter Details Date Type Department Care Team (Late st Contact Info) Description 11/17/2019 Transcribed Document [facility] [place] Family Medicine [address] [place] [address] ProviderSimran MD [address] [place], [place] [address] Social History Tobacco Use Types Packs/Day Years Used Date Smoking Tobacco: Never Assessed Sex and Gender Information Value Date Recorded Sex Assigned at Not on file Legal Sex Male 3:07 PM CDT Gender Identity Not on file Sexual Orientation Not on file documented as of this encounter Miscellaneous Notes * Cerner Conversion Note - Historical ProviderMD - 11/17/2019 1:09 PM CUFF TURNER UM Authorization Entered On: 11/17/2019 13:09 EST Performed On: 11/17/2019 13:09 EST by DESTINY KOLB RN-Utilization Review Primary Insurance Authorization Authorization and Policy Numbers : Insurance 1 [facility] Policy Number: [id number] Authorization Number: Insurance Primary Name : [facility] Policy Number: [id number] Authorized Service Begin Date-Primary : 11/16/2019 EST Historical Authorization Comments-Primary : No Authorization Comments Found DESTINY KOLB RN-Utilization Review - 11/17/2019 13:09 EST Electronically signed by Alma Delia Ventura Conversion Textile Machinery Instructor Cerner at 02/26/2023 9:04 AM CDT documented in this encounter Plan of Treatment Not on file documented as of this encounter Visit Diagnoses Not on filedocumented in this encounter
--- OUTSIDE RECORDS SUMMARY | 2025-05-31 12:11 | XMS_ITS | Encounter Summary ---
Author Organization [employer] ([place], [place], [place], [place]) Address [address] [place] [address] Care Team Providers Care Vessel Operator Name Role Phone Unavailable Primary Care Provider Unavailabl e Encounter Details Date Type Department Care Team (Late st Contact Info) Description 11/17/2019 Transcribed Document [facility] [place] Family Medicine [facility] [place] [address] ProviderSimran MD [address] [place], [place] [id number] Social History Tobacco Use Types Packs/Day Years Used Date Smoking Tobacco: Never Assessed Sex and Gender Information Value Date Recorded Sex Assigned at Not on file Legal Sex Male 3:07 PM CDT Gender Identity Not on file Sexual Orientation Not on file documented as of this encounter Miscellaneous Notes * Cerner Conversion Note - Historical ProviderMD - 11/17/2019 10:10 AM PRINTING PLATE SETTER Initial Discharge Planning Entered On: 11/17/2019 10:12 [...] Documentation Status Complete : Yes JEWEL BULLOCK Manager-Care Management - 11/17/2019 10:10 EST Discharge Needs II Professional Skilled Services : Professional Skilled Services No qualifying data available. Needs Assistance with Transportation : No JEWEL BULLOCK Manager-Care Manohar - 11/17/2019 10:10 EST Narrative Note Narrative [...]
--- OUTSIDE RECORDS SUMMARY | 2025-05-31 12:11 | XMS_ITS | Encounter Summary ---
Author Organization [employer] ([place], [place], [place], [place]) Address [address] [place] [address] Care Team Providers Care Deputy Controller Name Role Phone Unavailable Primary Care Provider Unavailabl e Encounter Details Date Type Department Care Team (Late st Contact Info) Description 11/16/2019 Transcribed Document [facility] [place] Family Medicine [facility] [address] ProviderSimran MD [address] [place], [place] [address] Social History Tobacco Use Types Packs/Day Years Used Date Smoking Tobacco: Never Assessed Sex and Gender Information Value Date Recorded Sex Assigned at Not on file Legal Sex Male 3:07 PM CDT Gender Identity Not on file Sexual Orientation Not on file documented as of this encounter Miscellaneous Notes * Cerner Conversion Note - Simrna ProviderMD - 11/16/2019 11:37 PM HEALTH POLICY NURSE Patient: JUAN BURNETT Age: 44 Years Sex: [...] normal EKG and normal troponin. -Rule out GA with serial cardiac enzymes - HR/BP control [...] - Medical Enoxaparin 40 mg, SubCutaneous, Inj, [id number], Routine, Start 11/16/19 18:00:00 EST ([facility] BAUER) [...] # 0.97 x10(3)/uL (Low) 11/16/2019 11:50 EST [place] % 8.5 % 11/16/2019 11:50 EST [place] # 0.41 K/uL 11/16/2019 11:50 EST Eos [...] 11/16/19 17:27:00 EST, Full Code, Continuous Order documented in this encounter Plan of Treatment Not on file documented as of this encounter Visit Diagnoses Not on filedocumented in this encounter
--- OUTSIDE RECORDS SUMMARY | 2025-05-31 12:11 | XMS_ITS | Encounter Summary ---
Author Organization [employer] ([place], [place], [place], [place]) Address [address] [place] [address] Care Team Providers Care Medical Imaging Director Name Role Phone Unavailable Primary Care Provider Unavailabl e Encounter Details Date Type Department Care Team (Late st Contact Info) Description 11/16/2019 Transcribed Document [facility] Radiology [address] [place] [address] Holli Lopez MD [address] [place] [address] Social History Tobacco Use Types Packs/Day Years [...] Associated Diagnoses: None Author: HOLLI LOPEZ MD-CAR Basic Information Door To Door Salesperson: Gracie (New patient on 11/11/2019) Chief Complaint Chest pain History of Present Illness 44 year old male with history of COPD with tobacco abuse and anxiety has been having persistent intermittent chest pains with palpitations, shortness of breath and fatigue since [place]. He has been woken up at night [...] Active COPD - Chronic obstructive pulmonary disease ([id number]) Family History: Hypertension Father CHF - Congestive heart failure Father Procedure history: APPENDECTOMY (01269). Knee surgery. Vasectomy. Physical Examination VS/Measurements No [...] 45.3 \ Radiology Results (Last 48 hours) [id number] -- 11/16/2019 11:36 CR Chest 2 Vws [...]
--- OUTSIDE RECORDS SUMMARY | 2025-05-31 12:11 | XMS_ITS | Encounter Summary ---
Author Organization [employer] ([place], [place], [place], [place]) Address [address] [place] [address] Care Team Providers Care Night Assistant Name Role Phone Unavailable Primary Care Provider Unavailabl e Encounter Details Date Type Department Care Team (Late st Contact Info) Description 11/17/2019 Transcribed Document [facility] [facility] [place] [address] ProviderSimran MD [address] [place], [place] [id number] Social History Tobacco Use Types Packs/Day Years Used Date Smoking Tobacco: Never Assessed Sex and Gender Information Value Date Recorded Sex Assigned at Not on file Legal Sex Male 3:07 PM CDT Gender Identity Not on file Sexual Orientation Not on file documented as of this encounter Miscellaneous Notes * Cerner Conversion Note - Historical ProviderMD - 11/17/2019 10:02 AM CLOSET ORGANIZER Nursing Discharge Summary Entered On: 11/17/2019 10:02 EST Performed On: 11/17/2019 10:02 EST by Navid Henriquez Nurse supervisor advice Documentation Discharge Date/Time : 11/17/2019 16:35 EST [...] - 11/17/2019 10:02 EST Electronically signed by Herbert Ventura Conversion Production Operations Manager Cerner at 02/26/2023 8:58 AM CDT documented in this encounter Plan of Treatment Not on file documented as of this encounter Visit Diagnoses Not on filedocumented in this encounter
--- OUTSIDE RECORDS SUMMARY | 2025-05-31 12:11 | XMS_ITS | Clinical Summary ---
Author Organization [facility] Address [address] [place] [address] Care Team Providers Care Undergraduate Advisor Name Role Phone Provider, No Known Primary Care Provider Unavail able Allergies Active Allergy Reactions Criticality Noted Date Comments Adhesive Tape 03/03/2017 Electrode Adhesive Contrast Dye (Echo Or Unknown Ct/Mr) 03/03/2017 NUCLEAR DYE FOR BONE SCAN Medications omeprazole (PRILOSEC) 40 MG capsule Take 1 capsule by mouth Daily. 30 capsule 03/05/2017 Active Active Problems Problem Noted Date Diagnosed Date Atypical chest pain 03/03/2017 Overview (03/03/2017): in remission. His stress test today was normal. The only diagnosis that could remain would be if he had a paroxysmal supraventricular arrhythmia. He walked 12 minutes and had no ischemic changes. His echocardiogram is normal. His EKG is normal 01/13/14 Social History Tobacco Use Types Packs/Day Years Used Date Smoking Tobacco: Former Cigarettes 1.5 15 1 3 - 2007 Smokeless Tobacco: Current Snuff Alcohol Use Standard Drinks/Week Comments Yes 0 (1 standard drink = 0.6 oz pur e alcohol) socially Abuse Screen Answer Date Recorded Unsafe at Home or Work/School Not on file Feels Threatened by Someone? Not on file 08/2023 Does Anyone Keep You from Co ntacting Others or Doint Things Outside the Home? Not on file 08/19/2023 Physical Sign of Abuse Present Not on file 1 Housing Stability Answer Date Recorded Current Living Arrangements Not on file 08/10 Potentially Unsafe Housing Conditions Not on glenny e 08/19/2023 Family and Community Support Answer Faheem e Recorded Help with Day-to-Day Activities Not on file 08/19/2023 Lonely or Isolated Not on file 08/19/2023 Employment Answer Date Recorded Do you want help finding or keeping work or a kane b? Not on file 08/19/2023 Disabilities Answer Date Recorded Concentrating, Remembering, or Making Decisions Difficulty Not on file 08/19/2023 Doing Errands Independently Difficulty Not on fi le 08/19/2023 Education Answer Date Recorded Help with school or training? Not on file Preferred Language Not on file 08/19/2023 Sex and Gender Information Value Date Recorded Sex Assigned at Not on file Legal Sex Male 1:38 PM EDT Gender Identity Not on file Sexual Orientation Not on file Last Filed Vital Signs Vital Sign Reading Time Taken Comments Blood Pressure 110/81 03/05/2017 6:15 PM EDT POST AMBULATION Pulse 74 03/05/2017 6:15 PM EDT Temperature 36 C (96.8 F) 03/05/2017 7:15 AM EDT Respiratory Rate 20 03/05/2017 4:28 PM EDT Oxygen Saturation 95% 03/05/2017 6:1 5 PM EDT Inhaled Oxygen Concentration - - Weight 80.6 kg (177 lb 11.1 oz) 03/05/2017 7:15 AM EDT Height 177.8 cm (5' 10 ) 03/05/2017 7:1 5 AM EDT Body Mass Index 25.5 03/05/2017 7:15 AM EDT Plan of Treatment Health Maintenance Due Date Last Done Comments TDAP/TD VACCINES (1 - Tdap) 1995 ANNUAL PHYSICAL 03/03/2017 HEPATITIS C SCREENING 03/03/2017 COLOGUARD 2021 COLON CANCER SCREENING 5 YEA R SIGMOIDOSCOPY 2021 COLONOSCOPY 2021 COLORECTAL CANCER SCREENING 2021 CT COLONOGRAPHY 2021 FECAL OCCULT BLOOD TEST 2021 FIT Testing (1 year) 2021 COVID-19 Vaccine ( - 2023-2 5 season) 2024 INFLUENZA VACCINE 08/10/2025 Pneumococcal Vaccine 0-49 Aged Out No longer eligible based on patient's age to complete this topic Insurance [facility] PPO Care Teams Undergraduate Advisor Relationship Specialty Start Date End Date Provider, No Known [facility] [place] [address] PCP - General 03/04/17
--- OUTSIDE RECORDS SUMMARY | 2025-05-31 12:11 | XMS_ITS | Encounter Summary ---
Author Organization [employer] ([place], [place], [place], [place]) Address [address] [place] [address] Care Team Providers Care Awning Hanger Helper Name Role Phone Unavailable Primary Care Provider Unavailabl e Encounter Details Date Type Department Care Team (Late st Contact Info) Description 11/16/2019 Transcribed Document [facility] Family Medicine [facility] [address] ProviderSimran MD [address] [place], [place] [address] Social History Tobacco Use Types Packs/Day Years Used Date Smoking Tobacco: Never Assessed Sex and Gender Information Value Date Recorded Sex Assigned at Not on file Legal Sex Male 3:07 PM CDT Gender Identity Not on file Sexual Orientation Not on file documented as of this encounter Miscellaneous Notes * Cerner Conversion Note - Historical ProviderMD - 11/16/2019 1:43 PM STENOTYPIST Patient: JUAN BURNETT Age: 44 years Sex: [...] EST Height Source Stated Height Entry Format [place] Height/Length, ECUADOREAN (ft) 5 ft Height/Length ECUADOREAN 10 Inch CLINICALHEIGHT 177.8 cm Ramona Body Weight 72.02 kg Weight Source, ED Critical estimated dosing weight Weight Entry Format [place] Weight [place] Citizen lb 170 lb CLINICALWEIGHT 77.27 kg Body [...] Assessment: ED C-SSRS: ED Clinical Reconciliation: ED clerk analyst: EKG: EKG: Pulse Oximetry Continuous Monitoring: Saline [...] rhythm, No ST changes, no ectopy, normal [place] & QRS intervals, EP Interp. traffic monitor specialist: Normal sinus rhythm. Results review: All Results [...] 20.1 % Lymph # 0.97 x10(3)/uL LOW [place]oshone % 8.5 % [place]oshone # 0.41 K/uL Eos % 1.0 % Eos # 0.05 x10(3)/uL Baso % 0.8 % Baso # 0.04 x10(3)/uL Slide Review No IG# 0.01 x10(3)/uL IG% 0.20 % . Radiology results: Radiology Results (Last 48 hours) [id number] -- 11/16/2019 11:36 CR Chest 2 Vws [...] - 11/16/2019 14:45:00 , Dr. Davenport with [facility], recommends Admit for observation to hospitalist., CTA chest pending and 2nd troponin pending. Cardiology and Dr. Betancourt aware.. Plan Condition: Stable. Orders: Launch Orders Admit/Transfer/Discharge: Place in Observation (Order): Start: 11/16/2019 15:02 EST, Observation Reason: chest pain, palpitations, soa, Unit type: Med-Surg with telemetry, Admitting: [facility] BETANCOURT MD. Notes: I certify that the MLP/PRESCHOOL TEACHER'S ASSISTANT performed the services as delegated. . Electronically signed by [facility] Conversion Slice Cutting Machine Operator Cerner at 02/26/2023 9:01 AM CDT documented in this encounter Plan of Treatment Not on file documented as of this encounter Visit Diagnoses Not on filedocumented in this encounter
--- OUTSIDE RECORDS SUMMARY | 2025-05-31 12:11 | XMS_ITS | Clinical Summary ---
Author Organization [facility] Address [address] [place] [address] Phone Care Team Providers Care Brick Loader Name Role Phone Unavailable Primary Care Provider [...] - 2023-2 5 season) 2024 Influenza Vaccine (#1) 2025 Meningococcal B Vaccine Aged Out No l onger eligible based on patient's age to complete this topic Insurance [employer] PPO JESSICA PPO Advance Directives For more information, please contact: [phone] * Full Code (Latest Code Status on File) Date Activated Date Inactivated Comments 03/30/2022 4:01 PM 03/31/2022 5:23 PM
[2025-06-01 10:13] LABS: Antinuclear Antibodies, IFA Negative (.)
== END 2025-05-30 23:59 | disposition home or self-care (01) ==
LOC: LAB.DROPOF 05-31 12:09
PROVIDERS: PCP Nurse Practitioner Family; Visit Provider Nurse Practitioner Family
DX: G89.29 Other chronic pain (principal); R20.0 Anesthesia of skin; R51.9 Headache, unspecified; R41.89 Other symptoms and signs involving cognitive functions and awareness; R53.83 Other fatigue; R79.89 Other specified abnormal findings of blood chemistry; G62.9 Polyneuropathy, unspecified; I10 Essential (primary) hypertension; E04.1 Nontoxic single thyroid nodule; F41.1 Generalized anxiety disorder; E55.9 Vitamin D deficiency, unspecified; G47.00 Insomnia, unspecified; K21.9 Gastro-esophageal reflux disease without esophagitis; J34.89 Other specified disorders of nose and nasal sinuses; H92.02 Otalgia, left ear; Z13.220 Encounter for screening for lipoid disorders; Z11.4 Encounter for screening for human immunodeficiency virus [HIV]; N52.9 Male erectile dysfunction, unspecified; N40.0 Benign prostatic hyperplasia without lower urinary tract symptoms; E29.1 Testicular hypofunction; R41.3 Other amnesia; E11.9 Type 2 diabetes mellitus without complications
CPT/HCPCS: 80053; 80061; 81001; 82306; 82607; 82728; 82746; 83036; 83520; 83540; 83550; 83735; 84100; 84156; 84436; 84443; 84445; 84479; 84550; 85025; 85651; 86038; 86140; 86225; 86235; 86376; 86431; 86800; 86803; 87086; 87389

== ENCOUNTER 2025-07-04 12:04 | Outpatient (CLI) | payer OTHER, SELFPAY ==
[2025-07-04 15:00] LABS: Cholesterol 167 mg/dl (140-200); HDL Cholesterol 65 mg/dl (40-60); Triglycerides 107 mg/dl (30-150)
[2025-07-04 15:50] LABS: Vitamin B12 310 pg/mL (239-931)
--- OUTSIDE RECORDS SUMMARY | 2025-07-06 12:06 | XMS_ITS | Encounter Summary ---
Author Organization [employer] ([place], [place], [place], [place]) Address [address] [place] [address] Care Team Providers Care Delphi Developer Name Role Phone Unavailable Primary Care Provider Unavailabl e Encounter Details Date Type Department Care Team (Late st Contact Info) Description 11/17/2019 Transcribed Document [facility] Family Medicine [address] [place] [address] ProviderSimran MD [address] [place], [place] [id number] Social History Tobacco Use Types Packs/Day Years Used Date Smoking Tobacco: Never Assessed Sex and Gender Information Value Date Recorded Sex Assigned at Not on file Legal Sex Male 3:07 PM CDT Gender Identity Not on file Sexual Orientation Not on file documented as of this encounter Miscellaneous Notes * Cerner Conversion Note - Simran ProviderMD - 11/17/2019 10:00 AM PRESCHOOL LEAD TEACHER Patient Education Materials Follows:Medicine Palpitations A palpitation [...] plenty of rest and sleep. ??? Take ullp-dcq-enaedlj and prescription medicines only as told by [...] 08/05/2009 Document Revised: 04/03/2017 Document Reviewed: 07/11/2016 [employer] Interactive Patient Education ? 2019 [employer] Gastroenterology Nonspecific Chest Pain Chest pain [...] you start to feel better. ??? Take qyog-qjo-nxgocbl and prescription medicines only as told by [...] 04/14/2009 Document Revised: 07/21/2017 Document Reviewed: 07/21/2017 [employer] Interactive Patient Education ? 2019 [employer] documented in this encounter Plan of Treatment Not on file documented as of this encounter Visit Diagnoses Not on filedocumented in this encounter
--- OUTSIDE RECORDS SUMMARY | 2025-07-06 12:06 | XMS_ITS | Encounter Summary ---
Author Organization [employer] ([place], [place], [place], [place]) Address [address] [place] [address] Care Team Providers Care Test Technician Name Role Phone Unavailable Primary Care Provider Unavailabl e Encounter Details Date Type Department Care Team (Late st Contact Info) Description 11/17/2019 Transcribed Document [facility] Family Medicine [address] [place] [address] ProviderSimran MD [address] [place], [place] [address] Social History Tobacco Use Types Packs/Day Years Used Date Smoking Tobacco: Never Assessed Sex and Gender Information Value Date Recorded Sex Assigned at Not on file Legal Sex Male 3:07 PM CDT Gender Identity Not on file Sexual Orientation Not on file documented as of this encounter Miscellaneous Notes * Cerner Conversion Note - Historical ProviderMD - 11/17/2019 11:20 AM TRAY DELIVERY AIDE UM Authorization Entered On: 11/17/2019 11:21 EST Performed On: 11/17/2019 11:20 EST by DESTINY KOLB RN-Utilization Review Primary Insurance Authorization Authorization and Policy Numbers : Insurance 1 Health Plan: [employer] Policy Number: [id number] Authorization Number: Insurance Primary Name : [employer] Policy Number: [id number] Authorized Service Begin Date-Primary : 11/16/2019 EST Historical Authorization Comments-Primary : No Authorization Comments Found DESTINY KOLB RN-Utilization Review - 11/17/2019 11:20 EST documented in this encounter Plan of Treatment Not on file documented as of this encounter Visit Diagnoses Not on filedocumented in this encounter
--- OUTSIDE RECORDS SUMMARY | 2025-07-06 12:06 | XMS_ITS | Encounter Summary ---
Author Organization [employer] ([place], [place], [place], [place]) Address [address] [place] [address] Care Team Providers Care Asset Analyst Name Role Phone Unavailable Primary Care Provider Unavailabl e Encounter Details Date Type Department Care Team (Late st Contact Info) Description 11/17/2019 Transcribed Document [facility] [place] Family Medicine [facility] [place] [address] ProviderSimran MD [address] [place], [place] [id number] Social History Tobacco Use Types Packs/Day Years Used Date Smoking Tobacco: Never Assessed Sex and Gender Information Value Date Recorded Sex Assigned at Not on file Legal Sex Male 3:07 PM CDT Gender Identity Not on file Sexual Orientation Not on file documented as of this encounter Miscellaneous Notes * Cerner Conversion Note - Historical ProviderMD - 11/17/2019 10:02 AM DIRECTOR OF GRADUATE MEDICAL EDUCATION Nursing Discharge Summary Entered On: 11/17/2019 10:02 EST Performed On: 11/17/2019 10:02 EST by Navid Henriquez Nurse aircraft engineer Documentation Discharge Date/Time : 11/17/2019 16:35 EST [...]
--- OUTSIDE RECORDS SUMMARY | 2025-07-06 12:06 | XMS_ITS | Encounter Summary ---
Author Organization [employer] ([place], [place], [place], [place]) Address [address] [place] [address] Care Team Providers Care Exercise Scientist Name Role Phone Unavailable Primary Care Provider Unavailabl e Encounter Details Date Type Department Care Team (Late st Contact Info) Description 11/17/2019 Transcribed Document [facility] Radiology [address] [place] [address] Holli Davenport MD [address] [place] [address] Social History Tobacco Use Types Packs/Day Years [...] gated images were done with the polar Sustain360. After the Lexiscan injection, the patient was [...] No Lexiscan-induced ischemia demonstrated. Normal ejection fraction. /[id number] MD MICHEL James/CHRISTOPHER / MICHEL / MODL /[id number] documented in this encounter Plan of Treatment Not on file documented as of this encounter Visit Diagnoses Not on filedocumented in this encounter
--- OUTSIDE RECORDS SUMMARY | 2025-07-06 12:06 | XMS_ITS | Encounter Summary ---
Author Organization [employer] ([place], [place], [place], [place]) Address [address] [place] [address] Care Team Providers Care Multifocal Button Inspector Name Role Phone Unavailable Primary Care Provider Unavailabl e Encounter Details Date Type Department Care Team (Late st Contact Info) Description 11/17/2019 Transcribed Document [facility] [place] [address] ProviderSimran MD [address] [place], [place] [address] Social History Tobacco Use Types Packs/Day Years Used Date Smoking Tobacco: Never Assessed Sex and Gender Information Value Date Recorded Sex Assigned at Not on file Legal Sex Male 3:07 PM CDT Gender Identity Not on file Sexual Orientation Not on file documented as of this encounter Miscellaneous Notes * Cerner Conversion Note - Historical ProviderMD - 11/17/2019 10:10 AM OFFICER LIEUTENANT Initial Discharge Planning Entered On: 11/17/2019 10:12 [...]
--- OUTSIDE RECORDS SUMMARY | 2025-07-06 12:06 | XMS_ITS | Encounter Summary ---
Author Organization [employer] ([place], [place], [place], [place]) Address [address] [place] [address] Care Team Providers Care Senior Mobile Web Developer Name Role Phone Unavailable Primary Care Provider Unavailabl e Encounter Details Date Type Department Care Team (Late st Contact Info) Description 11/17/2019 Transcribed Document [facility] Family Medicine [address] [place] [address] ProviderSimran MD [address] [place] [address] Social History Tobacco Use Types Packs/Day Years Used Date Smoking Tobacco: Never Assessed Sex and Gender Information Value Date Recorded Sex Assigned at Not on file Legal Sex Male 3:07 PM CDT Gender Identity Not on file Sexual Orientation Not on file documented as of this encounter Miscellaneous Notes * Cerner Conversion Note - Historical ProviderMD - 11/17/2019 10:02 AM HOUSE FURNISHINGS SUPERVISOR Stroke/Warfarin Instructions Entered On: 11/17/2019 10:02 EST [...]
--- OUTSIDE RECORDS SUMMARY | 2025-07-06 12:06 | XMS_ITS | Encounter Summary ---
Author Organization [employer] ([place], [place], [place], [place]) Address [address] [place] [address] Care Team Providers Care Consumer Loan Manager Name Role Phone Unavailable Primary Care Provider Unavailabl e Encounter Details Date Type Department Care Team (Late st Contact Info) Description 11/17/2019 Transcribed Document [facility] Radiology [address] [place] [address] Nette Nayak MD [address] [place] [address] Social History Tobacco Use Types Packs/Day [...] 2. GERD 3. Smoker 4. Anxiety Consultation mailroom associate Procedures Lexiscan stress test Echocardiogram Disposition [...]
--- OUTSIDE RECORDS SUMMARY | 2025-07-06 12:06 | XMS_ITS | Encounter Summary ---
Author Organization [employer] ([place], [place], [place], [place]) Address [address] [place] [address] Care Team Providers Care Washhouse Hand Name Role Phone Unavailable Primary Care Provider Unavailabl e Encounter Details Date Type Department Care Team (Late st Contact Info) Description 11/17/2019 Transcribed Document [facility] [place] [address] [place] [address] ProviderSimran MD [address] [place] [address] Social History Tobacco Use Types Packs/Day Years Used Date Smoking Tobacco: Never Assessed Sex and Gender Information Value Date Recorded Sex Assigned at Not on file Legal Sex Male 3:07 PM CDT Gender Identity Not on file Sexual Orientation Not on file documented as of this encounter Miscellaneous Notes * Cerner Conversion Note - Historical ProviderMD - 11/17/2019 4:52 PM CATERING AND EVENTS MANAGER Nursing Discharge Summary Entered On: 11/17/2019 16:54 [...] 11/17/2019 16:52 EST Electronically signed by Audrey [facility] Conversion Grocery Stock Clerk Cerner at 02/26/2023 9:00 AM CDT documented in this encounter Plan of Treatment Not on file documented as of this encounter Visit Diagnoses Not on filedocumented in this encounter
--- OUTSIDE RECORDS SUMMARY | 2025-07-06 12:06 | XMS_ITS | Encounter Summary ---
Author Organization [employer] ([place], [place], [place], [place]) Address [address] [place] [address] Care Team Providers Care Bosom Presser Name Role Phone Unavailable Primary Care Provider Unavailabl e Encounter Details Date Type Department Care Team (Late st Contact Info) Description 11/17/[address] [facility] [place] Family Medicine [facility] [place] [address] ProviderSimran MD [address] [place] [address] Social History Tobacco Use Types Packs/Day Years Used Date Smoking Tobacco: Never Assessed Sex and Gender Information Value Date Recorded Sex Assigned at Not on file Legal Sex Male 3:07 PM CDT Gender Identity Not on file Sexual Orientation Not on file documented as of this encounter Miscellaneous Notes * Cerner Conversion Note - Historical ProviderMD - 11/17/2019 4:26 PM LEATHER SOFTENER [facility] Webb [place] [address] Visit Date/Time: 11/17/2019 16:26:50 JUAN RIVERO The above patient was seen in the hospital today and needs to be excused from work/school until The patient was admitted to the hospital 11/16/2019 to 11/17/2019 Return to Work/School Date: 11/18/2019 Electronically signed by Audrey [facility] Conversion Aeronautical Products Sales Engineer Carol at 02/26/2023 9:01 AM CDT documented in this encounter Plan of Treatment Not on file documented as of this encounter Visit Diagnoses Not on filedocumented in this encounter
--- OUTSIDE RECORDS SUMMARY | 2025-07-06 12:06 | XMS_ITS | Clinical Summary ---
Author Organization [employer] ([place], [place], [place], [place]) Address [address] [place] [address] Care Team Providers Care General Machine Operator Name Role Phone Unavailable Primary [...]
--- OUTSIDE RECORDS SUMMARY | 2025-07-06 12:06 | XMS_ITS | Encounter Summary ---
Author Organization [employer] ([place], [place], [place], [place]) Address [address] [place] [address] Care Team Providers Care Deputy Director Of Finance Name Role Phone Unavailable Primary Care Provider Unavailabl e Encounter Details Date Type Department Care Team (Late st Contact Info) Description 11/17/2019 Transcribed Document [facility] [place] [facility] [place] [address] ProviderSimran MD [address] [place] [address] Social History Tobacco Use Types Packs/Day Years Used Date Smoking Tobacco: Never Assessed Sex and Gender Information Value Date Recorded Sex Assigned at Not on file Legal Sex Male 3:07 PM CDT Gender Identity Not on file Sexual Orientation Not on file documented as of this encounter Miscellaneous Notes * Cerner Conversion Note - Simran ProviderMD - 11/17/2019 4:18 PM CYBER CRIME INVESTIGATOR [facility] Corey NATHANAEL Webb [id number] JUAN BURNETT :1975 Visit Time:11/16/2019 Your Visit [...] When 12/17/2019 08:30 AM EST Where: [address] [facility] [address] [place] [address]- Follow Up with Follow up with specialty services When 11/23/2019 02:00 PM EST Comments [facility] Rm 1 [facility] [place] Where: [address] [place] [address] [phone] Follow Up with Patient Resource Center When [...] you start to feel better. ??? Take dugu-bac-epkkyac and prescription medicines only as told by [...] 04/14/2009 Document Revised: 07/21/2017 Document Reviewed: 07/21/2017 [employer] Patient Education ?? 2019 [employer] Palpitations A palpitation is the feeling [...] plenty of rest and sleep. ??? Take azwg-vdt-uvfrohv and prescription medicines only as told by [...] 08/05/2009 Document Revised: 04/03/2017 Document Reviewed: 07/11/2016 [employer] Patient Education ?? 2019 [email or web address]. Emergency Awareness and Preventative Care STROKE is [...] Assistance with quitting is available by contacting 0-980-TMMR-NOW. This is a free resource providing counseling, [...] range between ( 0.0 and 7.0 ) [place] #: 0.49 K/uL -- Normal range between ( 0.16 and 1.00 ) Eos #: 0.16 x10(3)/uL -- Normal range between ( 0.00 and 0.80 ) [place] %: 11.0 % -- Normal range between [...] was given the opportunity to ask questions. Patient/Auto Cleaner Name: Patient/Auto Cleaner Signature: Relationship to Patient: Clinician/Hospital Auto Cleaner Signature: Date: documented in this encounter Plan of Treatment Not on file documented as of this encounter Visit Diagnoses Not on filedocumented in this encounter
--- OUTSIDE RECORDS SUMMARY | 2025-07-06 12:06 | XMS_ITS | Encounter Summary ---
Author Organization [employer] ([place], [place], [place], [place]) Address [address] [place] [address] Care Team Providers Care Deputy Of Counter Intelligence Name Role Phone Unavailable Primary Care Provider Unavailabl e Encounter Details Date Type Department Care Team (Late st Contact Info) Description 11/17/2019 Transcribed Document [facility] [place] Family Medicine [address] [place] [address] ProviderSimran MD [address] [place] [address] Social History Tobacco Use Types Packs/Day Years Used Date Smoking Tobacco: Never Assessed Sex and Gender Information Value Date Recorded Sex Assigned at Not on file Legal Sex Male 3:07 PM CDT Gender Identity Not on file Sexual Orientation Not on file documented as of this encounter Miscellaneous Notes * Cerner Conversion Note - Historical ProviderMD - 11/17/2019 11:22 AM RESIDENTIAL CARPENTER Spiritual Care Short Form Entered On: 11/17/2019 11:44 EST Performed On: 11/17/2019 11:22 EST by DAVID OJEDA General Information, Spiritual Care Spiritual Care Referred by : Special Shopper initiated Reason for Visit : Initial Ministry Provided to : Patient, Family/Significant other Intervention/Comment/Summary Points : Initial Spiritual Care visit by volunteer, Darrin Garcia. DAVID OJEDA - 11/17/2019 11:44 EST documented in this encounter Plan of Treatment Not on file documented as of this encounter Visit Diagnoses Not on filedocumented in this encounter
--- OUTSIDE RECORDS SUMMARY | 2025-07-06 12:06 | XMS_ITS | Encounter Summary ---
Author Organization [employer] ([place], [place], [place], [place]) Address [address] [place] [address] Care Team Providers Care Light Adjuster Name Role Phone Unavailable Primary Care Provider Unavailabl e Encounter Details Date Type Department Care Team (Late st Contact Info) Description 11/17/2019 Transcribed Document [facility] [place] [address] [place] [address] ProviderSimran MD [address] [place], [place] [address] Social History Tobacco Use Types Packs/Day Years Used Date Smoking Tobacco: Never Assessed Sex and Gender Information Value Date Recorded Sex Assigned at Not on file Legal Sex Male 3:07 PM CDT Gender Identity Not on file Sexual Orientation Not on file documented as of this encounter Miscellaneous Notes * Cerner Conversion Note - Historical ProviderMD - 11/17/2019 1:09 PM MILL FEEDER UM Authorization Entered On: 11/17/2019 13:09 EST Performed On: 11/17/2019 13:09 EST by DESTINY KOLB RN-Utilization Review Primary Insurance Authorization Authorization and Policy Numbers : Insurance 1 Health [facility] Policy Number: [id number] Authorization Number: Insurance Primary Name : [facility] Policy Number: [id number] Authorized Service Begin Date-Primary : 11/16/2019 EST Historical Authorization Comments-Primary : No Authorization Comments Found DESTINY KOLB RN-Utilization Review - 11/17/2019 13:09 EST documented in this encounter Plan of Treatment Not on file documented as of this encounter Visit Diagnoses Not on filedocumented in this encounter
--- OUTSIDE RECORDS SUMMARY | 2025-07-06 12:06 | XMS_ITS | Encounter Summary ---
Author Organization [employer] ([place], [place], [place], [place]) Address [address] [place] [address] Care Team Providers Care Bruise Trimmer Name Role Phone Unavailable Primary Care Provider Unavailabl e Encounter Details Date Type Department Care Team (Late st Contact Info) Description 11/17/2019 Transcribed Document [facility] Radiology [address] [place] [address] Holli Lopez MD [address] [place] [address] Social History Tobacco Use Types Packs/Day Years [...] Inpatient Medications Ordered Lovenox: 40 mg, SubCutaneous, [id number] Nitrostat: 0.4 mg, SubLINgual, Q5Min, PRN: Chest Pain Normal Saline Flush: 10 mL, IntraVENous, Q12H Normal Saline Flush: 10 mL, IntraVENous, Q12H, PRN: IV Use Sodium Chloride 0.9% intravenous solution 1,000 mL: 20 mL/Hr, IntraVENous aspirin: 81 mg, Oral, Daily Problem list: All Problems COPD - Chronic obstructive pulmonary disease / SNOMED CT [id number] / Confirmed, Active Problems (1) COPD - [...] 14.5 / 4.5 189 / 42.3 \ [id number] -- 11/16/2019 15:02 CR Chest 2 Vws [...]
--- OUTSIDE RECORDS SUMMARY | 2025-07-06 12:07 | XMS_ITS | Encounter Summary ---
Author Organization [employer] ([place], [place], [place], [place]) Address [address] [place] [address] Care Team Providers Care Lubrication Supervisor Name Role Phone Unavailable Primary Care Provider Unavailabl e Encounter Details Date Type Department Care Team (Late st Contact Info) Description 11/16/2019 Transcribed Document [facility] [place] Medicine [facility] [place] [address] ProviderSimran MD [address] [place], [place] [address] Social History Tobacco Use Types Packs/Day Years Used Date Smoking Tobacco: Never Assessed Sex and Gender Information Value Date Recorded Sex Assigned at Not on file Legal Sex Male 3:07 PM CDT Gender Identity Not on file Sexual Orientation Not on file documented as of this encounter Miscellaneous Notes * Cerner Conversion Note - Historical ProviderMD - 11/16/2019 1:43 PM SLABBER LIGHT Patient: JUAN BURNETT Age: 44 years Sex: [...] EST Height Source Stated Height Entry Format [place] Height/Length, SERBIAN (ft) 5 ft Height/Length SERBIAN 10 Inch CLINICALHEIGHT 177.8 cm [place] Body Weight 72.02 kg Weight Source, ED Critical estimated dosing weight Weight Entry Format [place] Weight Somali lb 170 lb CLINICALWEIGHT 77.27 kg Body [...] Assessment: ED C-SSRS: ED Clinical Reconciliation: ED lace roller operator: EKG: EKG: Pulse Oximetry Continuous Monitoring: Saline [...] rhythm, No ST changes, no ectopy, normal NV & QRS intervals, EP Interp. groundwater monitoring technician: Normal sinus rhythm. Results review: All Results [...] 20.1 % Lymph # 0.97 x10(3)/uL LOW [place] % 8.5 % [place] # 0.41 K/uL Eos % 1.0 % Eos # 0.05 x10(3)/uL Baso % 0.8 % Baso # 0.04 x10(3)/uL Slide Review No IG# 0.01 x10(3)/uL IG% 0.20 % . Radiology results: Radiology Results (Last 48 hours) [id number] -- 11/16/2019 11:36 CR Chest 2 Vws [...] - 11/16/2019 14:45:00 , Dr. Davenport with [facility], recommends Admit for observation to hospitalist., CTA chest pending and 2nd troponin pending. Cardiology and Dr. Betancourt aware.. Plan Condition: Stable. Orders: Launch Orders Admit/Transfer/Discharge: Place in Observation (Order): Start: 11/16/2019 15:02 EST, Observation Reason: chest pain, palpitations, soa, Unit type: Med-Surg with telemetry, Admitting: [facility] BETANCOURT MD. Notes: I certify that the MLP/WOVEN WOOD SHADE ASSEMBLER performed the services as delegated. . Electronically signed by [facility] Conversion Car Wrecker Cerner at 02/26/2023 9:01 AM CDT documented in this encounter Plan of Treatment Not on file documented as of this encounter Visit Diagnoses Not on filedocumented in this encounter
--- OUTSIDE RECORDS SUMMARY | 2025-07-06 12:07 | XMS_ITS | Encounter Summary ---
Author Organization [employer] ([place], [place], [place], [place]) Address [address] [place] [address] Care Team Providers Care Site Manager Name Role Phone Unavailable Primary Care Provider Unavailabl e Encounter Details Date Type Department Care Team (Late st Contact Info) Description 11/16/2019 Transcribed Document [facility] [place] [facility] [place] [address] ProviderSimran MD [address], [place] [id number] Social History Tobacco Use Types Packs/Day Years Used Date Smoking Tobacco: Never Assessed Sex and Gender Information Value Date Recorded Sex Assigned at Not on file Legal Sex Male 3:07 PM CDT Gender Identity Not on file Sexual Orientation Not on file documented as of this encounter Miscellaneous Notes * Cerner Conversion Note - Historical ProviderMD - 11/16/2019 11:36 AM MEDICAL STENOGRAPHER ED Triage Entered On: 11/16/2019 11:48 EST [...] : 2 - Emergent Tracking Group : [facility] ED Sofia Hernandez RN - 11/16/2019 11:46 [...] PNED ; Probability: 0 ; Diagnosis Code: [id number] Dizziness Date: 11/16/2019 ; Diagnosis Type: Reason For Visit ; Confirmation: Complaint of ; Clinical Dx: Dizziness ; Classification: Medical ; Clinical Service: Emergency medicine ; Code: PNED ; Probability: 0 ; Diagnosis Code: [id number] ED Height and Weight Height Source : Stated Height Entry Format : [place] Height, Feet : 5 ft(Converted to: 152 cm, 60 Inch) Height, Inches : 10 Inch(Converted to: 0 ft 10 Inch, 25.40 cm) Clinical Height : 177.8 cm Weight Source, ED : Critical estimated dosing weight Weight Entry Format : [place] Weight, Pounds : 170 lb Clinical Dosing Weight : 77.27 kg Body Surface Area (BSA) : 1.95 m2 Body Mass Index : 24.4 kg/m2 (HI) [place] Body Weight (IBW) : 72.02 kg Sofia Hernandez RN - 11/16/2019 11:46 EST documented in this encounter Plan of Treatment Not on file documented as of this encounter Visit Diagnoses Not on filedocumented in this encounter
--- OUTSIDE RECORDS SUMMARY | 2025-07-06 12:07 | XMS_ITS | Encounter Summary ---
Author Organization [employer] ([place], [place], [place], [place]) Address [address] [place] [address] Care Team Providers Care Grinder Operator Automatic Name Role Phone Unavailable Primary Care Provider Unavailabl e Encounter Details Date Type Department Care Team (Late st Contact Info) Description 11/16/2019 Transcribed Document [facility] [place] [facility] [place] [address] ProviderSimran MD [address] [place], [place] [id number] Social History Tobacco Use Types Packs/Day Years Used Date Smoking Tobacco: Never Assessed Sex and Gender Information Value Date Recorded Sex Assigned at Not on file Legal Sex Male 3:07 PM CDT Gender Identity Not on file Sexual Orientation Not on file documented as of this encounter Miscellaneous Notes * Cerner Conversion Note - Simran ProviderMD - 11/16/2019 11:36 AM BINDERY MACHINE SETTER ED Assessment Entered On: 11/16/2019 18:23 EST Performed On: 11/16/2019 18:22 EST by BARBARA SAENZ RN ED General-Functional Assess Communication Barrier : None Primary Language : Nigerien Any Spiritual/Cultural Needs or Requests : No [...]
--- OUTSIDE RECORDS SUMMARY | 2025-07-06 12:07 | XMS_ITS | Clinical Summary ---
Author Organization Healthcare Address [address] [id number] Care Team Providers Care Camera Operator Name Role Phone Jessie Ferrell Primary Care Provider [phone] Social History Tobacco Use Types Packs/Day Years [...] of Treatment Not on file Care Teams Camera Operator Relationship Specialty Start Date End Date Jessie Ferrell PA [address] [place] [address] PCP - General 03/23/21
--- OUTSIDE RECORDS SUMMARY | 2025-07-06 12:07 | XMS_ITS | Clinical Summary ---
Author Organization [facility] Address [address] [place] [address] Care Team Providers Care Distributor Sales Consultant Name Role Phone Provider, No Known Primary [...] patient's age to complete this topic Insurance [facility] PPO Care Teams Distributor Sales Consultant Relationship Specialty Start Date End Date Provider, No Known [facility] [place] [place] [address] PCP - General 03/04/17
--- OUTSIDE RECORDS SUMMARY | 2025-07-06 12:07 | XMS_ITS | Encounter Summary ---
Author Organization [employer] ([place], [place], [place], [place]) Address [address] [place] [address] Care Team Providers Care Services Mgr Name Role Phone Unavailable Primary Care Provider Unavailabl e Encounter Details Date Type Department Care Team (Late st Contact Info) Description 11/16/2019 Transcribed Document [facility] Radiology [address] [place] [address] Holli Lopez MD [address] [place] [address] Social History Tobacco Use Types Packs/Day Years [...] None Author: HOLLI LOPEZ MD-CAR Basic Information Cherry Sorter: Gracie (New patient on 11/11/2019) Chief Complaint Chest pain History of Present Illness 44 year old male with history of COPD with tobacco abuse and anxiety has been having persistent intermittent chest pains with palpitations, shortness of breath and fatigue since [place]. He has been woken up at night [...] Active COPD - Chronic obstructive pulmonary disease ([id number]) Family History: Hypertension Father CHF - Congestive heart failure Father Procedure history: APPENDECTOMY (98260). Knee surgery. Vasectomy. Physical Examination VS/Measurements No [...] 45.3 \ Radiology Results (Last 48 hours) [id number] -- 11/16/2019 11:36 CR Chest 2 Vws [...]
--- OUTSIDE RECORDS SUMMARY | 2025-07-06 12:07 | XMS_ITS | Encounter Summary ---
Author Organization [employer] ([place], [place], [place], [place]) Address [address] [place] [address] Care Team Providers Care Assistant Dean Of Students Name Role Phone Unavailable Primary Care Provider Unavailabl e Encounter Details Date Type Department Care Team (Late st Contact Info) Description 11/16/2019 Transcribed Document [facility] [place] Medicine [facility] [place] [address] ProviderSimran MD [address] [place], [place] [address] Social History Tobacco Use Types Packs/Day Years Used Date Smoking Tobacco: Never Assessed Sex and Gender Information Value Date Recorded Sex Assigned at Not on file Legal Sex Male 3:07 PM CDT Gender Identity Not on file Sexual Orientation Not on file documented as of this encounter Miscellaneous Notes * Cerner Conversion Note - Simran ProviderMD - 11/16/2019 11:37 PM TAIL SAWYER Patient: JUAN BURNETT Age: 44 Years Sex: [...] normal EKG and normal troponin. -Rule out [place] with serial cardiac enzymes - HR/BP control [...] - Medical Enoxaparin 40 mg, SubCutaneous, Inj, [id number], Routine, Start 11/16/19 18:00:00 EST ([facility] BAUER) [...] # 0.97 x10(3)/uL (Low) 11/16/2019 11:50 EST [place] % 8.5 % 11/16/2019 11:50 EST [place] # 0.41 K/uL 11/16/2019 11:50 EST Eos [...]
--- OUTSIDE RECORDS SUMMARY | 2025-07-06 12:07 | XMS_ITS | Encounter Summary ---
Author Organization [employer] ([place], [place], [place], [place]) Address [address] [place] [address] Care Team Providers Care Rn Resource Nurse Name Role Phone Unavailable Primary Care Provider Unavailabl e Encounter Details Date Type Department Care Team (Late st Contact Info) Description 11/16/2019 Transcribed Document [facility] [place] [address] [place] [address] ProviderSimran MD [address] [place] [address] Social History Tobacco Use Types Packs/Day Years Used Date Smoking Tobacco: Never Assessed Sex and Gender Information Value Date Recorded Sex Assigned at Not on file Legal Sex Male 3:07 PM CDT Gender Identity Not on file Sexual Orientation Not on file documented as of this encounter Miscellaneous Notes * Cerner Conversion Note - Historical ProviderMD - 11/16/2019 11:36 AM SCUTCHER TENDER [place] Suicide Severity Rating Scale (C-SSRS) Entered On: 11/16/2019 18:23 EST Performed On: 11/16/2019 18:22 EST by BARBARA SAENZ RN [place] Suicide Severity Rating Scale (C-SSRS) CSSRS Past [...]
--- OUTSIDE RECORDS SUMMARY | 2025-07-06 12:07 | XMS_ITS | Referral Summary ---
Author Organization [employer] ([place], [place], [place], [place]) Address [address] [place] [address] Care Team Providers Care Returns Clerk Name Role Phone Unavailable Primary Care [...]
--- OUTSIDE RECORDS SUMMARY | 2025-07-06 12:07 | XMS_ITS | Encounter Summary ---
Author Organization [employer] ([place], [place], [place], [place]) Address [address] [place] [address] Care Team Providers Care Needle Grader Name Role Phone Unavailable Primary Care Provider Unavailabl e Encounter Details Date Type Department Care Team (Late st Contact Info) Description 11/16/2019 Transcribed Document [facility] [place] [facility] [place] [address] ProviderSimran MD [address] [place] [address] Social History Tobacco Use Types Packs/Day Years Used Date Smoking Tobacco: Never Assessed Sex and Gender Information Value Date Recorded Sex Assigned at Not on file Legal Sex Male 3:07 PM CDT Gender Identity Not on file Sexual Orientation Not on file documented as of this encounter Miscellaneous Notes * Cerner Conversion Note - Historical ProviderMD - 11/16/2019 6:58 PM LIBRARY SUPERVISOR ED Discharge Entered On: 11/16/2019 18:59 EST [...] Electronically signed by Alma Delia Ventura Conversion Granulizing Machine Operator Cerner at 02/26/2023 8:59 AM CDT documented in this encounter Plan of Treatment Not on file documented as of this encounter Visit Diagnoses Not on filedocumented in this encounter
--- OUTSIDE RECORDS SUMMARY | 2025-07-06 12:07 | XMS_ITS | Clinical Summary ---
Author Organization [facility] Address [address] [place] [address] Phone Care Team Providers Care Home Health Care Provider Name Role Phone Unavailable Primary Care Provider [...] Advance Directives For more information, please contact: [phone] * Full Code (Latest Code Status on File) Date Activated Date Inactivated Comments 03/30/2022 4:01 PM 03/31/2022 5:23 PM
== END 2025-07-04 23:59 | disposition home or self-care (01) ==
LOC: LAB.DROPOF 07-06 12:04
PROVIDERS: PCP Nurse Practitioner Family; Visit Provider Nurse Practitioner Family
DX: E53.8 Deficiency of other specified B group vitamins (principal); E78.5 Hyperlipidemia, unspecified
CPT/HCPCS: 80061; 82607

== ENCOUNTER 2025-09-05 09:24 | Outpatient (CLI) | payer SELFPAY ==
[2025-09-05 16:18] LABS: Coronavirus 19, PCR Not Detected (NotDetected); Influenza A, PCR Not Detected (NotDetected); Influenza B, PCR Not Detected (NotDetected)
--- OUTSIDE RECORDS SUMMARY | 2025-09-06 10:32 | XMS_ITS | Clinical Summary ---
Author Organization [facility] Address [address] [id number] Care Team Providers Care Account Assistant Name Role Phone Jessie Ferrell Primary Care Provider [phone] Social History Tobacco Use Types Packs/Day Years [...] of Treatment Not on file Care Teams Account Assistant Relationship Specialty Start Date End Date Jessie Ferrell PA [address] [place] [address] PCP - General 03/23/21
--- OUTSIDE RECORDS SUMMARY | 2025-09-06 10:32 | XMS_ITS | Clinical Summary ---
Author Organization [facility] Address [address] [place] [address] Care Team Providers Care Reel Man Name Role Phone Provider, No Known Primary [...] TEST 2021 FIT Testing (1 year) 2021 INFLUENZA VACCINE 06/10/2025 Pneumococcal Vaccine 0-49 Aged Out No longer eligible based on patient's age to complete this topic Insurance [facility] PPO Care Teams Reel Man Relationship Specialty Start Date End Date Provider, [place] [address] PCP - General 03/04/17
--- OUTSIDE RECORDS SUMMARY | 2025-09-06 10:32 | XMS_ITS | Clinical Summary ---
Author Organization [facility] Address [address] [place] [address] Phone Care Team Providers Care Performing Artist Name Role Phone Unavailable Primary Care [...] Sigmoidoscopy 2021 Virtual Colonography 2021 COVID-19 Vaccine ( - 2024-2 6 season) 2025 Influenza Vaccine (#1) 2025 Meningococcal B Vaccine Aged Out No l onger eligible based on patient's age to complete this topic Insurance [employer] PPO [employer] P[employer] Advance Directives For more information, please contact: [phone] * Full Code (Latest Code Status on File) Date Activated Date Inactivated Comments 03/30/2022 4:01 PM 03/31/2022 5:23 PM
--- OUTSIDE RECORDS SUMMARY | 2025-09-06 10:32 | XMS_ITS | Data Portability ---
Author Organization [facility] RODY Nance MICANOPY CLOSED Address [address] [facility] [address] [place] [address] Care Team Providers Care Public Relations Writer Name Role Phone DAGMAR KEARNS Primary Care Provider Assessment No assessment recorded. Plan of Treatment Reminders Order Date Submit Date Provider Last Modified By Organization Details Last Modified Time Details Appointments None recorded. Lab urinalysis panel, auto [address] [facility], [address], [place], [address], 17:38:01 testosteron e, free + total, serum 2020 021 [facility], [address] [place] [address], [place], [address], 20:15:23 PSA, serum or plasma [address] [facility], [address], [address], [place], [address], 22:37:39 urinalysis, dipstick, auto [email or web address] [facility], [address], [address], [place], [address], 9 18:00:56 urinalysis, dipstick, auto 2018 019 [email or web address] [facility], [address], [address], [place], [address], 9 13:40:56 Referral None recorded. Procedures None recorded. Surgeries None recorded. Imaging US, scrotum 2018 019 SANGEETHA [facility], [address] [facility], [place], [address], 9 15:14:50 electrocard iogram 2016 017 [email or web address] 1 [facility], [address] [facility], [place], [address], 7 08:30:16 Medication Orders Levaquin 500 mg tablet 2018 019 [email or web address] [facility], [address], [address], 1 15:48:24 nabumetone 500 mg tablet 2018 019 [email or web address] [facility], [address], [address], 1 15:48:57 doxycycline monohydrate 100 mg capsule 2018 019 [email or web address] 5 [facility], [address] [place] [address], [address], 9 16:01:16 nabumetone 500 mg tablet 2018 019 [email or web address] [facility], [address] [place] [address], [address], 1 15:48:57 Patient TargetsNo targets recorded. Patient Instructions Encounter Date Encounter Id Patient Instructions Last Modified By Organization Details Last Modified Time 11/18/2018 [id number] healthy together [email or web address] Not availabl e 11/18/2018 13:40:56 epididymitis and orchitis: care instructions [email or web address] Not available 11/18/2018 13:40:56 08/25/2019 [id number] spermatocele: care instructions [email or web address] Not available 08/26/2019 21:35:02 Reason for Referral None Reported. Results Created Date Observation Date Name Description Value Unit Range Abnormal Flag Note LastModifiedBy Organization Detail LastModifiedTime 05/02/20 21 05/02/2021 urina lysis panel , auto Unknown Analyte Clean Catch Not Available [facility] [address], [place], [address], 05/02/2021 15:49:58 05/02/20 21 05/02/2021 urina lysis panel , auto Unknown Analyte Yellow Not Available [facility] [address], [place], [address], 05/02/2021 15:49:58 05/02/20 21 05/02/2021 urina lysis panel , auto Unknown Analyte Clear Not Available [facility] [address], [place], [address], 05/02/2021 15:49:58 05/02/2005/02/2021 urina lysis panel , auto Unknown Analyte 1.020 Not Available [facility] [address], [address], 05/02/2021 15:49:58 05/02/2005/02/2021 urina lysis panel , auto Unknown Analyte 1.003- 1.035 Not Available [facility] [address], [place], [address], 05/02/2021 15:49:58 05/02/20 21 05/02/2021 urina lysis panel , auto Unknown Analyte 5.0 Not Available [facility] [address], [place], [address], 05/02/2021 15:49:58 05/02/20 21 05/02/2021 urina lysis panel , auto Unknown Analyte 5.0-8. 0 Not Available [facility] [address], [place], [address], 05/02/2021 15:49:58 05/02/20 21 05/02/2021 urina lysis panel , auto Unknown Analyte Negati ve Not Available [facility] [address], [place], [address], 05/02/2021 15:49:58 05/02/20 21 05/02/2021 urina lysis panel , auto Unknown Analyte Negati ve Not Available [facility] [address], [place], [address], 05/02/2021 15:49:58 05/02/20 21 05/02/2021 urina lysis panel , auto Unknown Analyte Negati ve Not Available [facility] [address], [place], [address], 05/02/2021 15:49:58 05/02/20 21 05/02/2021 urina lysis panel , auto Unknown Analyte Negati ve Not Available [facility] [address], [place], [address], 05/02/2021 15:49:58 05/02/20 21 05/02/2021 urina lysis panel , auto Unknown Analyte Negati ve Not Available [facility] [address], [place], [address], 05/02/2021 15:49:58 05/02/20 21 05/02/2021 urina lysis panel , auto Unknown Analyte Negati ve Not Available [facility] [address], [place], [address], 05/02/2021 15:49:58 05/02/20 21 05/02/2021 urina lysis panel , auto Unknown Analyte 50 mg/dl Not Available [facility] [address], [place], [address], 05/02/2021 15:49:58 05/02/20 21 05/02/2021 urina lysis panel , auto Unknown Analyte Normal Not Available [facility] [address], [place], [address], 05/02/2021 15:49:58 05/02/20 21 05/02/2021 urina lysis panel , auto Unknown Analyte Negati ve Not Available [facility] [address], [place], [address], 05/02/2021 15:49:58 05/02/20 21 05/02/2021 urina lysis panel , auto Unknown Analyte Negati ve Not Available [facility] [address], [place], [address], 05/02/2021 15:49:58 05/02/20 21 05/02/2021 urina lysis panel , auto Unknown Analyte Normal Not Available [facility] [address], [place], [address], 05/02/2021 15:49:58 05/02/20 21 05/02/2021 urina lysis panel , auto Unknown Analyte Normal 1 mg/dl Not Available [facility] [address], [place], [address], 05/02/2021 15:49:58 05/02/20 21 05/02/2021 urina lysis panel , auto Unknown Analyte Negati ve Not Available [facility] [place] [address], [place], [address], 05/02/2021 15:49:58 05/02/20 21 05/02/2021 urina lysis panel , auto Unknown Analyte Negati ve Not Available [facility] [address], [place], [address], 05/02/2021 15:49:58 05/02/20 21 05/02/2021 urina lysis panel , auto Unknown Analyte Negati ve Not Available [facility] [address], [place], [address], 05/02/2021 15:49:58 05/02/20 21 05/02/2021 urina lysis panel , auto Unknown Analyte Negati ve Not Available [facility] [address], [place], [address], 05/02/2021 15:49:58 08/11/2008/11/2019 urina lysis , dipst ick, auto Unknown Analyte Yellow Not Available [facility] [address], [place], [address], 08/11/2019 16:02:55 08/11/2008/11/2019 urina lysis , dipst ick, auto Unknown Analyte Clear Not Available [facility] [address], [place], [address], 08/11/2019 16:02:55 08/11/2008/11/2019 urina lysis , dipst ick, auto Unknown Analyte 1.015 Not Available [facility] [address], [place], [address], 08/11/2019 16:02:55 08/11/2008/11/2019 urina lysis , dipst ick, auto Unknown Analyte 1.003 - 1.035 Not Available [facility] [address] [place] [address] [address], [place], [address], 08/11/2019 16:02:55 08/11/2008/11/2019 urina lysis , dipst ick, auto Unknown Analyte 7.0 Not Available [facility] [address] [place] [address] [address], [place], [address], 08/11/2019 16:02:55 08/11/2008/11/2019 urina lysis , dipst ick, auto Unknown Analyte 5.0 - 8.0 Not Available [facility] [address] [place] [address] [address], [place], [address], 08/11/2019 16:02:55 08/11/2008/11/2019 urina lysis , dipst ick, auto Unknown Analyte Negati ve Not Available [facility] [address], [place], [address], 08/11/2019 16:02:55 08/11/2008/11/2019 urina lysis , dipst ick, auto Unknown Analyte Negati ve Not Available [facility] [address] [place] [address] [address], [place], [address], 08/11/2019 16:02:55 08/11/2008/11/2019 urina lysis , dipst ick, auto Unknown Analyte Negati ve Not Available [facility] [address] [place] [address] [address], [place], [address], 08/11/2019 16:02:55 08/11/2008/11/2019 urina lysis , dipst ick, auto Unknown Analyte Negati ve Not Available [facility] [address], [place], [address], 08/11/2019 16:02:55 08/11/2008/11/2019 urina lysis , dipst ick, auto Unknown Analyte Negtiv e Not Available [facility] [address], [place], [address], 08/11/2019 16:02:55 08/11/2008/11/2019 urina lysis , dipst ick, auto Unknown Analyte Negati ve - Trace Not Available [facility] [address], [place], [address], 08/11/2019 16:02:55 08/11/2008/11/2019 urina lysis , dipst ick, auto Unknown Analyte Normal Not Available [facility] [address], [place], [address], 08/11/2019 16:02:55 08/11/2008/11/2019 urina lysis , dipst ick, auto Unknown Analyte Normal Not Available [facility] [address], [place], [address], 08/11/2019 16:02:55 08/11/2008/11/2019 urina lysis , dipst ick, auto Unknown Analyte Negati ve Not Available [facility] [address], [place], [address], 08/11/2019 16:02:55 08/11/2008/11/2019 urina lysis , dipst ick, auto Unknown Analyte Negati ve Not Available [facility] [address], [place], [address], 08/11/2019 16:02:55 08/11/2008/11/2019 urina lysis , dipst ick, auto Unknown Analyte Normal Not Available [facility] [address], [place], [address], 08/11/2019 16:02:55 08/11/2008/11/2019 urina lysis , dipst ick, auto Unknown Analyte Normal - 1mg/dl Not Available [facility] [address], [place], [address], 08/11/2019 16:02:55 08/11/2008/11/2019 urina lysis , dipst ick, auto Unknown Analyte Negati ve Not Available [facility] [address], [place], [address], 08/11/2019 16:02:55 08/11/2008/11/2019 urina lysis , dipst ick, auto Unknown Analyte Negati ve Not Available [facility] [address], [place], [address], 08/11/2019 16:02:55 08/11/20 19 08/11/2019 urina lysis , dipst ick, auto Unknown Analyte Negati ve Not Available [facility] [address], [place], [address], 08/11/2019 16:02:55 08/11/2008/11/2019 urina lysis , dipst ick, auto Unknown Analyte Negati ve Not Available [facility] [address] [place] [address] [address], [place], [address], 08/11/2019 16:02:55 08/11/2008/11/2019 urina lysis , dipst ick, auto Unknown Analyte Clean Catch Not Available [facility] [address], [place], [address], 08/11/2019 16:02:55 08/11/2008/11/2019 urina lysis , dipst ick, auto Unknown Analyte Automa vanesa Not Available [facility] [address], [place], [address], 08/11/2019 16:02:55 11/18/1911/18/2018 urina lysis , dipst ick, auto Unknown Analyte Yellow Not Available [facility] [address] [facility] [address], [place], [address], 11/18/2018 13:03:09 11/18/1911/18/2018 urina lysis , dipst ick, auto Unknown Analyte Clear Not Available [facility] [address], [place], [address], 11/18/2018 13:03:09 11/18/19 19 11/18/2018 urina lysis , dipst ick, auto Unknown Analyte 1.020 Not Available [facility] [address], [place], [address], 11/18/2018 13:03:09 11/18/1911/18/2018 urina lysis , dipst ick, auto Unknown Analyte 1.003 - 1.035 Not Available [facility] [address] [place] [address] [address], [place], [address], 11/18/2018 13:03:09 11/18/1911/18/2018 urina lysis , dipst ick, auto Unknown Analyte 8.0 Not Available [facility] [address], [place], [address], 11/18/2018 13:03:09 11/18/19 19 11/18/2018 urina lysis , dipst ick, auto Unknown Analyte 5.0 - 8.0 Not Available [facility] [address], [place], [address], 11/18/2018 13:03:09 11/18/19 19 11/18/2018 urina lysis , dipst ick, auto Unknown Analyte Negati ve Not Available [facility] [address], [place], [address], 11/18/2018 13:03:09 11/18/19 19 11/18/2018 urina lysis , dipst ick, auto Unknown Analyte Negati ve Not Available [facility] [address], [place], [address], 11/18/2018 13:03:11/18/19 19 11/18/2018 urina lysis , dipst ick, auto Unknown Analyte Negati ve Not Available [facility] [address], [place], [address], 11/18/2018 13:03:09 11/18/19 19 11/18/2018 urina lysis , dipst ick, auto Unknown Analyte Negati ve Not Available [facility] [address], [place], [address], 11/18/2018 13:03:09 11/18/1911/18/2018 urina lysis , dipst ick, auto Unknown Analyte Negtiv e Not Available [facility] [address], [place], [address], 11/18/2018 13:03:09 11/18/19 19 11/18/2018 urina lysis , dipst ick, auto Unknown Analyte Negati ve - Trace Not Available [facility] [address], [place], [address], 11/18/2018 13:03:09 11/18/19 19 11/18/2018 urina lysis , dipst ick, auto Unknown Analyte Normal Not Available [facility] [address], [place], [address], 11/18/2018 13:03:09 11/18/19 19 11/18/2018 urina lysis , dipst ick, auto Unknown Analyte Normal Not Available [facility] [address], [place], [address], 11/18/2018 13:03:11/18/19 19 11/18/2018 urina lysis , dipst ick, auto Unknown Analyte Negati ve Not Available [facility] [address], [place], [address], 11/18/2018 13:03:09 11/18/19 19 11/18/2018 urina lysis , dipst ick, auto Unknown Analyte Negati ve Not Available [facility] [address], [place], [address], 11/18/2018 13:03:09 11/18/1911/18/2018 urina lysis , dipst ick, auto Unknown Analyte Normal Not Available [facility] [address], [place], [address], 11/18/2018 13:03:11/18/1911/18/2018 urina lysis , dipst ick, auto Unknown Analyte Normal - 1mg/dl Not Available [facility] [address], [place], [address], 11/18/2018 13:03:09 11/18/19 19 11/18/2018 urina lysis , dipst ick, auto Unknown Analyte Negati ve Not Available [facility] [address], [place], [address], 11/18/2018 13:03:11/18/1911/18/2018 urina lysis , dipst ick, auto Unknown Analyte Negati ve Not Available [facility] [address], [place], [address], 11/18/2018 13:03:11/18/19 19 11/18/2018 urina lysis , dipst ick, auto Unknown Analyte Negati ve Not Available [facility] [address] [place] [address] [address], [place], [address], 11/18/2018 13:03:09 11/18/1911/18/2018 urina lysis , dipst ick, auto Unknown Analyte Negati ve Not Available [facility] [address] [place] [address] [address], [place], [address], 11/18/2018 13:03:11/18/1911/18/2018 urina lysis , dipst ick, auto Unknown Analyte Clean Catch Not Available [facility] [address], [place], [address], 11/18/2018 13:03:09 11/18/19 19 11/18/2018 urina lysis , dipst ick, auto Unknown Analyte Visual Not Available [facility] [address], [place], [address], 11/18/2018 13:03:09 05/02/20 21 05/02/2021 TESTO STERO NE,TO ANTOINE/F REE testosterone , total 381 NG/dL 249-83 6 normal Refer ence range is for age 20-49 years . Not Available [facility] [address] [place], [address], 05/05/2021 12:31:09 05/02/20 21 05/05/2021 TESTO STERO [...] PERFO RMED AT: [facility] [address] [place] [address] Thu BELTRAN Not Available [facility] [address] [place] [address], [address], 05/05/2021 12:31:09 05/02/20 21 05/02/2021 PSA, serum or plasm a PSA 0.79 NG/mL 0.0 - 4.0 Not Available [facility] [address], [place], [address], 05/02/2021 16:57:26 09/19/20 17 09/19/2017 elect leonela jimenez am No observ ation record ed. [email or web address] [facility] [address] [place] [address] [facility], [place], [address], 09/22/2017 08:16:59 09/22/20 17 event monit or No observ ation record ed. [email or web address] [facility] [address], [place], [address], 09/23/2017 08:06:34 10/14/20 17 10/10/2017 rhyth m strip , EKG* No observ ation record ed. BARCODE Not Available 2016 15:24:51 08/25/20 19 08/25/2019 US, scrot um [facility] [address] [place] [address] Patien t Name: JUAN stock : 1974 [...] Farshad Donovan MD on 2018 3:09 PM [email or web address] [facility] Radiology [facility] [address] [place], [address], 08/30/2019 07:28:36 Result Notes None recorded. Procedures Surgical History Date Name Laterality Status Provider Name and Address Organization Details Recorded Time 10/10/20 17 EKG completed KATERINA JESS FRANCIS, ASSOCIATE PROFESSOR PHYSICIAN [address] [place], [place], [address] [place] [address], [facility] 10/10/2017 18:28:16 09/04/20 17 Echocardiogram completed LASHAWN JOEL MD [address] [place], [place], [address] [place] [address] 09/04/2017 12:52:56 09/04/20 17 VAS - Carotid Duplex completed ERVIN PATEL MD [facility] [place], [place], [address] [place] [address] 09/04/2017 13:09:17 08/29/20 17 EKG completed KATERINA FRANCIS, ASSOCIATE PROFESSOR PHYSICIAN [address] [place], [place], [address] [place] [address] 08/29/2017 14:57:13 11/10/19 14 Appendectomy completed [facility] 08/29/2017 13:30:35 11/10/18 99 Removal of sperm duct(s) completed [facility] 08/29/2017 13:29:57 Knee arthroscopy/surger y completed [facility] 08/29/2017 13:30:50 Wrist arthroscopy/surger y [facility] 08/29/2017 13:31:04 Imaging Results None recorded. Procedure [...] Updated DateTime 11/18/2018 177.8 cm 25.8 kg/m2 11424.63 g 74 /min 128/90 mm[Hg] Rosa Houserram [facility] 11/18/2018 13:02:14 Date Recorded Body height Body mass index (BMI) Body weight Provider Name and Address Organization Details Last Updated DateTime 05/02/2021 177.8 cm 25.5 kg/m2 04683.44 g Denise Olamide [facility] 05/02/2021 15:48:06 Date Recorded Body height Body mass index (BMI) Body weight Heart rate Systolic And Diastolic Provider Name and Address Organization Details Last Updated DateTime 08/11/2019 177.8 cm 24.4 kg/m2 02104.7 g 76 /min 124/90 mm[Hg] Elzbieta Perez [facility] 08/11/2019 16:01:09 Date Recorded Body height Body mass index (BMI) Body weight Provider Name and Address Organization Details Last Updated DateTime 08/25/2019 177.8 cm 25.5 kg/m2 38255.44 g [facility]25[facility] 16:23:57 Date Recorded Body height Body mass index (BMI) Body weight Heart rate Systolic And Diastolic Provider Name and Address Organization Details Last Updated DateTime 10/10/2017 177.8 cm 26.5 kg/m2 44412.59 g 84 /min 118/92 mm[Hg] Caitlyn Palacios [facility] 10/10/2017 13:02:12 Social History Question Answer Notes LastModified by Organizat ion Details LastModified Time Tobacco Smoking Status Former Smoker Caitlyn Palacios [facility] 10/10/2017 12:54:38 How Much Tobacco Do You [...] Tobacco Do You Smoke? No 1 Can [email or web address] Information not available 08/11/2019 Has Tobacco Cessation [...] Diagnosis SNOMED-CT Code Diagnosis ICD10 Code Diagnosis IMO Codes Diagnosis Note [id number] KATERINA FRANCIS APRN CARDIOLOG Y [place] [address] [place] [address] 08/29/2017 12:55:45 09/01/2017 12:59:23 Palpitations 62385626 R00.2 Hx of Wenckebach . Will have him undergo 21 day event monitor for further evaluation of HR/rhythm. Will review results when available, further recommenda tions will be made at that time. He is in agreement with plan. Will see him back in 6 weeks for recheck. Advised to call sooner for questions or concerns. Will obtain old records from [facility] for review. Dizziness 919686333 R42 Echocardio gram and Carotid Artery Duplex [...] call sooner with questions or concerns. Obesity 112801905 E66.9 BMI today 26.1; Weight loss recommende d to ultimately achieve BMI < 25. [id number] ERVIN PATEL MD [facility] [address] [place] [address] 09/01/2017 15:14:30 09/01/2017 16:15:25 Palpitations 32042345 R00.2 [id number] ERVIN PATEL MD ECHO VASCULAR LAB [place] [address] [place] [place] [address] 09/04/2017 10:17:47 09/04/2017 11:48:41 Dizziness [id number] R42 [id number] LASHAWN JOEL MD ECHO VASCULAR LAB CLOSED [address] [place] [address] [place] [address] 09/04/2017 10:19:04 09/04/2017 14:57:14 Dizziness [id number] R42 [id number] KATERINA FRANCIS APRN CARDIOLOG Y EAST [address] [place] [address] [address] [place] [address] 10/10/2017 12:44:40 10/13/2017 08:30:16 Palpitations 92282396 R00.2 Hx of Wenckebach . 21 day event monitor revealed NSR. palpitatio ns have improved. No further cardiac workup recommende d at this time. Advised that his 21 day event monitor could be repeated if his palpitatio ns worsened or he becomes concerned. He is in agreement. Dizziness 149037362 R42 Echocardio gram and carotid duplex were unremarkab le. Agitated saline injection was negative for intracardi ac shunting. He had recent cardiac cath which was negative for CAD. No further cardiac workup needed at this time. Fatigue 94249077 R53.83 Unknown etiology. Suggest autoimmune workup. [id number] MD VAN THOMSON [facility] [address] [place] [address] 11/18/2018 11:46:46 11/18/2018 13:39:56 Epididymitis 73692067 N45.1 He'll follow-up in 3 weeks. If he is not markedly resolved we will arrange for scrotal ultrasound . [id number] MD VAN THOMSON [facility] [address] [place] [address] 08/11/2019 14:51:16 08/11/2019 16:57:55 Chronic epididymitis 627818118 N45.1 we will treat him medically and arrange for a scrotal ultrasound follow-up 2 weeks [id number] MD VAN THOMSON [facility] [address] [address] 08/25/2019 14:58:19 08/25/2019 17:00:24 Spermatocele 97173516 N43.40 . Plan as above. 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 Burnett is a pleasant 42-year-old male here today for follow up of palpitations. 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 Was treated with BB in the past, but were discontinued secondary to bradycardia. He recently underwent LHC at [facility] for c/o CP, which [...] high. He continues to chew tobacco. KATERINA NINOALVIN FRANCIS, ASSOCIATE PROFESSOR PHYSICIAN [address] [place], [address], [facility] 10/10/2017 18:28:36 11/18/2018 text/html Patient is [...] known history of trauma. QUIANA BERRY MD [address] [place] [address], [address], [facility] 11/20/2018 01:04:00 08/11/2019 text/html patient was [...] in the right scrotum. QUIANA BERRY MD [address] [place] [address], [address], [facility] 08/12/2019 22:39:21 08/25/2019 text/html patient is [...] proceed with surgery. MD Edy [place], [address], [facility] 08/26/2019 21:35:04 05/02/2021 text/html Patient was last seen by me in August 2019 and treated for epididymitis as well as diagnosis of right and left epididymal cyst. His previous vasectomy with vasectomy reversal. This was successful. He's had no major issues with that. He has however had issues with moderate erectile dysfunction. We discussed potential etiologies. MD Miguel [place], [address], [facility] 05/08/2021 22:38:10
== END 2025-09-05 23:59 ==
LOC: LAB.DROPOF 09-06 10:16
PROVIDERS: PCP Student in an Organized Health Care Education/Training Program; Visit Provider Student in an Organized Health Care Education/Training Program
DX: J06.9 Acute upper respiratory infection, unspecified (principal)
CPT/HCPCS: 87636

== ENCOUNTER 2025-11-07 17:10 | Outpatient (CLI) | payer OTHER, SELFPAY ==
[2025-11-07 20:33] LABS: Coronavirus 19, PCR Not Detected (NotDetected); Influenza A, PCR Not Detected (NotDetected); Influenza B, PCR Not Detected (NotDetected)
--- OUTSIDE RECORDS SUMMARY | 2025-11-08 12:13 | XMS_ITS | Encounter Summary ---
Author Organization [employer] ([place], [place], [place], [place], [place]) Address [address] [place] [address] Care Team Providers Care Assistant Manager Airside Operations Name Role Phone Unavailable Primary Care Provider Unavailabl e Encounter Details Date Type Department Care Team (Late st Contact Info) Description 11/17/2019 Transcribed Document [facility] Radiology [address] [place] [address] Nette Marte MD [address] [place] [address] Social History Tobacco Use Types Packs/Day Years Used Date Smoking Tobacco: Never Assessed Sex and Gender Information Value Date Recorded Sex Assigned at Not on file Legal Sex Male 3:07 PM CDT Gender Identity Not on file Sexual Orientation Not on file documented as of this encounter Miscellaneous Notes * Cerner Conversion Note - Nette Marte MD - 11/17/2019 12:21 PM EST Patient: JUAN RIVERO Age: 44 years Sex: Male : 1975 Associated Diagnoses: None Author: NETTE MARTE MD Date of admission 11/16/2019 Date of discharge 11/17/2019 Primary discharge diagnosis 1. Atypical chest pain 2. GERD 3. Smoker 4. Anxiety Consultation leasing associate Procedures Lexiscan stress test Echocardiogram Disposition [...] 189 / 42.3 \ Primary Care Provider [place], [place] Time spent 35 minutes documented in this encounter Plan of Treatment Not on file documented as of this encounter Visit Diagnoses Not on filedocumented in this encounter
--- OUTSIDE RECORDS SUMMARY | 2025-11-08 12:13 | XMS_ITS | Encounter Summary ---
Author Organization [employer] ([place], [place], [place], [place], [place]) Address [address] [place] [address] Care Team Providers Care Barrel Drainer Name Role Phone Unavailable Primary Care Provider Unavailabl e Encounter Details Date Type Department Care Team (Late st Contact Info) Description 11/17/2019 Transcribed Document [facility] [place] [address] [place] [address] ProviderSimran MD [address] [place], [place] [address] Social History Tobacco Use Types Packs/Day Years Used Date Smoking Tobacco: Never Assessed Sex and Gender Information Value Date Recorded Sex Assigned at Not on file Legal Sex Male 3:07 PM CDT Gender Identity Not on file Sexual Orientation Not on file documented as of this encounter Miscellaneous Notes * Cerner Conversion Note - Historical ProviderMD - 11/17/2019 11:20 AM ROOF TILER UM Authorization Entered On: 11/17/2019 11:21 EST Performed On: 11/17/2019 11:20 EST by DESTINY KOLB RN-Utilization Review Primary Insurance Authorization Authorization and Policy Numbers : Insurance 1 Health Plan: [employer] Policy Number: [id number] Authorization Number: Insurance Primary Name : [employer] Policy Number: [id number] Authorized Service Begin Date-Primary : 11/16/2019 EST Historical Authorization Comments-Primary : No Authorization Comments Found DESTINY KOLB RN-Utilization Review - 11/17/2019 11:20 EST documented in this encounter Plan of Treatment Not on file documented as of this encounter Visit Diagnoses Not on filedocumented in this encounter
--- OUTSIDE RECORDS SUMMARY | 2025-11-08 12:13 | XMS_ITS | Encounter Summary ---
Author Organization [employer] ([place], [place], [place], [place], [place]) Address [address] [place] [address] Care Team Providers Care Specialist Physician Name Role Phone Unavailable Primary Care Provider Unavailabl e Encounter Details Date Type Department Care Team (Late st Contact Info) Description 11/17/2019 Transcribed Document [facility] [place] Family Medicine [address] [place] [address] ProviderSimran MD [address] [place], [place] [id number] Social History Tobacco Use Types Packs/Day Years Used Date Smoking Tobacco: Never Assessed Sex and Gender Information Value Date Recorded Sex Assigned at Not on file Legal Sex Male 3:07 PM CDT Gender Identity Not on file Sexual Orientation Not on file documented as of this encounter Miscellaneous Notes * Cerner Conversion Note - Historical ProviderMD - 11/17/2019 10:10 AM VICE PRESIDENT OF ENGINEERING Initial Discharge Planning Entered On: 11/17/2019 10:12 [...]
--- OUTSIDE RECORDS SUMMARY | 2025-11-08 12:13 | XMS_ITS | Encounter Summary ---
Author Organization [employer] ([place], [place], [place], [place], [place]) Address [address] [place] [address] Care Team Providers Care Dietician Name Role Phone Unavailable Primary Care Provider Unavailabl e Encounter Details Date Type Department Care Team (Late st Contact Info) Description 11/17/2019 Transcribed Document [facility] [place] Family Medicine [address] [place] [address] ProviderSimran MD [address] [place], [place] [address] Social History Tobacco Use Types Packs/Day Years Used Date Smoking Tobacco: Never Assessed Sex and Gender Information Value Date Recorded Sex Assigned at Not on file Legal Sex Male 3:07 PM CDT Gender Identity Not on file Sexual Orientation Not on file documented as of this encounter Miscellaneous Notes * Cerner Conversion Note - Historical ProviderMD - 11/17/2019 10:02 AM STAVE CUTTER Stroke/Warfarin Instructions Entered On: 11/17/2019 10:02 EST Performed On: 11/17/2019 10:02 EST by Navid Henriquez, Nurse RN Stroke/Warfarin Instructions Stroke/TIA Discharge Ins : N/A Warfarin Discharge Ins : N/A Navid Henriquez, Nurse RN - 11/17/2019 10:02 EST Electronically signed by Alma Delia Ventura Conversion Television Antenna Installer Cerner at 02/26/2023 8:56 AM CDT documented in this encounter Plan of Treatment Not on file documented as of this encounter Visit Diagnoses Not on filedocumented in this encounter
--- OUTSIDE RECORDS SUMMARY | 2025-11-08 12:13 | XMS_ITS | Encounter Summary ---
Author Organization [employer] ([place], [place], [place], [place], [place]) Address [address] [place] [address] Care Team Providers Care Weight Reducing Technician Name Role Phone Unavailable Primary Care Provider Unavailabl e Encounter Details Date Type Department Care Team (Late st Contact Info) Description 11/17/2019 Transcribed Document [facility] [place] Family Medicine [address] [place] [address] ProviderSimran MD [address] [place] [address] Social History Tobacco Use Types Packs/Day Years Used Date Smoking Tobacco: Never Assessed Sex and Gender Information Value Date Recorded Sex Assigned at Not on file Legal Sex Male 3:07 PM CDT Gender Identity Not on file Sexual Orientation Not on file documented as of this encounter Miscellaneous Notes * Cerner Conversion Note - Simran ProviderMD - 11/17/2019 4:18 PM INSPECTOR PURCHASED PARTS [facility] [place] [address] JUAN RIVERO :1975 Visit Time:11/16/2019 Your Visit [...] When 12/17/2019 08:30 AM EST Where: [address] [facility] [address] [place] [address]- Follow Up with Follow up with specialty services When 11/23/2019 02:00 PM EST Comments [facility] Rm 1 [facility] [place] Where: [address] [place] [phone] Follow Up with Patient Resource Center When [...] you start to feel better. ??? Take iuun-tii-aenffne and prescription medicines only as told by [...] 04/14/2009 Document Revised: 07/21/2017 Document Reviewed: 07/21/2017 [employer] Interactive Patient Education ?? 2019 [employer] Palpitations A palpitation is the feeling [...] plenty of rest and sleep. ??? Take chzt-uvg-mflofjq and prescription medicines only as told by [...] 08/05/2009 Document Revised: 04/03/2017 Document Reviewed: 07/11/2016 [employer] Interactive Patient Education ?? 2019 [employer]. Emergency Awareness and Preventative Care STROKE is [...] Assistance with quitting is available by contacting 5-370-NTTO-NOW. This is a free resource providing counseling, [...] range between ( 0.0 and 7.0 ) [place] #: 0.49 K/uL -- Normal range between ( 0.16 and 1.00 ) [place] #: 0.16 x10(3)/uL -- Normal range between ( 0.00 and 0.80 ) [place] %: 11.0 % -- Normal range between [...] was given the opportunity to ask questions. Patient/Line Producer Name: Patient/Line Producer Signature: Relationship to Patient: Clinician/Hospital Line Producer Signature: Date: documented in this encounter Plan of Treatment Not on file documented as of this encounter Visit Diagnoses Not on filedocumented in this encounter
--- OUTSIDE RECORDS SUMMARY | 2025-11-08 12:13 | XMS_ITS | Clinical Summary ---
Author Organization [facility] Address [address] [place] [address] Care Team Providers Care Physician Support Coordinator Name Role Phone Provider, No Known Primary [...] patient's age to complete this topic Insurance [facility] PPO Care Teams Physician Support Coordinator Relationship Specialty Start Date End Date Provider, [place] [address] PCP - General 03/04/17
--- OUTSIDE RECORDS SUMMARY | 2025-11-08 12:13 | XMS_ITS | Encounter Summary ---
Author Organization [employer] ([place], [place], [place], [place], [place]) Address [address] [place] [address] Care Team Providers Care Pump Rebuilder Name Role Phone Unavailable Primary Care Provider Unavailabl e Encounter Details Date Type Department Care Team (Late st Contact Info) Description 11/17/2019 Transcribed Document [facility] [place] [address] [place] [address] ProviderSimran MD [address] [place], [place] [id number] Social History Tobacco Use Types Packs/Day Years Used Date Smoking Tobacco: Never Assessed Sex and Gender Information Value Date Recorded Sex Assigned at Not on file Legal Sex Male 3:07 PM CDT Gender Identity Not on file Sexual Orientation Not on file documented as of this encounter Miscellaneous Notes * Cerner Conversion Note - Historical ProviderMD - 11/17/2019 10:02 AM TRANSPORTATION SUPERINTENDENT Nursing Discharge Summary Entered On: 11/17/2019 10:02 EST Performed On: 11/17/2019 10:02 EST by Navid Henriquez Nurse facility manager histology Documentation Discharge Date/Time : 11/17/2019 16:35 EST [...] 11/17/2019 10:02 EST Electronically signed by Audrey [facility] Conversion Blow Molding Machine Tender Cerner at 02/26/2023 8:58 AM CDT documented in this encounter Plan of Treatment Not on file documented as of this encounter Visit Diagnoses Not on filedocumented in this encounter
--- OUTSIDE RECORDS SUMMARY | 2025-11-08 12:13 | XMS_ITS | Encounter Summary ---
Author Organization [employer] ([place], [place], [place], [place], [place]) Address [address] [place] [address] Care Team Providers Care Demographer Name Role Phone Unavailable Primary Care Provider Unavailabl e Encounter Details Date Type Department Care Team (Late st Contact Info) Description 11/17/2019 Transcribed Document [facility] Radiology [address] [place] [address] Holli Lopez MD [address] [place] [address] Social History Tobacco Use Types Packs/Day Years [...] Inpatient Medications Ordered Lovenox: 40 mg, SubCutaneous, [id number] Nitrostat: 0.4 mg, SubLINgual, Q5Min, PRN: Chest Pain Normal Saline Flush: 10 mL, IntraVENous, Q12H Normal Saline Flush: 10 mL, IntraVENous, Q12H, PRN: IV Use Sodium Chloride 0.9% intravenous solution 1,000 mL: 20 mL/Hr, IntraVENous aspirin: 81 mg, Oral, Daily Problem list: All Problems COPD - Chronic obstructive pulmonary disease / SNOMED CT [id number] / Confirmed, Active Problems (1) COPD - [...] 101 (NOV 16 14:00) SpO2 97 (NOV 17:33) 97 (NOV 16 14:57) 99 (NOV 16 [...] 14.5 / 4.5 189 / 42.3 \ [id number] -- 11/16/2019 15:02 CR Chest 2 Vws [...]
--- OUTSIDE RECORDS SUMMARY | 2025-11-08 12:13 | XMS_ITS | Clinical Summary ---
Author Organization Healthcare Address [address] [place] [id number] Care Team Providers Care Import Clerk Name Role Phone Jessie Ferrell Primary Care Provider [phone] Social History Tobacco Use Types Packs/Day Years [...] of Treatment Not on file Care Teams Import Clerk Relationship Specialty Start Date End Date Jessie Ferrell PA [address] [place] [address] PCP - General 03/23/21
--- OUTSIDE RECORDS SUMMARY | 2025-11-08 12:13 | XMS_ITS | Encounter Summary ---
Author Organization [employer] ([place], [place], [place], [place], [place]) Address [address] [place] [address] Care Team Providers Care Pharmacy Technology Instructor Name Role Phone Unavailable Primary Care Provider Unavailabl e Encounter Details Date Type Department Care Team (Late st Contact Info) Description 11/17/2019 Transcribed Document [facility] [place] Family Medicine [address] [place] [address] ProviderSimran MD [address] [place] [address] Social History Tobacco Use Types Packs/Day Years Used Date Smoking Tobacco: Never Assessed Sex and Gender Information Value Date Recorded Sex Assigned at Not on file Legal Sex Male 3:07 PM CDT Gender Identity Not on file Sexual Orientation Not on file documented as of this encounter Miscellaneous Notes * Cerner Conversion Note - Simran ProviderMD - 11/17/2019 10:00 AM RN NEUROLOGY Patient Education Materials Follows:Medicine Palpitations A palpitation [...] plenty of rest and sleep. ??? Take sowe-yzk-egrlkhp and prescription medicines only as told by [...] 08/05/2009 Document Revised: 04/03/2017 Document Reviewed: 07/11/2016 [employer] Interactive Patient Education ? 2019 [employer]. Gastroenterology Nonspecific Chest Pain Chest pain can [...] you start to feel better. ??? Take hkui-uuw-arwxjwy and prescription medicines only as told by [...] 04/14/2009 Document Revised: 07/21/2017 Document Reviewed: 07/21/2017 [employer] Interactive Patient Education ? 2019 [employer] documented in this encounter Plan of Treatment Not on file documented as of this encounter Visit Diagnoses Not on filedocumented in this encounter
--- OUTSIDE RECORDS SUMMARY | 2025-11-08 12:13 | XMS_ITS | Encounter Summary ---
Author Organization [employer] ([place], [place], [place], [place], [place]) Address [address] [place] [address] Care Team Providers Care Oilfield Plant And Field Operator Name Role Phone Unavailable Primary Care Provider Unavailabl e Encounter Details Date Type Department Care Team (Late st Contact Info) Description 11/17/2019 Transcribed Document [facility] [place] [address] [place] [address] ProviderSimran MD [address] [place] [address] Social History Tobacco Use Types Packs/Day Years Used Date Smoking Tobacco: Never Assessed Sex and Gender Information Value Date Recorded Sex Assigned at Not on file Legal Sex Male 3:07 PM CDT Gender Identity Not on file Sexual Orientation Not on file documented as of this encounter Miscellaneous Notes * Cerner Conversion Note - Historical ProviderMD - 11/17/2019 4:26 PM HOSPITALITY SPECIALIST [facility] [place]HANAEL [place] [address] Visit Date/Time: 11/17/2019 16:26:50 JUAN RIVERO The above patient was seen in the hospital today and needs to be excused from work/school until The patient was admitted to the hospital 11/16/2019 to 11/17/2019 Return to Work/School Date: 11/18/2019 Electronically signed by Audrey [facility] Conversion Reed Dipper Carol at 02/26/2023 9:01 AM CDT documented in this encounter Plan of Treatment Not on file documented as of this encounter Visit Diagnoses Not on filedocumented in this encounter
--- OUTSIDE RECORDS SUMMARY | 2025-11-08 12:13 | XMS_ITS | Encounter Summary ---
Author Organization [employer] ([place], [place], [place], [place], [place]) Address [address] [place] [address] Care Team Providers Care Casting Carrier Name Role Phone Unavailable Primary Care Provider Unavailabl e Encounter Details Date Type Department Care Team (Late st Contact Info) Description 11/17/2019 Transcribed Document [facility] [place] Medicine [address] [place] [address] ProviderSimran MD [address] [place], [place] [id number] Social History Tobacco Use Types Packs/Day Years Used Date Smoking Tobacco: Never Assessed Sex and Gender Information Value Date Recorded Sex Assigned at Not on file Legal Sex Male 3:07 PM CDT Gender Identity Not on file Sexual Orientation Not on file documented as of this encounter Miscellaneous Notes * [employer]ner Conversion Note - Historical ProviderMD - 11/17/2019 11:22 AM FITTER/WELDER Spiritual Care Short Form Entered On: 11/17/2019 11:44 EST Performed On: 11/17/2019 11:22 EST by ADVID OJEDA General Information, Spiritual Care Spiritual Care Referred by : Flavoring Machine Operator initiated Reason for Visit : Initial Ministry Provided to : Patient, Family/Significant other Intervention/Comment/Summary Points : Initial Spiritual Care visit by volunteer, Darrin Garcia. DAVID OJEDA - 11/17/2019 11:44 EST documented in this encounter Plan of Treatment Not on file documented as of this encounter Visit Diagnoses Not on filedocumented in this encounter
--- OUTSIDE RECORDS SUMMARY | 2025-11-08 12:13 | XMS_ITS | Encounter Summary ---
Author Organization [employer] ([place], [place], [place], [place], [place]) Address [address] [place] [address] Care Team Providers Care Septic Tank Servicer Name Role Phone Unavailable Primary Care Provider Unavailabl e Encounter Details Date Type Department Care Team (Late st Contact Info) Description 11/17/2019 Transcribed Document [facility] Radiology [address] [place] [address] Holli Davenport MD [address] [place] [address] Social History Tobacco Use Types Packs/Day Years [...] gated images were done with the polar [employer]. After the Lexiscan injection, the patient was [...] No Lexiscan-induced ischemia demonstrated. Normal ejection fraction. /[id number] MD MICHEL James/CHRISTOPHER / MICHEL / MODL /[id number] documented in this encounter Plan of Treatment Not on file documented as of this encounter Visit Diagnoses Not on filedocumented in this encounter
--- OUTSIDE RECORDS SUMMARY | 2025-11-08 12:13 | XMS_ITS | Encounter Summary ---
Author Organization [employer] ([place], [place], [place], [place], [place]) Address [address] [place] [address] Care Team Providers Care Cylinder Filler Name Role Phone Unavailable Primary Care Provider Unavailabl e Encounter Details Date Type Department Care Team (Late st Contact Info) Description 11/17/2019 Transcribed Document [facility] [place] Family Medicine [address] [place] [address] ProviderSimran MD [address] [place], [place] [address] Social History Tobacco Use Types Packs/Day Years Used Date Smoking Tobacco: Never Assessed Sex and Gender Information Value Date Recorded Sex Assigned at Not on file Legal Sex Male 3:07 PM CDT Gender Identity Not on file Sexual Orientation Not on file documented as of this encounter Miscellaneous Notes * Cerner Conversion Note - Historical ProviderMD - 11/17/2019 1:09 PM SHOP FITTER UM Authorization Entered On: 11/17/2019 13:09 EST Performed On: 11/17/2019 13:09 EST by DESTINY KOLB RN-Utilization Review Primary Insurance Authorization Authorization and Policy Numbers : Insurance 1 Health [facility] Policy Number: [id number] Authorization Number: Insurance Primary Name : [facility] Policy Number: [id number] Authorized Service Begin Date-Primary : 11/16/2019 EST Historical Authorization Comments-Primary : No Authorization Comments Found DESTINY KOLB RN-Utilization Review - 11/17/2019 13:09 EST documented in this encounter Plan of Treatment Not on file documented as of this encounter Visit Diagnoses Not on filedocumented in this encounter
--- OUTSIDE RECORDS SUMMARY | 2025-11-08 12:13 | XMS_ITS | Encounter Summary ---
Author Organization [employer] ([place], [place], [place], [place], [place]) Address [address] [place] [address] Care Team Providers Care Case Picker Name Role Phone Unavailable Primary Care Provider Unavailabl e Encounter Details Date Type Department Care Team (Late st Contact Info) Description 11/17/2019 Transcribed Document [facility] [place] [address] [place] [address] ProviderSimran MD [address] [place], [place] [address] Social History Tobacco Use Types Packs/Day Years Used Date Smoking Tobacco: Never Assessed Sex and Gender Information Value Date Recorded Sex Assigned at Not on file Legal Sex Male 3:07 PM CDT Gender Identity Not on file Sexual Orientation Not on file documented as of this encounter Miscellaneous Notes * [employer]ner Conversion Note - Historical ProviderMD - 11/17/2019 4:52 PM LAND SURVEYOR ASSISTANT Nursing Discharge Summary Entered On: 11/17/2019 16:54 [...] 11/17/2019 16:52 EST Electronically signed by Aud[facility] Conversion Transportation Director Cerner at 02/26/2023 9:00 AM CDT documented in this encounter Plan of Treatment Not on file documented as of this encounter Visit Diagnoses Not on filedocumented in this encounter
--- OUTSIDE RECORDS SUMMARY | 2025-11-08 12:13 | XMS_ITS | Clinical Summary ---
Author Organization [employer] ([place], [place], [place], [place], [place]) Address [address] [place] [address] Care Team Providers Care Greenbelt Name Role Phone Unavailable Primary Care Provider [...]
--- OUTSIDE RECORDS SUMMARY | 2025-11-08 12:14 | XMS_ITS | Encounter Summary ---
Author Organization [employer] ([place], [place], [place], [place], [place]) Address [address] [place] [address] Care Team Providers Care Blanket Folder Name Role Phone Unavailable Primary Care Provider Unavailabl e Encounter Details Date Type Department Care Team (Late st Contact Info) Description 11/16/2019 Transcribed Document [facility] [place] Family Medicine [facility] [place] [address] ProviderSimran MD [address] [place], [place] [id number] Social History Tobacco Use Types Packs/Day Years Used Date Smoking Tobacco: Never Assessed Sex and Gender Information Value Date Recorded Sex Assigned at Not on file Legal Sex Male 3:07 PM CDT Gender Identity Not on file Sexual Orientation Not on file documented as of this encounter Miscellaneous Notes * Cerner Conversion Note - Historical ProviderMD - 11/16/2019 11:37 PM CRYSTALIZER Patient: JUAN BURNETT Age: 44 Years Sex: Male : 1975 Chief Complaint pt c/o dizziness and MSCP with exertion starting on the . pt states he seen Dr. Bowman and had portable monitor placed. pt scheduled for echo and stress test but states hes unable to wait. Primary Care Provider [place], DELONTE History of Present Illness 44M presents with [...] normal EKG and normal troponin. -Rule out [place] with serial cardiac enzymes - HR/BP control [...] - Medical Enoxaparin 40 mg, SubCutaneous, Inj, [id number], Routine, Start 11/16/19 18:00:00 EST ([facility]) [...] # 0.97 x10(3)/uL (Low) 11/16/2019 11:50 EST Graves % 8.5 % 11/16/2019 11:50 EST Graves # 0.41 K/uL 11/16/2019 11:50 EST Eos [...] Code, Continuous Order Electronically signed by Aud[facility] Conversion Site Specialist Cerner at 02/26/2023 8:56 AM CDT documented in this encounter Plan of Treatment Not on file documented as of this encounter Visit Diagnoses Not on filedocumented in this encounter
--- OUTSIDE RECORDS SUMMARY | 2025-11-08 12:14 | XMS_ITS | Clinical Summary ---
Author Organization [facility] Address [address] [place] [address] Phone Care Team Providers Care Business Account Manager Name Role Phone Unavailable Primary Care [...] Advance Directives For more information, please contact: [phone] * Full Code (Latest Code Status on File) Date Activated Date Inactivated Comments 03/30/2022 4:01 PM 03/31/2022 5:23 PM
--- OUTSIDE RECORDS SUMMARY | 2025-11-08 12:14 | XMS_ITS | Encounter Summary ---
Author Organization [employer] ([place], [place], [place], [place], [place]) Address [address] [place] [address] Care Team Providers Care Can Sorter Name Role Phone Unavailable Primary Care Provider Unavailabl e Encounter Details Date Type Department Care Team (Late st Contact Info) Description 11/16/2019 Transcribed Document [facility] [place] [facility] [address] [place] [address] ProviderSimran MD [address], [place] [id number] Social History Tobacco Use Types Packs/Day Years Used Date Smoking Tobacco: Never Assessed Sex and Gender Information Value Date Recorded Sex Assigned at Not on file Legal Sex Male 3:07 PM CDT Gender Identity Not on file Sexual Orientation Not on file documented as of this encounter Miscellaneous Notes * [employer]ner Conversion Note - Historical ProviderMD - 11/16/2019 11:36 AM WINDOW SYSTEMS ADMINISTRATOR ED Triage Entered On: 11/16/2019 11:48 EST [...] : 2 - Emergent Tracking Group : [facility] ED Sofia Hernandez RN - 11/16/2019 [...] PNED ; Probability: 0 ; Diagnosis Code: [id number] Dizziness Date: 11/16/2019 ; Diagnosis Type: Reason For Visit ; Confirmation: Complaint of ; Clinical Dx: Dizziness ; Classification: Medical ; Clinical Service: Emergency medicine ; Code: PNED ; Probability: 0 ; Diagnosis Code: [id number] ED Height and Weight Height Source : Stated Height Entry Format : [place] Height, Feet : 5 ft(Converted to: 152 cm, 60 Inch) Height, Inches : 10 Inch(Converted to: 0 ft 10 Inch, 25.40 cm) Clinical Height : 177.8 cm Weight Source, ED : Critical estimated dosing weight Weight Entry Format : [place] Weight, Pounds : 170 lb Clinical Dosing Weight : 77.27 kg Body Surface Area (BSA) : 1.95 m2 Body Mass Index : 24.4 kg/m2 (HI) [place] Body Weight (IBW) : 72.02 kg Sofia Hernandez RN - 11/16/2019 11:46 EST documented in this encounter Plan of Treatment Not on file documented as of this encounter Visit Diagnoses Not on filedocumented in this encounter
--- OUTSIDE RECORDS SUMMARY | 2025-11-08 12:14 | XMS_ITS | Encounter Summary ---
Author Organization [employer] ([place], [place], [place], [place], [place]) Address [address] [place] [address] Care Team Providers Care Paper Tube Cutter Name Role Phone Unavailable Primary Care Provider Unavailabl e Encounter Details Date Type Department Care Team (Late st Contact Info) Description 11/16/2019 Transcribed Document [facility] [place] [address] [place] [address] ProviderSimran MD [address], [place] [address] Social History Tobacco Use Types Packs/Day Years Used Date Smoking Tobacco: Never Assessed Sex and Gender Information Value Date Recorded Sex Assigned at Not on file Legal Sex Male 3:07 PM CDT Gender Identity Not on file Sexual Orientation Not on file documented as of this encounter Miscellaneous Notes * Cerner Conversion Note - Historical ProviderMD - 11/16/2019 6:58 PM PRECAST CONCRETE IRONWORKER ED Discharge Entered On: 11/16/2019 18:59 EST [...]
--- OUTSIDE RECORDS SUMMARY | 2025-11-08 12:14 | XMS_ITS | Data Portability ---
Author Organization [facility] RODY Nance [place] CLOSED Address [address] [facility] [address] [place] [address] Care Team Providers Care Twisting Frame Changer Name Role Phone DAGMAR KEARNS Primary Care Provider [phone] Assessment No assessment recorded. Plan of Treatment Reminders Order Date Submit Date Provider Last Modified By Organization Details Last Modified Time Details Appointments NEW PATIENT UROLOGY 2025 03:45P M MERLINE DAWSON MD Not available Not available Not available Lab urinalysi s panel, auto 2020 021 [email or web address] [facility], [facility] [address] , [address], [place], [address], 05/02/2021 17:38:01 testoster one, free + total, serum 2020 021 [facility], [address] [place] [address], [address], 05/02/2021 20:15:23 PSA, serum or plasma 2020 021 [email or web address] [facility], [address] [place], [place] [address] , [address], [address], 05/08/2021 22:37:39 urinalysi s, dipstick, auto 2018 019 [email or web address] [facility], [address], [address], [place], [address], 08/11/2019 18:00:56 urinalysi s, dipstick, auto 2018 019 [email or web address] [facility], [address], [address], [place], [address], 11/18/2018 13:40:56 Referral None recorded. Procedures None recorded. Surgeries None recorded. Imaging US, scrotum 2018 019 SANGEETHA [facility], [address] [place], [address], 08/25/2019 15:14:50 electroca rdiogram 2016 017 [email or web address] [facility], [address], [facility], [place], [address], 10/13/2017 08:30:16 Medication Orders Levaquin 500 mg tablet [address] [facility], [address], [address], 05/02/2021 15:48:24 nabumeton e 500 mg tablet [email or web address] [place] [address] Pharmacy 591, [address], [address], 05/02/2021 15:48:57 doxycycli ne monohydra te 100 mg capsule 2018 019 [email or web address] [facility], [address], [address], 08/11/2019 16:01:16 nabumeton e 500 mg tablet [email or web address] [place] [address] Pharmacy 591, [address], [address], 05/02/2021 15:48:57 Patient TargetsNo targets recorded. Patient Instructions Encounter Date Encounter Id Patient Instructions Last Modified By Organization Details Last Modified Time 11/18/2018 [id number] healthy together [email or web address] Not availabl e 11/18/2018 13:40:56 epididymitis and orchitis: care instructions [email or web address] Not available 11/18/2018 13:40:56 08/25/2019 [id number] spermatocele: care instructions [email or web address] Not available 08/26/2019 21:35:02 Reason for Referral None Reported. Results Created Date Observation Date Name Description Value Unit Range Abnormal Flag Note LastModifiedBy Organization Detail LastModifiedTime 05/02/2005/02/2021 urina lysis panel , auto Unknown Analyte Clean Catch Not Available [facility] [address], [address], 05/02/2021 15:49:58 05/02/20 21 05/02/2021 urina lysis panel , auto Unknown Analyte Yellow Not Available [facility] [address], [address], 05/02/2021 15:49:58 05/02/20 21 05/02/2021 urina lysis panel , auto Unknown Analyte Clear Not Available [facility] [address] [place] [address], [address], 05/02/2021 15:49:58 05/02/20 21 05/02/2021 urina lysis panel , auto Unknown Analyte 1.020 Not Available [facility] [address], [address], 05/02/2021 15:49:58 05/02/20 21 05/02/2021 urina lysis panel , auto Unknown Analyte 1.003- 1.035 Not Available [facility] With [address], [place], [address], 05/02/2021 15:49:58 05/02/20 21 05/02/2021 urina lysis panel , auto Unknown Analyte 5.0 Not Available [facility] [address], [place], [address], 05/02/2021 15:49:58 05/02/20 21 05/02/2021 urina lysis panel , auto Unknown Analyte 5.0-8. 0 Not Available [facility] [address], [place], [address], 05/02/2021 15:49:58 05/02/20 21 05/02/2021 urina lysis panel , auto Unknown Analyte Negati ve Not Available [facility] [address], [address], 05/02/2021 15:49:58 05/02/20 21 05/02/2021 urina lysis panel , auto Unknown Analyte Negati ve Not Available [facility] [address], [place], [address], 05/02/2021 15:49:58 05/02/20 21 05/02/2021 urina lysis panel , auto Unknown Analyte Negati ve Not Available [facility] [address], [address], 05/02/2021 15:49:58 05/02/20 21 05/02/2021 urina lysis panel , auto Unknown Analyte Negati ve Not Available [facility] [address], [place], [address], 05/02/2021 15:49:58 05/02/20 21 05/02/2021 urina lysis panel , auto Unknown Analyte Negati ve Not Available [facility] [address], [place], [address], 05/02/2021 15:49:58 05/02/20 21 05/02/2021 urina lysis panel , auto Unknown Analyte Negati ve Not Available [facility] [address], [place], [address], 05/02/2021 15:49:58 05/02/20 21 05/02/2021 urina lysis panel , auto Unknown Analyte 50 mg/dl Not Available [facility] [address], [place], [address], 05/02/2021 15:49:58 05/02/20 21 05/02/2021 urina lysis panel , auto Unknown Analyte Normal Not Available [facility] [address], [place], [address], 05/02/2021 15:49:58 05/02/20 21 05/02/2021 urina lysis panel , auto Unknown Analyte Negati ve Not Available [facility] [address], [place], [address], 05/02/2021 15:49:58 05/02/20 21 05/02/2021 urina lysis panel , auto Unknown Analyte Negati ve Not Available [facility] [address], [place], [address], 05/02/2021 15:49:58 05/02/20 21 05/02/2021 urina lysis panel , auto Unknown Analyte Normal Not Available [facility] [address], [place], [address], 05/02/2021 15:49:58 05/02/20 21 05/02/2021 urina lysis panel , auto Unknown Analyte Normal 1 mg/dl Not Available [facility] [address], [place], [address], 05/02/2021 15:49:58 05/02/20 21 05/02/2021 urina lysis panel , auto Unknown Analyte Negati ve Not Available [facility] [address], [place], [address], 05/02/2021 15:49:58 05/02/20 21 05/02/2021 urina lysis panel , auto Unknown Analyte Negati ve Not Available [facility] [address], [place], [address], 05/02/2021 15:49:58 05/02/20 21 05/02/2021 urina lysis panel , auto Unknown Analyte Negati ve Not Available [facility] [address], [place], [address], 05/02/2021 15:49:58 05/02/20 21 05/02/2021 urina lysis panel , auto Unknown Analyte Negati ve Not Available [facility] [address] [place] [address] Rd [address], [place], [address], 05/02/2021 15:49:58 08/11/2008/11/2019 urina lysis , dipst ick, auto Unknown Analyte Yellow Not Available [facility] [address] [place] [address], [address], 08/11/2019 16:02:55 08/11/2008/11/2019 urina lysis , dipst ick, auto Unknown Analyte Clear Not Available [facility] [address] [place] [address] [address], [address], 08/11/2019 16:02:55 08/11/2008/11/2019 urina lysis , dipst ick, auto Unknown Analyte 1.015 Not Available [facility] [address], [address], 08/11/2019 16:02:55 08/11/2008/11/2019 urina lysis , dipst ick, auto Unknown Analyte 1.003 - 1.035 Not Available [facility] [address], [address], 08/11/2019 16:02:55 08/11/2008/11/2019 urina lysis , dipst ick, auto Unknown Analyte 7.0 Not Available [facility] [address] [place] [address] [address], [address], 08/11/2019 16:02:55 08/11/2008/11/2019 urina lysis , dipst ick, auto Unknown Analyte 5.0 - 8.0 Not Available [facility] [address], [place], [address], 08/11/2019 16:02:55 08/11/20 19 08/11/2019 urina lysis , dipst ick, auto Unknown Analyte Negati ve Not Available [facility] [address], [place], [address], 08/11/2019 16:02:55 08/11/2008/11/2019 urina lysis , dipst ick, auto Unknown Analyte Negati ve Not Available [facility] [address] [place] [address] Rd [address], [place], [address], 08/11/2019 16:02:55 08/11/20 19 08/11/2019 urina lysis , dipst ick, auto Unknown Analyte Negati ve Not Available [facility] [address], [place], [address], 08/11/2019 16:02:55 08/11/20 19 08/11/2019 urina lysis , dipst ick, auto Unknown Analyte Negati ve Not Available [facility] [address], [place], [address], 08/11/2019 16:02:55 08/11/2008/11/2019 urina lysis , dipst ick, auto Unknown Analyte Negtiv e Not Available [facility] [address] [place] [address] [address], [place], [address], 08/11/2019 16:02:55 08/11/2008/11/2019 urina lysis , dipst ick, auto Unknown Analyte Negati ve - Trace Not Available [facility] [address], [place], [address], 08/11/2019 16:02:55 08/11/20 19 08/11/2019 urina lysis , dipst ick, auto Unknown Analyte Normal Not Available [facility] [address], [place], [address], 08/11/2019 16:02:55 08/11/2008/11/2019 urina lysis , dipst ick, auto Unknown Analyte Normal Not Available [facility] [address], [place], [address], 08/11/2019 16:02:55 08/11/2008/11/2019 urina lysis , dipst ick, auto Unknown Analyte Negati ve Not Available [facility] [address], [address], 08/11/2019 16:02:55 08/11/2008/11/2019 urina lysis , dipst ick, auto Unknown Analyte Negati ve Not Available [facility] [address], [place], [address], 08/11/2019 16:02:55 08/11/2008/11/2019 urina lysis , dipst ick, auto Unknown Analyte Normal Not Available [facility] [address] [place] [address] [address], [address], 08/11/2019 16:02:55 08/11/20 19 08/11/2019 urina lysis , dipst ick, auto Unknown Analyte Normal - 1mg/dl Not Available [facility] [address], [place], [address], 08/11/2019 16:02:55 08/11/20 19 08/11/2019 urina lysis , dipst ick, auto Unknown Analyte Negati ve Not Available [facility] [address], [place], [address], 08/11/2019 16:02:55 08/11/2008/11/2019 urina lysis , dipst ick, auto Unknown Analyte Negati ve Not Available [facility] [address], [address], 08/11/2019 16:02:55 08/11/2008/11/2019 urina lysis , dipst ick, auto Unknown Analyte Negati ve Not Available [facility] [address], [address], 08/11/2019 16:02:55 08/11/2008/11/2019 urina lysis , dipst ick, auto Unknown Analyte Negati ve Not Available [facility] [address], [place], [address], 08/11/2019 16:02:55 08/11/2008/11/2019 urina lysis , dipst ick, auto Unknown Analyte Clean Catch Not Available [facility] [address] [place] [address] [address], [place], [address], 08/11/2019 16:02:55 08/11/2008/11/2019 urina lysis , dipst ick, auto Unknown Analyte Automa vanesa Not Available [facility] [address], [address], 08/11/2019 16:02:55 11/18/19 19 11/18/2018 urina lysis , dipst ick, auto Unknown Analyte Yellow Not Available [facility] [address] [place] [address], [address], 11/18/2018 13:03:09 11/18/1911/18/2018 urina lysis , dipst ick, auto Unknown Analyte Clear Not Available [facility] [address] [place] [address], [address], 11/18/2018 13:03:09 11/18/19 19 11/18/2018 urina lysis , dipst ick, auto Unknown Analyte 1.020 Not Available [facility] [address] [place] [address], [address], 11/18/2018 13:03:09 11/18/1911/18/2018 urina lysis , dipst ick, auto Unknown Analyte 1.003 - 1.035 Not Available [facility] [address], [place], [address], 11/18/2018 13:03:09 11/18/1911/18/2018 urina lysis , dipst ick, auto Unknown Analyte 8.0 Not Available [facility] [address], [address], 11/18/2018 13:03:09 11/18/1911/18/2018 urina lysis , dipst ick, auto Unknown Analyte 5.0 - 8.0 Not Available [facility] [address], [place], [address], 11/18/2018 13:03:09 11/18/19 19 11/18/2018 urina lysis , dipst ick, auto Unknown Analyte Negati ve Not Available [facility] With [address], [place], [address], 11/18/2018 13:03:11/18/1911/18/2018 urina lysis , dipst ick, auto Unknown Analyte Negati ve Not Available [facility] [address], [place], [address], 11/18/2018 13:03:11/18/1911/18/2018 urina lysis , dipst ick, auto Unknown Analyte Negati ve Not Available [facility] [address], [place], [address], 11/18/2018 13:03:11/18/19 19 11/18/2018 urina lysis , dipst ick, auto Unknown Analyte Negati ve Not Available [facility] With [address], [place], [address], 11/18/2018 13:03:11/18/1911/18/2018 urina lysis , dipst ick, auto Unknown Analyte Negtiv e Not Available [facility] With [address], [place], [address], 11/18/2018 13:03:09 11/18/1911/18/2018 urina lysis , dipst ick, auto Unknown Analyte Negati ve - Trace Not Available [facility] With [address], [place], [address], 11/18/2018 13:03:11/18/1911/18/2018 urina lysis , dipst ick, auto Unknown Analyte Normal Not Available [facility] With [address], [place], [address], 11/18/2018 13:03:11/18/1911/18/2018 urina lysis , dipst ick, auto Unknown Analyte Normal Not Available [facility] With [address], [place], [address], 11/18/2018 13:03:11/18/1911/18/2018 urina lysis , dipst ick, auto Unknown Analyte Negati ve Not Available [facility] With [address], [place], [address], 11/18/2018 13:03:11/18/1911/18/2018 urina lysis , dipst ick, auto Unknown Analyte Negati ve Not Available [facility] With [address], [place], [address], 11/18/2018 13:03:11/18/1911/18/2018 urina lysis , dipst ick, auto Unknown Analyte Normal Not Available [facility] [address], [place], [address], 11/18/2018 13:03:11/18/1911/18/2018 urina lysis , dipst ick, auto Unknown Analyte Normal - 1mg/dl Not Available [facility] [address] [place] [address] [address], [place], [address], 11/18/2018 13:03:11/18/19 19 11/18/2018 urina lysis , dipst ick, auto Unknown Analyte Negati ve Not Available [facility] [address], [place], [address], 11/18/2018 13:03:11/18/1911/18/2018 urina lysis , dipst ick, auto Unknown Analyte Negati ve Not Available [facility] [address], [place], [address], 11/18/2018 13:03:11/18/19 19 11/18/2018 urina lysis , dipst ick, auto Unknown Analyte Negati ve Not Available [facility] [address], [place], [address], 11/18/2018 13:03:11/18/19 19 11/18/2018 urina lysis , dipst ick, auto Unknown Analyte Negati ve Not Available [facility] [address] [place] [address] [address], [place], [address], 11/18/2018 13:03:11/18/1911/18/2018 urina lysis , dipst ick, auto Unknown Analyte Clean Catch Not Available [facility] [address] [place] [address] [address], [place], [address], 11/18/2018 13:03:09 11/18/19 19 11/18/2018 urina lysis , dipst ick, auto Unknown Analyte Visual Not Available [facility] With [address], [place], [address], 11/18/2018 13:03:09 05/02/20 21 05/02/2021 TESTO STERO NE,TO ANTOINE/F REE testosterone , total 381 NG/dL 249-83 6 normal Refer ence range is for age 20-49 years . Not Available [facility] [address] [place] [address], [address], 05/05/2021 12:31:09 05/02/20 21 05/05/2021 TESTO STERO [...] PERFO RMED AT: [facility] [address] [place] [address] Thu BELTRAN Not Available [facility] [address] [place] [address], [address], 05/05/2021 12:31:09 05/02/20 21 05/02/2021 PSA, serum or plasm a PSA 0.79 NG/mL 0.0 - 4.0 Not Available [facility] [address], [place], [address], 05/02/2021 16:57:26 09/19/20 17 09/19/2017 elect leonela jimenez am No observ ation record ed. [email or web address] [facility] [address], [place], [address], 09/22/2017 08:16:59 09/22/20 17 event monit or No observ ation record ed. [email or web address] [address], [place], [address], 09/23/2017 08:06:34 10/14/20 17 10/10/2017 rhyth m strip , EKG* No observ ation record ed. BARCODE Not Available 2016 15:24:51 08/25/20 19 08/25/2019 US, scrot [facility] [address] [place] [address] Patien t Name: JUAN stock : 1974 Patiparminder t 4 Orderi ng [...] Farshad Donovan MD on 2018 3:[email or web address] Radiology [facility] [address] [place], [address], 08/30/2019 07:28:36 Result Notes None recorded. Procedures Surgical History Date Name Laterality Status Provider Name and Address Organization Details Recorded Time 10/10/20 17 EKG completed KATERINA NINOALVIN FRANCIS, [employer] [address] [place], [place], [address] [place] [address], [facility] 10/10/2017 18:28:16 09/04/20 17 Echocardiogram completed LASHAWN JOEL MD [address] [place], [place], [address] [place] [address], [facility] 09/04/2017 12:52:56 09/04/20 17 VAS - Carotid Duplex completed ERVIN PATEL MD [facility] [place], [place], [address] [place] [address] 09/04/2017 13:09:17 08/29/20 17 EKG completed KATERINA FRANCIS, [employer] [address] [place], [place], [address] [place] [address], [facility] 08/29/2017 14:57:13 11/10/19 14 Appendectomy completed [facility] 08/29/2017 13:30:35 11/10/18 99 Removal of sperm duct(s) completed [facility] 08/29/2017 13:29:57 Knee arthroscopy/surger y completed [facility] 08/29/2017 13:30:50 Wrist arthroscopy/surger y [facility] 08/29/2017 13:31:04 Imaging Results None recorded. [...] Updated DateTime 11/18/2018 177.8 cm 25.8 kg/m2 73868.63 g 74 /min 128/90 mm[Hg] Rosa Houserram [facility] 11/18/2018 13:02:14 Date Recorded Body height Body mass index (BMI) Body weight Provider Name and Address Organization Details Last Updated DateTime 05/02/2021 177.8 cm 25.5 kg/m2 78256.44 g Denise Quiñonez [facility] 05/02/2021 15:48:06 Date Recorded Body height Body mass index (BMI) Body weight Heart rate Systolic And Diastolic Provider Name and Address Organization Details Last Updated DateTime 08/11/2019 177.8 cm 24.4 kg/m2 25906.7 g 76 /min 124/90 mm[Hg] Elzbieta [facility] 08/11/2019 16:01:09 Date Recorded Body height Body mass index (BMI) Body weight Provider Name and Address Organization Details Last Updated DateTime 08/25/2019 177.8 cm 25.5 kg/m2 96289.44 g Elzbieta [facility] 08/25/2019 16:23:57 Date Recorded Body height Body mass index (BMI) Body weight Heart rate Systolic And Diastolic Provider Name and Address Organization Details Last Updated DateTime 10/10/2017 177.8 cm 26.5 kg/m2 46050.59 g 84 /min 118/92 mm[Hg] Caitlyn Palacios [facility] 10/10/2017 13:02:12 Social History Question Answer Notes LastModified by [employer] Document Management software Details LastModified Time Tobacco Smoking Status Former Smoker Caitlyn Palacios [facility] 10/10/2017 12:54:38 How Much Tobacco Do You Chew? 1/day Information not available 10/10/2017 When Did You Quit Smoking? 6-10yearssin celastcigare tte Information not available 10/10/2017 Live Alone Or With Others? With Others Information not available 10/10/2017 Marital Status Informatio n not available 10/10/2017 What Was The Date Of Your Most Recent Tobacco Screening? 11/18/2018 [id number] Information not available 12/28/2019 How Many Children Do You Have? 5 Information not available 10/10/2017 How Much Tobacco Do You Smoke? No 1 Can [email or web address] Information not available 08/11/2019 Has Tobacco Cessation [...] ICD10 Code Diagnosis IMO Codes Diagnosis Note [id number] KATERINASharon FRANCIS APRN CARDIOLOG Y [address] [place] [address] 08/29/2017 12:55:45 09/01/2017 12:59:23 Palpitations [id number] R00.2 Hx of [place] . Will have him undergo 21 day event monitor for further evaluation of HR/rhythm. Will review results when available, further recommenda tions will be made at that time. He is in agreement with plan. Will see him back in 6 weeks for recheck. Advised to call sooner for questions or concerns. Will obtain old records from [facility] for review. Dizziness [id number] R42 Echocardio gram and Carotid Artery Duplex [...] call sooner with questions or concerns. Obesity [id number] E66.9 BMI today 26.1; Weight loss recommende d to ultimately achieve BMI < 25. [id number] ERVIN PATEL MD HE[facility]ATION [address] [place] [address] 09/01/2017 15:14:30 09/01/2017 16:15:25 Palpitations [id number] R00.2 [id number] ERVIN PATEL MD ECHO VASCULAR LAB CLOSED [address] [place] [address] 09/04/2017 10:17:47 09/04/2017 11:48:41 Dizziness [id number] R42 [id number] LASHAWN JOEL MD ECHO VASCULAR LAB CLOSED [address] [place] [address] 09/04/2017 10:19:04 09/04/2017 14:57:14 Dizziness [id number] R42 [id number] KATERINA FRANCIS, TEMPERING KILN TENDER CARDIOLOG Y EAST [address] [place] [address] 10/10/2017 12:44:40 10/13/2017 08:30:16 Palpitations 50634011 R00.2 Hx of Louis . 21 day event monitor revealed NSR. palpitatio ns have improved. No further cardiac workup recommende d at this time. Advised that his 21 day event monitor could be repeated if his palpitatio ns worsened or he becomes concerned. He is in agreement. Dizziness [id number] R42 Echocardio gram and carotid duplex were unremarkab le. Agitated saline injection was negative for intracardi ac shunting. He had recent cardiac cath which was negative for CAD. No further cardiac workup needed at this time. Fatigue 01049170 R53.83 Unknown etiology. Suggest autoimmune workup. [id number] MD VAN THOMSON [facility] [address] [place] [address] 11/18/2018 11:46:46 11/18/2018 13:39:56 Epididymitis [id number] N45.1 He'll follow-up in 3 weeks. If he is not markedly resolved we will arrange for scrotal ultrasound . [id number] MD [facility]AN [facility] [address] [place] [address] 08/11/2019 14:51:16 08/11/2019 16:57:55 Chronic epididymitis [id number] N45.1 we will treat him medically and arrange for a scrotal ultrasound follow-up 2 weeks [id number] MD VAN THOMSON [facility] [address] [place] [address] 08/25/2019 14:58:19 08/25/2019 17:00:24 Spermatocele [id number] N43.40 . Plan as above. 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 Burnett is a pleasant 42-year-old male here today for follow up of palpitations. He has Hx of [place], previously followed with Dr. Al. Was treated with BB in the past, but were discontinued secondary to bradycardia. He recently underwent LHC at [facility] for c/o CP, which revealed normal coronary [...] high. He continues to chew tobacco. KATERINA FRANCIS APRN [address] [place] [address], [phone], [facility] 10/10/2017 18:28:36 11/18/2018 text/html Patient is here [...] known history of trauma. QUIANA BERRY MD [address] [place] [address], [phone], [facility] 11/20/2018 01:04:00 08/11/2019 text/html patient was last [...] in the right scrotum. QUIANA BERRY MD [address] [place] [address], [phone], [facility] 08/12/2019 22:39:21 08/25/2019 text/html patient is here [...] to proceed with surgery. QUIANA BERRY MD [facility] [place], [address], [facility] 08/26/2019 21:35:04 05/02/2021 text/html Patient was last seen by me in August 2019 and treated for epididymitis as well as diagnosis of right and left epididymal cyst. His previous vasectomy with vasectomy reversal. This was successful. He's had no major issues with that. He has however had issues with moderate erectile dysfunction. We discussed potential etiologies. MD [place], [address], [facility] 05/08/2021 22:38:10
--- OUTSIDE RECORDS SUMMARY | 2025-11-08 12:14 | XMS_ITS | Referral Summary ---
Author Organization [employer] ([place], [place], [place], [place], [place]) Address [address] [place] [address] Care Team Providers Care Operations Architect Name Role Phone Unavailable Primary Care Provider [...]
--- OUTSIDE RECORDS SUMMARY | 2025-11-08 12:14 | XMS_ITS | Encounter Summary ---
Author Organization [employer] ([place], [place], [place], [place], [place]) Address [address] [place] [address] Care Team Providers Care Family And Marriage Counsellor Name Role Phone Unavailable Primary Care Provider Unavailabl e Encounter Details Date Type Department Care Team (Late st Contact Info) Description 11/16/2019 Transcribed Document [facility] Radiology [address] [place] [address] Holli Lopez MD [address] [place] [address] Social History Tobacco Use Types Packs/Day Years [...] 1975 Associated Diagnoses: None Author: HOLLI LOPEZ MD-[facility] Basic Information Auto Parts Counter Person: Gracie (New patient on 11/11/2019) Chief Complaint Chest pain History of Present Illness 44 year old male with history of COPD with tobacco abuse and anxiety has been having persistent intermittent chest pains with palpitations, shortness of breath and fatigue since [place]. He has been woken up at night [...] Active COPD - Chronic obstructive pulmonary disease ([id number]) Family History: Hypertension Father CHF - Congestive heart failure Father Procedure history: APPENDECTOMY (45378). Knee surgery. Vasectomy. Physical Examination VS/Measurements No [...] 45.3 \ Radiology Results (Last 48 hours) [id number] -- 11/16/2019 11:36 CR Chest 2 Vws [...]
--- OUTSIDE RECORDS SUMMARY | 2025-11-08 12:14 | XMS_ITS | Encounter Summary ---
Author Organization [employer] ([place], [place], [place], [place], [place]) Address [address] [place] [address] Care Team Providers Care Technical Solutions Director Name Role Phone Unavailable Primary Care Provider Unavailabl e Encounter Details Date Type Department Care Team (Late st Contact Info) Description 11/16/2019 Transcribed Document [facility] Family Medicine [address] [place] [address] ProviderSimran MD [address] [id number] Social History Tobacco Use Types Packs/Day Years Used Date Smoking Tobacco: Never Assessed Sex and Gender Information Value Date Recorded Sex Assigned at Not on file Legal Sex Male 3:07 PM CDT Gender Identity Not on file Sexual Orientation Not on file documented as of this encounter Miscellaneous Notes * Cerner Conversion Note - Historical ProviderMD - 11/16/2019 11:36 AM GUEST SERVICES MANAGER ED Assessment Entered On: 11/16/2019 18:23 EST Performed On: 11/16/2019 18:22 EST by BARBARA SAENZ RN ED General-Functional Assess Communication Barrier : None Primary Language : Syrian Any Spiritual/Cultural Needs or Requests : No [...] smoking. (Last Updated: 11/16/2019 13:43:01 EST by MARTHA, ROEL, PA-C) Home/Environment: Living situation: Home/Independent. (Last Updated: 11/16/2019 13:41:54 EST by ROEL THOMAS PA-C) Cardiovascular ASMT, ED Cardiovascular Assessment WDL : WDL with exceptions Cardiovascular Symptoms : Dizziness at rest, Dizziness with activity, Dyspnea with activity, Palpitations with activity Heart Rhythm : Regular Chest Pain : Yes BARBARA SAENZ RN - 11/16/2019 18:22 EST Respiratory Respiratory Assessment WDL : WDJeff Cough : None Respiratory Pattern Description : Regular BARBARA SAENZ RN - 11/16/2019 18:22 EST Neurologic ASMT, ED Neurologic Assessment WDL : WDL BARBARA SAENZ RN - 11/16/2019 18:22 EST documented in this encounter Plan of Treatment Not on file documented as of this encounter Visit Diagnoses Not on filedocumented in this encounter
--- OUTSIDE RECORDS SUMMARY | 2025-11-08 12:14 | XMS_ITS | Encounter Summary ---
Author Organization [employer] ([place], [place], [place], [place], [place]) Address [address] [place] [address] Care Team Providers Care Canvas Goods Maker Name Role Phone Unavailable Primary Care Provider Unavailabl e Encounter Details Date Type Department Care Team (Late st Contact Info) Description 11/16/2019 Transcribed Document [facility] [facility] [address] ProviderSimran MD [address], [place] [id number] Social History Tobacco Use Types Packs/Day Years Used Date Smoking Tobacco: Never Assessed Sex and Gender Information Value Date Recorded Sex Assigned at Not on file Legal Sex Male 3:07 PM CDT Gender Identity Not on file Sexual Orientation Not on file documented as of this encounter Miscellaneous Notes * Cerner Conversion Note - Historical ProviderMD - 11/16/2019 1:43 PM BIOLOGICAL CHEMIST Patient: JUAN BURNETT Age: 44 years Sex: [...] EST Height Source Stated Height Entry Format [place] Height/Length, BENINESE (ft) 5 ft Height/Length BENINESE 10 Inch CLINICALHEIGHT 177.8 cm [place] Body Weight 72.02 kg Weight Source, ED Critical estimated dosing weight Weight Entry Format [place] Weight Mauritanian lb 170 lb CLINICALWEIGHT 77.27 kg Body [...] Assessment: ED C-SSRS: ED Clinical Reconciliation: ED credit manager: EKG: EKG: Pulse Oximetry Continuous Monitoring: Saline [...] rhythm, No ST changes, no ectopy, normal [place] & QRS intervals, EP Interp. patient monitor: Normal sinus rhythm. Results review: All [...] 20.1 % Lymph # 0.97 x10(3)/uL LOW [place] % 8.5 % [place] # 0.41 K/uL Eos % 1.0 % Eos # 0.05 x10(3)/uL Baso % 0.8 % Baso # 0.04 x10(3)/uL Slide Review No IG# 0.01 x10(3)/uL IG% 0.20 % . Radiology results: Radiology Results (Last 48 hours) [id number] -- 11/16/2019 11:36 CR Chest 2 Vws [...] - 11/16/2019 14:45:00 , Dr. Davenport with [facility], recommends Admit for observation to hospitalist., CTA chest pending and 2nd troponin pending. Cardiology and Dr. Betancourt aware.. Plan Condition: Stable. Orders: Launch Orders Admit/Transfer/Discharge: Place in Observation (Order): Start: 11/16/2019 15:02 EST, Observation Reason: chest pain, palpitations, soa, Unit type: Med-Surg with telemetry, Admitting: [facility] BETANCOURT MD. Notes: I certify that the MLP/AUTOMATIC LUMP MAKING MACHINE TENDER performed the services as delegated. . Electronically signed by Audrey [facility] Conversion Helper Animal Laboratory Cerner at 02/26/2023 9:01 AM CDT documented in this encounter Plan of Treatment Not on file documented as of this encounter Visit Diagnoses Not on filedocumented in this encounter
--- OUTSIDE RECORDS SUMMARY | 2025-11-08 12:14 | XMS_ITS | Encounter Summary ---
Author Organization [employer] ([place], [place], [place], [place], [place]) Address [address] [place] [address] Care Team Providers Care Highway Patrol Pilot Name Role Phone Unavailable Primary Care Provider Unavailabl e Encounter Details Date Type Department Care Team (Late st Contact Info) Description 11/16/2019 Transcribed Document [facility] [place] [address] [place] [address] ProviderSimran MD [address] [place], [place] [address] Social History Tobacco Use Types Packs/Day Years Used Date Smoking Tobacco: Never Assessed Sex and Gender Information Value Date Recorded Sex Assigned at Not on file Legal Sex Male 3:07 PM CDT Gender Identity Not on file Sexual Orientation Not on file documented as of this encounter Miscellaneous Notes * Cerner Conversion Note - Historical ProviderMD - 11/16/2019 11:36 AM FRONT OFFICE REPRESENTATIVE [place] Suicide Severity Rating Scale (C-SSRS) Entered On: 11/16/2019 18:23 EST Performed On: 11/16/2019 18:22 EST by BARBARA SAENZ RN [place] Suicide Severity Rating Scale (C-SSRS) CSSRS Past Month Wish to be : No CSSRS Past Month Suicidal Thoughts : No CSSRS Lifetime Suicide Behavior : No Suicide Severity Rating Score : 0 Suicide Severity Rating : No Additional Care Required at this time BARBARA SAENZ RN - 11/16/2019 18:22 EST Electronically signed by Alma Delia Ventura Conversion Boring And Filling Machine Operator Cerner at 02/26/2023 9:08 AM CDT documented in this encounter Plan of Treatment Not on file documented as of this encounter Visit Diagnoses Not on filedocumented in this encounter
== END 2025-11-07 23:59 | disposition home or self-care (01) ==
LOC: LAB.DROPOF 11-08 12:10
PROVIDERS: PCP Student in an Organized Health Care Education/Training Program; Visit Provider Nurse Practitioner
DX: J06.9 Acute upper respiratory infection, unspecified (principal)
CPT/HCPCS: 87631